=== PATIENT | male | born 1970 | race Caucasian/White ===

== ENCOUNTER → 2017-04-08 11:04 | Outpatient (CLI) | payer BC, SELFPAY ==
[2017-04-08 12:51] LABS: Absolute Neutrophil Count 5.2 X10^3/uL (2.0-7.7); Basophil# 0.03 X10^3/uL; Basophil% 0.3 % (0-1); Eosinophil# 0.31 X10^3/uL; Eosinophils% 3.6 % (0-5); Hematocrit 49.5 % (40-54); Hemoglobin 17.2 g/dl (13.0-16.5); Lymphocyte % 30.3 % (19-41); Mean Corp Hgb Conc 34.7 g/gl (32-36); Mean Corpuscular Hgb 29.5 pg (27.0-32.0); Mean Corpuscular Volume 84.9 fL (80-94); Mean Platelet Vol. 10.3 fl (6.2-12.0); Monocyte# 0.48 X10^3/uL; Monocyte% 5.6 % (0-10); Neutrophil # 5.15 X10^3/uL (2.7-7.7); Platelet Count 287 K/mm3 (150-450); RBC Distribution Width CV 14.3 % (11.6-14.6); RBC Distribution Width SD 43.9 fl (35.1-43.9); Red Blood Count 5.83 M/mm3 (4.6-6.2); White Blood Count 8.6 K/mm3 (4.4-11.0)
[2017-04-08 12:53] LABS: POSITIVE COUNT NO; POSITIVE DIFFERENTIAL NO; POSITIVE MORPHOLOGY NO
[2017-04-08 16:14] LABS: ALB/GLOB Ratio 0.9 RATIO (0.9-2.4); AST(SGOT) 39 U/L (15-37); Alanine Aminotransfer ALT/SGPT 71 U/L (16-61); Albumin, Serum 3.8 g/dL (3.2-5.0); Alkaline Phosphatase 93 U/L (45-117); Anion Gap 7 (5-15); BUN 16 mg/dL (7-18); BUN/Creat Ratio 14.2 RATIO (10-20); Calcium,Total 8.9 mg/dL (8.5-10.1); Chloride 105 mmol/L (98-107); Creatinine, Serum 1.13 mg/dL (0.70-1.30); EST Glomerular Filtration Rate 73 mL/min (>60); Est Glom Filt Rate - Afr Amer 89 mL/min (>60); Globulin 4.3 g/dL (2.2-4.2); Glucose 95 mg/dL (74-106); Potassium 3.8 mmol/L (3.5-5.1); Protein, Total 8.1 g/dL (6.4-8.2); Sodium Level 141 mmol/L (136-145); Thyroid Stim Hormone (TSH) 1.37 uIU/mL (0.358-3.74)
== END ==
PROVIDERS: Family Provider Family Medicine; PCP Family Medicine; Visit Provider Family Medicine
DX: I10 Essential (primary) hypertension (principal); K83.8 Other specified diseases of biliary tract; E66.01 Morbid (severe) obesity due to excess calories
CPT/HCPCS: 36415; 80053; 84443; 85025

== ENCOUNTER → 2017-04-10 20:13 | Outpatient (CLI) | payer BC, SELFPAY | LOC: SL 20:13 | PROVIDERS: Family Provider Family Medicine; PCP Family Medicine; Visit Provider Family Medicine | DX: G47.33 Obstructive sleep apnea (adult) (pediatric) (principal) | CPT/HCPCS: 95811 ==

== ENCOUNTER → 2017-07-09 15:54 | Outpatient (CLI) | payer BC, SELFPAY ==
[2017-07-09 17:42] LABS: Absolute Lymphocyte Count 2.89 X10^3/ul (0.83-4.51); Basophil# 0.06 X10^3/uL; Basophil% 0.5 % (0-1); Eosinophil# 0.32 X10^3/uL; Eosinophils% 2.9 % (0-5); Hematocrit 46.3 % (40-54); Hemoglobin 16.4 g/dl (13.0-16.5); Lymphocyte # 2.89 X10^3/ul (4.0); Lymphocyte % 26.3 % (19-41); Mean Corp Hgb Conc 35.4 g/gl (32-36); Mean Corpuscular Hgb 29.4 pg (27.0-32.0); Mean Platelet Vol. 10.6 fl (6.2-12.0); Monocyte# 0.71 X10^3/uL; Monocyte% 6.5 % (0-10); Neutrophil # 6.97 X10^3/uL (2.7-7.7); Neutrophil % 63.5 % (47-70); Platelet Count 280 K/mm3 (150-450); RBC Distribution Width CV 13.5 % (11.6-14.6); RBC Distribution Width SD 40.8 fl (35.1-43.9); Red Blood Count 5.58 M/mm3 (4.6-6.2)
[2017-07-09 17:45] LABS: ALB/GLOB Ratio 0.9 RATIO (0.9-2.4); AST(SGOT) 26 U/L (15-37); Alanine Aminotransfer ALT/SGPT 50 U/L (16-61); Albumin, Serum 3.8 g/dL (3.2-5.0); Alkaline Phosphatase 100 U/L (45-117); Anion Gap 9 (5-15); BUN 17 mg/dL (7-18); BUN/Creat Ratio 15.6 RATIO (10-20); Chloride 105 mmol/L (98-107); Creatinine, Serum 1.09 mg/dL (0.70-1.30); EST Glomerular Filtration Rate 76 mL/min (>60); Est Glom Filt Rate - Afr Amer 92 mL/min (>60); Globulin 4.1 g/dL (2.2-4.2); Glucose 84 mg/dL (74-106); Potassium 3.7 mmol/L (3.5-5.1); Protein, Total 7.9 g/dL (6.4-8.2); Sodium Level 141 mmol/L (136-145); Thyroid Stim Hormone (TSH) 1.52 uIU/mL (0.358-3.74)
[2017-07-09 18:25] LABS: POSITIVE COUNT NO; POSITIVE DIFFERENTIAL NO; POSITIVE MORPHOLOGY NO
== END ==
PROVIDERS: Visit Provider Family Medicine Geriatric Medicine
DX: Z00.00 Encounter for general adult medical examination without abnormal findings (principal)
CPT/HCPCS: 36415; 80053; 84443; 85025

== ENCOUNTER → 2018-01-18 16:25 | Outpatient (CLI) | payer BC, SELFPAY ==
[2018-01-18 14:10] VITALS: BMI 51.6
[2018-01-18 17:57] LABS: ALB/GLOB Ratio 0.9 RATIO (0.9-2.4); AST(SGOT) 27 U/L (15-37); Alanine Aminotransfer ALT/SGPT 48 U/L (16-61); Albumin, Serum 3.5 g/dL (3.2-5.0); Alkaline Phosphatase 79 U/L (45-117); Anion Gap 5 (5-15); BUN 15 mg/dL (7-18); BUN/Creat Ratio 14.4 RATIO (10-20); Calcium,Total 8.4 mg/dL (8.5-10.1); Chloride 108 mmol/L (98-107); Creatinine, Serum 1.04 mg/dL (0.70-1.30); EST Glomerular Filtration Rate 80 mL/min (>60); Est Glom Filt Rate - Afr Amer 97 mL/min (>60); Globulin 3.8 g/dL (2.2-4.2); Glucose 84 mg/dL (74-106); Potassium 3.7 mmol/L (3.5-5.1); Protein, Total 7.3 g/dL (6.4-8.2); Sodium Level 142 mmol/L (136-145); Thyroid Stim Hormone (TSH) 1.15 uIU/mL (0.358-3.74)
[2018-01-18 20:33] LABS: Absolute Lymphocyte Count 3.64 X10^3/ul (0.83-4.51); Absolute Neutrophil Count 7.4 X10^3/uL (2.0-7.7); Basophil# 0.06 X10^3/uL; Basophil% 0.5 % (0-1); Eosinophil# 0.34 X10^3/uL; Eosinophils% 2.8 % (0-5); Hematocrit 42.6 % (40-54); Lymphocyte # 3.64 X10^3/ul (4.0); Lymphocyte % 30.1 % (19-41); Mean Corp Hgb Conc 35.2 g/gl (32-36); Mean Corpuscular Hgb 30.4 pg (27.0-32.0); Mean Corpuscular Volume 86.4 fL (80-94); Mean Platelet Vol. 10.1 fl (6.2-12.0); Monocyte# 0.63 X10^3/uL; Monocyte% 5.2 % (0-10); Neutrophil # 7.39 X10^3/uL (2.7-7.7); Neutrophil % 61.2 % (47-70); Platelet Count 268 K/mm3 (150-450); RBC Distribution Width CV 13.7 % (11.6-14.6); Red Blood Count 4.93 M/mm3 (4.6-6.2); White Blood Count 12.1 K/mm3 (4.4-11.0)
[2018-01-18 20:35] LABS: POSITIVE COUNT NO; POSITIVE DIFFERENTIAL NO; POSITIVE MORPHOLOGY NO
== END ==
PROVIDERS: PCP Family Medicine Geriatric Medicine; Visit Provider Family Medicine Geriatric Medicine
DX: R53.83 Other fatigue (principal)
CPT/HCPCS: 36415; 80053; 84443; 85025

== ENCOUNTER → 2018-03-09 12:10 | Outpatient (CLI) | payer BC, SELFPAY ==
[2018-01-18 14:10] VITALS: BMI 51.6
== END ==
PROVIDERS: Family Provider Family Medicine Geriatric Medicine; PCP Family Medicine Geriatric Medicine; Referring Provider Family Medicine Geriatric Medicine; Visit Provider Family Medicine Geriatric Medicine
DX: R68.83 Chills (without fever) (principal)
CPT/HCPCS: 87633

== ENCOUNTER → 2018-06-04 17:40 | Outpatient (CLI) | payer BC, SELFPAY ==
[2018-01-18 14:10] VITALS: BMI 51.6
[2018-06-04 19:42] LABS: M R Staph aureus DNA By PCR Negative (Negative); Probe Check PASS; Specimen Processing Control PASS; Staph aureus DNA By PCR POSITIVE (Negative)
== END ==
PROVIDERS: Family Provider Family Medicine Geriatric Medicine; PCP Family Medicine Geriatric Medicine; Referring Provider Podiatrist; Visit Provider Podiatrist
DX: L02.91 Cutaneous abscess, unspecified (principal)
CPT/HCPCS: 87070; 87075; 87077; 87186; 87205; 87640

== ENCOUNTER → 2018-07-13 15:42 | Outpatient (CLI) | payer BC, SELFPAY ==
[2018-07-13 14:15] VITALS: BMI 51.3
[2018-07-13 16:56] LABS: Absolute Lymphocyte Count 3.84 X10^3/ul (0.83-4.51); Absolute Neutrophil Count 6.1 X10^3/uL (2.0-7.7); Basophil# 0.05 X10^3/uL; Basophil% 0.4 % (0-1); Eosinophil# 0.39 X10^3/uL; Eosinophils% 3.5 % (0-5); Hemoglobin 16.7 g/dl (13.0-16.5); Lymphocyte # 3.84 X10^3/ul (4.0); Lymphocyte % 34.4 % (19-41); Mean Corp Hgb Conc 35.5 g/gl (32-36); Mean Corpuscular Hgb 30.2 pg (27.0-32.0); Mean Platelet Vol. 10.2 fl (6.2-12.0); Monocyte# 0.74 X10^3/uL; Monocyte% 6.6 % (0-10); Neutrophil # 6.12 X10^3/uL (2.7-7.7); Neutrophil % 54.8 % (47-70); Platelet Count 287 K/mm3 (150-450); RBC Distribution Width CV 13.2 % (11.6-14.6); RBC Distribution Width SD 40.8 fl (35.1-43.9); Red Blood Count 5.53 M/mm3 (4.6-6.2); White Blood Count 11.2 K/mm3 (4.4-11.0)
[2018-07-13 17:07] LABS: ALB/GLOB Ratio 0.9 RATIO (0.9-2.4); AST(SGOT) 23 U/L (15-37); Alanine Aminotransfer ALT/SGPT 46 U/L (16-61); Albumin, Serum 3.9 g/dL (3.2-5.0); Alkaline Phosphatase 91 U/L (45-117); Anion Gap 3 (5-15); BUN 18 mg/dL (7-18); BUN/Creat Ratio 15.3 RATIO (10-20); Calcium,Total 9.2 mg/dL (8.5-10.1); Chloride 106 mmol/L (98-107); Creatinine, Serum 1.18 mg/dL (0.70-1.30); EST Glomerular Filtration Rate 69 mL/min (>60); Est Glom Filt Rate - Afr Amer 84 mL/min (>60); Globulin 4.3 g/dL (2.2-4.2); Glucose 83 mg/dL (74-106); Potassium 3.8 mmol/L (3.5-5.1); Protein, Total 8.2 g/dL (6.4-8.2); Sodium Level 139 mmol/L (136-145)
[2018-07-13 17:12] LABS: POSITIVE COUNT NO; POSITIVE DIFFERENTIAL NO; POSITIVE MORPHOLOGY NO
== END ==
PROVIDERS: Family Provider Family Medicine Geriatric Medicine; PCP Family Medicine Geriatric Medicine; Visit Provider Family Medicine Geriatric Medicine
DX: I10 Essential (primary) hypertension (principal)
CPT/HCPCS: 36415; 80053; 84443; 85025

== ENCOUNTER → 2019-01-11 | Outpatient (CLI) | payer BC, SELFPAY ==
[2018-07-13 14:15] VITALS: BMI 51.3
[2019-01-11 17:17] LABS: Absolute Lymphocyte Count 3.53 X10^3/uL (0.83-4.51); Absolute Neutrophil Count 6.6 X10^3/uL (2.0-7.7); Basophil# 0.09 X10^3/uL; Basophil% 0.8 % (0-1); Eosinophil# 0.34 X10^3/uL; Eosinophils% 3.1 % (0-5); Hematocrit 46.6 % (40-54); Hemoglobin 15.9 g/dL (13.0-16.5); Lymphocyte # 3.53 X10^3/ul (4.0); Lymphocyte % 31.7 % (19-41); Mean Corp Hgb Conc 34.1 g/dL (32-36); Mean Corpuscular Hgb 29.8 pg (27.0-32.0); Mean Corpuscular Volume 87.4 fL (80-94); Monocyte# 0.56 X10^3/uL; NRBC Flagged by Analyzer 0 % (0-5); Neutrophil # 6.58 X10^3/uL (2.7-7.7); Platelet Count 289 K/mm3 (150-450); RBC Distribution Width CV 12.8 % (11.6-14.6); RBC Distribution Width SD 40.4 fl (35.1-43.9); Red Blood Count 5.33 M/mm3 (4.6-6.2); White Blood Count 11.1 K/mm3 (4.4-11.0)
[2019-01-11 17:51] LABS: ALB/GLOB Ratio 0.9 RATIO (0.9-2.4); AST(SGOT) 25 U/L (15-37); Alanine Aminotransfer ALT/SGPT 46 U/L (16-61); Albumin, Serum 3.7 g/dL (3.2-5.0); Alkaline Phosphatase 77 U/L (45-117); Anion Gap 8 (5-15); BUN 17 mg/dL (7-18); BUN/Creat Ratio 15.9 RATIO (10-20); Calcium,Total 8.8 mg/dL (8.5-10.1); Chloride 107 mmol/L (98-107); Creatinine, Serum 1.07 mg/dL (0.70-1.30); EST Glomerular Filtration Rate 78 mL/min (>60); Est Glom Filt Rate - Afr Amer 94 mL/min (>60); Globulin 3.9 g/dL (2.2-4.2); Glucose 107 mg/dL (74-106); PSA,Total - Annual Screen 0.66 ng/mL (0.00-4.00); Potassium 3.6 mmol/L (3.5-5.1); Protein, Total 7.6 g/dL (6.4-8.2); Sodium Level 143 mmol/L (136-145); Thyroid Stim Hormone (TSH) 1.31 uIU/mL (0.358-3.74)
== END | disposition home or self-care (01) ==
LOC: POLAB3 16:10
PROVIDERS: Family Provider Family Medicine Geriatric Medicine; PCP Family Medicine Geriatric Medicine; Visit Provider Family Medicine Geriatric Medicine
DX: I10 Essential (primary) hypertension (principal)
CPT/HCPCS: 36415; 80053; 84153; 84443; 85025; G0103

== ENCOUNTER → 2019-03-18 16:01 | Outpatient (CLI) | payer BC, SELFPAY ==
[2019-01-12 08:34] VITALS: BMI 54.0
--- NOTE | 2019-03-18 16:06 | RAD_ITS ---
STUDY: X-RAY - LUMBAR SPINE REASON FOR EXAM: Male, 48 years old. low back pain, lumbar strain TECHNIQUE: 2 view(s) of the lumbar spine were obtained. COMPARISON: None FINDINGS: Normal lumbar lordosis. There is no substantial scoliosis. There is a normal alignment of the vertebrae. There is multilevel endplate spondylosis of the lower thoracic and lumbar vertebrae. There is disc space narrowing at L4-L5 more than L3-L4. Multilevel facet arthropathy noted. The soft tissue structures are unremarkable. RAD/Lumbar Spine 2 or 3 Views IMPRESSION: Degenerative disc disease and facet arthropathy. Electronically Signed: Toribio Hagen MD ([place]) at 20:58 EST , Service support ,
== END ==
LOC: MTLAB 16:04 → MTRAD 16:04
PROVIDERS: PCP Family Medicine Geriatric Medicine; Referring Provider Chiropractor Orthopedic; Visit Provider Chiropractor Orthopedic
DX: S39.012A Strain of muscle, fascia and tendon of lower back, initial encounter (principal)
CPT/HCPCS: 72100

== ENCOUNTER → 2019-12-21 | Outpatient (CLI) | payer OTHER, SELFPAY ==
[2019-01-12 08:34] VITALS: BMI 54.0
== END | disposition home or self-care (01) ==
LOC: LABSPEC 15:46
PROVIDERS: PCP Family Medicine; Referring Provider Family Medicine; Visit Provider Family Medicine
DX: Z20.828 Contact with and (suspected) exposure to other viral communicable diseases (principal)
CPT/HCPCS: 87635; U0003

== ENCOUNTER → 2020-05-05 07:23 | Outpatient (CLI) | payer OTHER, SELFPAY ==
[2020-01-11 13:46] VITALS: BMI 54.1
[2020-05-05 08:11] LABS: BNP,B-Type NATRIURETIC PEPTIDE 3.4 pg/mL (0-100)
[2020-05-05 08:23] LABS: AST(SGOT) 33 U/L (15-37); Alanine Aminotransfer ALT/SGPT 63 U/L (16-61); Albumin, Serum 3.8 g/dL (3.2-5.0); Alkaline Phosphatase 85 U/L (45-117); Anion Gap 3 (5-15); BUN 15 mg/dL (7-18); BUN/Creat Ratio 13.8 RATIO (10-20); Chloride 104 mmol/L (98-107); Cholesterol 216 mg/dL (200); Creatinine, Serum 1.09 mg/dL (0.70-1.30); EST Glomerular Filtration Rate 76 mL/min (>60); Est Glom Filt Rate - Afr Amer 91 mL/min (>60); Glucose 97 mg/dL (74-106); High Density Lipoprotein 33 mg/dL; Potassium 3.9 mmol/L (3.5-5.1); Protein, Total 7.8 g/dL (6.4-8.2); Sodium Level 139 mmol/L (136-145); Triglycerides 195 mg/dL; Very Low Density Lipoprotein 39 mg/dL (5-40)
== END ==
PROVIDERS: PCP Family Medicine; Referring Provider Family Medicine; Visit Provider Family Medicine
DX: E78.5 Hyperlipidemia, unspecified (principal); R60.0 Localized edema
CPT/HCPCS: 36415; 80053; 80061; 83880

== ENCOUNTER 2020-07-02 08:36 | Day surgery (SDC) | payer OTHER, SELFPAY ==
[2020-01-11 13:46] VITALS: BMI 54.1
[2020-07-02 08:56] VITALS: BP 164/93; PULSE 72; RESP 16; TEMP 36.4; O2SAT 94; BMI 55.5
--- NOTE | 2020-07-02 09:00 | RAD_ITS ---
STUDY: X-RAY - PELVIS AND LEFT HIP REASON FOR EXAM: Fluoroscopic guided intra-articular steroid injection. TECHNIQUE: 2 fluoroscopic images of the pelvis and hip. COMPARISON: None. FINDINGS: There is a needle overlying the left femoral head with intra-articular contrast. 19 seconds of fluoroscopy time was used. Electronically Signed: Eder Pinedo MD at 11:34 EDT Tel , Service support , RAD/Fluoro Guided Needle Placement
--- NOTE | 2020-07-02 09:46 | PCM.OPRPT ---
Report of Operation Date of Procedure: 07/02/20 Pre-Operative Diagnosis: Osteoarthritis of the left hip Post-Operative Diagnosis: Osteoarthritis of the left hip Surgery/Procedure Performed:: Left hip intra-articular steroid injection under fluoroscopic guidance Description of Surgical Findings:: DESCRIPTION OF PROCEDURE: History and physical of today was reviewed. Risks and benefits of the procedure were explained. The patient understood and agreed to proceed. Informed consent was obtained. IV inserted per routine protocol. The patient was taken to the operating room and placed in the supine position. The left hip area was prepped and draped in a sterile fashion using iodine x3. Under fluoroscopy guidance on AP view, the left hip joint was visualized. The skin and subcutaneous tissue was anesthetized with approximately 3 mL of 1% lidocaine using a 25-gauge regular needle approximately 3 cm cephalad to the left greater trochanter. Under direct visualization with fluoroscopy on an AP view, using a 22-gauge 5-inch spinal needle, the needle was advanced via the skin using the lateral approach. The tip of the needle was maneuvered and directed towards the superiormost aspect of the hip joint. Once the tip of the needle was at the vicinity of the joint, after negative aspiration for blood and positive aspiration of synovial fluid, a total of 1 mL of contrast was injected to confirm correct placement of the needle as well as halo spread around the hip joint. After repeated negative aspiration for blood and confirmation on AP as well as oblique view, a total of 10 mL of preservative-free 0.25% Marcaine with 80 mg of Depo-Medrol was injected easily. The needle was then removed intact. The patient experienced no sign or symptoms of intrathecal or intravascular injection. The patient experienced no paresthesia. The procedure was completed without any apparent difficulty or any complications. The patient appeared to tolerate it well. ASSESSMENT AND PLAN: This is a 50-year-old male with osteoarthritis of the left hip, status post left hip intra-articular steroid injection under fluoroscopic guidance, patient will continue his current medications, patient will follow in approximately 2 weeks for reevaluation. Type of Anesthesia: MAC Estimated Blood Loss (mL): minimal Complications None
[2020-07-02] MEDS: Lidocaine 1% (5 ml sdv) 5 ML Vial (09:58)
[2020-07-02] MEDS: Bupivacaine 0.25% 30 ML Vial (09:59)
[2020-07-02] MEDS: MethylPREDNISolone Acetate 80 MG/ML Vial (09:59)
[2020-07-02 10:07] VITALS: BP 122/68; BP 164/93; PULSE 74; RESP 17; TEMP 36.3; O2SAT 95
[2020-07-02 10:10] VITALS: BP 121/74; BP 164/93; PULSE 72; RESP 16; O2SAT 94
[2020-07-02 10:15] VITALS: BP 140/90; BP 164/93; PULSE 65; RESP 17; O2SAT 95
[2020-07-02 10:21] VITALS: BP 151/86; BP 164/93; PULSE 73; RESP 17; TEMP 36.1; O2SAT 93
[2020-07-02] MEDS: Lactated Ringers 1,000 ML 100 ML IV (10:21)
[2020-07-02 10:37] VITALS: BP 164/93
== END 2020-07-02 10:39 | disposition home or self-care (01) ==
LOC: SDC 08:38 → AC 08:42
PROVIDERS: PCP Family Medicine; Referring Provider Anesthesiology Pain Medicine; Visit Provider Anesthesiology Pain Medicine
PROC: 3E0U3GC Introduction of Other Therapeutic Substance into Joints, Percutaneous Approach (ICD-10-PCS; CPT 20610; principal; 2020-07-02 09:55)
DX: M16.12 Unilateral primary osteoarthritis, left hip (principal); I10 Essential (primary) hypertension; J45.909 Unspecified asthma, uncomplicated; K21.9 Gastro-esophageal reflux disease without esophagitis; E66.01 Morbid (severe) obesity due to excess calories; Z68.43 Body mass index [BMI] 50.0-59.9, adult; F17.210 Nicotine dependence, cigarettes, uncomplicated; Z79.51 Long term (current) use of inhaled steroids; Z79.899 Other long term (current) drug therapy
CPT/HCPCS: 20610; 76000; 77002; J7120

== ENCOUNTER → 2021-02-04 16:42 | Outpatient (CLI) | payer OTHER, SELFPAY ==
[2021-02-04 18:13] LABS: AST(SGOT) 26 U/L (15-37); Alanine Aminotransfer ALT/SGPT 87 U/L (16-61); Alkaline Phosphatase 88 U/L (45-117); Anion Gap 9 (5-15); BUN 16 mg/dL (7-18); BUN/Creat Ratio 16.3 RATIO (10-20); Calcium,Total 9.3 mg/dL (8.5-10.1); Chloride 101 mmol/L (98-107); Cholesterol 143 mg/dL (200); Creatinine, Serum 0.98 mg/dL (0.70-1.30); EST Glomerular Filtration Rate 85 mL/min (>60); Est Glom Filt Rate - Afr Amer 103 mL/min (>60); Glucose 89 mg/dL (74-106); High Density Lipoprotein 34 mg/dL; Potassium 3.5 mmol/L (3.5-5.1); Sodium Level 138 mmol/L (136-145); Triglycerides 143 mg/dL; Very Low Density Lipoprotein 29 mg/dL (5-40)
== END ==
PROVIDERS: PCP Nurse Practitioner Family; Referring Provider Nurse Practitioner Family; Visit Provider Nurse Practitioner Family
DX: E78.5 Hyperlipidemia, unspecified (principal)
CPT/HCPCS: 36415; 80053; 80061

== ENCOUNTER → 2021-08-20 | Outpatient (CLI) | payer OTHER, SELFPAY ==
[2021-08-20 17:57] LABS: Absolute Lymphocyte Count 3.17 X10^3/uL (0.83-4.51); Absolute Neutrophil Count 7.6 X10^3/uL (2.0-7.7); Basophil# 0.08 X10^3/uL; Basophil% 0.7 % (0-1); Eosinophil# 0.22 X10^3/uL; Eosinophils% 1.9 % (0-5); Hemoglobin 16.7 g/dL (13.0-16.5); Lymphocyte # 3.17 X10^3/ul (0.83-4.51); Mean Corp Hgb Conc 34.8 g/dL (32-36); Mean Corpuscular Hgb 29.9 pg (27.0-32.0); Mean Corpuscular Volume 85.9 fL (80-94); Mean Platelet Vol. 9.9 fl (6.2-12.0); Monocyte# 0.59 X10^3/uL; NRBC Flagged by Analyzer 0 % (0-5); Neutrophil # 7.63 X10^3/uL (2.7-7.7); Neutrophil % 65.1 % (47-70); Platelet Count 270 K/mm3 (150-450); RBC Distribution Width CV 13.4 % (11.6-14.6); RBC Distribution Width SD 41.9 fl (35.1-43.9); Red Blood Count 5.59 M/mm3 (4.6-6.2); White Blood Count 11.7 K/mm3 (4.4-11.0)
[2021-08-20 18:33] LABS: AST(SGOT) 25 U/L (15-37); Alanine Aminotransfer ALT/SGPT 61 U/L (16-61); Albumin, Serum 3.8 g/dL (3.2-5.0); Alkaline Phosphatase 70 U/L (45-117); Anion Gap 8 (5-15); BUN 15 mg/dL (7-18); BUN/Creat Ratio 15.2 RATIO (10-20); Calcium,Total 9.4 mg/dL (8.5-10.1); Chloride 107 mmol/L (98-107); Cholesterol 120 mg/dL (200); Creatinine, Serum 0.99 mg/dL (0.70-1.30); EST Glomerular Filtration Rate 84 mL/min (>60); Est Glom Filt Rate - Afr Amer 102 mL/min (>60); Globulin 3.8 g/dL (2.2-4.2); Glucose 91 mg/dL (74-106); High Density Lipoprotein 30 mg/dL; Potassium 3.5 mmol/L (3.5-5.1); Protein, Total 7.6 g/dL (6.4-8.2); Sodium Level 140 mmol/L (136-145); T4 Free Direct 1.21 ng/dL (0.76-1.46); Thyroid Stim Hormone (TSH) 1.39 uIU/mL (0.358-3.74); Triglycerides 158 mg/dL; Very Low Density Lipoprotein 32 mg/dL (5-40)
[2021-08-21 08:05] LABS: Hepatitis B Surface Antibody Non-Reactive; Hepatitis B Surface Antigen Non-Reactive (Nonreactive); Hepatitis C Antibody Non-Reactive (Nonreactive)
[2021-08-22 11:05] LABS: Thyroid Peroxidase AB 11 IU/mL (0-34)
== END | disposition home or self-care (01) ==
LOC: MFPLAB 17:08
PROVIDERS: PCP Family Medicine; Referring Provider Family Medicine; Visit Provider Family Medicine
DX: E78.5 Hyperlipidemia, unspecified (principal); F17.200 Nicotine dependence, unspecified, uncomplicated; R79.89 Other specified abnormal findings of blood chemistry; E04.1 Nontoxic single thyroid nodule
CPT/HCPCS: 36415; 80053; 80061; 84439; 84443; 85025; 86376; 86706; 86803; 87340

== ENCOUNTER → 2021-09-04 | Outpatient (CLI) | payer OTHER, SELFPAY ==
--- NOTE | 2021-09-04 11:16 | US_ITS ---
STUDY: THYROID ULTRASOUND REASON FOR EXAM: Male, 51 years old. Thyroid nodule. TECHNIQUE: Ultrasound evaluation of the thyroid was performed with real-time and static patel-scale imaging. COMPARISON: None. FINDINGS: RIGHT LOBE: The right lobe of the thyroid gland is enlarged and measures 5.6 cm x 2 cm x 2.1 cm. There is a homogeneous echotexture. There is a 1.2 cm x 1.2 cm x 1.3 cm hypoechoic solid nodule in the midpole of the right lobe. There is evidence of increased pericardial nodular and intralobular nodular vascularity. LEFT LOBE: The left lobe of the thyroid gland is enlarged and measures 5.5 cm x 2.2 cm x 2 cm. There is a homogeneous echotexture. There is a 1.3 cm x 1.4 cm x 1.1 cm solid/cystic nodule in the lower pole. There is increased perihilar nodular and intralobular nodular vascularity. ISTHMUS: The isthmus is enlarged and measures 6 mm. The regional lymph nodes are normal. US/Thyroid IMPRESSION: Thyromegaly. Dominant nodules in both lobes of the thyroid gland as described. Correlation with nuclear medicine thyroid uptake and scan recommended. Electronically Signed: Simba Salinas MD at 14:29 EDT ,
== END | disposition home or self-care (01) ==
PROVIDERS: PCP Family Medicine; Referring Provider Family Medicine; Visit Provider Family Medicine
DX: E04.1 Nontoxic single thyroid nodule (principal)
CPT/HCPCS: 76536

== ENCOUNTER 2021-09-24 09:25 | Day surgery (SDC) | payer OTHER, SELFPAY ==
[2021-09-24] VITALS (11 sets, daily range): BP systolic 112–137; BP diastolic 70–90; PULSE 55–76; RESP 16–18; TEMP 36.4–37; O2SAT 90–97; BMI 48.6
--- NOTE | 2021-09-24 09:44 | EKG12_ITS ---
Test Reason : PRE-OP Blood Pressure : / mmHG Vent. Rate : 056 BPM Atrial Rate : 056 BPM P-R Int : 202 ms QRS Dur : 116 ms QT Int : 424 ms P-R-T Axes : 030 023 042 degrees QTc Int : 409 ms Sinus bradycardia Otherwise normal ECG When compared with ECG of 31-OCT-2016 19:30, No significant change was found Confirmed by ESSENCE AMAYA, DEAN ([id number]), offline editor FILI CAIN ([id number]) on 09/30/2021 11:17:04 AM Referred By: Khari Iniguez Confirmed By:ISRAEL LOWRY MD
[2021-09-24] MEDS: Lactated Ringers 1,000 ML 15 ML IV (10:01)
--- NOTE | 2021-09-24 11:14 | DCINST_ITS ---
Discharge Instructions Diet Discharge Diet: No restrictions Activity Discharge Activity: Return to Normal Activity Dressing / Incision Call your doctor if your incision/area has: Increased Pain/ Swelling Follow Up Care Please Follow Up With: Khari Iniguez MD When: 1 week Test Results: Test results from this visit will be discussed in further detail at your follow- up appointment, if applicable. Discharge Plan Admission Attending Provider: Khari Iniguez Primary Care Provider: Travis Duval Discharge Orders/Prescriptions Prescriptions: No Action metoprolol tartrate 50 mg tablet 50 mg PO BID omeprazole 20 mg capsule,delayed release(DR/EC) 20 mg PO DAILY gabapentin 100 mg capsule 300 mg PO TID Rx Instructions: 200 mg in the morning and 100 mg in the afternoon and 200 mg in the evening atorvastatin 40 mg tablet 40 mg PO gabapentin 300 mg capsule 300 mg PO amlodipine 10 MG tablet 10 mg PO DAILY atorvastatin 20 mg Tablet 20 mg PO QHS lisinopril-hydrochlorothiazide 20-12.5 mg tablet 1 tab PO BID Label Comments: TAKE 1 TABLET TWICE DAILY diclofenac sodium 75 mg tablet,delayed release (DR/EC) 1 tab PO BID Label Comments: TAKE 1 TABLET BY MOUTH TWICE DAILY WITH FOOD Referrals / Follow Up: Travis Duval MD [Primary Care Provider] - Disposition Disposition (needs filled in before D/C Order can be placed): Home, Self Care
--- NOTE | 2021-09-24 11:14 | PCM.OPRPT ---
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 he was placed under general endotracheal anesthesia by the anesthesiologist. the endotracheal tube was secured, the eyes were taped. the table was rotated 90 degrees toward the surgeon. attempts at getting a direct view were incredibly difficult given his anatomy and obesity. a dedo laryngoscope was used and partial views of the mass were seen, but not well. given the difficulty in laryngoscopy, the glide scope was used. 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 given his airway, pulmonary status and obesity, it was deemed necessary to abort the biopsy to avoid endotracheal tube dislodgement or further complications. he was awoken from anesthesia and transferred to the PACU in stable condition.
[2021-09-24] MEDS: Oxymetazoline 0.05% 1 SPRAY SPRAY.BTL 15 SPRAY (11:42)
[2021-09-24] MEDS: Ipratropium/Albuterol Sulfate 3 ML AMPUL.NEB INHALATION (12:27)
[2021-09-24] MEDS: Glycerin/Hypromellose/PEG400 15 ml Bottle 1 DRP EACH EYE (12:35)
== END 2021-09-24 14:05 | disposition home or self-care (01) ==
LOC: SDC 09:28 → AC 09:29
PROVIDERS: PCP Family Medicine; Referring Provider Otolaryngology; Visit Provider Otolaryngology
PROC: 0CJS8ZZ Inspection of Larynx, Via Natural or Artificial Opening Endoscopic (ICD-10-PCS; CPT 31575; principal; 2021-09-24 10:55)
DX: J38.7 Other diseases of larynx (principal); E66.01 Morbid (severe) obesity due to excess calories; Z68.42 Body mass index [BMI] 45.0-49.9, adult; Z53.09 Procedure and treatment not carried out because of other contraindication; I10 Essential (primary) hypertension; K21.9 Gastro-esophageal reflux disease without esophagitis; E78.00 Pure hypercholesterolemia, unspecified; E04.1 Nontoxic single thyroid nodule; G47.33 Obstructive sleep apnea (adult) (pediatric); F17.210 Nicotine dependence, cigarettes, uncomplicated; Z79.899 Other long term (current) drug therapy
CPT/HCPCS: 31525; 00320; 93005; 94640; J7120; J2405

== ENCOUNTER → 2021-11-05 | Outpatient (CLI) | payer OTHER, SELFPAY | END | disposition home or self-care (01) | LOC: PSN 14:18 | PROVIDERS: PCP Family Medicine; Referring Provider Otolaryngology; Visit Provider Otolaryngology | DX: Z01.818 Encounter for other preprocedural examination (principal); J38.3 Other diseases of vocal cords; Z20.822 Contact with and (suspected) exposure to COVID-19 | CPT/HCPCS: 87426; C9803 ==

== ENCOUNTER 2021-12-16 16:00 | Outpatient (RCR) | payer OTHER, SELFPAY ==
--- NOTE | 2021-12-16 17:33 | HP.PTDCSUM_ITS ---
It has been my pleasure to treat IVAN GODINEZ referred by Dr. Will Wilson MD, with the diagnosis of L hip OA for a total of 3 visit(s). Discharge Date: Please see the following information for a summary of their discharge status. Subjective: I have only gotten worse by performing the aquatic therapy program L hip Pain Intensity (Out of 10): 8 Objective/Function: Pt has made no progress at this time. Pt is I with AT [facility], but reports the ex's still make his pain worse. Pt notes he is to see the tomorrow for a surgical consult. 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 RTD. If there are questions or concerns regarding this patient's physical therapy, please feel free to call me at [phone]. Thank you for the referral of this patient. Sincerely, Boogie Aguiar, PT, ATC Balance/Gait/Functional tests - Balance/Special Test Scores Lower Extremity Functional Score: 10
--- NOTE | 2021-12-16 17:33 | HP.PTEVAL ---
Patient's Visit Information IAVN GODINEZ is a 51 year old M referred to Physical Therapy by Dr. Will Wilson MD with a diagnosis of L hip OA. Date of Evaluation: 11/14/21 Physical Therapist: Boogie Aguiar, PT, ATC - Visit Plan Frequency: 1x/Week Duration: 2 Weeks Plan: Discontinue at this time. RTD. - Subjective Pt reports he has had chronic L hip pain for several years. Pt notes he has had x-rays which revealed he is bone on bone, but reports he has been told he has to lose weight in order to have the surgery. Pt reports he has visited 5 different surgeons which have all said the same thing. Pt reports he once weighed 450 pounds, and is now down to 350 pounds. Pt reports he has severe pain in his L hip that occurs when he is standing, and when he is ambulating. 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 Pt reports significant sleep difficulty at this time secondary to pain. Pt is able to sleep 1-2 hours until pain awakens him. Pt reports his goal is to get stronger and lose weight so he can have the surgery. Pt notes L hip pops on him and occasionally gives out. Pt denies any falls at this time. Pt reports his pain is constant, but the intensity varies. Pt reports L hip pain is 6/10 at rest, but elevates to 10/10 at worst - Pain L hip Pain Intensity (Out of 10): 8 Pain Intensity Range: 10 - Objective Neuro: B LE sensation is WNL to light touch. B patellar reflex 1/3. ROM: R hip flex= 90, ext= 10. L hip flex= 10, ext= 10 degrees. MMT: L hip flexion and abduction are 3+/5. All other B LE measurements are 5/5 throughout. Gait: Pt is able to ambulate 440 feet until needing to rest secondary to pain. special tests: Pos quadrant test and TOM tests this date. - Balance/Special Test Scores Lower Extremity Functional Score: 10 - Goals Goal 1:: I with an aquatic therapy program after one PT visit Goal Time Frame: 1 Week Goal 2:: Decrease L hip pain x 50% to aid with sleep Goal Time Frame: 4-6 Weeks Goal 3:: Increase L hip strength x 1 grade to aid with increasing ease of climbing in and out of work truck Goal Time Frame: 4-6 Weeks Goal 4:: Increase L hip flexion ROM x 30 degrees to aid with IADL's Goal Time Frame: 4-6 Weeks - Rehabilitation Potential Physical Therapy Diagnosis: Pt has L hip pain, weakness, and limited flexion ROM secondary to L hip OA Rehabilitation Potential: Good - Anticipated Interventions Patient/Client Instruction: Educate patient on: Condition, Plan of Care For the Purpose of:: To improve self management Therapeutic Exercise to Include: Strength training, Flexibilty training, In an aquatic setting, Dynamic Lumbar Stabilization For the Purpose of:: To decrease pain, To increase ROM, To improve muscle performance and motor function Thank you for the opportunity to evaluate your patient. For Medicare and Medicare HMO plans, please review the plan of care and approve it. It will need to be FAXED BACK to us at [phone] for Medicare purposes. For Medicare only, by signing this I certify the plan of care. Please let me know if there are questions or concerns regarding this plan of care. Physician Signature: Date:
== END 2021-12-16 19:00 | disposition home or self-care (01) ==
LOC: PT 16:00
PROVIDERS: PCP Family Medicine; Referring Provider Specialist; Visit Provider Specialist
DX: M16.12 Unilateral primary osteoarthritis, left hip (principal); E66.01 Morbid (severe) obesity due to excess calories; Z68.42 Body mass index [BMI] 45.0-49.9, adult
CPT/HCPCS: 97113; 97161; 97164

== ENCOUNTER → 2021-12-18 | Outpatient (CLI) | payer OTHER, SELFPAY ==
[2021-12-18 17:43] LABS: Absolute Lymphocyte Count 3.82 X10^3/uL (0.83-4.51); Absolute Neutrophil Count 8.2 X10^3/uL (2.0-7.7); Basophil# 0.09 X10^3/uL; Basophil% 0.7 % (0-1); Eosinophil# 0.27 X10^3/uL; Eosinophils% 2.1 % (0-5); Hemoglobin 17.2 g/dL (13.0-16.5); Lymphocyte # 3.82 X10^3/ul (0.83-4.51); Lymphocyte % 29.3 % (19-41); Mean Corp Hgb Conc 34.4 g/dL (32-36); Mean Corpuscular Hgb 30.4 pg (27.0-32.0); Mean Corpuscular Volume 88.3 fL (80-94); Mean Platelet Vol. 9.9 fl (6.2-12.0); Monocyte# 0.59 X10^3/uL; Monocyte% 4.5 % (0-10); NRBC Flagged by Analyzer 0 % (0-5); Neutrophil # 8.23 X10^3/uL (2.7-7.7); Platelet Count 289 K/mm3 (150-450); RBC Distribution Width CV 13.2 % (11.6-14.6); RBC Distribution Width SD 42.3 fl (35.1-43.9); Red Blood Count 5.66 M/mm3 (4.6-6.2); White Blood Count 13.1 K/mm3 (4.4-11.0)
[2021-12-18 18:21] LABS: Anion Gap 9 (5-15); BUN 15 mg/dL (7-18); Calcium,Total 9.7 mg/dL (8.5-10.1); Chloride 104 mmol/L (98-107); EST Glomerular Filtration Rate 83 mL/min (>60); Est Glom Filt Rate - Afr Amer 100 mL/min (>60); Glucose 73 mg/dL (74-106); Potassium 3.9 mmol/L (3.5-5.1); Sodium Level 140 mmol/L (136-145)
== END | disposition home or self-care (01) ==
PROVIDERS: PCP Family Medicine; Referring Provider Family Medicine; Visit Provider Specialist
DX: M16.12 Unilateral primary osteoarthritis, left hip (principal); I10 Essential (primary) hypertension; Z71.3 Dietary counseling and surveillance
CPT/HCPCS: 36415; 80048; 82040; 85025

== ENCOUNTER → 2022-01-30 | Outpatient (CLI) | payer OTHER, SELFPAY ==
[2022-01-30 18:01] LABS: Absolute Neutrophil Count 6.1 X10^3/uL (2.0-7.7); Basophil# 0.08 X10^3/uL; Basophil% 0.7 % (0-1); Eosinophils% 2.8 % (0-5); Hematocrit 49.6 % (40-54); Hemoglobin 17.3 g/dL (13.0-16.5); Mean Corp Hgb Conc 34.9 g/dL (32-36); Mean Corpuscular Hgb 30.6 pg (27.0-32.0); Mean Corpuscular Volume 87.8 fL (80-94); Mean Platelet Vol. 10.1 fl (6.2-12.0); Monocyte# 0.54 X10^3/uL; NRBC Flagged by Analyzer 0 % (0-5); Neutrophil % 56.2 % (47-70); Platelet Count 306 K/mm3 (150-450); RBC Distribution Width CV 13.4 % (11.6-14.6); Red Blood Count 5.65 M/mm3 (4.6-6.2); White Blood Count 10.9 K/mm3 (4.4-11.0)
[2022-01-30 19:18] LABS: ALB/GLOB Ratio 1.2 RATIO (0.9-2.4); AST(SGOT) 21 U/L (15-37); Alanine Aminotransfer ALT/SGPT 52 U/L (16-61); Albumin, Serum 4.2 g/dL (3.2-5.0); Alkaline Phosphatase 84 U/L (45-117); Anion Gap 9 (5-15); BUN 14 mg/dL (7-18); BUN/Creat Ratio 14.2 RATIO (10-20); Calcium,Total 9.6 mg/dL (8.5-10.1); Chloride 104 mmol/L (98-107); Cholesterol 206 mg/dL (200); Creatinine, Serum 0.99 mg/dL (0.70-1.30); EST Glomerular Filtration Rate 84 mL/min (>60); Est Glom Filt Rate - Afr Amer 102 mL/min (>60); Globulin 3.6 g/dL (2.2-4.2); Glucose 77 mg/dL (74-106); High Density Lipoprotein 31 mg/dL; Potassium 3.9 mmol/L (3.5-5.1); Protein, Total 7.8 g/dL (6.4-8.2); Sodium Level 139 mmol/L (136-145); Thyroid Stim Hormone (TSH) 1.01 uIU/mL (0.358-3.74); Triglycerides 176 mg/dL; Very Low Density Lipoprotein 35 mg/dL (5-40)
== END | disposition home or self-care (01) ==
LOC: MFPLAB 15:53
PROVIDERS: PCP Family Medicine; Referring Provider Family Medicine; Visit Provider Family Medicine
DX: E78.5 Hyperlipidemia, unspecified (principal); I10 Essential (primary) hypertension
CPT/HCPCS: 36415; 80053; 80061; 84443; 85025

== ENCOUNTER → 2022-02-06 | Outpatient (CLI) | payer OTHER, SELFPAY ==
--- NOTE | 2022-02-06 08:46 | EKG12_ITS ---
Test Reason : PRE OP Blood Pressure : / mmHG Vent. Rate : 063 BPM Atrial Rate : 063 BPM P-R Int : 214 ms QRS Dur : 114 ms QT Int : 414 ms P-R-T Axes : 031 010 030 degrees QTc Int : 423 ms Sinus rhythm with 1st degree A-V block Otherwise normal ECG Confirmed by ESSENCE AMAYA, DEAN ([id number]), film or videotape editor FILI CAIN ([id number]) on 02/06/2022 2:08:23 PM Referred By: Travis Duval Confirmed By:ISRAEL LOWRY MD
--- NOTE | 2022-02-06 15:39 | STRESSREP_ITS ---
Stress Test Report Date: 02/06/2022 Procedure: Pharmacologic stress nuclear imaging study Indications: [Preoperative evaluation] Consent: Per the patient Procedure: The patient underwent pharmacologic (Regadenoson) evaluation with a peak heart rate of 88 beats per minute (52%predicted maximal heart rate) and a peak blood pressure of 136/80 mmHg. The baseline ECG demonstrated normal sinus rhythm. EKG during lexiscan infusion revealed no significant ischemic changes. EKG post infusion revealed no significant ischemic changes [There were no cardiac dysrhythmias pretest, during pharmacologic infusion, or recovery]. [There was no complaint of chest discomfort during pharmacologic infusion or recovery]. The examination was discontinued secondary to completion of protocol. Impression: 1. Lexiscan stress test test is negative for Lexiscan infusion induced EKG changes of ischemia. 2. Lexiscan stress test test is negative for Lexiscan infusion induced chest pain. 3. Results of the nuclear portion of the test is as below Myocardial perfusion imaging study: Technique: The patient was injected with 14.7 millicuries of technetium 99m Cardiolite and subsequently rest SPECT Cardiolite nuclear imaging was obtained in the horizontal long, vertical long, and short axis views. The patient underwent pharmacologic [Regadenoson 0.4mg] evaluation. Please see above for details. The patient was injected with 44.4 millicuries of technetium 99m Cardiolite and subsequently stress SPECT Cardiolite nuclear imaging was obtained in the horizontal long, vertical long, and short axis views. A gated Cardiolite study at peak stress was obtained. Interpretation: Rest and stress SPECT Cardiolite nuclear imaging status post realignment, normalization, and attenuation correction demonstrate overall no evidence of significant ischemia or infarction. Gated images reveal no significant regional wall motion abnormalities. The reported LVEF is 60%. Impression: 1. There is no evidence of significant ischemia or infarction. 2. Estimated ejection fraction is 60%. This note was generated with [employer] software. It may contain incorrect words, spelling, and punctuation that were not noted in checking the note before signing.
== END | disposition home or self-care (01) ==
LOC: CVS 06:28
PROVIDERS: PCP Family Medicine; Referring Provider Family Medicine; Visit Provider Family Medicine
DX: Z01.818 Encounter for other preprocedural examination (principal); R94.31 Abnormal electrocardiogram [ECG] [EKG]
CPT/HCPCS: 78452; 93005; 93017; A9500; A4216; J2785

== ENCOUNTER 2022-05-27 12:24 | Emergency (ER) | payer OTHER, SELFPAY ==
[2022-05-27] VITALS (7 sets, daily range): BP systolic 111–139; BP diastolic 65–86; PULSE 51–62; RESP 12–31; TEMP 36.6; O2SAT 93–98; BMI 48.0
--- NOTE | 2022-05-27 12:34 | RAD_ITS ---
STUDY: X-RAY CHEST REASON FOR EXAM: Male, 52 years old. Chest pain and chest tightening. TECHNIQUE: Single AP portable view of the chest. COMPARISON: Comparison is made with prior study dated October 31, 2016. FINDINGS: EKG electrodes are seen. The lungs are clear and expanded. There is no demonstrated pleural abnormality. There is borderline cardiomegaly. Normal mediastinum and vito. There is prominence of the pulmonary hilar arteries without peripheral pulmonary vascular congestion, suggesting pulmonary hypertension. Normal visualized aortic arch and descending thoracic aorta. Normal visualized thoracic spine. Normal visualized ribs, clavicles, and shoulders. There is no demonstrated abnormality of the visualized soft tissue structures of the upper abdomen. RAD/Chest 1 View (Portable) IMPRESSION: Enlarged central pulmonary arteries. Borderline cardiomegaly. Electronically Signed: Simba Salinas MD at 13:22 EDT ,
--- NOTE | 2022-05-27 12:34 | EKG12_ITS ---
Test Reason : CP Blood Pressure : / mmHG Vent. Rate : 060 BPM Atrial Rate : 060 BPM P-R Int : 202 ms QRS Dur : 108 ms QT Int : 410 ms P-R-T Axes : 047 026 052 degrees QTc Int : 410 ms Normal sinus rhythm Normal ECG Confirmed by ESSENCE AMAYA, DEAN ([id number]), newspaper managing editor STEFAN AKERS ([id number]) on 06/02/2022 6:53:52 AM Referred By: AR Confirmed By:ISRAEL LOWRY MD
[2022-05-27 12:57] LABS: Absolute Lymphocyte Count 3.31 X10^3/uL (0.83-4.51); Absolute Neutrophil Count 5.7 X10^3/uL (2.0-7.7); Basophil# 0.08 X10^3/uL; Basophil% 0.8 % (0-1); Eosinophil# 0.24 X10^3/uL; Eosinophils% 2.4 % (0-5); Hematocrit 47.4 % (40-54); Hemoglobin 16.6 g/dL (13.0-16.5); Lymphocyte # 3.31 X10^3/ul (0.83-4.51); Lymphocyte % 33.7 % (19-41); Mean Corpuscular Hgb 29.9 pg (27.0-32.0); Mean Corpuscular Volume 85.4 fL (80-94); Mean Platelet Vol. 9.6 fl (6.2-12.0); Monocyte# 0.48 X10^3/uL; Monocyte% 4.9 % (0-10); NRBC Flagged by Analyzer 0 % (0-5); Platelet Count 282 K/mm3 (150-450); RBC Distribution Width CV 12.8 % (11.6-14.6); RBC Distribution Width SD 39.8 fl (35.1-43.9); Red Blood Count 5.55 M/mm3 (4.6-6.2); White Blood Count 9.8 K/mm3 (4.4-11.0)
[2022-05-27 13:02] LABS: Anion Gap 4 (5-15); BUN 18 mg/dL (7-18); BUN/Creat Ratio 17.3 RATIO (10-20); Calcium,Total 9.4 mg/dL (8.5-10.1); Chloride 105 mmol/L (98-107); Creatinine, Serum 1.04 mg/dL (0.70-1.30); EST Glomerular Filtration Rate 79 mL/min (>60); Est Glom Filt Rate - Afr Amer 96 mL/min (>60); Estimated Creatinine Clearance 94.41 ml/min; Glucose 99 mg/dL (74-106); Potassium 3.5 mmol/L (3.5-5.1); Sodium Level 138 mmol/L (136-145); Troponin-I HS 8 pg/mL (3.0-78.0)
--- NOTE | 2022-05-27 13:02 | EDS_ITS ---
HPI History of Present Illness Chief Complaint: Chest Pain Narrative Narrative: 52-year-old male past medical history of being a smoker, hypertension, morbid obesity presents with left arm numbness and tingling that he has had for the last 2 to 3 weeks. Its very intermittent and will last a few minutes. In the middle of the night, he started having chest pressure and numbness and tingling of his chest. His states that he was diaphoretic while he was on his CPAP. He denies any leg swelling. No fevers or chills. No nausea or vomiting or shortness of breath. No headaches. 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 [facility] Medical History (Updated 05/27/22 @ 16:49 by Fabio De Jesus MD) Alcohol abuse Arthritis Biliary sludge Bladder cancer Chronic pain CPAP (continuous positive airway pressure) dependence Elevated transaminase level Frequent headaches GERD (gastroesophageal reflux disease) H/O transfusion of whole blood High blood triglycerides High cholesterol History of stress test HTN (hypertension) Morbid obesity Multinodular goiter (nontoxic) Nicotine dependence Obesity Obstructive sleep apnea Sciatic nerve pain Seasonal allergies Sleep apnea Smoker Thyroid nodule Vascular disease Wears glasses Home Medications amlodipine 10 mg tablet 10 mg PO DAILY 05/10/15 [History Last Taken 09/24/21] metoprolol tartrate 50 mg tablet 50 mg PO BID 07/13/18 [History Last Taken 09/24/21] omeprazole 20 mg capsule,delayed release 20 mg PO DAILY 01/12/19 [History Last Taken 09/24/21] gabapentin 100 mg capsule 300 mg PO TID 01/11/20 [History Last Taken Unknown] atorvastatin 20 mg tablet 20 mg PO QHS 06/28/20 [History Last Taken Unknown] lisinopril 20 mg-hydrochlorothiazide 12.5 mg tablet 1 tab PO BID 07/02/20 [History Last Taken 07/02/20 06:45 1 TAB] diclofenac sodium 75 mg tablet,delayed release 1 tab PO BID 09/09/21 [History Last Taken Unknown] atorvastatin 40 mg tablet 40 mg PO 09/18/21 [History Last Taken Unknown] gabapentin 300 mg capsule 300 mg PO 09/18/21 [History Last Taken Unknown] biotin 10,000 mcg capsule mcg PO 10/18/21 [History Last Taken Unknown] mecobalamin (vitamin B12) 1,000 mcg disintegrating tablet,sublingual 1,000 mcg sublingual DAILY 10/18/21 [History Last Taken Unknown] multivitamin (Daily Multi-Vitamin tablet) 1 tab PO DAILY 10/18/21 [History Last Taken Unknown] tamsulosin 0.4 mg capsule 0.4 mg PO DAILY 10/18/21 [History Last Taken Unknown] Allergy/AdvReac Type Severity Reaction Status Date / Time No Known Allergies Allergy Verified 05/27/22 12:49 Family History Mother Heart disease Hypertension Cancer Multiple sclerosis Myocardial infarction Depression Father Depression Heart disease Hypertension Anxiety Other Alcohol abuse Arthritis Diabetes High cholesterol Respiratory disease Surgical History (Updated 05/27/22 @ 12:50 by Aniyah Zapata) H/O abdominal aortic aneurysm repair History of left hip replacement History of nasal septoplasty History of throat surgery Social History Smoking Status: Current every day smoker tobacco type: cigarettes second hand exposure: Yes alcohol intake: current alcohol intake frequency: holidays/special occasions only Alcohol type: beer substance use type: does not use what type of physical activity do you participate in: none ROS ROS ED ROS Narrative Constitutional: No fever, no chills. HEENT: No sore throat. No neck pain. No loss of vision. No rhinorrhea. Cardiovascular: Positive tingling of chest/chest pain. No palpitations. No pedal edema. Respiratory: No cough, no shortness of breath. Abdominal: No abdominal pain. No nausea. No vomiting. Genitourinary: No dysuria. No hematuria. Musculoskeletal: No myalgias. No arthralgias. Neurologic: No headaches. No dizziness. No lightheadedness. Esthesia is of left arm. Skin: No rash. No change in color. Psychiatric: No depression. No anxiety. EXAM Physical Exam Narrative Exam Narrative: Constitutional: No fever, no chills. HEENT: No sore throat. No neck pain. No loss of vision. No rhinorrhea. Cardiovascular: Chest numbness and tingling/pressure chest pain. No palpitations. No pedal edema. Respiratory: No cough, no shortness of breath. Abdominal: No abdominal pain. No nausea. No vomiting. Genitourinary: No dysuria. No hematuria. Musculoskeletal: No myalgias. No arthralgias. Neurologic: No headaches. No dizziness. No lightheadedness. Paresthesias of left arm, intermittent x minutes, occurring over the last few weeks. Skin: No rash. No change in color. Psychiatric: No depression. No anxiety. Const Vital Signs: 05/27/22 12:29 05/27/22 12:52 05/27/22 12:52 Temperature 97.8 F Temperature Source Temporal Pulse Rate 62 61 Respiratory Rate 18 17 Blood Pressure 139/82 H 131/83 H Blood Pressure Mean 101 99 Pulse Ox 98 98 98 Oxygen Delivery Method Room Air Room Air Room Air 05/27/22 13:26 05/27/22 13:26 05/27/22 14:52 Temperature Temperature Source Pulse Rate 57 L 58 L Respiratory Rate 12 31 H Blood Pressure 114/86 H 118/70 Blood Pressure Mean 95 86 Pulse Ox 98 Oxygen Delivery Method Room Air Room Air Room Air 05/27/22 15:46 05/27/22 16:27 Temperature Temperature Source Pulse Rate 51 L 62 Respiratory Rate 16 22 H Blood Pressure 111/65 123/74 H Blood Pressure Mean 80 90 Pulse Ox 93 Oxygen Delivery Method Room Air Room Air Heart Score History: Slightly/Non-Suspicious ECG: Normal Age: >45 - <65 years Risk Factors: >/= 3 Risk Factors or History of CAD Troponin: </= Normal Limit Score: 3 MDM MDM MDM Narrative Medical decision making narrative: Chest pain work-up was pursued. For his paresthesias of his left arm he could be referred pain from a cardiac cause versus cervical radiculopathy. For his chest pressure and numbness and tingling could be having acute coronary syndrome which is an compasses non-STEMI versus STEMI, and pulmonary embolism. Comprehensive work-up was pursued. I reviewed his EKG and interpreted it. It demonstrates normal sinus rhythm at 60 bpm without ectopy or acute ST changes. No STEMI. I also reviewed an EKG and compared it to the current which shows no significant change, and it was dated February 06, 2022. I reviewed his laboratory work and he has a normal white count of 9.8, hemoglobin slightly hemoconcentrated at 16.6 which I think is nonspecific, hematocrit 47.7, normal platelet count of 282. D-dimer is negative at 0.29. His pulse ox is also normal, and he has a heart rate in the 60s, so pulmonary embolism is less likely. I do not feel that a CTA of the chest is indicated. In review of his electrolyte panel he has a normal sodium of 138, potassium 3.5, chloride normal at 105. Glucose of 99, BUN of 18 and creatinine 1.04. Initial high-sensitivity troponin is 8. 2-hour delta is also 8 for a delta of 0. Chest x-ray interpreted by myself shows cardiomegaly but no evidence of pneumothorax or pneumonia. I reviewed the radiology report which confirms my independent interpretation. At this point in time, I do feel that his paresthesia may be more from a cervical radiculopathy, and that he has a nonspecific, noncardiac chest pain, as he has been ruled out by biomarkers. There is no evidence of STEMI on his EKG. He will follow-up with his primary care provider. I feel he can be discharged safely home with follow-up. Return instructions to the emergency department were reviewed. Disposition is discharged home in stable condition. History & Record Review Discussion w/independent historian: Patient and Family Additional record(s) reviewed:: Prior outpatient record, Prior ED visit and Prior labs Lab Data Attestation: I reviewed the patient's lab results. Labs: Laboratory Results - last 24 hr 05/27/22 05/27/22 05/27/22 12:35 12:35 14:43 WBC 9.8 RBC 5.55 Hgb 16.6 H Hct 47.4 MCV 85.4 MCH 29.9 MCHC 35.0 RDW Std Deviation 39.8 RDW Coeff of Michelle 12.8 Plt Count 282 MPV 9.6 Immature Gran % (Auto) 0.200 Neut % (Auto) 58.0 Lymph % (Auto) 33.7 [place] % (Auto) 4.9 Eos % (Auto) 2.4 Baso % (Auto) 0.8 Absolute Neuts (auto) 5.7 Absolute Lymphs (auto) 3.31 Nucleated RBC % 0 D-Dimer Quant (PE/DVT) 0.29 Sodium 138 Potassium 3.5 Chloride 105 Carbon Dioxide 29.0 Anion Gap 4 L BUN 18 Creatinine 1.04 Estim Creat Clear Calc 94.41 Est GFR (MDRD) Af Amer 96 Est GFR (MDRD) Non-Af 79 BUN/Creatinine Ratio 17.3 Glucose 99 Calcium 9.4 Troponin I High Sens 8 05/27/22 14:43 WBC RBC Hgb Hct MCV MCH MCHC RDW Std Deviation RDW Coeff of Michelle Plt Count MPV Immature Gran % (Auto) Neut % (Auto) Lymph % (Auto) [place] % (Auto) Eos % (Auto) Baso % (Auto) Absolute Neuts (auto) Absolute Lymphs (auto) Nucleated RBC % D-Dimer Quant (PE/DVT) Sodium Potassium Chloride Carbon Dioxide Anion Gap BUN Creatinine Estim Creat Clear Calc Est GFR (MDRD) Af Amer Est GFR (MDRD) Non-Af BUN/Creatinine Ratio Glucose Calcium Troponin I High Sens 8 Radiography Chest X-Ray - ED: 1 View, Read by ED Physician and Cardiomegaly Diagnostic Testing: Clinical Impression(s) from Imaging Studies Chest X-Ray 05/27/22 12:34 IMPRESSION: Enlarged central pulmonary arteries. Borderline cardiomegaly. Electronically Signed: Simba Salinas MD at 13:22 EDT , Discharge Plan Triage Chief Complaint: Chest Pain ED Provider: Fabio De Jesus Dx/Rx/DC Orders Clinical Impression: Chest pain, Paresthesia of left arm Instructions: ED Chest Pain, Uncertain Cause, ED Paraesthesias Prescriptions: No Action metoprolol tartrate 50 mg tablet 50 mg PO BID omeprazole 20 mg capsule,delayed release(DR/EC) 20 mg PO DAILY gabapentin 100 mg capsule 300 mg PO TID Rx Instructions: 200 mg in the morning and 100 mg in the afternoon and 200 mg in the evening atorvastatin 40 mg tablet 40 mg PO gabapentin 300 mg capsule 300 mg PO multivitamin [Daily Multi-Vitamin] Tablet 1 tab PO DAILY tamsulosin 0.4 mg capsule 0.4 mg PO DAILY biotin 10,000 mcg capsule PO mecobalamin (vitamin B12) 1,000 mcg tablet,disintegrating 1,000 mcg sublingual DAILY Rx Instructions: place tablet under tongue and allow to dissolve for at least30 secs before swallowing amlodipine 10 MG tablet 10 mg PO DAILY atorvastatin 20 mg Tablet 20 mg PO QHS lisinopril-hydrochlorothiazide 20-12.5 mg tablet 1 tab PO BID Label Comments: TAKE 1 TABLET TWICE DAILY diclofenac sodium 75 mg tablet,delayed release (DR/EC) 1 tab PO BID Label Comments: TAKE 1 TABLET BY MOUTH TWICE DAILY WITH FOOD Primary Care Provider: Travis Duval Referrals: Trvais Duval MD [Primary Care Provider] - 3-5 Days Activity Restrictions/Additional Instructions: Stop smoking! Disposition Disposition: Home, Self Care
[2022-05-27] MEDS: Aspirin 81 MG TAB.CHEW 324 MG PO (13:27)
[2022-05-27 15:04] LABS: D-Dimer Quantitative (DVT/PE) 0.29 FEU/ug/m (0.27-0.49)
[2022-05-27 16:45] LABS: Troponin-I HS 8 pg/mL (3.0-78.0)
== END 2022-05-27 17:10 | disposition home or self-care (01) ==
PROVIDERS: Emergency Provider Emergency Medicine; PCP Family Medicine; Visit Provider Emergency Medicine
DX: R07.9 Chest pain, unspecified (principal); E66.01 Morbid (severe) obesity due to excess calories; I10 Essential (primary) hypertension; E78.00 Pure hypercholesterolemia, unspecified; R20.2 Paresthesia of skin; F17.210 Nicotine dependence, cigarettes, uncomplicated
CPT/HCPCS: 71045; 80048; 84484; 85025; 85379; 93005; 99285; A4216

== ENCOUNTER → 2022-06-05 | Outpatient (CLI) | payer OTHER, SELFPAY ==
--- NOTE | 2022-06-05 12:03 | CT_ITS ---
STUDY: CT LUMBAR SPINE WITH CONTRAST REASON FOR EXAM: Male, 52 years old. SPINAL STENOSIS. Unsuccessful lumbar mammogram. RADIATION DOSAGE (If Supplied By Facility): CTDIvol = ( 63.05 ) mGy, DLP = ( 2052.34 ) mGycm TECHNIQUE: The patient was scanned in a multi detector CT scanner. High resolution transaxial imaging was performed following the intravenous administration of 10 ML ISOVUE 200. Images were obtained from L1 to S1 level. Sagittal and coronal images were reconstructed. Individualized dose optimization techniques were used for this CT. COMPARISON: None FINDINGS: Normal lumbar lordosis. There is no substantial scoliosis. Multilevel anterior spondylosis and facet joint osteoarthritis. L1-2: Anterior spondylosis. L2-3: Anterior spondylosis. Moderate degree of spinal stenosis due to hypertrophy of the facet joints as well as the ligamenta flava and mild degree of diffuse posterior disc bulge. L3-4: Mild degree of disc space narrowing. Moderate degree of spinal stenosis due to a combination of facet joint osteoarthritis and hypertrophy as well as hypertrophy of the ligamenta flava L4-5: Moderate to severe degree of the spinal stenosis caused by a combination of hypertrophy of the facet joints and nearly ligamenta flava. Mild degree of diffuse posterior disc bulge. L5-S1: Normal endplates. Normal disc height and morphology. Normal bilateral facet joints. Normal central canal and bilateral lateral recesses. Normal bilateral intervertebral neural foramina. Normal visualized paraspinous soft tissue structures. CT/Spine Lumbar WITH Contrast IMPRESSION: Multilevel degenerative changes, as described above. Spinal stenosis at the L2-L3, L3-L4 and L4-L5 levels. Electronically Signed: Simba Salinas MD at 14:01 EDT ,
--- NOTE | 2022-06-05 12:04 | RAD_ITS ---
PROCEDURE: Fluoroscopic guided Lumbar Puncture. DATE: June 05, 2022. CLINICAL INDICATION: Spinal stenosis. PHYSICIAN: Simba Salinas M.D. MEDICATIONS: 1% lidocaine administered subcutaneously for local anesthesia. ACCESS SITE: Lower posterior back. NEEDLE: 22-gauge spinal needle. FLUOROSCOPY TIME (if supplied): (4:23) minutes/seconds COMPLICATIONS: None immediate. The risks, benefits, and alternatives to the procedure were explained to the patient. The specific risks of bleeding, infection, and neurovascular injury were detailed and accepted. Witnessed informed consent was obtained. The patient was placed on the fluoroscopic table in the prone position. The level for needle entry was determined and marked. The overlying skin was cleaned and prepped in the usual sterile fashion. 2% lidocaine was administered subcutaneously for local anesthesia. Despite multiple attempts, the lumbar puncture was unsuccessful. The patient tolerated the procedure well without any immediate complications. The patient was placed supine with head elevated and returned to the floor in stable condition. RAD/Lumbar Myelogram IMPRESSION: Unsuccessful fluoroscopic-guided lumbar puncture. Electronically Signed: Simba Salinas MD at 13:57 EDT ,
[2022-06-05 12:28] VITALS: BP 148/80; PULSE 59; RESP 18; TEMP 36.6; O2SAT 99; BMI 44.9
[2022-06-05 12:33] VITALS: BP 141/93; PULSE 59; RESP 18; O2SAT 99; BMI 44.9
[2022-06-05] MEDS: Lidocaine 2% (5ml sdv) 5 ML VIAL.MPF INFILT (13:15)
[2022-06-05 13:40] VITALS: BP 122/74; PULSE 63; RESP 14; O2SAT 98
== END | disposition home or self-care (01) ==
PROVIDERS: PCP Family Medicine; Referring Provider Orthopaedic Surgery; Visit Provider Orthopaedic Surgery
DX: M48.061 Spinal stenosis, lumbar region without neurogenic claudication (principal); M46.96 Unspecified inflammatory spondylopathy, lumbar region; M51.36 Other intervertebral disc degeneration, lumbar region; Z53.09 Procedure and treatment not carried out because of other contraindication
CPT/HCPCS: 62304; 72132

== ENCOUNTER → 2022-11-12 | Outpatient (CLI) | payer OTHER, SELFPAY ==
[2022-11-12 17:33] LABS: Absolute Lymphocyte Count 3.84 X10^3/uL (0.83-4.51); Absolute Neutrophil Count 7.9 X10^3/uL (2.0-7.7); Basophil# 0.11 X10^3/uL; Basophil% 0.9 % (0-1); Eosinophil# 0.24 X10^3/uL; Eosinophils% 1.9 % (0-5); Hematocrit 47.7 % (40-54); Hemoglobin 16.5 g/dL (13.0-16.5); Lymphocyte # 3.84 X10^3/ul (0.83-4.51); Lymphocyte % 30.3 % (19-41); Mean Corp Hgb Conc 34.6 g/dL (32-36); Mean Corpuscular Volume 86.7 fL (80-94); Mean Platelet Vol. 9.8 fl (6.2-12.0); Monocyte# 0.58 X10^3/uL; Monocyte% 4.6 % (0-10); NRBC Flagged by Analyzer 0 % (0-5); Neutrophil # 7.86 X10^3/uL (2.7-7.7); Neutrophil % 62.1 % (47-70); Platelet Count 269 K/mm3 (150-450); RBC Distribution Width CV 12.8 % (11.6-14.6); RBC Distribution Width SD 39.9 fl (35.1-43.9); White Blood Count 12.7 K/mm3 (4.4-11.0)
[2022-11-12 18:22] LABS: AST(SGOT) 26 U/L (15-37); Alanine Aminotransfer ALT/SGPT 44 U/L (16-61); Albumin, Serum 3.9 g/dL (3.2-5.0); Alkaline Phosphatase 88 U/L (45-117); Anion Gap 7 (5-15); BUN 12 mg/dL (7-18); BUN/Creat Ratio 11.4 RATIO (10-20); Calcium,Total 9.4 mg/dL (8.5-10.1); Chloride 105 mmol/L (98-107); Cholesterol 130 mg/dL (200); Creatinine, Serum 1.05 mg/dL (0.70-1.30); EST Glomerular Filtration Rate 78 mL/min (>60); Est Glom Filt Rate - Afr Amer 95 mL/min (>60); Globulin 3.9 g/dL (2.2-4.2); Glucose 88 mg/dL (74-106); High Density Lipoprotein 35 mg/dL; Potassium 3.6 mmol/L (3.5-5.1); Protein, Total 7.8 g/dL (6.4-8.2); Sodium Level 138 mmol/L (136-145); Thyroid Stim Hormone (TSH) 1.16 uIU/mL (0.358-3.74); Triglycerides 154 mg/dL; Very Low Density Lipoprotein 31 mg/dL (5-40)
== END | disposition home or self-care (01) ==
LOC: MFPLAB 16:54
PROVIDERS: PCP Family Medicine; Visit Provider Family Medicine
DX: I10 Essential (primary) hypertension (principal)
CPT/HCPCS: 36415; 80053; 80061; 84443; 85025

== ENCOUNTER → 2022-11-20 | Outpatient (CLI) | payer OTHER, SELFPAY ==
--- NOTE | 2022-11-20 16:09 | US_ITS ---
EXAM: US SOFT TISSUES HEAD AND NECK, THYROID CLINICAL INDICATION: THYROID NODULE TECHNIQUE: Coronel scale and color doppler imaging was performed of the thyroid gland. COMPARISON: No relevant prior studies available. FINDINGS: LEFT THYROID LOBE: Left thyroid lobe measures 5.7 x 2.1 x 2.0 cm with more heterogeneous echotexture and normal. Stable well-defined 1.6 cm nodule within the lower pole appears to be complex in nature, hypoechoic, wider than tall and without right or calcification. TI-RADS points: 3. TI-RADS category: TR3. This nodule is mildly suspicious but no FNA or follow-up is necessary given the small stable size of this nodule. RIGHT THYROID LOBE: Right thyroid lobe measures 6.0 x 2.2 x 2.6 cm with heterogeneous echotexture. Stable 13 mm solid well-defined wider than tall nodule within the right thyroid lobe without microcalcification. TI-RADS points: 3. TI-RADS category: TR3. This nodule is mildly suspicious but no FNA or follow-up is necessary given the small stable size of this nodule. ISTHMUS: Isthmus measures 4 mm in AP dimension with stable 6 mm nodule. US/Thyroid IMPRESSION: Stable appearance of multinodular goiter. As above. Electronically Signed: Jacky Tavera MD at 12:07 EDT ,
== END | disposition home or self-care (01) ==
LOC: US 16:07
PROVIDERS: PCP Family Medicine; Referring Provider Family Medicine; Visit Provider Family Medicine
DX: E04.1 Nontoxic single thyroid nodule (principal)
CPT/HCPCS: 76536

== ENCOUNTER → 2023-03-06 | Outpatient (CLI) | payer OTHER, SELFPAY ==
[2023-03-06 16:40] LABS: Bacteria 0 SEEN /hpf (None Seen); Mucous, Urine 0 SEEN /hpf (<or=2+); Red Blood Cells-Urine 0 SEEN /hpf (0-5); Squamous Epithelial Cells - UA 0 SEEN /hpf (0-5)
--- OUTSIDE RECORDS SUMMARY | 2023-03-06 16:41 | XMS RPT_ITS | CCD ---
Author Name Unknown Address [address] [place] [address] Organization [facility] Care Team Providers Care Syrup Mixer Name Role Phone Unknown, Referring Provider Unavailable Unav ailable Unavailable Unavailable Chapo Mcadams Unavailable Gio, Dr. Culp Referring Unavailable Simin, Dr. Chapo Ralph Primary Care Aubrey Powers, Dr. Culp Attending Unavailable Gio, Dr. Culp Referring Unavailable Gio, Dr. Culp Attending Unavailable Simin, Dr. Chapo Ralph Primary Care Aubrey Iniguez, Dr. Obed Whitmore Referring Unavailable UNKNOWN, PCP Primary Care Unavailable Gio, Dr. Culp Attending Unavailable Gio, Dr. Culp Referring Unavailable Gio, Dr. Culp Admitting Unavailable Simin, Dr. Chapo Ralph Primary Care Aubrey Powers, Dr. Culp Attending Unavailable UNKNOWN, PCP Primary Care Unavailable Gio, Dr. Culp Attending Unavailable CHAPO MCADAMS MD Primary Care Physician AUGUSTO SILVEIRA MD Attending Unavailable CHAPO MCADAMS MD Primary Care Unavailable AUGUSTO SILVEIRA MD Attending Unavailable CHAPO MCADAMS MD Primary Care Unavailable AUGUSTO SILVEIRA MD Admitting Unavailable SANGEETA LARSEN Consulting Unavailable AUGUSTO SILVEIRA MD Referring Unavailable Medications Current Medications Medication Drug Class(es) Dates Sig (Normalized) Sig (Original) acetaminophen 500 mg oral tablet (4 sources) Start: 02-07-2022 Tylenol Extra Strength 500 mg oral tablet Dose : 1,000 mg = 2 tab(s), Oral, TID, PRN as needed for pain Start Date: 02/07/22 Status: Ordered Completed/Discontinued Medications Medication Drug Class(es) Dates Sig (Normalized) Sig (Original) [id number] 200 actuat albuterol 0.09 mg/actuat metered dose inhaler (1 source) beta2-Adrenergic Agonist Start: 2 Albuterol Sulfate HFA 108 (90 Base) MCG/ACT Inhalation Aerosol Solution Quantity: 8 Refills: 0 Ordered: 07-Apr-2021 DO Start : 07-Apr-2021 Active amoxicillin 875 mg / clavulanate 125 mg oral tablet (2 sources) Penicillin-class Antibacterial Start: 2 Amoxicillin-Pot Clavulanate 875-125 MG Oral Tablet Quantity: 28 Refills: 0 Ordered: 05-Apr-2021 DO Start : 05-Apr-2021 Active atorvastatin 40 mg oral tablet (3 sources) HMG-CoA Reductase Inhibitor Atorvastatin Calcium 40 MG Oral Tablet Quantity: 0 Refills: 0 Ordered: 02-Oct-2021 DO Active lisinopril 20 mg oral tablet (3 sources) Angiotensin Converting Enzyme Inhibitor Lisinopril 20 MG Ora l Tablet Quantity: 0 Refills: 0 Ordered: 02-Oct-2021 DO Active methylPREDNISolone 4 MG Oral Tablet Therapy Pack (2 sources) Start: 2 methylPREDNISolone 4 MG Oral Tablet Therapy Pack Quantity: 21 Refills: 0 Ordered: 20-Mar-2021 DO Start : 20-Mar-2021 Active nabumetone 750 mg oral tablet (2 sources) Nonsteroidal Anti-inflammatory Drug Start: 2 take 1 tablet by mouth twice daily at mealtime Nabumetone 750 MG Oral Tablet TAKE 1 TABLET BY MOUTH TWICE DAILY WITH FOOD Quantity: 15 Refills: 0 Ordered: 15-May-2021 DO Start : 15-May-2021 Active omeprazole 20 mg delayed release oral capsule (2 sources) Proton Pump Inhibitor Omeprazole 20 MG Ora l Capsule Delayed Release Quantity: 0 Refills: 0 Ordered: 02-Oct-2021 DO Active Problems Problem Classification Problem Date Documented Da te Episodic/Chronic Disorders of lipid metabolism (1 source) Hyperlipidemia, unspecified; Translations: [Hyperlipidemia, unspecified] Onset: 10-21-2021 Chronic Esophageal disorders (1 source) Gastro-esophageal reflux disease without esophagitis; Translations: [Gastro-esophageal reflux disease without esophagitis] Onset: 10-21-2021 Chronic Essential hypertension (1 source) Essential (primary) hypertension; Translations: [Essential (primary) hypertension] Onset: 10-21-2021 Chronic Osteoarthritis (1 source) Unilateral primary osteoarthritis, left hip; Translations: [Unilateral primary osteoarthritis, left hip] Onset: 10-21-2021 Chronic Other aftercare (1 source) 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; Translations: [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] Onset: 10-21-2021 Episodic Other circulatory disease (3 sources) H/O: hypertension; Translations: [Personal history of other diseases of circulatory system] Episodic Other liver diseases (1 source) Fatty (change of) liver, not elsewhere classified; Translations: [Fatty (change of) liver, not elsewhere classified] Onset: 10-21-2021 Chronic Other nutritional; endocrine; and metabolic disorders (1 source) Morbid (severe) obesity due to excess calories; Translations: [Morbid (severe) obesity due to excess calories] Onset: 10-21-2021 Chronic Other nutritional; endocrine; and metabolic disorders (1 source) Body mass index (BMI) 45.0-49.9, adult; Translations: [Body mass index [BMI] 45.0-49.9, adult] Onset: 10-21-2021 Chronic Other upper respiratory disease (3 sources) Lesion of vocal cord; Translations: [Other diseases of vocal cords] Episodic Other upper respiratory disease (4 sources) Other diseases of vocal cords; Translations: [Other diseases of vocal cords] Onset: 11-08-2021 Episodic Residual codes; unclassified (1 source) Obstructive sleep apnea (adult) (pediatric); Translations: [Obstructive sleep apnea (adult) (pediatric)] Onset: 10-21-2021 Chronic Substance-related disorders (1 source) Nicotine dependence, unspecified, uncomplicated; Translations: [Nicotine dependence, unspecified, uncomplicated] Onset: 11-08-2021 Chronic Thyroid disorders (1 source) Nontoxic single thyroid nodule; Translations: [Nontoxic single thyroid nodule] Onset: 10-21-2021 Chronic Unclassified (1 source) Contact with and (suspected) exposure to COVID-19; Translations: [Contact with and (suspected) exposure to COVID-19] Onset: 11-08-2021 Results Test Name Value Interpretation Reference Range Facil ity Vital Signs Date Time Vital Sign Value Performing Clinician Elizabeth cabrera 02-07-2022 08:55-[address] AUGUSTO SILVEIRA MD [facility] 02-07-2022 08:55-0500 Body height [address] AUGUSTO SILVEIRA MD [facility] 02-07-2022 08:55-0500 Body weight 154.[address] AUGUSTO SILVIERA MD [facility] 02-07-2022 08:55-0500 Body weight 43.63 kg/m2 DR AUGUSTO SILVEIRA MD [facility] 02-07-2022 08:55-0500 Diastolic Blood Pressure Non-Invasive [address] AUGUSTO SILVEIRA MD [facility] 02-07-2022 08:55-0500 Heart rate 61 /min DR AUGUSTO SILVEIRA MD [facility] 02-07-2022 08:55-0500 Respiratory rate 20 /min DR AUGUSTO SILVEIRA MD [facility] 02-07-2022 08:55-0500 Systolic Blood Pressure Non-Invasive [address] AUGUSTO SILVEIRA MD [facility] 01-15-2022 14:03-0500 Body height 187.96 cm Chapo Mcadams [facility] Work Phone: 01-15-2022 14:03-0500 Body mass index (BMI) [Ratio] 45.58 kg/m2 Chapo Mcadams Work Phone: [facility] Work Phone: 01-15-2022 14:03-0500 Body surface area Derived from formula 2.77 m2 Chapo Burrcampos Work Phone: [facility] [address] Work Phone: 01-15-2022 14:03-0500 Body temperature 96.6 [degF] Chapo Mcadams Work Phone: [facility] [address] Work Phone: 01-15-2022 14:03-0500 Body weight 161.03 kg Chapo Mcadams Work Phone: [facility] [address] Work Phone: 10-02-2021 12:47-0400 Body height 187.96 cm Referring Provider Unknown [facility] [place] Work Phone: 10-02-2021 12:47-0400 Body mass index (BMI) [Ratio] 48.46 kg/m2 Referring Provider Unknown [facility] [place] Work Phone: 10-02-2021 12:47-0400 Body surface area Derived from formula 2.85 m2 Referring Provider Unknown [facility] [place] Work Phone: 10-02-2021 12:47-0400 Body temperature 96.5 [degF] Referring Provider Unknown [facility] [place] Work Phone: 10-02-2021 12:47-0400 Body weight 171.21 kg Referring Provider Unknown [facility] [place] Work Phone: Encounters Encounter Date Encounter Type Care Provider Facility Start: 02-18-2022 End: 02-19-2022 ambulatory AUGUSTO SILVEIRA MD Facility:B Start: 02-07-2022 End: 02-08-2022 ambulatory AUGUSTO SILVEIRA MD Facility:B Start: 02-07-2022 End: 02-07-[address] AUGUSTO SILVEIRA MD [facility] Start: 01-15-2022 Office outpatient vi sit 15 minutes Chapo Mcadams Work Phone: [facility] Work Phone: Start: 01-15-[address] Robbi Powers Faci lity:[id number] Start: 11-20-[address] Robbi Powers Faci lity:[id number] Start: 11-08-2021 Chart Update Chapo mcmahon Work Phone: [facility]St[facility]xmim[facility] [address] Work Phone: Start: 11-08-2021 End: 11-08-[address] Robbi Powers Facility:[facility] Start: 10-21-2021 ambulatory PCP UNKNOWN Facility:[facility] Start: 10-21-2021 Encounter for blood typing Dr. Robbi Powers [facility] Start: 10-21-2021 Encounter for preprocedural laboratory examination Dr. Robbi Powers [facility] Start: 10-02-2021 Office consultation new/estab patient 60 min Referring Provider Unknown [facility]-Pmrmzchbcmfkqq[facility] [place] Work Phone: Start: 10-02-[address] Khari Iniguez Facility:[id number] Patient encounter status Referri ng Provider Unknown FB-Krtmjxvimomasz[facility] [place] Work Phone: Procedures Date Procedure Procedure Detail Performing Clinician Start: 10-21-[address] Fam Powers Plan of Treatment Date Care Activity Detail Author Start: 04-23-2022 FUV, Provider: Robbi Powers, Status: Pen, Time: 1:30 PM FUV, Provider: Robbi Powers, Status: Pen, Time: 1:30 PM [facility] Work Phone: Start: 11-20-2021 POV, Provider: Robbi Powers, Status: Pen, Time: 12:30 PM POV, Provider: Robbi Powers, Status: Pen, Time: 12:30 PM [facility]-Bmkqyxjipofgen-[facility] [place] Work Phone: Start: 11-08-[facility] [place] [facility] Powers, Status: Pen, Time: 12:00 [facility] [place]: Robbi Powers, Status: Pen, Time: 12:00 PM [facility]-Frdqxasugpgaik[facility] Work Phone: Payers Date Payer Category Payer Private Health Insurance [id number] 1970 Unknown [id number] 1970 Unknown [id number] 1970 Unknown [id number] 1970 Unknown [id number] 1970 Unknown [id number] 1970 Unknown [id number] 1970 Unknown [id number] Unknown [facility] Social History Date Type Detail Facility [facility] Work Phone: Start: 02-07-2022 Tobacco smoking status Heavy t obacco smoker (finding) [facility] Sex Assigned At Sex [facility] Functional Status Date Assessment Result Facility 02-07-2022 Functional Status Sensory Deficits None [facility] Clinical Note 11-08-2021 Note Date & Type Note Facility 11-08-2021 Note Post Operative Note: PreOp Diagnosis: right vocal cord lesion Post-Procedure Diagnosis: right vocal cord lesion Procedure: 1. Microdirect laryngoscopy 2. Biopsy of Right vocal cord lesion 3. Excision of right vocal cord lesion 4. bronchoscopy 5. 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 Patient Returned To/Condition: Stable to PACU Operative Report Dictated: Dictation: yes Dictated by: Gio Date of Dictation: 08-Nov-2021 Attestation: Note Completion: I am a:Resident/Fellow Attending AttestationI was present for the entire procedure Electronic Signatures: Robbi Powers) (Signed 08-Nov-2021 17:33) Authored: Post Operative Note, Note Completion Co-Signer: Post Operative Note, Note Completion Ana María Wilhelm (Resident)) (Signed 08-Nov-2021 14:45) Authored: Post Operative Note, Note Completion Last Updated: 08-Nov-2021 17:33 by Robbi Powers) [facility] Clinical Note 11-08-2021 Note Date & Type Note Facility 11-08-2021 Note History & Physical R eviewed: I have reviewed the History and Physical dated: 21-Oct-2021 History and Physical reviewed and relevant findings noted. Patient examined to review pertinent physical findings.: No significant changes Home Medications Reviewed: no changes noted Allergies Reviewed: no changes noted ERAS (Enhanced Recovery After Surgery): ERAS Patient: no Consent: COVID-19 Consent: COVID-19 Risk ConsentSurgeon has reviewed clay risks related to the risk of dre COVID-19 and if they contract COVID-19 what the risks are. Attestation: Note Completion: I am a: Resident/Fellow Attending AttestationI saw and evaluated the patient. I personally obtained the clay and critical portions of the history and physical exam or was physically present for clay and critical portions performed by the resident/fellow. I reviewed the resident/fellows documentation and discussed the patient with the resident/fellow. I agree with the resident/fellows medical decision making as documented in the note. I personally evaluated the patient [id number] Electronic Signatures: Robbi Powers) (Signed 08-Nov-2021 17:31) Authored: Note Completion Co-Signer: History & Physical Reviewed, ERAS, Consent, Note Completion Ana María Wilhelm (Resident)) (Signed 08-Nov-2021 13:08) Authored: History & Physical Reviewed, ERAS, Consent, Note Completion Last Updated: 08-Nov-2021 17:31 by Robbi Powers) [facility] History of Present illness Narrative 09-30-2021 Note Date & Type Note Facility 09-30-2021 History of Presen t illness Narrative This gentleman was seen in September 2021 at the request of a local colleague. He had a lesion on his vocal cord. He was brought to the operating room in October 2021. The area was very difficult to access. The lesion was removed in a piecemeal fashion. The pathology report is inconclusive. It is somewhat of a verrucous lesion. His voice back to normal. [facility] Work Phone: History of Present illness Narrative 10-02-2020 Note Date & Type Note Facility 10-02-2020 History of Present illness Narrative This gentleman is seen at the request of a local colleague. He has had some hoarseness for the past year or so and recently had an episode where he basically choked. He was found to have a lesion on his right vocal cord. There was some airway concern at the time he was brought to surgery and therefore no biopsies were obtained. He is here today for further management. He does have some hoarseness. He has no stridor. He has no pain. Of note is back in 2016 he had a lesion removed from his vocal cord. I do not have access to that information but it was reported as being benign. He is also being evaluated right now for a thyroid lesion. I do not have that information. OA-Iavshrjrnhzocl-Xbytbehw Work Phone: Chief complaint Narrative - Reported Note Date & Type Note Facility Chief complaint Narrative - Reported Consultation for a laryngeal lesion. EA-Hqhpbwhxehixzt-Jnewkfru Work Phone: Evaluation + Plan note Note Date & Type Note Facility Evaluation + Plan note Future Appointments [facility] Hospital course Narrative Note Date & Type Note Facility Hospital course Narrative No data available for this section [facility] Hospital Discharge instructions Note Date & Type Note Facility Hospital Discharge instructions No data available for this section [facility] Progress note Note Date & Type Note Facility Progress note No data available for this section [facility] Chief Complaint Follow-up regarding a laryngeal lesion. Summary Purpose Family History No Family History Records FoundNo Family History Records Found Advance Directives No Advanced Directives Records FoundNo Advanced Directives Records Found Additional Source Comments (unrecognized sect ion and content) No Status Records FoundNo Status Records Found INFORMATION SOURCE (unrecogn ized section and content) DATE CREATED AUTHOR AUTHOR'S ORGANIZ ATION 02/25/2022 [facility] ([place] Care Team (unrecognized sect ion and content) Care Team Personnel Name: CHAPO MCADAMS MD Member Role: Primary Care Physician Address: Address: [address] [place] [address]- Care Team Related Persons Name: YOLANDA GODINEZ Address: [address] [address] FOR RECORDS PERTAINING TO PATIENTS WHO ARE OR HAVE BEEN ENROLLED IN A CHEMICAL DEPENDENCY/SUBSTANCEABUSE PROGRAM, SOME INFORMATION MAY BE OMITTED. This clinical summary was aggregated from multiple sources. Caution should be exercised in using it in the provision of clinical care. This summary normalizes information from multiple sources, and as a consequence, information in this document may materially change the coding, format and clinical context of patient data. In addition, data may be omitted in some cases. CLINICAL DECISIONS SHOULD BE BASED ON THE PRIMARY CLINICAL RECORDS. [facility] [employer] [facility]. provides no warranty or guarantee of the accuracy or completeness of information in this document.
[2023-03-06 18:04] LABS: Absolute Lymphocyte Count 3.37 X10^3/uL (0.83-4.51); Absolute Neutrophil Count 8.9 X10^3/uL (2.0-7.7); Basophil# 0.08 X10^3/uL; Basophil% 0.6 % (0-1); Eosinophil# 0.35 X10^3/uL; Eosinophils% 2.6 % (0-5); Hematocrit 45.5 % (40-54); Hemoglobin 15.5 g/dL (13.0-16.5); Lymphocyte # 3.37 X10^3/ul (0.83-4.51); Mean Corp Hgb Conc 34.1 g/dL (32-36); Mean Corpuscular Hgb 29.4 pg (27.0-32.0); Mean Corpuscular Volume 86.2 fL (80-94); Mean Platelet Vol. 9.8 fl (6.2-12.0); Monocyte# 0.75 X10^3/uL; Monocyte% 5.6 % (0-10); NRBC Flagged by Analyzer 0 % (0-5); Neutrophil # 8.87 X10^3/uL (2.7-7.7); Neutrophil % 65.8 % (47-70); Platelet Count 271 K/mm3 (150-450); RBC Distribution Width CV 13.3 % (11.6-14.6); RBC Distribution Width SD 41.3 fl (35.1-43.9); Red Blood Count 5.28 M/mm3 (4.6-6.2); White Blood Count 13.5 K/mm3 (4.4-11.0)
[2023-03-06 18:19] LABS: Color, Urine Yellow (Yellow); Glucose, Dipstick Normal (Normal); Ketone-Dipstick Negative (Negative); Leukocyte Esterase-Dipstick 25 /ul (Negative); Nitrite-Dipstick Negative (Negative); Occult Blood-Urine 25 /ul (Negative); Protein-Dipstick Negative (Negative); Urine Bilirubin Dipstick Negative (Negative); Urine Clarity Clear (Clear); Urine Urobilinogen 1 mg/dl (Normal)
[2023-03-06 18:36] LABS: White Blood Cells 0-5 SEEN /hpf (0-5)
[2023-03-06 18:37] LABS: ALB/GLOB Ratio 0.9 RATIO (0.9-2.4); AST(SGOT) 24 U/L (15-37); Alanine Aminotransfer ALT/SGPT 39 U/L (16-61); Albumin, Serum 3.6 g/dL (3.2-5.0); Alkaline Phosphatase 74 U/L (45-117); Anion Gap 6 (5-15); BUN 16 mg/dL (7-18); Calcium,Total 8.7 mg/dL (8.5-10.1); Chloride 105 mmol/L (98-107); Cholesterol 129 mg/dL (200); Creatinine, Serum 1.07 mg/dL (0.70-1.30); EST Glomerular Filtration Rate 76 mL/min (>60); Est Glom Filt Rate - Afr Amer 92 mL/min (>60); Globulin 3.8 g/dL (2.2-4.2); Glucose 88 mg/dL (74-106); High Density Lipoprotein 34 mg/dL; Potassium 3.5 mmol/L (3.5-5.1); Protein, Total 7.4 g/dL (6.4-8.2); Sodium Level 138 mmol/L (136-145); Triglycerides 134 mg/dL; Very Low Density Lipoprotein 27 mg/dL (5-40)
== END | disposition home or self-care (01) ==
LOC: MTLAB 16:33
PROVIDERS: PCP Family Medicine; Referring Provider Family Medicine; Visit Provider Family Medicine
DX: I10 Essential (primary) hypertension (principal)
CPT/HCPCS: 36415; 80053; 80061; 81001; 84443; 85025

== ENCOUNTER → 2023-07-10 | Outpatient (CLI) | payer OTHER, SELFPAY ==
[2023-07-10 16:43] LABS: Bacteria 0 SEEN /hpf (None Seen); Mucous, Urine 0 SEEN /hpf (<or=2+); Red Blood Cells-Urine 0 SEEN /hpf (0-5); Squamous Epithelial Cells - UA 0 SEEN /hpf (0-5); White Blood Cells 0 SEEN /hpf (0-5)
[2023-07-10 17:37] LABS: Color, Urine Yellow (Yellow); Glucose, Dipstick Normal (Normal); Ketone-Dipstick Negative (Negative); Leukocyte Esterase-Dipstick Negative /ul (Negative); Nitrite-Dipstick Negative (Negative); Occult Blood-Urine 25 /ul (Negative); Protein-Dipstick Negative (Negative); Urine Bilirubin Dipstick Negative (Negative); Urine Clarity Clear (Clear); Urine Urobilinogen 1 mg/dl (Normal)
[2023-07-10 17:41] LABS: Absolute Lymphocyte Count 3.63 X10^3/uL (0.83-4.51); Absolute Neutrophil Count 6.2 X10^3/uL (2.0-7.7); Basophil# 0.08 X10^3/uL; Basophil% 0.7 % (0-1); Eosinophil# 0.31 X10^3/uL; Eosinophils% 2.9 % (0-5); Hematocrit 45.7 % (40-54); Lymphocyte # 3.63 X10^3/ul (0.83-4.51); Lymphocyte % 33.8 % (19-41); Mean Corpuscular Hgb 30.2 pg (27.0-32.0); Mean Corpuscular Volume 86.2 fL (80-94); Mean Platelet Vol. 9.9 fl (6.2-12.0); Monocyte# 0.47 X10^3/uL; Monocyte% 4.4 % (0-10); NRBC Flagged by Analyzer 0 % (0-5); Neutrophil # 6.22 X10^3/uL (2.7-7.7); Neutrophil % 57.9 % (47-70); Platelet Count 237 K/mm3 (150-450); RBC Distribution Width CV 13.1 % (11.6-14.6); RBC Distribution Width SD 40.5 fl (35.1-43.9); White Blood Count 10.7 K/mm3 (4.4-11.0)
[2023-07-10 17:58] LABS: ALB/GLOB Ratio 0.9 RATIO (0.9-2.4); AST(SGOT) 28 U/L (15-37); Alanine Aminotransfer ALT/SGPT 51 U/L (16-61); Albumin, Serum 3.7 g/dL (3.2-5.0); Alkaline Phosphatase 69 U/L (45-117); Anion Gap 6 (5-15); BUN 14 mg/dL (7-18); BUN/Creat Ratio 13.6 RATIO (10-20); Calcium,Total 9.6 mg/dL (8.5-10.1); Chloride 106 mmol/L (98-107); Cholesterol 130 mg/dL (200); Creatinine, Serum 1.03 mg/dL (0.70-1.30); EST Glomerular Filtration Rate 80 mL/min (>60); Est Glom Filt Rate - Afr Amer 96 mL/min (>60); Globulin 3.9 g/dL (2.2-4.2); Glucose 99 mg/dL (74-106); High Density Lipoprotein 32 mg/dL; Potassium 3.6 mmol/L (3.5-5.1); Protein, Total 7.6 g/dL (6.4-8.2); Sodium Level 138 mmol/L (136-145); Triglycerides 147 mg/dL; Very Low Density Lipoprotein 29 mg/dL (5-40)
== END | disposition home or self-care (01) ==
LOC: MFPLAB 16:41
PROVIDERS: PCP Family Medicine; Visit Provider Family Medicine
DX: I10 Essential (primary) hypertension (principal)
CPT/HCPCS: 80053; 80061; 81001; 83735; 85025

== ENCOUNTER → 2024-03-17 | Outpatient (CLI) | payer OTHER, SELFPAY ==
--- NOTE | 2024-03-17 09:25 | RAD_ITS ---
INDICATION: COUGH EXAMINATION/TECHNIQUE: X-RAY - XR Chest 2 Views COMPARISON: May 27, 2022 FINDINGS: LINES/DEVICES: None. LUNGS: No consolidation, edema or effusion. No pneumothorax. MEDIASTINUM AND CARDIOVASCULAR STRUCTURES: Cardiac silhouette not enlarged. Central airways and mediastinal contour are unremarkable. BONES AND SOFT TISSUES: Degenerative vertebral changes. RAD/Chest PA and Lateral IMPRESSION: No radiographic evidence of acute cardiopulmonary disease. Electronically Signed: Smith Holloway DO at 17:37 EST ,
[2024-03-17 10:19] LABS: Absolute Neutrophil Count 4.6 X10^3/uL (2.0-7.7); Basophil# 0.03 X10^3/uL; Basophil% 0.5 % (0-1); Eosinophil# 0.14 X10^3/uL; Eosinophils% 2.2 % (0-5); Hematocrit 45.5 % (40-54); Hemoglobin 15.8 g/dL (13.0-16.5); Lymphocyte % 15.4 % (19-41); Mean Corp Hgb Conc 34.7 g/dL (32-36); Mean Corpuscular Hgb 29.5 pg (27.0-32.0); Mean Corpuscular Volume 84.9 fL (80-94); Mean Platelet Vol. 9.7 fl (6.2-12.0); Monocyte# 0.67 X10^3/uL; Monocyte% 10.3 % (0-10); NRBC Flagged by Analyzer 0 % (0-5); Neutrophil # 4.62 X10^3/uL (2.7-7.7); Neutrophil % 71.3 % (47-70); Platelet Count 212 K/mm3 (150-450); RBC Distribution Width CV 13.4 % (11.6-14.6); RBC Distribution Width SD 41.1 fl (35.1-43.9); Red Blood Count 5.36 M/mm3 (4.6-6.2); White Blood Count 6.5 K/mm3 (4.4-11.0)
[2024-03-17 10:53] LABS: ALB/GLOB Ratio 0.9 RATIO (0.9-2.4); AST(SGOT) 37 U/L (15-37); Alanine Aminotransfer ALT/SGPT 64 U/L (16-61); Albumin, Serum 3.5 g/dL (3.2-5.0); Alkaline Phosphatase 81 U/L (45-117); Anion Gap 7 (5-15); BUN 13 mg/dL (7-18); BUN/Creat Ratio 12.1 RATIO (10-20); Calcium,Total 9.1 mg/dL (8.5-10.1); Chloride 105 mmol/L (98-107); Cholesterol 137 mg/dL (200); Creatinine, Serum 1.07 mg/dL (0.70-1.30); EST Glomerular Filtration Rate 76 mL/min (>60); Est Glom Filt Rate - Afr Amer 92 mL/min (>60); Globulin 3.9 g/dL (2.2-4.2); Glucose 101 mg/dL (74-106); High Density Lipoprotein 32 mg/dL; Potassium 3.8 mmol/L (3.5-5.1); Protein, Total 7.4 g/dL (6.4-8.2); Sodium Level 137 mmol/L (136-145); Triglycerides 176 mg/dL; Very Low Density Lipoprotein 35 mg/dL (5-40)
== END | disposition home or self-care (01) ==
PROVIDERS: PCP Family Medicine; Referring Provider Family Medicine; Visit Provider Family Medicine
DX: I10 Essential (primary) hypertension (principal); E78.5 Hyperlipidemia, unspecified; J40 Bronchitis, not specified as acute or chronic
CPT/HCPCS: 36415; 71046; 80053; 80061; 84443; 85025

== ENCOUNTER → 2024-05-06 | Outpatient (CLI) | payer OTHER, SELFPAY | END | disposition home or self-care (01) | LOC: PSN 08:59 | PROVIDERS: PCP Family Medicine; Referring Provider Family Medicine; Visit Provider Family Medicine | DX: R06.02 Shortness of breath (principal) | CPT/HCPCS: 94060 ==

== ENCOUNTER → 2024-08-01 | Outpatient (CLI) | payer OTHER, SELFPAY ==
[2024-08-01 18:51] LABS: PSA,Total - Annual Screen 1.91 ng/mL (0.02-4.00)
== END | disposition home or self-care (01) ==
LOC: MTLAB 16:45
PROVIDERS: PCP Family Medicine; Referring Provider Nurse Practitioner Family; Visit Provider Nurse Practitioner Family
DX: Z12.5 Encounter for screening for malignant neoplasm of prostate (principal)
CPT/HCPCS: 36415; 84153; G0103

== ENCOUNTER → 2024-12-15 | Outpatient (CLI) | payer OTHER, SELFPAY ==
--- OUTSIDE RECORDS SUMMARY | 2024-12-15 17:08 | XMS RPT_ITS | CCD ---
Author Organization [facility] Care Team Providers Care Liberal Arts Teacher Name Role Phone Unknown, Referring Provider Unavailable Unav ailable Unavailable Unavailable Dr. Chapo Mcadams Primary Care Provider Dr. Valeria Saeed Attending Provider Dr. Obed Iniguez Referring Provider Dr. Chapo Mcadams Referring Provider Dr. Eben Stevenson Attending Provider Chapo Mcadams Unavailable Dr. Robbi Duron Referring Unavailable Simin, Dr. Chapo Ralph Primary Care Aubrey Duron, Dr. Culp Attending Unavailable Gio, Dr. Culp Referring Unavailable Gio, Dr. Culp Attending Unavailable Simin, Dr. Chapo Ralph Primary Care Aubrey Iniguez, Dr. Obed Whitmore Referring Unavailable UNKNOWN, PCP Primary Care Unavailable Gio, Dr. Culp Attending Unavailable Gio, Dr. Culp Referring Unavailable Gio, Dr. Culp Admitting Unavailable Simin, Dr. Chapo Ralph Primary Care Aubrey Duron, Dr. Culp Attending Unavailable UNKNOWN, PCP Primary Care Unavailable Gio, Dr. Culp Attending Unavailable Dr. Chapo Mcadams Primary Care Provider Dr. Chapo Mcadams Referring Provider Dr. Eben Stevenson Attending Provider CHAPO MCADAMS MD Primary Care Physician [phone] Dr. Chapo Mcadams Other Provider Dr. Valeria Saeed Attending Provider JORDANA AMAYA, AUGUSTO Palacios Attending Unavailable SIMIN AMAYA, CHAPO Primary Care Unavailable JORDANA AMAYA, AUGUSTO Palacios Attending Unavailable SIMIN AMAYA, CHAPO Primary Care Unavailable JORDANA AMAYA, AUGUSTO Palacios Admitting Unavailable SANGEETA LARSEN Consulting Shannan SILVEIRA MD, AUGUSTO Palacios Referring Unavailable Dr. Chapo Mcadams Primary Care Provider [phone] Dr. Chapo Mcadams Referring Provider Dr. Chapo Mcadams Other Provider Dr. Valeria Saeed Attending Provider [phone] Simin AMAYA, Dr. Chapo Nolan Primary Care Provider Simin AMAYA, Dr. Chapo Nolan Attending Provider Dr. Chapo Mcadams MD Referring Provider Woo SAWMILL MANAGER-CAlbino Other Provider Dr. Chapo Mcadams MD Primary Care Provider Simin AMAYA, Dr. Chapo Nolan Attending Provider [phone] Dr. Chapo Mcadams MD Referring Provider Jair SAWMILL MANAGER-C, Renita Attending Provider Jair SAWMILL MANAGER-C, Renita Referring Provider Chapo Mcadams Referring Unavailable Albino Berkowitz Consulting Unavailable Chapo Mcadams Primary Care Unavailable Chapo Mcadams Attending Unavailable Chapo Mcadams Referring Unavailable Chapo Mcadams Primary Care Unavailable Chapo Mcadams Attending Unavailable Chapo Mcadams Primary Care Unavailable Renita Vásquez Attending Unavailable Renita Vásquez Referring Unavailable Chapo Mcadams Referring Unavailable Chapo Mcadams Primary Care Unavailable Darnell Estrella Attending Unavailable Jose Luna, Erwin V Referring Unavailabl Jermain Martinez Attending Unavailable Jose Luna, Erwin V Attending Unavailbernarda Garcia Jr, Erwin V Referring Unavailabl ovidio Garcia Jr, Erwin V Attending Unavailabl e Jose Luna Erwin V Referring Unavailabl e Wong France Attending Unavailable Jose Jr, Erwin V Referring Unavailabl e Jose Jr, Erwin V Attending Unavailabl e Jose Jr, Erwin V Attending Unavailabl e Jose Jr, Erwin V Referring Unavailabl e Jose Jr, Erwin V Attending Unavailabl e No, Physician Referring Unavailable Jose , Erwin V Attending Unavailabl e Jose , Erwin V Referring Unavailabl e Clementina Crook Attending Unavailable Wong France Attending Unavailable No, Physician Referring Unavailable Joy Briggs Attending Unavailable Jose , Erwin V Referring Unavailabl e Jose Jr, Erwin V Attending Unavailabl e No, Physician Referring Unavailable Jose , Erwin V Attending Unavailabl e No, Physician Referring Unavailable Josemisti Luna, Erwin V Attending Unavailabl e No, Physician Referring Unavailable Jose Luna, Erwin V Attending Unavailabl e No, Physician Referring Unavailable Wong France Attending Unavailable Wong France Referring Unavailable Augusto Silveira Primary Care Unavailable Wong France PA-C Medications Current Medications Medication Drug Class(es) Dates Sig (Normalized) Sig (Original) acetaminophen 500 mg oral tablet (12 sources) Start: 10-03-2024 Acetaminophen Extra Strength 500 mg tablet 2 tablets q 8 hrs orally for 7 days - Active Take as needed after 7 days Start: 09-16-2024 take 2 tablets by mo [facility] every eight hours Tylenol 325 mg tablet take 2 tablet by oral route every 8 HOURS - Active Start: 06-05-2022 take 1 tablet by eliza th every six hours as needed for pain Acetaminophen (Tylenol Ex Str Arthritis Pain) 500 mg Tablet Active 500 mg PO EVERY 6 HOURS as needed for Pain June 05, 2022 12:00am Start: 02-07-2022 Tylenol Extra Strength 500 mg oral tablet Dose : 1,000 mg = 2 tab(s), Oral, TID, PRN as needed for pain Start Date: 02/07/22 Status: Ordered Tylenol Extra St rength 500 MG TABS Quantity: 0 Refills: 0 Ordered: 02-Oct-2021 DO Active Comment on above: Take as needed after 7 days amLODIPine 10 mg oral tablet (19 sources) Dihydropyridine Calcium Channel Trini Start: 5 take 1 tablet by mouth once daily in the morning amlodipine 10 mg tablet take 1 tablet by oral route every morning 10 MG - Active Start: 05-10-2015 take 1 tablet by eliza th once daily Amlodipine 10 MG tablet Active 10 mg PO DAILY May 10, 2015 1:00am amLODIPine Besyl ate 10 MG Oral Tablet Quantity: 0 Refills: 0 Ordered: 02-Oct-2021 DO Active aspirin 81 mg delayed release oral tablet (5 sources) Platelet Aggregation Inhibitor, Nonsteroidal Anti-inflammatory Drug Start: 10-03-2024 aspirin 81 mg tablet,delayed release one tablet twice a day for DVT - Active Take upon completion of Xarelto Start: 10-18-2021 Aspirin (Adult Low Dose Aspirin) 81 mg tablet,delayed release (DR/EC) Active 81 MG PO DAILY October 17, 2021 11:00pm Comment on above: Take upon completion of Xarelto atorvastatin 40 mg oral tablet (20 sources) HMG-CoA Reductase Inhibitor Start: 2 take 1 tablet by mouth at bedtime Atorvastatin 40 mg tablet Active 40 mg PO AT BEDTIME September 18, 2021 12:00am Start: 06-28-2020 take 1 tablet by eliza th at bedtime Atorvastatin 20 mg Tablet Active 20 mg PO AT BEDTIME June 28, 2020 12:00am Atorvastatin Rodney cium 40 MG Oral Tablet Quantity: 0 Refills: 0 Ordered: 02-Oct-2021 DO Active biotin 10 mg oral capsule (5 sources) Start: 10-18-2021 Biotin Active MCG PO October 18, 2021 12:00am calcium carbonate 500 mg chewable tablet (1 source) Start: 02-07-2022 Tums 500 mg or al tablet, chewable Dose : 500 mg = 1 tab(s), Chewed, BID, PRN as needed for dyspepsia Start Date: 02/07/22 Status: Ordered cephalexin 500 mg oral capsule (1 source) Cephalosporin Antibacterial Start: 10-03-2024 take 1 capsule by mouth every eight hours cephalexin 500 mg capsule Take one capsule by mouth every eight hours - Active Take 1 every 8 hours for 3 doses Comment on above: Take 1 every 8 hours for 3 doses diclofenac sodium 75 mg delayed release oral tablet (10 sources) Nonsteroidal Anti-inflammatory Drug Start: 02-07-2022 diclofenac sodium 75 mg oral delayed release tablet Dose : 75 mg = 1 tab(s), Oral, q12h Start Date: 02/07/22 Status: Ordered Start: 09-09-2021 take 1 tablet by eliza th twice daily Diclofenac Sodium Active 1 TABLET PO TWICE A DAY September 09, 2021 12:00am Diclofenac Sodiu m 75 MG Oral Tablet Delayed Release Quantity: 0 Refills: 0 Ordered: 02-Oct-2021 DO Active gabapentin 300 mg oral capsule (19 sources) Anti-epileptic Agent Start: 09-18-2021 Gabapenti n Active 300 MG PO September 18, 2021 12:00am Start: 01-11-2020 Gabapentin Act mukesh 300 MG PO THREE TIMES A DAY January 11, 2020 1:00am 200 mg in the morning and 100 mg in the afternoon and 200 mg in the evening Gabapentin 300 M G Oral Capsule Quantity: 0 Refills: 0 Ordered: 02-Oct-2021 DO Active hydroCHLOROthiazide 12.5 mg / lisinopril 20 mg oral tablet (18 sources) Thiazide Diuretic, Angiotensin Converting Enzyme Inhibitor Start: 09-16-2024 take 1 tablet by mouth once daily in the morning lisinopril 20 mg-hydrochlorothiazide 12.5 mg tablet take 1 by oral route every morning/PM - Active Start: 03-29-2021 Lisinopril-hyd roCHLOROthiazide 20-12.5 MG Oral Tablet Quantity: 180 Refills: 0 Ordered: 29-Mar-2021 DO Start : 29-Mar-2021 Active Start: 07-02-2020 Lisinopril-Hyd rochlorothiazide 20-12.5 mg tablet Active 1 {tbl} PO TWICE A DAY July 02, 2020 12:00am Start: 07-02-2020 take 1 tablet by eliza th twice daily Lisinopril-Hydrochlorothiazide Active 1 TABLET PO TWICE A DAY July 01, 2020 11:00pm ibuprofen 200 mg oral capsule (1 source) Nonsteroidal Anti-inflammatory Drug Start: 09-16-2024 take 1 capsule by mouth every eight hours ibuprofen 200 mg capsule take 1 capsule by oral route EVERY 8 HOURS - Active mecobalamin 1 mg sublingual tablet (5 sources) Start: 10-18-2021 Mecobalamin (Vitamin B12) Active 1000 MCG SL DAILY October 18, 2021 12:00am place tablet under tongue and allow to dissolve for at least30 secs before swallowing metoprolol tartrate 50 mg oral tablet (19 sources) beta-Adrenergic Trini Start: 09-16-2024 take 1 tablet by mouth once daily in the morning metoprolol tartrate 50 mg tablet take 1 by oral route every morning/PM - Active Start: 07-13-2018 take 1 tablet by eliza twice daily Metoprolol Tartrate 50 mg tablet Active 50 mg PO TWICE A DAY July 13, 2018 12:00am Metoprolol Tartr ate 50 MG Oral Tablet Quantity: 0 Refills: 0 Ordered: 02-Oct-2021 DO Active Multivitamin (Daily Multi-Vitamin) tablet (5 sources) Start: 10-18-2021 take 1 tablet by mouth once daily Multivitamin (Daily Multi-Vitamin) tablet Active 1 TABLET PO DAILY October 17, 2021 11:00pm Start: 10-18-[address] [facility] [address] [facility] Multivitamin (Daily Multi-Vitamin) tablet Active 1 TABLET PO DAILY October 18, 2021 12:00am omeprazole 20 mg delayed release oral capsule (20 sources) Proton Pump Inhibitor Start: 09-16-2024 take 1 capsule by mouth once daily in the morning omeprazole 20 mg capsule,delayed release take 1 by oral route every morning 1 - Active Start: 01-12-2019 take 1 capsule by mo [facility] once daily Omeprazole 20 mg capsule,delayed release(DR/EC) Active 20 mg PO DAILY January 12, 2019 1:00am Start: 05-10-2015 End: 01-12-2019 take 2 capsules by mouth once daily Omeprazole 20 MG capsule Discontinued 40 mg PO DAILY May 10, 2015 1:00am January 12, 2019 3:18pm Start: 05-10-2015 End: 01-12-2019 take 40 mg by mouth once daily Omeprazole Discontinued 40 MG PO DAILY May 10, 2015 12:00am January 12, 2019 2:18pm Omeprazole 20 MG Oral Capsule Delayed Release Quantity: 0 Refills: 0 Ordered: 02-Oct-2021 DO Active ondansetron 4 mg oral tablet (1 source) Serotonin-3 Receptor Antagonist Start: 10-03-2024 ondansetron HCl 4 mg tablet 1T every 8 hours prn for nausea/vomiting - Active oxyCODONE hydrochloride 5 mg oral tablet (1 source) Opioid Agonist Start: 10-03-2024 take 1-2 tablets by mouth every four to six hours as needed for pain oxycodone 5 mg tablet 1-2 po q 4-6 hrs prn pain - Active Z96.60 - 7 Day Supply Comment on above: Z96.60 7 Day Suppl y rivaroxaban 10 mg oral tablet (1 source) Factor Xa Inhibitor Start: 10-03-2024 inject 1 mL by subcutaneous injection once daily Xarelto 10 mg tablet 1 tablet daily for 14 days - Active If insurance does not cover or other patient barriers exist, then change to Lovenox 40mg/0.4 ml mg subcutaneous injection daily dispense number 14. Comment on above: If insurance does no t cover or other patient barriers exist, then change to Lovenox 40mg/0.4 ml mg subcutaneous injection daily dispense number 14. rosuvastatin calcium 40 mg oral tablet (2 sources) HMG-CoA Reductase Inhibitor Start: 09-16-2024 take 1 tablet by mouth in the evening rosuvastatin 40 mg tablet take 1 by oral route PM - Active Start: 02-07-2022 rosuvastatin 4 0 mg oral tablet Dose : 40 mg = 1 tab(s), Oral, Daily, 0 Refill(s) Start Date: 02/07/22 Status: Ordered tamsulosin hydrochloride 0.4 mg oral capsule (5 sources) alpha-Adrenergic Trini Start: 10-18-2021 take 0.4 mg by mouth once daily Tamsulosin Active 0.4 MG PO DAILY October 18, 2021 12:00am traMADol hydrochloride 50 mg oral tablet (1 source) Opioid Agonist Start: 10-03-2024 take 1-2 tablets by mouth every six hours as needed for pain tramadol 50 mg tablet 1-2 po q 6 hours prn pain - Active Z96.60 - 7 Day Supply Comment on above: Z96.60 7 Day Suppl y Vitamin D3 25 mcg (1000 intl units) oral capsule (1 source) Start: 02-07-2022 Vitamin D3 25 mcg (1000 intl units) oral capsule Dose : 25 mcg = 1 cap(s), Oral, Daily Start Date: 02/07/22 Status: Ordered Completed/Discontinued Medications Medication Drug Class(es) Dates Sig (Normalized) Sig (Original) [id number] 200 actuat albuterol 0.09 mg/actuat metered dose [...] Ordered: 05-Apr-2021 DO Start : 05-Apr-2021 Active celecoxib 200 mg oral capsule (1 source) Nonsteroidal Anti-inflammatory Drug Start: 5 take 1 capsule by mouth once daily celecoxib 200 mg capsule Do not start taking until Xarelto therapy complete. Then take one capsule by mouth daily - Active If Prior Auth required do not fill Comment on above: If Prior Auth requir ed do not fill lisinopril 20 mg oral tablet (3 sources) [...] Ordered: 15-May-2021 DO Start : 15-May-2021 Active Problems Problem Classification Problem Date Documented Date Episodic/Chronic Biliary tract disease (14 sources) Biliary sludge; Translations: [Other specified diseases of biliary tract] 04-16-2017 Chronic Disorders of lipid metabolism (3 sources) Hyperlipidemia, unspecified; Translations: [Mixed hyperlipidemia] Onset: 10-21-2021 Chronic Esophageal disorders (17 sources) Gastroesophageal reflux disease; Translations: [Gastro-esophageal reflux disease without esophagitis] Onset: 10-21-2021 04-16-2017 Chronic Essential hypertension (18 sources) Hypertensive disorder; Translations: [Essential (primary) hypertension] Onset: 10-21-2021 09-09-2021 Chronic Comment on above: controlled on meds Nonspecific chest pain (7 sources) Chest pain; Translations: [Chest pain, unspecified] 05-27-2022 Episodic Osteoarthritis (17 sources) Unilateral primary osteoarthritis, left hip; Translations: [Unilateral primary osteoarthritis, right knee] Onset: 10-21-2021 Chronic Other aftercare (1 source) Other chcf (current) drug therapy; Translations: [Other watermaster (current) drug therapy] Onset: 10-21-2021 Episodic Other circulatory disease (3 sources) H/O: hypertension; Translations: [Personal history of other diseases of circulatory system] Episodic Other connective tissue disease (3 sources) Presence of right artificial knee joint; Translations: [Presence of right artificial knee joint] Onset: 11-16-2024 Chronic Other liver diseases (1 source) Fatty (change of) liver, not elsewhere classified; Translations: [Fatty (change of) liver, not elsewhere classified] Onset: 10-21-2021 Chronic Other liver diseases (14 sources) Enzyme level - finding; Translations: [Transaminasemia] 04-16-2017 Episodic Other lower respiratory disease (1 source) Shortness of breath; Translations: [Shortness of breath] Onset: 08-18-2024 Episodic Other nervous system disorders (7 sources) Paresthesia of left upper limb; Translations: [Paresthesia of skin] 05-27-2022 Episodic Other non-traumatic joint disorders (3 sources) Pain in right knee; Translations: [Pain, joint, knee, right] Onset: 08-17-2024 Episodic Other nutritional; endocrine; and metabolic disorders (14 sources) Morbid obesity; Translations: [Morbid (severe) obesity due to excess calories] 04-16-2017 Chronic Other nutritional; endocrine; and metabolic disorders (11 sources) Obesity; Translations: [Obesity, unspecified] 10-18-2021 Chronic Other nutritional; endocrine; and metabolic disorders (4 sources) Obesity, unspecified; Translations: [Obesity, unspecified] Chronic Other nutritional; endocrine; and metabolic disorders (3 sources) Morbid (severe) obesity due to excess calories; Translations: [Morbid (severe) obesity due to excess calories] Onset: 10-21-2021 Chronic Other nutritional; endocrine; and metabolic disorders (1 source) Body mass index (BMI) 45.0-49.9, adult; Translations: [Body mass index [BMI] 45.0-49.9, adult] Onset: 10-21-2021 Chronic Other screening for suspected conditions (not mental disorders or infectious disease) (1 source) Encounter for screening for malignant neoplasm of prostate; Translations: [Encounter for screening for malignant neoplasm of prostate] Onset: 08-04-2024 Episodic Other upper respiratory disease (14 sources) Seasonal allergic rhinitis; Translations: [Other seasonal allergic rhinitis] 04-16-2017 Chronic Other upper respiratory disease (9 sources) Disorder of the larynx; Translations: [Other diseases of larynx] 09-24-2021 Episodic Other upper respiratory disease (3 sources) Other diseases of larynx; Translations: [Other diseases of larynx, not elsewhere classified] Episodic Other upper respiratory disease (3 sources) Lesion of vocal cord; Translations: [Other diseases of vocal cords] Episodic Other upper respiratory disease (4 sources) Other diseases of vocal cords; Translations: [Other diseases of vocal cords] Onset: 11-08-2021 Episodic Other upper respiratory disease (3 sources) Mass of neck; Translations: [Other diseases of larynx] 09-24-2021 Episodic Residual codes; unclassified (14 sources) Obstructive sleep apnea syndrome; Translations: [Obstructive sleep apnea (adult) (pediatric)] 05-15-2017 Chronic Comment on above: 14/10 cmH2O Residual codes; unclassified (3 sources) Obstructive sleep apnea (adult) (pediatric); Translations: [Obstructive sleep apnea (adult) (pediatric)] Onset: 10-21-2021 Chronic Residual codes; unclassified (11 sources) History of repair of aneurysm of abdominal aorta; Translations: [Other specified postprocedural states] 10-18-2021 Episodic Comment on above: family hx not pt's Residual codes; unclassified (2 sources) Other specified health status Episodic Substance-related disorders (20 sources) Nicotine dependence; Translations: [Nicotine dependence, unspecified, uncomplicated] Onset: 11-08-2021 01-18-2018 Chronic Thyroid disorders (16 sources) Non-toxic multinodular goiter; Translations: [Nontoxic multinodular goiter] Onset: 10-21-2021 Chronic Unclassified (1 source) Contact with and (suspected) exposure to COVID-19; Translations: [Contact with and (suspected) exposure to COVID-19] Onset: 11-08-2021 Results Test Name Value Interpretation Reference Range Facility CBC W Differential panel, me thod unspecified (Bld)on 09-16-2024 Basophils (Bld) [#/Vol] 0.06 10*3/uL Normal 0.00-0.20 [facility] Comment on above: Performed By: #### 6 9742-5 #### [facility] [address] [place] [address]4945 Basophils/100 WBC (Bld) 0.7 % Normal 0.0-2.0 [facility] Comment on above: Performed By: #### 6 9742-5 #### [facility] [address] [place] [address] 02830 Eosinophils (Bld) [#/Vol] 0.30 10*3/uL Normal 0.00-0.70 [facility] Comment on above: Performed By: #### 6 9742-5 #### [facility] [address] [place] [address] 29738 Eosinophils/100 WBC (Bld) 3.5 % Normal 0.0-7.0 [facility] Comment on above: Performed By: #### 6 9742-5 #### [facility] [address] [place] [address]23 Erythrocyte distribution width (RBC) [Ratio] 13.2 % Normal 11.0-14.8 [facility] Comment on above: Performed By: #### 6 9742-5 #### [facility] [address] [place] [address] 95265 Hematocrit (Bld) [Volume fraction] 44.5 % Normal 39.0-49.0 [facility] Comment on above: Performed By: #### 6 9742-5 #### [facility] [address] [place] [address] 26575 Hemoglobin (Bld) [Mass/Vol] 15.8 g/dL Normal 13.5-17.5 [facility] Comment on above: Performed By: #### 6 9742-5 #### [facility] [address] [place] [address] 94883 Immature granulocytes (Bld) [#/Vol] 0.02 10*3/uL Normal 0.00-0.10 [facility] Comment on above: Performed By: #### 6 9742-5 #### [facility] [address] [place] [address] 88267 Immature granulocytes/100 WBC (Bld) 0.2 % Normal 0.0-1.2 [facility] Comment on above: Performed By: #### 6 9742-5 #### [facility] [address] [place] [address] 16848 Lymphocytes (Bld) [#/Vol] 2.75 10*3/uL Normal 1.00-4.80 [facility] Comment on above: Performed By: #### 6 9742-5 #### [facility] [address] [place] [address] 23852 Lymphocytes/100 WBC (Bld) 32.4 % Normal 17.9-49.6 [facility] Comment on above: Performed By: #### 6 9742-5 #### [facility] [address] [place] [address] 38636 MCH 30.2 pcg Normal 27.0-34.0 [facility] Comment on above: Performed By: #### 6 9742-5 #### [facility] [address] [place] [address] 73574 MCHC (RBC) [Mass/Vol] 35.5 g/dL High 30.8-35.3 Eliza [facility] Comment on above: Performed By: #### 6 9742-5 #### [facility] [address] [place] [address] 25560 MCV (RBC) [Entitic vol] 84.9 fL Normal 80.0-97.0 [facility] Comment on above: Performed By: #### 6 9742-5 #### [facility] [address] [place] [address] 58259 Monocytes (Bld) [#/Vol] 0.50 10*3/uL Normal 0.00-0.90 [facility] Comment on above: Performed By: #### 6 9742-5 #### [facility] [address] [place] [address] 12554 Monocytes/100 WBC (Bld) 5.9 % Normal 0.0-12.0 [facility] Comment on above: Performed By: #### 6 9742-5 #### [facility] [address] [place] [address] 33155 Neutrophils Absolute 4.85 K/mcL Normal 1.80-7.70 Moun [facility] Comment on above: Performed By: #### 6 9742-5 #### [facility] [address] [place] [address] 69065 Neutrophils/100 WBC (Bld) 57.3 % Normal 38.1-75.5 [facility] Comment on above: Performed By: #### 6 9742-5 #### [facility] [address] [place] [address] [place] [address] Platelet mean volume (Bld) [Entitic vol] 10.1 fL Normal 6.2-12.1 [facility] Comment on above: Performed By: #### 6 9742-5 #### [facility] [address] [place] [address] 66369 Platelets (Bld) [#/Vol] 255 10*3/uL Normal 142-424 [facility] Comment on above: Performed By: #### 6 9742-5 #### [facility] [address] [place] [address] 09897 RBC (Bld) [#/Vol] 5.24 10*6/uL Normal 4.30-5.70 [facility] Comment on above: Performed By: #### 6 9742-5 #### [facility] [address] [place] [address] 29115 WBC (Bld) [#/Vol] 8.5 10*3/uL Normal 4.6-10.2 [facility] Comment on above: Performed By: #### 6 9742-5 #### [facility] [address] [place] [address] 06043 Comprehensive metabolic 2000 panelon 09-16-2024 Albumin [Mass/Vol] 4.2 g/dL Normal 3.5-4.8 [facility] Comment on above: Performed By: #### 2 4323-8 #### [facility] [address] [place] [address] 49230 ALP [Catalytic activity/Vol] 63 U/L Normal 32-91 [facility] Comment on above: Performed By: #### 2 4323-8 #### [facility] [address] [place] [address] 90268 ALT [Catalytic activity/Vol] 34 U/L Normal 7-52 [facility] Comment on above: Performed By: #### 2 4323-8 #### [facility] [address] [place] [address] Anion gap [Moles/Vol] 11 mmol/L Normal 6-18 Eliza [facility] Comment on above: Performed By: #### 2 4323-8 #### [facility] [address] [place] [address] AST [Catalytic activity/Vol] 23 U/L Normal 15-41 [facility] Comment on above: Performed By: #### 2 4323-8 #### [facility] ([facility] [address] [place] [address] Bilirubin [Mass/Vol] 0.8 mg/dL Normal 0.3-1.2 [facility] Comment on above: Performed By: #### 2 4323-8 #### [facility] ([facility] [address] [place] [address] Calcium [Mass/Vol] 9.4 mg/dL Normal 8.9-10.3 [facility] Comment on above: Performed By: #### 2 4323-8 #### [facility] ([facility] [address] [place] [address] Chloride [Moles/Vol] 100 mmol/L Normal 98-107 [facility] Comment on above: Performed By: #### 2 4323-8 #### [facility] ([facility] [address] [place] [address] CO2 [Moles/Vol] 28 mmol/L Normal 22-32 [facility] Comment on above: Performed By: #### 2 4323-8 #### [facility] [address] [place] [address] Creatinine [Mass/Vol] 0.92 mg/dL Normal 0.60-1.30 [facility] Comment on above: Performed By: #### 2 4323-8 #### [facility] [address] [place] [address] GFR/1.73 sq M.predicted among non-blacks MDRD (S/P/Bld) [Vol rate/Area] 98 mL/min/{1.73_m2} Normal >=60 [facility] Comment on above: Result Comment: Calc ulation based on the Chronic Kidney Disease Epidemiology Collaboration (CKD-EPI) equation refit without adjustment for race. Performed By: #### 2 4323-8 #### [facility] [address] [place] [address] Glucose [Mass/Vol] 82 mg/dL Normal 70-99 [facility] Comment on above: Performed By: #### 2 4323-8 #### [facility] [address] [place] [address] Potassium [Moles/Vol] 3.7 mmol/L Normal 3.6-5.1 Eliza [facility] Comment on above: Performed By: #### 2 4323-8 #### [facility] [address] [place] [address] Protein [Mass/Vol] 6.7 g/dL Normal 6.1-7.9 [facility] Comment on above: Performed By: #### 2 4323-8 #### [facility] [address] [place] [address] Sodium [Moles/Vol] 139 mmol/L Normal 136-145 [facility] Comment on above: Performed By: #### 2 4323-8 #### [facility] [address] [place] [address] Urea nitrogen [Mass/Vol] 15 mg/dL Normal 8-20 [facility] Comment on above: Performed By: #### 2 4323-8 #### [facility] [address] [place] [address] Urea nitrogen/Creatinine [Mass ratio] 16.3 mg/mg Normal 12.0-20.0 [facility] Comment on above: Performed By: #### 2 4323-8 #### [facility] ([facility] [address] [place] [address] PSA,Total - Annual Screenon 08-01-2024 PSA,TOT SCREEN 1.91 ng/mL Normal 0.02-4.00 [facility] Comment on above: Order Comment: PER Yadi FERRELL JAIR ORDER Order Date: 08/01/24 Order Info: [id number] - PSA Result Comment: This test was performed using the [employer] tPSA method. Measured values of a patient??sample can vary depending on the testing procedure used. PSA values determined on patient samples by different testing procedures cannot be used interchangeably. If there is a change in PSA assays while monitoring therapy, sequential testing should be performed to confirm baseline values. Performed By: #### L 501.9910 #### [facility] [address] [place], [address] Absolute neutrophil countOrd ered By: Chapo Mcadams on 03-17-2024 Neutrophils (Bld) [#/Vol] 4.6 10*3/uL 2.0-7.7 [facility] Albumin to globulin ratioOrd ered By: Chapo Mcadams on 03-17-2024 Albumin/Globulin [Mass ratio] 0.9 {ratio} 0.9-2.4 [facility] Basophil percentageOrdered B y: Chapo Mcadams on 03-17-2024 Basophils/100 WBC (Bld) 0.5 % 0-1 [facility] Bilirubin, totalOrdered By: Chapo Mcadams on 03-17-2024 Bilirubin [Mass/Vol] 0.60 mg/dL 0.20-1.00 [facility] Comment on above: For patients on eltr ombopag therapy, use of Dimension [place] TBIL is not recommended. Blood urea nitrogen (BUN)/cr eatinine ratioOrdered By: Chapo Mcadams on 03-17-2024 Urea nitrogen/Creatinine [Mass ratio] 12.1 mg/mg 10-20 [facility] CBC W/Diff, Automatedon 03-02 Absolute Lymph 1.00 X10 3/uL Normal 0.83-4.51 [facility] Comment on above: Order Comment: Order Date: 12/01/23 Order Info: 0184-1 - CBCD Performed By: #### L 501.9520, L100.0100, L500.4050, L500.4100 #### [facility] [address] [place], [address] Absolute Neut 4.6 X10 3/uL Normal 2.0-7.7 [facility] Comment on above: Order Comment: Order Date: 12/01/23 Order Info: 0184- - CBCD Performed By: #### L 501.9520, L100.0100, L500.4050, L500.4100 #### [facility] [address] [place], [address] Basophils/100 WBC (Bld) 0.5 % Normal 0-1 [facility] Comment on above: Order Comment: Order Date: 12/01/23 Order Info: 0184- - CBCD Performed By: #### L 501.9520, L100.0100, L500.4050, L500.4100 #### [facility] [address] [place], [address] Eosinophils/100 WBC (Bld) 2.2 % Normal 0-5 [facility] Comment on above: Order Comment: Order Date: 12/01/23 Order Info: 0184-1 - CBCD Performed By: #### L 501.9520, L100.0100, L500.4050, L500.4100 #### [facility] [address] [place], [address] Erythrocyte distribution width (RBC) [Ratio] 13.4 % Normal 11.6-14.6 [facility] Comment on above: Order Comment: Order Date: 12/01/23 Order Info: 0184-1 - CBCD Performed By: #### L 501.9520, L100.0100, L500.4050, L500.4100 #### [facility] [address] [place], [address] Hematocrit (Bld) [Volume fraction] 45.5 % Normal 40-54 [facility] Comment on above: Order Comment: Order Date: 12/01/23 Order Info: 0184-1 - CBCD Performed By: #### L 501.9520, L100.0100, L500.4050, L500.4100 #### [facility] [address] [place], [address] Hemoglobin (Bld) [Mass/Vol] 15.8 g/dL Normal 13.0-16.5 [facility] Comment on above: Order Comment: Order Date: 12/01/23 Order Info: 0184-1 - CBCD Performed By: #### L 501.9520, L100.0100, L500.4050, L500.4100 #### [facility] [address] [place], [address] IG% 0.300 Normal 0.0-0.9 [facility] Comment on above: Order Comment: Order Date: 12/01/23 Order Info: 0184-1 - CBCD Result Comment: IG% - Immature Granulocytes (promyelocytes, myelocytes and metamyelocytes) > 1% indicates that a LEFT SHIFT is Present. Performed By: #### L 501.9520, L100.0100, L500.4050, L500.4100 #### [facility] [address] [place], [address] Lymphocytes/100 WBC (Bld) 15.4 % Low 19-41 [facility] Comment on above: Order Comment: Order Date: 12/01/23 Order Info: 0184-1 - CBCD Performed By: #### L 501.9520, L100.0100, L500.4050, L500.4100 #### [facility] [address] [place], [address] MCH (RBC) [Entitic mass] 29.5 pg Normal 27.0-32.0 [facility] Comment on above: Order Comment: Order Date: 12/01/23 Order Info: 0184-1 - CBCD Performed By: #### L 501.9520, L100.0100, L500.4050, L500.4100 #### [facility] [address] [place], [address] MCHC (RBC) [Mass/Vol] 34.7 g/dL Normal 32-36 [facility] Comment on above: Order Comment: Order Date: 12/01/23 Order Info: 0184-1 - CBCD Performed By: #### L 501.9520, L100.0100, L500.4050, L500.4100 #### [facility] [address] [place], [address] MCV (RBC) [Entitic vol] 84.9 fL Normal 80-94 [facility] Comment on above: Order Comment: Order Date: 12/01/23 Order Info: 0184-1 - CBCD Performed By: #### L 501.9520, L100.0100, L500.4050, L500.4100 #### [facility] [address] [place], [address] Monocytes/100 WBC (Bld) 10.3 % High 0-10 [facility] Comment on above: Order Comment: Order Date: 12/01/23 Order Info: 0184-1 - CBCD Performed By: #### L 501.9520, L100.0100, L500.4050, L500.4100 #### [facility] [address] [place], [address] Neutrophils/100 WBC (Bld) 71.3 % High 47-70 [facility] Comment on above: Order Comment: Order Date: 12/01/23 Order Info: 0184-1 - CBCD Performed By: #### L 501.9520, L100.0100, L500.4050, L500.4100 #### [facility] [address] [place], [address] Nucleated RBC (Bld) [#/Vol] 0 10*3/uL Normal 0-5 [facility] Comment on above: Order Comment: Order Date: 12/01/23 Order Info: 0184-1 - CBCD Performed By: #### L 501.9520, L100.0100, L500.4050, L500.4100 #### [facility] [address] [place], [address] Platelet mean volume (Bld) [Entitic vol] 9.7 fL Normal 6.2-12.0 [facility] Comment on above: Order Comment: Order Date: 12/01/23 Order Info: 0184-1 - CBCD Performed By: #### L 501.9520, L100.0100, L500.4050, L500.4100 #### [facility] [address] [place], [address] Platelets (Bld) [#/Vol] 212 10*3/uL Normal 150-450 [facility] Comment on above: Order Comment: Order Date: 12/01/23 Order Info: 0184-1 - CBCD Performed By: #### L 501.9520, L100.0100, L500.4050, L500.4100 #### [facility] [address] [place], [address] RBC (Bld) [#/Vol] 5.36 10*6/uL Normal 4.6-6.2 [facility] Comment on above: Order Comment: Order Date: 12/01/23 Order Info: 0184-1 - CBCD Performed By: #### L 501.9520, L100.0100, L500.4050, L500.4100 #### [facility] [address] [place], [address] RDW SD 41.1 fl Normal 35.1-43.9 [facility] Comment on above: Order Comment: Order Date: 12/01/23 Order Info: 0184-1 - CBCD Performed By: #### L 501.9520, L100.0100, L500.4050, L500.4100 #### [facility] [address] [place], [address] WBC (Bld) [#/Vol] 6.5 10*3/uL Normal 4.4-11.0 [facility] Comment on above: Order Comment: Order Date: 12/01/23 Order Info: 0184-1 - CBCD Performed By: #### L 501.9520, L100.0100, L500.4050, L500.4100 #### [facility] [address] [place], [address] Carbon dioxide measurementOr dered By: Chapo Mcadams on 03-17-2024 CO2 [Moles/Vol] 26.0 mmol/L 21.0-32.0 [facility] Chest PA and Lateralon 03-17 Chest PA and Lateral [facility] [address] [place] [address] Chest PA and Lateral MR#: [id number] Acct: [id number] Name: IVAN GODINEZ Rep #: [id number] : 1970 M 53 From: Smith Holloway DO PCP: Dr. Chapo Mcadams MD Status: REG CLI Study: Chest PA and Lateral Date of Exam: 03/17/24 Exam# [id number] Ordering Dr: Albino Berkowitz NP [employer] MANAGER -C [id number] INDICATION: COUGH EXAMINATION/TECHNIQUE: X-RAY - XR Chest 2 Views COMPARISON: May 27, 2022 FINDINGS: LINES/DEVICES: None. LUNGS: No consolidation, edema or effusion. No pneumothorax. MEDIASTINUM AND CARDIOVASCULAR STRUCTURES: Cardiac silhouette not enlarged. Central airways and mediastinal contour are unremarkable. BONES AND SOFT TISSUES: Degenerative vertebral changes. RAD/Chest PA and Lateral IMPRESSION: No radiographic evidence of acute cardiopulmonary disease. Electronically Signed: Smith Holloway DO at 17:37 EST , CC: Albino RENE [employer]LL MANAGER-C [place]; Dr. Chapo Mcadams MD Chain Maker: Signed Normal [facility] Chloride measurementOrdered By: Chapo Mcadams on 03-17-2024 Chloride [Moles/Vol] 105 mmol/L 98-107 [facility] Comprehensive Metabolic Prof ilon 03-17-2024 Albumin [Mass/Vol] 3.5 g/dL Normal 3.2-5.0 [facility] Comment on above: Order Comment: Order Date: 12/01/23 Order Info: [id number] - CMP Order Info: [id number] - LIPID Order Info: 3016-3 - TSH Performed By: #### L 501.9520, L100.0100, L500.4050, L500.4100 #### [facility] [address] [place], [place], [id number] Albumin/Globulin [Mass ratio] 0.9 {ratio} Normal 0.9-2.4 [facility] Comment on above: Order Comment: Order Date: 12/01/23 Order Info: [id number] - CMP Order Info: [id number] - LIPID Order Info: [id number] - TSH Performed By: #### L 501.9520, L100.0100, L500.4050, L500.4100 #### [facility] [address] [place], [place], [address] ALK P 81 U/L Normal 45-117 [facility] Comment on above: Order Comment: Order Date: 12/01/23 Order Info: [id number] - CMP Order Info: [id number] - LIPID Order Info: 3 - TSH Performed By: #### L 501.9520, L100.0100, L500.4050, L500.4100 #### [facility] [address] [place], [address] ALT [Catalytic activity/Vol] 64 U/L High 16-61 [facility] Comment on above: Order Comment: Order Date: 12/01/23 Order Info: [id number] - CMP Order Info: [id number] - LIPID Order Info: 3 - TSH Performed By: #### L 501.9520, L100.0100, L500.4050, L500.4100 #### [facility] [address] [place], [address] AST [Catalytic activity/Vol] 37 U/L Normal 15-37 [facility] Comment on above: Order Comment: Order Date: 12/01/23 Order Info: [id number] - CMP Order Info: [id number] - LIPID Order Info: 3013 - TSH Performed By: #### L 501.9520, L100.0100, L500.4050, L500.4100 #### [facility] [address] [place], [address] Bilirubin [Mass/Vol] 0.60 mg/dL Normal 0.20-1.00 [facility] Comment on above: Order Comment: Order Date: 12/01/23 Order Info: 0786-1 - CMP Order Info: [id number] - LIPID Order Info: 3013 - TSH Result Comment: For patients on eltrombopag therapy, use of Dimension [place] TBIL is not recommended. Performed By: #### L 501.9520, L100.0100, L500.4050, L500.4100 #### [facility] [address] [place], [address] BUN/CRE 12.1 RATIO Normal 10-20 [facility] Comment on above: Order Comment: Order Date: 12/01/23 Order Info: [id number] - CMP Order Info: [id number] - LIPID Order Info: 3016-3 - TSH Performed By: #### L 501.9520, L100.0100, L500.4050, L500.4100 #### [facility] [address] [place], [address] CA,Total 9.1 mg/dL Normal 8.5-10.1 [facility] Comment on above: Order Comment: Order Date: 12/01/23 Order Info: [id number] - CMP Order Info: [id number] - LIPID Order Info: 3016 - TSH Performed By: #### L 501.9520, L100.0100, L500.4050, L500.4100 #### [facility] [address] [place], [address] Chloride [Moles/Vol] 105 mmol/L Normal 98-107 [facility] Comment on above: Order Comment: Order Date: 12/01/23 Order Info: [id number] - CMP Order Info: [id number] - LIPID Order Info: [id number] - TSH Performed By: #### L 501.9520, L100.0100, L500.4050, L500.4100 #### [facility] [address] [place], [address] CO2 [Moles/Vol] 26.0 mmol/L Normal 21.0-32.0 [facility] Comment on above: Order Comment: Order Date: 12/01/23 Order Info: [id number] - CMP Order Info: [id number] - LIPID Order Info: [id number] - TSH Performed By: #### L 501.9520, L100.0100, L500.4050, L500.4100 #### [facility] [address] [place], [address] Creatinine [Mass/Vol] 1.07 mg/dL Normal 0.70-1.30 [facility] Comment on above: Order Comment: Order Date: 12/01/23 Order Info: [id number] - CMP Order Info: - LIPID Order Info: [id number] - TSH Result Comment: The validity of the calculated GFR GFRAA in patients over 70 years has not been determined. Clinical correlation is essential. Performed By: #### L 501.9520, L100.0100, L500.4050, L500.4100 #### [facility] [address] [place], [address] EST GFR - AA 92 mL/min Normal >60 [facility] Comment on above: Order Comment: Order Date: 12/01/23 Order Info: [id number] - CMP Order Info: - LIPID Order Info: [id number] - TSH Result Comment: Afri can Gabonese GFR Calc Performed By: #### L 501.9520, L100.0100, L500.4050, L500.4100 #### [facility] [address] [place], [address] GAP 7 Normal 5-15 [facility] Comment on above: Order Comment: Order Date: 12/01/23 Order Info: 07 - CMP Order Info: - LIPID Order Info: [id number] - TSH Performed By: #### L 501.9520, L100.0100, L500.4050, L500.4100 #### [facility] [address] [place], [address] GFR/1.73 sq M.predicted among non-blacks MDRD (S/P/Bld) [Vol rate/Area] 76 mL/min/{1.73_m2} Normal >60 [facility] Comment on above: Order Comment: Order Date: 12/01/23 Order Info: 0786- - CMP Order Info: [id number] - LIPID Order Info: [id number] - TSH Result Comment: Non- GFR Calc Performed By: #### L 501.9520, L100.0100, L500.4050, L500.4100 #### [facility] [address] [place], [address] Globulin (S) [Mass/Vol] 3.9 g/dL Normal 2.2-4.2 [facility] Comment on above: Order Comment: Order Date: 12/01/23 Order Info: [id number] - CMP Order Info: - LIPID Order Info: [id number] - TSH Performed By: #### L 501.9520, L100.0100, L500.4050, L500.4100 #### [facility] [address] [place], [address] Glucose [Mass/Vol] 101 mg/dL Normal 74-106 [facility] Comment on above: Order Comment: Order Date: 12/01/23 Order Info: 785- - CMP Order Info: - LIPID Order Info: [id number] - TSH Result Comment: Fast ing Glucose result from 100 to 125 mg/dL suggests IMPAIRED HOMEOSTASIS per A.D.A. criteria. Performed By: #### L 501.9520, L100.0100, L500.4050, L500.4100 #### [facility] [address] [place], [address] Potassium [Moles/Vol] 3.8 mmol/L Normal 3.5-5.1 [facility] Comment on above: Order Comment: Order Date: 12/01/23 Order Info: 0786- - CMP Order Info: [id number] - LIPID Order Info: [id number] - TSH Performed By: #### L 501.9520, L100.0100, L500.4050, L500.4100 #### [facility] [address] [place], [address] Sodium [Moles/Vol] 137 mmol/L Normal 136-145 [facility] Comment on above: Order Comment: Order Date: 12/01/23 Order Info: 07- - CMP Order Info: [id number] - LIPID Order Info: [id number] - TSH Performed By: #### L 501.9520, L100.0100, L500.4050, L500.4100 #### [facility] [address] [place], [place], [id number] T PROT 7.4 g/dL Normal 6.4-8.2 [facility] Comment on above: Order Comment: Order Date: 12/01/23 Order Info: [id number] - CMP Order Info: [id number] - LIPID Order Info: [id number] - TSH Performed By: #### L 501.9520, L100.0100, L500.4050, L500.4100 #### [facility] [address] [place], [place], [id number] Urea nitrogen [Mass/Vol] 13 mg/dL Normal 7-18 [facility] Comment on above: Order Comment: Order Date: 12/01/23 Order Info: [id number] - CMP Order Info: [id number] - LIPID Order Info: [id number] - TSH Performed By: #### L 501.9520, L100.0100, L500.4050, L500.4100 #### [facility] [address] [place], [place], [id number] Eosinophil percentageOrdered By: Chapo Mcadams on 03-17-2024 Eosinophils/100 WBC (Bld) 2.2 % 0-5 [facility] Erythrocyte distribution wid th ratioOrdered By: Chapo Mcadams on 03-17-2024 Erythrocyte distribution width (RBC) [Ratio] 13.4 % 11.6-14.6 [facility] Erythrocyte distribution wid th standard deviationOrdered By: Chapo Mcadams on 03-17-2024 Erythrocyte distribution width (RBC) [Entitic vol] 41.1 fL 35.1-43.9 [facility] Estimated glomerular filtrat ion rate (GFR) AmericanOrdered By: Chapo Mcadams on 03-17-2024 Estimated GFR (MDRD) Amer 92 mL/min >60 [facility] Comment on above: GFR Calc Glomerular filtration rate ( GFR) estimationOrdered By: Chapo Mcadams on 03-17-2024 Estimated GFR (MDRD) Non-Af Amer 76 mL/min >60 [facility] Comment on above: Non- GFR Calc Glucose measurementOrdered B y: Chapo Mcadams on 03-17-2024 Glucose [Mass/Vol] 101 mg/dL 74-106 [facility] Comment on above: Fasting Glucose resu lt from 100 to 125 mg/dL suggests IMPAIRED HOMEOSTASIS per A.D.A. criteria. Hematocrit Auto (Bld) [Volum e fraction]Ordered By: Chapo Mcadams on 03-17-2024 Hematocrit (Bld) [Volume fraction] 45.5 % 40-54 [facility] Hemoglobin measurementOrdere d By: Chapo Mcadams on 03-17-2024 Hemoglobin (Bld) [Mass/Vol] 15.8 g/dL 13.0-16.5 [facility] High density lipoprotein (HD L) measurementOrdered By: Chapo Mcadams on 03-17-2024 Cholesterol in HDL [Mass/Vol] 32 mg/dL Low >40 [facility] Comment on above: The drugs N-Acetylcy steine and Metamizole may falsely depress this assay. Reference Range HDL <40 mg/dL Low HDL Cholesterol HDL >or= 60 mg/dL High HDL Cholesterol Immature granulocytes/100 WB C Auto (Bld)Ordered By: Chapo Mcadams on 03-17-2024 Immature granulocytes/100 WBC (Bld) 0.300 % 0.0-0.9 [facility] Comment on above: IG% - Immature Granu locytes (promyelocytes, myelocytes and metamyelocytes) > 1% indicates that a LEFT SHIFT is Present. Laboratory - Chemistry and C hemistry - challengeOrdered By: Chapo Mcadams on 03-17-2024 AST [Catalytic activity/Vol] 37 U/L 15-37 [facility] Lipid Profileon 03-17-2024 Cholesterol [Mass/Vol] 137 mg/dL Normal 200 [facility] Comment on above: Order Comment: Order Date: 12/01/23 Order Info: [id number] - CMP Order Info: [id number] - LIPID Order Info: [id number] - TSH Result Comment: <200 mg/dL Desirable 200-240 mg/dL Borderline >240 mg/dL High Risk Performed By: #### L 501.9520, L100.0100, L500.4050, L500.4100 #### [facility] [address] [place], [address] Cholesterol in HDL [Mass/Vol] 32 mg/dL Low [facility] Comment on above: Order Comment: Order Date: 12/01/23 Order Info: [id number] - CMP Order Info: [id number] - LIPID Order Info: [id number] - TSH Result Comment: The drugs N-Acetylcysteine and Metamizole may falsely depress this assay. Reference Range HDL <40 mg/dL Low HDL Cholesterol HDL >or= 60 mg/dL High HDL Cholesterol Performed By: #### L 501.9520, L100.0100, L500.4050, L500.4100 #### [facility] [address] [place], [address] Cholesterol in LDL [Mass/Vol] 70 mg/dL Normal 0-130 [facility] Comment on above: Order Comment: Order Date: 12/01/23 Order Info: [id number]- - CMP Order Info: [id number] - LIPID Order Info: [id number] - TSH Performed By: #### L 501.9520, L100.0100, L500.4050, L500.4100 #### [facility] [address] [place], [address] Cholesterol in VLDL [Mass/Vol] 35 mg/dL Normal 5-40 [facility] Comment on above: Order Comment: Order Date: 12/01/23 Order Info: [id number] - CMP Order Info: [id number] - LIPID Order Info: 3016-3 - TSH Performed By: #### L 501.9520, L100.0100, L500.4050, L500.4100 #### [facility] [address] [place], [address] Triglyceride [Mass/Vol] 176 mg/dL Normal [facility] Comment on above: Order Comment: Order Date: 12/01/23 Order Info: [id number] - CMP Order Info: [id number] - LIPID Order Info: [id number] - TSH Result Comment: The drugs N-Acetylcysteine and Metamizole may falsely depress this assay. Serum Triglycerides Reference Interval Normal <150 mg/dL Borderline high 150 - 199 mg/dL High 200 - 499 mg/dL Very High > or = 500 mg/dL Performed By: #### L [id number], L100.0100, L500.4050, L500.4100 #### [facility] [address] [place], [address] Low density lipoprotein (LDL ) cholesterol measurementOrdered By: Chapo Mcadams on 03-17-2024 Cholesterol in LDL [Mass/Vol] 70 mg/dL 0-130 [facility] Lymphocytes Auto (Unsp spec) [#/Vol]Ordered By: Chapo Mcadams on 03-17-2024 Lymphocytes (Bld) [#/Vol] 1.00 10*3/uL 0.83-4.51 [facility] Lymphocytes/100 WBC Auto (Un sp spec)Ordered By: Chapo Mcadams on 03-17-2024 Lymphocytes/100 WBC (Bld) 15.4 % Low 19-41 [facility] MCV (mean corpuscular volume ) determinationOrdered By: Chapo Mcadams on 03-17-2024 MCV (RBC) [Entitic vol] 84.9 fL 80-94 [facility] Mean corpuscular hemoglobin (MCH) determinationOrdered By: Chapo Mcadams on 03-17-2024 MCH (RBC) [Entitic mass] 29.5 pg 27.0-32.0 [facility] Mean corpuscular hemoglobin concentration (MCHC) determinationOrdered By: Chapo Mcadams on 03-17-2024 MCHC (RBC) [Mass/Vol] 34.7 g/dL 32-36 [facility] Mean platelet volume determi nationOrdered By: Chapo Mcadams on 03-17-2024 Platelet mean volume (Bld) [Entitic vol] 9.7 fL 6.2-12.0 [facility] Monocyte percentageOrdered B y: Chapo Mcadams on 03-17-2024 Monocytes/100 WBC (Bld) 10.3 % High 0-10 [facility] Neutrophil percentageOrdered By: Chapo Mcadams on 03-17-2024 Neutrophils/100 WBC (Bld) 71.3 % High 47-70 [facility] Nucleated red blood cell per centageOrdered By: Chapo Mcadams on 03-17-2024 Nucleated RBC/100 WBC (Bld) [Ratio] 0 % 0-5 [facility] Platelet countOrdered By: Claudette Mcadams on 03-17-2024 Platelets (Bld) [#/Vol] 212 10*3/uL 150-450 [facility] Potassium measurementOrdered By: Chapo Mcadams on 03-17-2024 Potassium [Moles/Vol] 3.8 mmol/L 3.5-5.1 [facility] RBC Auto (Bld) [#/Vol]Ordere d By: Cahpo Mcadams on 03-17-2024 RBC (Bld) [#/Vol] 5.36 10*6/uL 4.6-6.2 [facility] Serum anion gap measurementO rdered By: Chapo Mcadams on 03-17-2024 Anion gap [Moles/Vol] 7 mmol/L 5-15 [facility] Serum globulin measurementOr dered By: Chapo Mcadams on 03-17-2024 Globulin (S) [Mass/Vol] 3.9 g/dL 2.2-4.2 [facility] Serum or plasma alanine glass otransferase (ALT) measurementOrdered By: Chapo Mcadams on 03-17-2024 ALT [Catalytic activity/Vol] 64 U/L High 16-61 [facility] Serum or plasma albumin bk urement (mass/volume)Ordered By: Chapo Mcadams on 03-17-2024 Albumin [Mass/Vol] 3.5 g/dL 3.2-5.0 [facility] Serum or plasma alkaline jordan sphatase measurementOrdered By: Chapo Mcadams on 03-17-2024 ALP [Catalytic activity/Vol] 81 U/L 45-117 [facility] Serum or plasma calcium bk urement (mass/volume)Ordered By: Chapo Mcadams on 03-17-2024 Calcium [Mass/Vol] 9.1 mg/dL 8.5-10.1 [facility] Serum or plasma cholesterol measurement (mass/volume)Ordered By: Chapo Mcadams on 03-17-2024 Cholesterol [Mass/Vol] 137 mg/dL <200 [facility] Comment on above: <200 mg/dL Desirable 200-240 mg/dL Borderline >240 mg/dL High Risk Serum or plasma creatinine m easurement (mass/volume)Ordered By: Chapo Mcadams on 03-17-2024 Creatinine [Mass/Vol] 1.07 mg/dL 0.70-1.30 [facility] Comment on above: The validity of the calculated GFR & GFRAA in patients over 70 years has not been determined. Clinical correlation is essential. Serum or plasma urea nitroge n measurement (mass/volume)Ordered By: Chapo Mcadams on 03-17-2024 Urea nitrogen [Mass/Vol] 13 mg/dL 7-18 [facility] Sodium levelOrdered By: Chapo Mcadams on 03-17-2024 Sodium [Moles/Vol] 137 mmol/L 136-145 [facility] TSH QnOrdered By: Chapo gasca on 03-17-2024 Thyroid Stimulating Hormone (TSH) 1.060 uIU/mL 0.358-3.740 [facility] Thyroid Stim Hormone (TSH)on 03-17-2024 TSH 1.060 uIU/mL Normal 0.358-3.740 [facility] Comment on above: Order Comment: Order Date: 12/01/23 Order Info: [id number] - CMP Order Info: [id number] - LIPID Order Info: [id number] - TSH Performed By: #### L [id number], L100.0100, L500.4050, L500.4100 #### [facility] [address] [place], [place], [id number] Total proteinOrdered By: Tulio Mcadams on 03-17-2024 Protein [Mass/Vol] 7.4 g/dL 6.4-8.2 [facility] Triglycerides measurementOrd ered By: Chapo Mcadams on 03-17-2024 Triglyceride [Mass/Vol] 176 mg/dL <199 [facility] Comment on above: The drugs N-Acetylcy steine and Metamizole may falsely depress this assay.Serum Triglycerides Reference Interval Normal <150 mg/dL Borderline high 150 - 199 mg/dL High 200 - 499 mg/dL Very High > or = 500 mg/dL Very low density lipoprotein (VLDL) cholesterol measurementOrdered By: Chapo Mcadams on 03-17-2024 VLDL Cholesterol 35 mg/dL 5-40 [facility] White blood cell (WBC) count Ordered By: Chapo Mcadams on 03-17-2024 WBC (Bld) [#/Vol] 6.5 10*3/uL 4.4-11.0 [facility] Absolute lymphocyte countOrd ered By: Chapo Mcadams on 03-06-2023 Lymphocytes Auto (Unsp spec) [#/Vol] 3.37 10*3/uL 0.83-4.51 [facility] Basophil percentageOrdered B y: Chapo Mcadams on 03-06-2023 Basophil percentage 0-5 SEEN /hpf 0-5 [facility] Basophils/100 WBC (Bld) 0.6 % 0-1 [facility] Bilirubin [Mass/Vol] 0.70 mg/dL 0.20-1.00 [facility] Comment on above: For patients on eltr ombopag therapy, use of Dimension [place] TBIL is not recommended. Chloride [Moles/Vol] 105 mmol/L 98-107 [facility] Cholesterol [Mass/Vol] 129 mg/dL <200 [facility] Comment on above: <200 mg/dL Desirable 200-240 mg/dL Borderline >240 mg/dL High Risk Eosinophils/100 WBC (Bld) 2.6 % 0-5 [facility] Glucose [Mass/Vol] 88 mg/dL 74-106 [facility] Neutrophils (Bld) [#/Vol] 8.9 10*3/uL 2.0-7.7 [facility] Neutrophils/100 WBC (Bld) 65.8 % 47-70 [facility] Potassium [Moles/Vol] 3.5 mmol/L 3.5-5.1 [facility] Protein [Mass/Vol] 7.4 g/dL 6.4-8.2 [facility] Sodium [Moles/Vol] 138 mmol/L 136-145 [facility] Triglyceride [Mass/Vol] 134 mg/dL <199 [facility] Comment on above: The drugs N-Acetylcy steine and Metamizole may falsely depress this assay.Serum Triglycerides Reference Interval Normal <150 mg/dL Borderline high 150 - 199 mg/dL High 200 - 499 mg/dL Very High > or = 500 mg/dL WBC (Bld) [#/Vol] 13.5 10*3/uL 4.4-11.0 [facility] Bilirubin Test strip Ql (U)O rdered By: Chapo Mcadams on 03-06-2023 Bilirubin Ql (U) Negative Negative [facility] Blood erythrocytes count (nu mber/volume)Ordered By: Chapo Mcadams on 03-06-2023 RBC (Bld) [#/Vol] 5.28 10*6/uL 4.6-6.2 [facility] Blood hemoglobin measurement (mass/volume)Ordered By: Chapo Mcadams on 03-06-2023 Hemoglobin (Bld) [Mass/Vol] 15.5 g/dL 13.0-16.5 [facility] Blood lymphocytes/100 leukoc ytesOrdered By: Chapo Mcadams on 03-06-2023 Lymphocytes/100 WBC (Bld) 25.0 % 19-41 [facility] Blood monocytes/100 leukocyt esOrdered By: Chapo Mcadams on 03-06-2023 Monocytes/100 WBC (Bld) 5.6 % 0-10 [facility] Blood platelet mean volumeOr dered By: Chapo Mcadams on 03-06-2023 Platelet mean volume (Bld) [Entitic vol] 9.8 fL 6.2-12.0 [facility] Determination of erythrocyte mean corpuscular volume (MCV)Ordered By: Chapo Mcadams on 03-06-2023 MCV (RBC) [Entitic vol] 86.2 fL 80-94 [facility] Hematocrit Auto (Bld) [Volum e fraction]Ordered By: Chapo Mcadams on 03-06-2023 Hematocrit (Bld) [Volume fraction] 45.5 % 40-54 [facility] Ketones Test strip Ql (U)Ord ered By: Chapo Mcadams on 03-06-2023 Ketones Ql (U) Negative Negative [facility] - Chemistry and C hemistry - challengeOrdered By: Chapo Mcadams on 03-06-2023 ALP [Catalytic activity/Vol] 74 U/L 45-117 [facility] ALT [Catalytic activity/Vol] 39 U/L 16-61 [facility] CO2 [Moles/Vol] 27.0 mmol/L 21.0-32.0 [facility] Globulin (S) [Mass/Vol] 3.8 g/dL 2.2-4.2 [facility] Urea nitrogen/Creatinine [Mass ratio] 15.0 mg/mg 10-20 [facility] - Hematology and Cell countsOrdered By: Chapo Mcadams on 03-06-2023 Erythrocyte distribution width (RBC) [Entitic vol] 41.3 fL 35.1-43.9 [facility] Erythrocyte distribution width (RBC) [Ratio] 13.3 % 11.6-14.6 [facility] Immature granulocytes/100 WBC (Bld) 0.400 % 0.0-0.9 [facility] Comment on above: IG% - Immature Granu locytes (promyelocytes, myelocytes and metamyelocytes) > 1% indicates that a LEFT SHIFT is Present. MCH (RBC) [Entitic mass] 29.4 pg 27.0-32.0 [facility] Nucleated RBC/100 WBC (Bld) [Ratio] 0 % 0-5 [facility] MCHC Auto (RBC) [Mass/Vol]Or dered By: Chapo Mcadams on 03-06-2023 MCHC (RBC) [Mass/Vol] 34.1 g/dL 32-36 [facility] Mucus LM Ql (Urine sed)Order ed By: Chapo Mcadams on 03-06-2023 Mucus Ql (Urine sed) 0 SEEN /hpf [facility] Nitrite Test strip Ql (U)Ord ered By: Chapo Mcadams on 03-06-2023 Nitrite Ql (U) Negative Negative [facility] No Panel InformationOrdered By: Chapo Mcadams on 03-06-2023 Estimated GFR (MDRD) Amer 92 mL/min >60 [facility] Comment on above: GFR Calc Estimated GFR (MDRD) Non-Af Amer 76 mL/min >60 [facility] Comment on above: Non- GFR Calc Thyroid Stimulating Hormone (TSH) 1.30 uIU/mL 0.358-3.74 [facility] Platelets bldOrdered By: Tulio Mcadams on 03-06-2023 Platelets (Bld) [#/Vol] 271 10*3/uL 150-450 [facility] Protein Test strip Ql (U)Ord ered By: Chapo Mcadams on 03-06-2023 Protein Ql (U) Negative Negative [facility] Serum or plasma albumin bk urement (mass/volume)Ordered By: Chapo Mcadams on 03-06-2023 Albumin [Mass/Vol] 3.6 g/dL 3.2-5.0 [facility] Serum or plasma albumin/glob ulin mass ratioOrdered By: Chapo Mcadams on 03-06-2023 Albumin/Globulin [Mass ratio] 0.9 {ratio} 0.9-2.4 [facility] Serum or plasma calcium bk urement (mass/volume)Ordered By: Chapo Mcadams on 03-06-2023 Calcium [Mass/Vol] 8.7 mg/dL 8.5-10.1 [facility] Serum or plasma cholesterol in HDL measurement (mass/volume)Ordered By: Chapo Mcadams on 03-06-2023 Cholesterol in HDL [Mass/Vol] 34 mg/dL >40 [facility] Comment on above: The drugs N-Acetylcy steine and Metamizole may falsely depress this assay. Reference Range HDL <40 mg/dL Low HDL Cholesterol HDL >or= 60 mg/dL High HDL Cholesterol Serum or plasma cholesterol in VLDL measurement (mass/volume)Ordered By: Chapo Mcadams on 03-06-2023 Cholesterol in VLDL [Mass/Vol] 27 mg/dL 5-40 [facility] Serum or plasma creatinine m easurement (mass/volume)Ordered By: Chapo Mcadams on 03-06-2023 Creatinine [Mass/Vol] 1.07 mg/dL 0.70-1.30 [facility] Comment on above: The validity of the calculated GFR & GFRAA in patients over 70 years has not been determined. Clinical correlation is essential. Serum or plasma low density lipoprotein (LDL) cholesterol measurement (mass/volume)Ordered By: Chapo Mcadams on 03-06-2023 Cholesterol in LDL [Mass/Vol] 68 mg/dL 0-130 [facility] Serum or plasma urea nitroge n measurement (mass/volume)Ordered By: Chapo Mcadams on 03-06-2023 Urea nitrogen [Mass/Vol] 16 mg/dL 7-18 [facility] Squamous epithelial cells de tection in urine sediment by light microscopyOrdered By: hCapo Mcadams on 03-06-2023 Epithelial cells.squamous LM Ql (Urine sed) 0 SEEN /hpf 0-5 [facility] Thin prep Papanicolaou smear with manual screeningOrdered By: Chapo Mcadams on 03-06-2023 Thin prep Papanicolaou smear with manual screening 24 U/L 15-37 [facility] Thin prep Papanicolaou smear with manual screening 6 5-15 [facility] Urine blood detectionOrdered By: Chapo Mcadams on 03-06-2023 RBC Ql (U) 25 /ul Negative [facility] RBC Ql (U) 0 SEEN /hpf 0-5 [facility] Urine clarityOrdered By: Tulio Mcadams on 03-06-2023 Clarity (U) Clear Clear [facility] Urine color determinationOrd ered By: Chapo Mcadams on 03-06-2023 Color (U) Yellow Yellow [facility] Urine glucose detectionOrder ed By: Chapo Mcadams on 03-06-2023 Glucose Ql (U) Normal mg/dl Normal [facility] Urine leukocyte esterase det ection by dipstickOrdered By: Chapo Mcadams on 03-06-2023 Leukocyte esterase Test strip Ql (U) 25 /ul Negative [facility] Urine pHOrdered By: Chapo page on 03-06-2023 pH (U) 6.0 [pH] 5.0 - 8.0 [facility] Urine sediment bacteria coun t by microscopy (number/high power field)Ordered By: Chapo Mcadams on 03-06-2023 Bacteria LM.HPF (Urine sed) [#/Area] 0 /[HPF] None Seen [facility] Urine specific gravity measu rementOrdered By: Chapo Mcadams on 03-06-2023 Specific gravity (U) [Rel density] 1.020 1.002-1.030 [facility] Urobilinogen Auto test strip Ql (U)Ordered By: Chapo Mcadams on 03-06-2023 Urobilinogen Ql (U) 1 mg/dl Normal [facility] Absolute lymphocyte countOrd ered By: Chapo Mcadams on 11-12-2022 Lymphocytes Auto (Unsp spec) [#/Vol] 3.84 10*3/uL 0.83-4.51 [facility] Basophil percentageOrdered B y: Chapo Mcadams on 11-12-2022 Basophils/100 WBC (Bld) 0.9 % 0-1 [facility] Bilirubin [Mass/Vol] 0.80 mg/dL 0.20-1.00 [facility] Comment on above: For patients on eltr ombopag therapy, use of Dimension [place] TBIL is not recommended. Chloride [Moles/Vol] 105 mmol/L 98-107 [facility] Cholesterol [Mass/Vol] 130 mg/dL <200 [facility] Comment on above: <200 mg/dL Desirable 200-240 mg/dL Borderline >240 mg/dL High Risk Eosinophils/100 WBC (Bld) 1.9 % 0-5 [facility] Glucose [Mass/Vol] 88 mg/dL 74-106 [facility] Neutrophils (Bld) [#/Vol] 7.9 10*3/uL 2.0-7.7 [facility] Neutrophils/100 WBC (Bld) 62.1 % 47-70 [facility] Potassium [Moles/Vol] 3.6 mmol/L 3.5-5.1 [facility] Protein [Mass/Vol] 7.8 g/dL 6.4-8.2 [facility] Sodium [Moles/Vol] 138 mmol/L 136-145 [facility] Triglyceride [Mass/Vol] 154 mg/dL <199 [facility] Comment on above: The drugs N-Acetylcy steine and Metamizole may falsely depress this assay.Serum Triglycerides Reference Interval Normal <150 mg/dL Borderline high 150 - 199 mg/dL High 200 - 499 mg/dL Very High > or = 500 mg/dL WBC (Bld) [#/Vol] 12.7 10*3/uL 4.4-11.0 [facility] Blood erythrocytes count (nu mber/volume)Ordered By: Chapo Mcadams on 11-12-2022 RBC (Bld) [#/Vol] 5.50 10*6/uL 4.6-6.2 [facility] Blood hemoglobin measurement (mass/volume)Ordered By: Chapo Mcadams on 11-12-2022 Hemoglobin (Bld) [Mass/Vol] 16.5 g/dL 13.0-16.5 [facility] Blood lymphocytes/100 leukoc ytesOrdered By: Chapo Mcadams on 11-12-2022 Lymphocytes/100 WBC (Bld) 30.3 % 19-41 [facility] Blood monocytes/100 leukocyt esOrdered By: Chapo Mcadams on 11-12-2022 Monocytes/100 WBC (Bld) 4.6 % 0-10 [facility] Blood platelet mean volumeOr dered By: Chapo Mcadams on 11-12-2022 Platelet mean volume (Bld) [Entitic vol] 9.8 fL 6.2-12.0 [facility] Determination of erythrocyte mean corpuscular volume (MCV)Ordered By: Chapo Mcadams on 11-12-2022 MCV (RBC) [Entitic vol] 86.7 fL 80-94 [facility] Hematocrit Auto (Bld) [Volum e fraction]Ordered By: Chapo Mcadams on 11-12-2022 Hematocrit (Bld) [Volume fraction] 47.7 % 40-54 [facility] - Chemistry and C hemistry - challengeOrdered By: Chapo Mcadams on 11-12-2022 ALP [Catalytic activity/Vol] 88 U/L 45-117 [facility] ALT [Catalytic activity/Vol] 44 U/L 16-61 [facility] CO2 [Moles/Vol] 26.0 mmol/L 21.0-32.0 [facility] Globulin (S) [Mass/Vol] 3.9 g/dL 2.2-4.2 [facility] Urea nitrogen/Creatinine [Mass ratio] 11.4 mg/mg 10-20 [facility] - Hematology and Cell countsOrdered By: Chapo Mcadams on 11-12-2022 Erythrocyte distribution width (RBC) [Entitic vol] 39.9 fL 35.1-43.9 [facility] Erythrocyte distribution width (RBC) [Ratio] 12.8 % 11.6-14.6 [facility] Immature granulocytes/100 WBC (Bld) 0.200 % 0.0-0.9 [facility] Comment on above: IG% - Immature Granu locytes (promyelocytes, myelocytes and metamyelocytes) > 1% indicates that a LEFT SHIFT is Present. MCH (RBC) [Entitic mass] 30.0 pg 27.0-32.0 [facility] Nucleated RBC/100 WBC (Bld) [Ratio] 0 % 0-5 [facility] MCHC Auto (RBC) [Mass/Vol]Or dered By: Chapo Mcadams on 11-12-2022 MCHC (RBC) [Mass/Vol] 34.6 g/dL 32-36 [facility] No Panel InformationOrdered By: Chapo Mcadams on 11-12-2022 Estimated GFR (MDRD) Amer 95 mL/min >60 [facility] Comment on above: GFR Calc Estimated GFR (MDRD) Non-Af Amer 78 mL/min >60 [facility] Comment on above: Non- GFR Calc Thyroid Stimulating Hormone (TSH) 1.16 uIU/mL 0.358-3.74 [facility] Platelets bldOrdered By: Tulio Mcadams on 11-12-2022 Platelets (Bld) [#/Vol] 269 10*3/uL 150-450 [facility] Serum or plasma albumin bk urement (mass/volume)Ordered By: Chapo Mcadams on 11-12-2022 Albumin [Mass/Vol] 3.9 g/dL 3.2-5.0 [facility] Serum or plasma albumin/glob ulin mass ratioOrdered By: Chapo Mcadams on 11-12-2022 Albumin/Globulin [Mass ratio] 1.0 {ratio} 0.9-2.4 [facility] Serum or plasma calcium bk urement (mass/volume)Ordered By: Chapo Mcadams on 11-12-2022 Calcium [Mass/Vol] 9.4 mg/dL 8.5-10.1 [facility] Serum or plasma cholesterol in HDL measurement (mass/volume)Ordered By: Chapo Mcadams on 11-12-2022 Cholesterol in HDL [Mass/Vol] 35 mg/dL >40 [facility] Comment on above: The drugs N-Acetylcy steine and Metamizole may falsely depress this assay. Reference Range HDL <40 mg/dL Low HDL Cholesterol HDL >or= 60 mg/dL High HDL Cholesterol Serum or plasma cholesterol in VLDL measurement (mass/volume)Ordered By: Chapo Mcadams on 11-12-2022 Cholesterol in VLDL [Mass/Vol] 31 mg/dL 5-40 [facility] Serum or plasma creatinine m easurement (mass/volume)Ordered By: Chapo Mcadams on 11-12-2022 Creatinine [Mass/Vol] 1.05 mg/dL 0.70-1.30 [facility] Comment on above: The validity of the calculated GFR & GFRAA in patients over 70 years has not been determined. Clinical correlation is essential. Serum or plasma low density lipoprotein (LDL) cholesterol measurement (mass/volume)Ordered By: Chapo Mcadams on 11-12-2022 Cholesterol in LDL [Mass/Vol] 64 mg/dL 0-130 [facility] Serum or plasma urea nitroge n measurement (mass/volume)Ordered By: Chapo Mcadams on 11-12-2022 Urea nitrogen [Mass/Vol] 12 mg/dL 7-18 [facility] Thin prep Papanicolaou smear with manual screeningOrdered By: Chapo Mcadams on 11-12-2022 Thin prep Papanicolaou smear with manual screening 26 U/L 15-37 [facility] Thin prep Papanicolaou smear with manual screening 7 5-15 [facility] Absolute lymphocyte countOrd ered By: ED PROVIDER on 05-27-2022 Lymphocytes Auto (Unsp spec) [#/Vol] 3.31 10*3/uL 0.83-4.51 [facility] Basophil percentageOrdered B y: ED PROVIDER on 05-27-2022 Basophils/100 WBC (Bld) 0.8 % 0-1 [facility] Chloride [Moles/Vol] 105 mmol/L 98-107 [facility] Eosinophils/100 WBC (Bld) 2.4 % 0-5 [facility] Glucose [Mass/Vol] 99 mg/dL 74-106 [facility] Neutrophils (Bld) [#/Vol] 5.7 10*3/uL 2.0-7.7 [facility] Neutrophils/100 WBC (Bld) 58.0 % 47-70 [facility] Potassium [Moles/Vol] 3.5 mmol/L 3.5-5.1 [facility] Sodium [Moles/Vol] 138 mmol/L 136-145 [facility] WBC (Bld) [#/Vol] 9.8 10*3/uL 4.4-11.0 [facility] Blood erythrocytes count (nu mber/volume)Ordered By: ED PROVIDER on 05-27-2022 RBC (Bld) [#/Vol] 5.55 10*6/uL 4.6-6.2 [facility] Blood hemoglobin measurement (mass/volume)Ordered By: ED PROVIDER on 05-27-2022 Hemoglobin (Bld) [Mass/Vol] 16.6 g/dL 13.0-16.5 [facility] Blood lymphocytes/100 leukoc ytesOrdered By: ED PROVIDER on 05-27-2022 Lymphocytes/100 WBC (Bld) 33.7 % 19-41 [facility] Blood monocytes/100 leukocyt esOrdered By: ED PROVIDER on 05-27-2022 Monocytes/100 WBC (Bld) 4.9 % 0-10 [facility] Blood platelet mean volumeOr dered By: ED PROVIDER on 05-27-2022 Platelet mean volume (Bld) [Entitic vol] 9.6 fL 6.2-12.0 [facility] Determination of erythrocyte mean corpuscular volume (MCV)Ordered By: ED PROVIDER on 05-27-2022 MCV (RBC) [Entitic vol] 85.4 fL 80-94 [facility] Hematocrit Auto (Bld) [Volum e fraction]Ordered By: ED PROVIDER on 05-27-2022 Hematocrit (Bld) [Volume fraction] 47.4 % 40-54 [facility] - Chemistry and C hemistry - challengeOrdered By: ED PROVIDER on 05-27-2022 CO2 [Moles/Vol] 29.0 mmol/L 21.0-32.0 [facility] Urea nitrogen/Creatinine [Mass ratio] 17.3 mg/mg 10-20 [facility] - Hematology and Cell countsOrdered By: ED PROVIDER on 05-27-2022 Erythrocyte distribution width (RBC) [Entitic vol] 39.8 fL 35.1-43.9 [facility] Erythrocyte distribution width (RBC) [Ratio] 12.8 % 11.6-14.6 [facility] Immature granulocytes/100 WBC (Bld) 0.200 % 0.0-0.9 [facility] Comment on above: IG% - Immature Granu locytes (promyelocytes, myelocytes and metamyelocytes) > 1% indicates that a LEFT SHIFT is Present. MCH (RBC) [Entitic mass] 29.9 pg 27.0-32.0 [facility] Nucleated RBC/100 WBC (Bld) [Ratio] 0 % 0-5 [facility] MCHC Auto (RBC) [Mass/Vol]Or dered By: ED PROVIDER on 05-27-2022 MCHC (RBC) [Mass/Vol] 35.0 g/dL 32-36 [facility] No Panel InformationOrdered By: Dr. De Jesus on 05-27-2022 D-Dimer Quantitative (PE/DVT) 0.29 FEU/ug/m 0.27-0.49 [facility] Comment on above: NORMAL D-Dimer level (<0.50) indicates no DVT or PE. Troponin I High Sensitivity 8 pg/mL 3.0-78.0 [facility] Comment on above: Please Note: New Mandy t Units and Gender Specific Reference Ranges. For more information see Policy Stat Procedure [place] High Sensitivity Troponin (TNIH) and attachments. No Panel InformationOrdered By: ED PROVIDER on 05-27-2022 Estimated Creatinine Clearance Calc 94.41 ml/min [facility] Estimated GFR (MDRD) Amer 96 mL/min >60 [facility] Comment on above: GFR Calc Estimated GFR (MDRD) Non-Af Amer 79 mL/min >60 [facility] Comment on above: Non- GFR Calc Platelets bldOrdered By: ED PROVIDER on 05-27-2022 Platelets (Bld) [#/Vol] 282 10*3/uL 150-450 [facility] Serum or plasma calcium bk urement (mass/volume)Ordered By: ED PROVIDER on 05-27-2022 Calcium [Mass/Vol] 9.4 mg/dL 8.5-10.1 [facility] Serum or plasma creatinine m easurement (mass/volume)Ordered By: ED PROVIDER on 05-27-2022 Creatinine [Mass/Vol] 1.04 mg/dL 0.70-1.30 [facility] Comment on above: The validity of the calculated GFR & GFRAA in patients over 70 years has not been determined. Clinical correlation is essential. Serum or plasma urea nitroge n measurement (mass/volume)Ordered By: ED PROVIDER on 05-27-2022 Urea nitrogen [Mass/Vol] 18 mg/dL 7-18 [facility] Thin prep Papanicolaou smear with manual screeningOrdered By: ED PROVIDER on 05-27-2022 Thin prep Papanicolaou smear with manual screening 4 5-15 [facility] .Auto Diffon 02-19-2022 Basophil, Absolute 0.0 10 3/mcL Normal 0.0-0.2 [facility] ([place]) Comment on above: Performed By: #### G , BMP #### [address] [address] Basophils/100 WBC (Bld) 0.1 % Normal 0.0-2.5 [facility] ([place]) Comment on above: Performed By: #### G FR, BMP #### [address] [address] Eosinophil, Absolute 0.0 10 3/mcL Normal 0.0-0.4 [facility] ([place]) Comment on above: Performed By: #### G , BMP #### [address] [address] Eosinophils/100 WBC (Bld) 0.0 % Normal 0.0-7.0 [facility] ([place]) Comment on above: Performed By: #### G FR, BMP #### [address] [address] Lymphocyte, Absolute 1.9 10 3/mcL Normal 0.8-3.9 [facility] ([place]) Comment on above: Performed By: #### G FR, BMP #### [address] [address] Lymphocytes/100 WBC (Bld) 9.8 % Low 10.0-50.0 [facility] ([place]) Comment on above: Performed By: #### G FR, BMP #### [address] [address] Monocyte, Absolute 0.8 10 3/mcL Normal 0.2-1.0 [facility] ([place] Comment on above: Performed By: #### G FR, BMP #### [address] [address] Monocytes/100 WBC (Bld) 4.5 % Normal 1.7-13.0 [facility] ([place] Comment on above: Performed By: #### G FR, BMP #### [address] [address] Neutrophils/100 WBC (Bld) 85.6 % High 37.0-80.0 [facility] ([place] Comment on above: Performed By: #### G FR, BMP #### [address] [address] .GFRon 02-19-2022 GFR 98 ml/min/1.73sqm Normal [facility] ([place] Comment on above: Result Comment: GFR Population mean for , Non- Americans Ages 20-29 = 116 mL/min/1.73 sq.m. Ages 30-39 = 107 mL/min/1.73 sq.m. Ages 40-49 = 99 mL/min/1.73 sq.m. Ages 50-59 = 93 mL/min/1.73 sq.m. Ages 60-69 = 85 mL/min/1.73 sq.m. Ages 70+ = 75 mL/min/1.73 sq.m. Chronic Kidney Disease: Less than 60 mL/min/1.73 square meters End Stage Renal Disease: Less than 15 mL/min/1.73 square meters Performed By: #### G FR, BMP #### [address] [address] GFR Non- 81 ml/min/1.73sqm Normal [facility] ([place]) Comment on above: Result Comment: GFR Population mean for , Non- Americans Ages 20-29 = 116 mL/min/1.73 sq.m. Ages 30-39 = 107 mL/min/1.73 sq.m. Ages 40-49 = 99 mL/min/1.73 sq.m. Ages 50-59 = 93 mL/min/1.73 sq.m. Ages 60-69 = 85 mL/min/1.73 sq.m. Ages 70+ = 75 mL/min/1.73 sq.m. Chronic Kidney Disease: Less than 60 mL/min/1.73 square meters End Stage Renal Disease: Less than 15 mL/min/1.73 square meters Performed By: #### G , BMP #### [address] [address] .NEUABSon 02-19-2022 Neutrophil, Absolute 16.2 10 3/mcL High 2.9-6.2 [facility] ([place]) Comment on above: Performed By: #### Kelby KIM, BMP #### [address] [address] BMPon 02-19-2022 BUN/Creatinine Ratio 18 ratio Normal 7-27 [facility] ([place] Comment on above: Performed By: #### G , BMP #### [address] [address] Calcium [Mass/Vol] 8.8 mg/dL Normal 8.4-10.2 [facility] ([place]) Comment on above: Performed By: #### Kelby KIM, BMP #### [address] [address] Chloride [Moles/Vol] 101 mmol/L Normal 98-107 [facility] ([place] Comment on above: Performed By: #### G FR, BMP #### [address] [address] CO2 [Moles/Vol] 28 mmol/L Normal 22-29 [facility] ([place] Comment on above: Performed By: #### G FR, BMP #### [address] [address] Creatinine [Mass/Vol] 0.97 mg/dL Normal 0.70-1.30 [facility] ([place]) Comment on above: Performed By: #### G FR, BMP #### [address] [address] Electrolyte Balance 7.0 mEq/L Normal 4.0-15.0 [facility] ([place]) Comment on above: Performed By: #### G FR, BMP #### [address] [address] Glucose [Mass/Vol] 115 mg/dL High 70-105 [facility] ([place] Comment on above: Performed By: #### G FR, BMP #### [address] [address] Potassium [Moles/Vol] 4.5 mmol/L Normal 3.5-5.1 [facility] ([place]) Comment on above: Performed By: #### G FR, BMP #### [address] [address] Sodium [Moles/Vol] 136 mmol/L Normal 136-145 [facility] ([place]) Comment on above: Performed By: #### G FR, BMP #### [address] [address] Urea nitrogen [Mass/Vol] 17 mg/dL Normal 7-18 [facility] ([place] Comment on above: Performed By: #### G FR, BMP #### [address] [address] CBCon 02-19-2022 Erythrocyte distribution width (RBC) [Ratio] 13.8 % Normal 11.5-14.5 [facility] ([place]) Comment on above: Performed By: #### G FR, BMP #### [address] [address] Hematocrit (Bld) [Volume fraction] 39.7 % Low 42.0-52.0 [facility] ([place] Comment on above: Performed By: #### G FR, BMP #### [address] [address] Hgb 13.9 G/dL Low 14.0-18.0 [facility] ([place] Comment on above: Performed By: #### G , BMP #### [address] [address] MCH (RBC) [Entitic mass] 30.0 pg Normal 27.0-31.2 [facility] ([place] Comment on above: Performed By: #### G FR, BMP #### [address] [address] MCHC 35.1 G/dL Normal 31.8-35.4 [facility] ([place] Comment on above: Performed By: #### G , BMP #### [address] [address] MCV (RBC) [Entitic vol] 85.7 fL Normal 80.0-94.0 [facility] ([place] Comment on above: Performed By: #### Kelby FR, BMP #### [address] [address] Platelet 260 10 3/mcL Normal 130-400 [facility] ([place] Comment on above: Performed By: #### Kelby KIM, BMP #### [address] [address] Platelet mean volume (Bld) [Entitic vol] 7.8 fL Normal 7.4-10.4 [facility] ([place] Comment on above: Performed By: #### Kelby FR, BMP #### [address] [address] RBC 4.64 10 6/mcL Normal 4.04-6.13 [facility] ([place] Comment on above: Performed By: #### G FR, BMP #### [address] [address] WBC 19.0 10 3/mcL High 4.6-10.8 [facility] ([place] Comment on above: Performed By: #### G FR, BMP #### [address] [address] Gel ABOon 02-18-2022 ABO/Rh Interp Negative Invalid Interpretation Code [facility] ([place] Comment on above: Performed By: #### A KELLY CROSS #### [address] [place], [place] [address] Gel ABSon 02-18-2022 Antibody Screen Gel Negative Normal [facility] ([place] Comment on above: Performed By: #### A KELLY CROSS #### [place] [address] [place], [place] [address] XR FLUORO 1-2 HRS TECH TIMEo n 02-18-2022 XR FLUORO 1-2 HRS TECH TIME ORIGINAL Images acquired, not reported on this accession number. Normal [facility] ([place] XR HIP LEFT W/PELVIS 4 VIEWS on 02-18-2022 XR HIP LEFT W/PELVIS 4 VIEWS ORIGINAL EXAMINATION: 2 XRAY VIEWS OF THE LEFT HIP. 1 VIEWS OF THE PELVIS. COMPARISON: None. HISTORY: ORDERING SYSTEM PROVIDED HISTORY: Reason for Exam: Status Post Arthroplasty FINDINGS: SI joints and pubic symphysis are not abnormally widened. No acute displaced pelvic fracture is identified. There is a left hip prosthesis. The components appear well seated and intact without acute fracture or dislocation noted. Gas in the soft tissues is likely postoperative. IMPRESSION: Surgical changes. Interpreted by: Anne Toussaint MD Preliminary Report By: Anne Toussaint MD Electronically signed By Anne Toussaint MD Dictated Date: 02/18/2022 1:32:16 PM Prelim Date: 02/18/2022 1:33:16 PM Sign Date: 02/18/2022 1:33:16 PM Ordering Provider: AUGUSTO SILVEIRA [facility] ([place]) Absolute lymphocyte countOrd ered By: Dr. Mcadams on 01-30-2022 Lymphocytes Auto (Unsp spec) [#/Vol] 3.80 10*3/uL 0.83-4.51 [facility] Basophil percentageOrdered B y: Dr. Mcadams on 01-30-2022 Basophils/100 WBC (Bld) 0.7 % 0-1 [facility] Bilirubin [Mass/Vol] 0.80 mg/dL 0.20-1.00 [facility] Comment on above: For patients on eltr ombopag therapy, use of Dimension [place] TBIL is not recommended. Chloride [Moles/Vol] 104 mmol/L 98-107 [facility] Cholesterol [Mass/Vol] 206 mg/dL <200 [facility] Comment on above: <200 mg/dL Desirable 200-240 mg/dL Borderline >240 mg/dL High Risk Eosinophils/100 WBC (Bld) 2.8 % 0-5 [facility] Glucose [Mass/Vol] 77 mg/dL 74-106 [facility] Neutrophils (Bld) [#/Vol] 6.1 10*3/uL 2.0-7.7 [facility] Neutrophils/100 WBC (Bld) 56.2 % 47-70 [facility] Potassium [Moles/Vol] 3.9 mmol/L 3.5-5.1 [facility] Protein [Mass/Vol] 7.8 g/dL 6.4-8.2 [facility] Sodium [Moles/Vol] 139 mmol/L 136-145 [facility] Triglyceride [Mass/Vol] 176 mg/dL <199 [facility] Comment on above: The drugs N-Acetylcy steine and Metamizole may falsely depress this assay.Serum Triglycerides Reference Interval Normal <150 mg/dL Borderline high 150 - 199 mg/dL High 200 - 499 mg/dL Very High > or = 500 mg/dL WBC (Bld) [#/Vol] 10.9 10*3/uL 4.4-11.0 [facility] Blood erythrocytes count (nu mber/volume)Ordered By: Dr. Mcadams on 01-30-2022 RBC (Bld) [#/Vol] 5.65 10*6/uL 4.6-6.2 [facility] Blood hemoglobin measurement (mass/volume)Ordered By: Dr. Mcadams on 01-30-2022 Hemoglobin (Bld) [Mass/Vol] 17.3 g/dL 13.0-16.5 [facility] Blood lymphocytes/100 leukoc ytesOrdered By: Dr. Mcadams on 01-30-2022 Lymphocytes/100 WBC (Bld) 35.0 % 19-41 [facility] Blood monocytes/100 leukocyt esOrdered By: Dr. Mcadams on 01-30-2022 Monocytes/100 WBC (Bld) 5.0 % 0-10 [facility] Blood platelet mean volumeOr dered By: Dr. Mcadams on 01-30-2022 Platelet mean volume (Bld) [Entitic vol] 10.1 fL 6.2-12.0 [facility] Determination of erythrocyte mean corpuscular volume (MCV)Ordered By: Dr. Mcadams on 01-30-2022 MCV (RBC) [Entitic vol] 87.8 fL 80-94 [facility] Hematocrit Auto (Bld) [Volum e fraction]Ordered By: Dr. Mcadams on 01-30-2022 Hematocrit (Bld) [Volume fraction] 49.6 % 40-54 [facility] Laboratory - Chemistry and C hemistry - challengeOrdered By: Dr. Mcadams on 01-30-2022 ALP [Catalytic activity/Vol] 84 U/L 45-117 [facility] ALT [Catalytic activity/Vol] 52 U/L 16-61 [facility] CO2 [Moles/Vol] 26.0 mmol/L 21.0-32.0 [facility] Globulin (S) [Mass/Vol] 3.6 g/dL 2.2-4.2 [facility] Urea nitrogen/Creatinine [Mass ratio] 14.2 mg/mg 10-20 [facility] Laboratory - Hematology and Cell countsOrdered By: Dr. Mcadams on 01-30-2022 Erythrocyte distribution width (RBC) [Entitic vol] 43.0 fL 35.1-43.9 [facility] Erythrocyte distribution width (RBC) [Ratio] 13.4 % 11.6-14.6 [facility] Immature granulocytes/100 WBC (Bld) 0.300 % 0.0-0.9 [facility] Comment on above: IG% - Immature Granu locytes (promyelocytes, myelocytes and metamyelocytes) > 1% indicates that a LEFT SHIFT is Present. MCH (RBC) [Entitic mass] 30.6 pg 27.0-32.0 [facility] Nucleated RBC/100 WBC (Bld) [Ratio] 0 % 0-5 [facility] MCHC Auto (RBC) [Mass/Vol]Or dered By: Dr. Mcadams on 01-30-2022 MCHC (RBC) [Mass/Vol] 34.9 g/dL 32-36 [facility] No Panel InformationOrdered By: Dr. Mcadams on 01-30-2022 Estimated GFR (MDRD) Amer 102 mL/min >60 [facility] Comment on above: GFR Calc Estimated GFR (MDRD) Non-Af Amer 84 mL/min >60 [facility] Comment on above: Non- GFR Calc Thyroid Stimulating Hormone (TSH) 1.01 uIU/mL 0.358-3.74 [facility] Platelets bldOrdered By: Dr. Mcadams on 01-30-2022 Platelets (Bld) [#/Vol] 306 10*3/uL 150-450 [facility] Serum or plasma albumin bk urement (mass/volume)Ordered By: Dr. Mcadams on 01-30-2022 Albumin [Mass/Vol] 4.2 g/dL 3.2-5.0 [facility] Serum or plasma albumin/glob ulin mass ratioOrdered By: Dr. Mcadams on 01-30-2022 Albumin/Globulin [Mass ratio] 1.2 {ratio} 0.9-2.4 [facility] Serum or plasma calcium bk urement (mass/volume)Ordered By: Dr. Mcadams on 01-30-2022 Calcium [Mass/Vol] 9.6 mg/dL 8.5-10.1 [facility] Serum or plasma cholesterol in HDL measurement (mass/volume)Ordered By: Dr. Mcadams on 01-30-2022 Cholesterol in HDL [Mass/Vol] 31 mg/dL >40 [facility] Comment on above: The drugs N-Acetylcy steine and Metamizole may falsely depress this assay. Reference Range HDL <40 mg/dL Low HDL Cholesterol HDL >or= 60 mg/dL High HDL Cholesterol Serum or plasma cholesterol in VLDL measurement (mass/volume)Ordered By: Dr. Mcadams on 01-30-2022 Cholesterol in VLDL [Mass/Vol] 35 mg/dL 5-40 [facility] Serum or plasma creatinine m easurement (mass/volume)Ordered By: Dr. Mcadams on 01-30-2022 Creatinine [Mass/Vol] 0.99 mg/dL 0.70-1.30 [facility] Comment on above: The validity of the calculated GFR & GFRAA in patients over 70 years has not been determined. Clinical correlation is essential. Serum or plasma low density lipoprotein (LDL) cholesterol measurement (mass/volume)Ordered By: Dr. Mcadams on 01-30-2022 Cholesterol in LDL [Mass/Vol] 140 mg/dL 0-130 [facility] Serum or plasma urea nitroge n measurement (mass/volume)Ordered By: Dr. Mcadams on 01-30-2022 Urea nitrogen [Mass/Vol] 14 mg/dL 7-18 [facility] Thin prep Papanicolaou smear with manual screeningOrdered By: Dr. Mcadams on 01-30-2022 Thin prep Papanicolaou smear with manual screening 21 U/L 15-37 [facility] Thin prep Papanicolaou smear with manual screening 9 5-15 [facility] Falls Screening (Age 18+)on 01-15-2022 Fall risk assessment a) No falls within the last year [facility] Work Phone: Tobacco use status CP a) Yes [facility] Work Phone: Absolute lymphocyte counton 12-18-2021 Lymphocytes Auto (Unsp spec) [#/Vol] 3.82 10*3/uL 0.83-4.51 [facility] Work Phone: Basophil percentageon 2021 Basophils/100 WBC (Bld) 0.7 % 0-1 [facility] Work Phone: Chloride [Moles/Vol] 104 mmol/L 98-107 [facility] Work Phone: Eosinophils/100 WBC (Bld) 2.1 % 0-5 [facility] Work Phone: Glucose [Mass/Vol] 73 mg/dL 74-106 [facility] Work Phone: Neutrophils (Bld) [#/Vol] 8.2 10*3/uL 2.0-7.7 [facility] Work Phone: Neutrophils/100 WBC (Bld) 63.0 % 47-70 [facility] Work Phone: Potassium [Moles/Vol] 3.9 mmol/L 3.5-5.1 [facility] Work Phone: Sodium [Moles/Vol] 140 mmol/L 136-145 [facility] Work Phone: WBC (Bld) [#/Vol] 13.1 10*3/uL 4.4-11.0 [facility] Work Phone: Blood erythrocytes count (nu mber/volume)on 12-18-2021 RBC (Bld) [#/Vol] 5.66 10*6/uL 4.6-6.2 [facility] Work Phone: [phone] Blood hemoglobin measurement (mass/volume)on 12-18-2021 Hemoglobin (Bld) [Mass/Vol] 17.2 g/dL 13.0-16.5 [facility] Work Phone: [phone] Blood lymphocytes/100 leukoc yteson 12-18-2021 Lymphocytes/100 WBC (Bld) 29.3 % 19-41 [facility] Work Phone: Blood monocytes/100 leukocyt eson 12-18-2021 Monocytes/100 WBC (Bld) 4.5 % 0-10 [facility] Work Phone: Blood platelet mean volumeon 12-18-2021 Platelet mean volume (Bld) [Entitic vol] 9.9 fL 6.2-12.0 [facility] Work Phone: Determination of erythrocyte mean corpuscular volume (MCV)on 12-18-2021 MCV (RBC) [Entitic vol] 88.3 fL 80-94 [facility] Work Phone: Hematocrit Auto (Bld) [Volum e fraction]on 12-18-2021 Hematocrit (Bld) [Volume fraction] 50.0 % 40-54 [facility] Work Phone: Laboratory - Chemistry and C hemistry - challengeon 12-18-2021 CO2 [Moles/Vol] 27.0 mmol/L 21.0-32.0 [facility] Work Phone: Urea nitrogen/Creatinine [Mass ratio] 15.0 mg/mg 10-20 [facility] Work Phone: Laboratory - Hematology and Cell countson 12-18-2021 Erythrocyte distribution width (RBC) [Entitic vol] 42.3 fL 35.1-43.9 [facility] Work Phone: Erythrocyte distribution width (RBC) [Ratio] 13.2 % 11.6-14.6 [facility] Work Phone: Immature granulocytes/100 WBC (Bld) 0.400 % 0.0-0.9 [facility] Work Phone: Comment on above: IG% - Immature Granu locytes (promyelocytes, myelocytes and metamyelocytes) > 1% indicates that a LEFT SHIFT is Present. MCH (RBC) [Entitic mass] 30.4 pg 27.0-32.0 [facility] Work Phone: Nucleated RBC/100 WBC (Bld) [Ratio] 0 % 0-5 [facility] Work Phone: MCHC Auto (RBC) [Mass/Vol]on 12-18-2021 MCHC (RBC) [Mass/Vol] 34.4 g/dL 32-36 [facility] Work Phone: No Panel Informationon 12-18 Estimated GFR (MDRD) Amer 100 mL/min >60 [facility] Work Phone: Comment on above: GFR Calc Estimated GFR (MDRD) Non-Af Amer 83 mL/min >60 [facility] Work Phone: Comment on above: Non- GFR Calc Platelets bldon 12-18-2021 Platelets (Bld) [#/Vol] 289 10*3/uL 150-450 [facility] Work Phone: Serum or plasma albumin bk urement (mass/volume)on 12-18-2021 Albumin [Mass/Vol] 4.0 g/dL 3.2-5.0 [facility] Work Phone: Serum or plasma calcium bk urement (mass/volume)on 12-18-2021 Calcium [Mass/Vol] 9.7 mg/dL 8.5-10.1 [facility] Work Phone: Serum or plasma creatinine m easurement (mass/volume)on 12-18-2021 Creatinine [Mass/Vol] 1.00 mg/dL 0.70-1.30 [facility] Work Phone: Comment on above: The validity of the calculated GFR & GFRAA in patients over 70 years has not been determined. Clinical correlation is essential. Serum or plasma urea nitroge n measurement (mass/volume)on 12-18-2021 Urea nitrogen [Mass/Vol] 15 mg/dL 7-18 [facility] Work Phone: Thin prep Papanicolaou smear with manual screeningon 12-18-2021 Thin prep Papanicolaou smear with manual screening 9 5-15 [facility] Work Phone: ABO/RH GROUP TESTon 11-09-19 22 ABO TYPE B Normal [facility] Comment on above: Performed By: #### V ERAB #### [facility] [address] [place] [address] RH TYPE Negative Normal [facility] Comment on above: Performed By: #### V ERAB #### [facility] [address] [place] [id number] CORONAVIRUS 2019, SCREEN ASY MPTOMATICon 11-08-2021 SARS-CoV-2 (COVID-19) RNA ARMIDA+probe Ql (Unsp spec) Not detected Normal Not Detected [facility] Comment on above: Result Comment: . This test has received FDA Emergency Use Authorization (EUA) and has been verified by [facility] ([facility]). This test is only authorized for the duration of time that circumstances exist to justify the authorization of the emergency use of in vitro diagnostic tests for the detection of SARS-CoV-2 virus and/or diagnosis of COVID-19 infection under section 564(b)(1) of the Act, 21 U.S.C. 360bbb-3(b)(1), unless the authorization is terminated or revoked sooner. [facility] is certified under CLIA-88 as qualified to perform high complexity testing. Testing is performed in the [facility] located at [id number] [place] [address]. SARS-CoV-2/Flu/RSV Multiplex Test: Fact sheet for providers: https://www.fda.gov/media/917665/download Fact sheet for patients: https://www.fda.gov/media/109585/download Performed By: #### C OVSC ####[id number] [place] [address] Lab Specimen Source Nasal, Nasopharyngeal Normal [facility] Comment on above: Performed By: #### C OVSC ####[id number] [place] [address] Coronavirus 2019 RNA by PCR, Screening Asymptomticon 11-08-2021 Coronavirus 2019 RNA by PCR, Screening Asymptomtic Not detected Normal See Below [facility] [place] [place] Work Phone: Comment on above: SOURCE: Nasal, Nasop haryngealReference Range: Not Detected.This test has received FDA Emergency Use Authorization (EUA) and has been verified by [facility] ([facility]). This test is only authorized for the duration of time that circumstances exist to justify the authorization of the emergency use of in vitro diagnostic tests for the detection of SARS-CoV-2 virus and/or diagnosis of COVID-19 infection under section 564(b)(1) of the Act, 21 U.S.C. 360bbb-3(b)(1), unless the authorization is terminated or revoked sooner. [facility] is certified under CLIA-88 as qualified to perform high complexity testing. Testing is performed in the [facility] located at [address] [place] [address].SARS-CoV-2/Flu/RSV Multiplex Test: Fact sheet for providers: https://www.fda.gov/media/794957/downloadFact sheet for patients: https://www.fda.gov/media/518765/download Covid 19 Resultson 2 SARS-CoV-2 (COVID-19) RNA ARMIDA+probe Ql (Unsp spec) NEGATIVE COVID-19 Test Coronaviruses are common world-wide and are the cause of many common colds. SARS-COV2 is a new coronavirus that began circulating worldwide in 2019 so we are calling it COVID-19. It has been estimated that four out of five patients with COVID-19 will recover at home without the need for medical attention. Symptoms of COVID-19 may include cough, fever, shortness of breath, loss of taste or smell and other flu-like symptoms including chills, sore muscles, sore throat, and headache. Severe illness is more common in older people and people with other health problems such as high blood pressure, obesity, and immune system problems. If the test is positive, you have COVID-19. You will be contacted by the ordering physicians office and instructed to remain on home isolation, in accordance with CDC guidelines. You may also be contacted by the [facility] to see if any of your close contacts may have been exposed to the virus and need to quarantine. If the test is negative, you likely do not have COVID-19 at this time, but you still may have a different illness that can spread to other people (like Influenza, or the Flu) and could still be at risk for getting COVID-19. We recommend that you stay away from other people to limit the spread of illness until your symptoms are improving and you are fever-free for 24 hours without the use of fever lowering medications such as acetaminophen or ibuprofen. No test is 100% accurate so if you are still concerned you may have COVID-19, talk to your doctor about the need to continue to stay away from others. Medicines Unless your provider told you not to use the following: Acetaminophen (Tylenol and others) is generally safe. Anti-inflammatory medications, such as Ibuprofen (Advil or Motrin) or Naproxen (Aleve) can also be used. Jjks-win-vwcgdyz cough and cold medicines can be used according to the instructions on the package. Some ueln-ppa-meyqwqx medicines also contain acetaminophen. Make sure you are not taking more than your recommended dose. For those not hospitalized, there is no specific treatment available for this illness. Antibiotics do not treat Coronaviruses. Follow-Up Follow up with your doctor by scheduling a virtual visit or consider follow-up at one of our urgent care fever clinics. If you are having difficulty breathing, or are very weak and having difficulty standing, this is a medical emergency. Call 911 or have someone take you to the nearest emergency room immediately. If possible, wear a facemask. Additional guidance from the CDC for patients who tested POSITIVE for COVID-19 How to isolate: Isolate yourself in a specific room at home and limit your contact with others. Use a separate bathroom from other members of the household, when possible. Leave home only to get essential medical care. Do not go to work, school or public areas. Avoid using public transportation, ride-sharing, or taxis. Restrict contact with pets and other animals. If you must care for your pet or be around animals while you are sick, wash your hands before and after your interaction and wear a facemask. Make sure that shared spaces in the home have good airflow, such as by an air conditioner or an opened window, weather permitting. Personal Hygiene Procedures: Wear a face mask when in the same room as other people or pets. If a face mask interferes with your breathing, others should wear a mask when sharing space with you. Frequent hand-washing: wash your hands with soap and water for at least 20 seconds. If soap and water are not available, use alcohol-based hand insulation applicator. Avoid touching your eyes, nose, and mouth with unwashed hands. Household Hygiene Procedures: Avoid sharing personal household items such as dishes, glassware, cups, eating utensils, towels or bedding with other people or pets in your home. After use, these items should be washed with soap and hot water. Disinfect all high-touch surfaces every day with antibacterial cleaning solutions such as Lysol wipes, bleach, cleansers, etc. High-touch surfaces include tabletops, doorknobs, bathroom fixtures, toilets, phones, keyboards, tablets and bedside tables. Immediately clean any surfaces that may have blood, poop or body fluids on them, using antibacterial cleaning solutions such as Lysol wipes, bleach, cleansers, etc. If clothing or bedding come into contact with blood, poop or body fluids, they should be washed immediately. Follow the directions on the laundry detergent and clothing labels but hot water is recommended when possible. Stopping home isolation precautions: If possible, consult your doctor before stopping home isolation precautions. According to the CDC, you can discontinue home isolation precautions when you have met both of these criteria: Your fever and respiratory symptoms have been gone for 24 ja (more content not included)... Normal [facility] Laboratory - Blood bankon ABO group Nom (Bld) B MG-Ot olaryn [facility] Work Phone: Rh immune globulin screen (Bld) [Interp] Negative MG-Otolary n [facility] Work Phone: Operative Reports - CMCon Operative Reports - [facility] [place] PRE[place]ATIVE DIAGNOSIS: Right vocal cord lesion. POSTOPERATIVE DIAGNOSIS: Right vocal cord lesion. OPERATION/PROCEDURE: 1. Direct laryngoscopy and suspension microlaryngoscopy with biopsy and excision of a right vocal cord lesion. 2. Flexible bronchoscopy. 3. Flexible esophagoscopy. SURGEON: Robbi Duron MD. INFORMATION STRATEGIST(S): Dr. Lalit Hallman. ANESTHESIA: INDICATION FOR OPERATIVE PROCEDURE: This patient presented with dysphonia who was found to have a lesion on his right vocal cord. He had in the past the lesion removed from his cord, but at that time, it was called a benign lesion. He is here today to have this lesion addressed. He understands surgery and possible complication and wishes to proceed. DESCRIPTION OF OPERATION: Under general anesthesia, the Dedo laryngoscope was introduced. The larynx could not be accessed with the Dedo because of the restriction of the patient's anatomy. An anterior commissure scope was eventually used. The larynx could be visualized as well as the lesion on the right vocal cord. The microscope was brought in the operative field, and a biopsy forceps was utilized and a fair amount of the tumor was removed. It was kind of difficult to work through the microscope with this very small scope, and therefore, directly through the anterior commissure scope using small forceps, the rest of the lesion was grossly removed. Then, the bronchoscope was inserted through the laryngoscope into the tracheobronchial tree. All the different bronchial segments were visualized and they were felt to be within normal limits. The scopes were pulled. The gastroscope was introduced into the esophagus into the stomach. The entire length of the esophagus was visualized on the way out and found to be negative. There was a slight irritation on the distal esophagus. The procedure was terminated. The patient was sent back to Recovery in fair condition. Robbi Duron MD EST EST DICTATION NUMBER: [id number] INTERNAL JOB NUMBER: [id number] CC: Robbi Duron MD Electronic Signatures: Robbi Duron) (Signed on 08-Nov-2021 17:37) Authored Unsigned, Draft (SYS GENERATED) (Entered on 08-Nov-2021 14:54) Entered Last Updated: 08-Nov-2021 17:37 by Robbi Duron) [facility] Order Reconciliationon 11-08 Order Reconciliation Page 1 Discharge Reconciliation Document Reconciliation Type: Discharge requested on behalf of Ana María Wilhelm (Resident) done by Ana María Wilhelm ( (Resident)) Discharge - Reconciliation: 08-Nov-2021 13:07 by: Ana María Wilhelm ( (Resident)) Home Medications EnteredHOME MEDICATIONS AT DISCHARGE DateReconciliation Comment/ Additional Information amLODIPine 10 mg oral tablet 1 tab(s) oral once a day 21-Oct-2021 13:29 amLODIPine 10 mg oral tablet 1 tab(s) oral once a day 21-Oct-2021 13:29 amLODIPine 10 mg oral tablet is continued as amLODIPine 10 mg oral tablet atorvastatin 40 mg oral tablet 1 tab(s) oral once a day 21-Oct-2021 13:29 atorvastatin 40 mg oral tablet 1 tab(s) oral once a day 21-Oct-2021 13:29 atorvastatin 40 mg oral tablet is continued as atorvastatin 40 mg oral tablet diclofenac sodium 75 mg oral delayed release tablet 1 tab(s) oral 21-Oct-2021 13:32 diclofenac sodium 75 mg oral delayed release tablet 1 tab(s) oral 21-Oct-2021 13:32 diclofenac sodium 75 mg oral delayed release tablet is continued as diclofenac sodium 75 mg oral delayed release tablet gabapentin 300 mg oral capsule 1 cap(s) oral once a day 21-Oct-2021 13:32 gabapentin 300 mg oral capsule 1 cap(s) oral once a day 21-Oct-2021 13:32 gabapentin 300 mg oral capsule is continued as gabapentin 300 mg oral capsule gabapentin 600 mg oral tablet 1 tab(s) oral once a day 21-Oct-2021 13:32 gabapentin 600 mg oral tablet 1 tab(s) oral once a day 21-Oct-2021 13:32 gabapentin 600 mg oral tablet is continued as gabapentin 600 mg oral tablet lisinopril 20 mg oral tablet 1 tab(s) oral 21-Oct-2021 13:33 lisinopril 20 mg oral tablet 1 tab(s) oral 21-Oct-2021 13:33 lisinopril 20 mg oral tablet is continued as lisinopril 20 mg oral tablet metoprolol 50 mg oral tablet 1 tab(s) oral 21-Oct-2021 13:33 metoprolol 50 mg oral tablet 1 tab(s) oral 21-Oct-2021 13:33 metoprolol 50 mg oral tablet is continued as metoprolol 50 mg oral tablet Tylenol 500 mg oral tablet 1 tab(s) oral prn 21-Oct-2021 13:33 Tylenol 500 mg oral tablet 1 tab(s) oral prn 21-Oct-2021 13:33 Tylenol 500 mg oral tablet is continued as Tylenol 500 mg oral tablet All Active Home Medications at time of Discharge Reconciliation: 08-Nov-2021 13:07 amLODIPine 10 mg oral tablet 1 tab(s) oral once a day atorvastatin 40 mg oral tablet 1 tab(s) oral once a day diclofenac sodium 75 mg oral delayed release tablet 1 tab(s) oral gabapentin 300 mg oral capsule 1 cap(s) oral once a day gabapentin 600 mg oral tablet 1 tab(s) oral once a day lisinopril 20 mg oral tablet 1 tab(s) oral metoprolol 50 mg oral tablet 1 tab(s) oral Tylenol 500 mg oral tablet 1 tab(s) oral prn Normal [facility] Patient Profile - Preop v3on 11-08-2021 Patient Profile - Preop v3 Patient Profile - Preop: Initial Info: Patient DemographicsName: IVAN GDOINEZ Date: 1970 Address: [address] [place] [address] Primary Phone [phone] How to be Addressedjimmy Spoken Language PreferredEnglish Source of Informationpatient Stated Reason for Admissionscope Primary Contact Name and Numberwife Limitations on Visitors/Phone Callsnone Medications Brought to Hospitalno General Health: Weight in kg169.7 kilogram(s) Weight in rwh174.1 pound(s) Height in feet6 feet Height in inches1.98 inch(es) Height in cm187.9 centimeter(s) BMI (kg/m2)48.064 square meter Patient or Family Member Reaction to Anesthesiano previous reaction Blood Avoidance/Restrictionsnon e Previous Transfusion Reactionno Health Mgmt: Symptoms/Conditions Managed at Homecardiovascular Barriers to Managing Healthnone Relationship/Environ: Lives Withspouse Living Arrangementshouse Resource/Environmental Concernsnone Anticipated Transition Tocitizens baptiste Services Anticipated at Transitionnone Tobacco Use: Tobacco Useyes Tobacco Typecigarettes Last Tobacco [id number] Additional Information: Information Review: Allergies, Home Meds and Significant Events have been Reviewed and Verified with Patient/Familyyes Allergy, Intolerance, Adverse Event: Allergies: No Known Allergies: Active Electronic Signatures: Carlene Small (OLU) (Signed 08-Nov-2021 11:17) Authored: Initial Info, General Health, Health Mgmt, Relationship/Environ, Tobacco Use, Additional Information Last Updated: 08-Nov-2021 11:17 by Carlene Small) Normal [facility] Surgical Pathology Depar tmenton 11-08-2021 [facility] Surgical Pathology Department Name IVAN GODINEZ Pathologist: EILEEN ESCOBAR DMD. Date of Procedure: 11/08/2021 Date Received: 11/08/2021 Date Reported 11/19/2021 Submitting Physician: ROBBI DURON MD Location: [facility] Other External # FINAL DIAGNOSIS VOCAL CORD, RIGHT, LESION, BIOPSY: --SUPERFICIAL FRAGMENTS OF AN ATYPICAL VERRUCOUS SQUAMOUS PROLIFERATION, SEE NOTE. --CANDIDAL AND BACTERIAL COLONIZATION. NOTE: The specimen is received fragmented and unoriented. Sections show a bulky verrucous proliferation. The specimen is extensively hyperkeratotic and the underlying mucosa is only focally represented. While the degree of architectural complexity and cytologic features are concerning for at least verrucous hyperplasia with high grade dysplasia, verrucous carcinoma and conventional squamous cell carcinoma with verrucous features cannot be entirely ruled due to minimally visualized lamina propria and lack of adjacent normal epithelium precluding complete evaluation for invasion. at professional services consultant: Case was shown at the ENT/Thoracic consensus conference on 11/19/2021 through Zoom technology. Electronically Signed Out By EILEEN ESCOBAR DMD./JOSE CARLOS By the signature on this report, the individual or group listed as making the Final Interpretation/Diagnosis certifies that they have reviewed this case. Diagnostic interpretation performed at [place] [id number] Clinical History: Physician Contact Number: [phone] Fixative (A): Saline Clinical Diagnosis History vocal cord disease Specimens Submitted As: A: RIGHT VOCAL CORD LESION Gross Description: Received fresh, labeled with the patient's name and hospital number and R-vocal cord lesion, are multiple fragments of white-hedrick soft tissue aggregating to 1.3 x 1.0 x 0.7 cm. The largest fragment is trisected. The specimen is submitted entirely in 2 cassettes. LMP 11/11/2021 [facility] Department of Pathology [address] [place] [id number] [facility] Comment on above: Performed By: #### U HCS #### [facility] Surgical Pathology Department [address] [place] [address] BASIC METABOLIC PANELon 08-2 Anion gap [Moles/Vol] 15 mmol/L Normal 10 - 20 [facility] Comment on above: Performed By: #### B MP #### [facility] [address] [place] [address] Calcium [Mass/Vol] 9.8 mg/dL Normal 8.6 - 10.6 [facility] Comment on above: Performed By: #### B MP #### [facility] [address] [place] [address] Chloride [Moles/Vol] 102 mmol/L Normal 98 - 107 [facility] Comment on above: Performed By: #### B MP #### [facility] [address] [place] [address] Creatinine [Mass/Vol] 0.94 mg/dL Normal 0.50 - 1.30 [facility] Comment on above: Performed By: #### B MP #### [facility] [address] [place] [address] eGFR MALE >90 Normal >90 [facility] Comment on above: Result Comment: CALC ULATIONS OF ESTIMATED GFR ARE PERFORMED USING THE 2020 CKD-EPI STUDY REFIT EQUATION WITHOUT THE RACE VARIABLE FOR THE IDMS-TRACEABLE CREATININE METHODS. https://jasn.asnjournals.org/content//ASN.40357 75824 Performed By: #### B MP #### [facility] [address] [place] [address] Glucose [Mass/Vol] 78 mg/dL Normal 74 - 99 [facility] Comment on above: Performed By: #### B MP #### [facility] [address] [place] [address] HCO3 (Bld) [Moles/Vol] 25 mmol/L Normal 21 - 32 [facility] Comment on above: Performed By: #### B MP #### [facility] [address] [place] [address] Potassium [Moles/Vol] 4.0 mmol/L Normal 3.5 - 5.3 [facility] Comment on above: Performed By: #### B MP #### [facility] [address] [place] [address] Sodium [Moles/Vol] 138 mmol/L Normal 136 - 145 [facility] Comment on above: Performed By: #### B MP #### [facility] [address] [place] [address] Urea nitrogen [Mass/Vol] 17 mg/dL Normal 6 - 23 [facility] Comment on above: Performed By: #### B MP #### [facility] [address] [place] [address] CBCon 10-21-2021 Erythrocyte distribution width (RBC) [Ratio] 13.4 % Normal 11.5 - 14.5 [facility] Comment on above: Performed By: #### C BC ####[id number] [place] [address] Hematocrit (Bld) [Volume fraction] 47.7 % Normal 41.0 - 52.0 [facility] Comment on above: Performed By: #### C BC ####[id number] [place] [address] Hemoglobin (Bld) [Mass/Vol] 16.7 g/dL Normal 13.5 - 17.5 [facility] Comment on above: Performed By: #### C BC ####[id number] [place] [address] MCHC (RBC) [Mass/Vol] 35.0 g/dL Normal 32.0 - 36.0 [facility] Comment on above: Performed By: #### C BC ####[id number] [place] [address] MCV (RBC) [Entitic vol] 88 fL Normal 80 - 100 [facility] Comment on above: Performed By: #### C BC ####[id number] [place] [address] NUCLEATED RBC 0.0 /100 WBC Normal 0.0-0.0 [facility] Comment on above: Performed By: #### C BC ####[id number] [place] [address] Platelets (Bld) [#/Vol] 255 10*3/uL Normal 150 - 450 [facility] Comment on above: Performed By: #### C BC ####[id number] [place] [address] RBC 5.39 x10E12/L Normal 4.50 - 5.90 [facility] Comment on above: Performed By: #### C BC ####[id number] [place] [address] WBC (Bld) [#/Vol] 10.6 10*3/uL Normal 4.4 - 11.3 [facility] Comment on above: Performed By: #### C BC ####[id number] [place] [address] Laboratory - Blood bankon ABO group Nom (Bld) B [facility] Work Phone: Blood group antibody screen Ql Negative [facility] Work Phone: Rh immune globulin screen (Bld) [Interp] Negative -Otolary n [facility] Work Phone: Laboratory - Chemistry and C hemistry - challengeon 10-21-2021 Anion gap [Moles/Vol] 15 mmol/L 10 - 20 MG- Otolaryn [facility] Work Phone: [phone] Calcium [Mass/Vol] 9.8 mg/dL 8.6 - 10.6 MG-Fredy laryn [facility] Work Phone: [phone] Chloride [Moles/Vol] 102 mmol/L 98 - 107 MG-O tolaryn [facility] Work Phone: [phone] CO2 [Moles/Vol] 25 mmol/L 21 - 32 MG-Otolar yn [facility] Work Phone: Creatinine [Mass/Vol] 0.94 mg/dL See Below - Otboydyn [facility] Work Phone: Comment on above: Reference Range: 0.5 0 - 1.30 Glucose [Mass/Vol] 78 mg/dL 74 - 99 -Fredy dusty [facility] Work Phone: [phone] Potassium [Moles/Vol] 4.0 mmol/L 3.5 - 5.3 MG- Otolaryn [facility] Work Phone: [phone] Sodium [Moles/Vol] 138 mmol/L 136 - 145 MG-Fredy manjinderyn [facility] Work Phone: [phone] Urea nitrogen [Mass/Vol] 17 mg/dL 6 - 23 MG-Cherelle [facility] Work Phone: [phone] Laboratory - Hematology and Cell countson 10-21-2021 Erythrocyte distribution width (RBC) [Ratio] 13.4 % See Below OdinOtvetGalindoyn [facility] Work Phone: Comment on above: Reference Range: 11. 5 - 14.5 Hematocrit (Bld) [Volume fraction] 47.7 % See Below [facility] [employer] [facility] Work Phone: Comment on above: Reference Range: 41. 0 - 52.0 Hemoglobin (Bld) [Mass/Vol] 16.7 g/dL See Below BlueRoninCherelle WinmedicaleriOdinOtvetPort [place] [facility] Work Phone: Comment on above: Reference Range: 13. 5 - 17.5 MCHC (RBC) [Mass/Vol] 35.0 g/dL See Below BlueRonin Cherelle [facility] Work Phone: Comment on above: Reference Range: 32. 0 - 36.0 MCV (RBC) [Entitic vol] 88 fL 80 - 100 BlueRoninCherelle [facility]ymphony[facility] Work Phone: Platelets (Bld) [#/Vol] 255 10*3/uL 150 - 450 BlueRoninCherelle [facility] [place] [facility] Work Phone: RBC (Bld) [#/Vol] 5.39 {x10E12/L} See Below GreenpieCherelle [facility] Work Phone: Comment on above: Reference Range: 4.5 0 - 5.90 WBC (Bld) [#/Vol] 10.6 10*3/uL 4.4 - 11.3 BlueRoninLloyd cantu [facility] Work Phone: No Panel Informationon 10-21 >90 >90 BlueRoninChere[facility] Work Phone: Comment on above: CALCULATIONS OF MATTHIAS MATED GFR ARE PERFORMED USING THE 2020 CKD-EPI STUDY REFIT EQUATION WITHOUT THE RACE VARIABLE FOR THE IDMS-TRACEABLE CREATININE METHODS.https://jasn.asnjournals.org/content/early/A SN.6084160678 0.0 {/100_WBC} 0.0-0.0 BlueRoninOtolary [facility] Work Phone: TYPE + SCREENon 10-21-2021 ABO TYPE B Normal [facility] Comment on above: Performed By: #### T +S #### [facility] [id number] [place] [address] RH TYPE Negative Normal [facility] Comment on above: Performed By: #### T +S #### [facility] [id number] [place] [address] Tobacco Screening.on 022 Adult depression screening assessment No [facility] Work Phone: Fall risk assessment a) No falls within the last year [facility] Work Phone: Tobacco use status [facility] b) No -[facility] Work Phone: Absolute lymphocyte counton 08-20-2021 Lymphocytes Auto (Unsp spec) [#/Vol] 3.17 10*3/uL 0.83-4.51 [facility] Work Phone: Basophil percentageon 2021 Basophils/100 WBC (Bld) 0.7 % 0-1 [facility] Work Phone: Bilirubin [Mass/Vol] 0.80 mg/dL 0.20-1.00 [facility] Work Phone: Comment on above: For patients on eltr ombopag therapy, use of Dimension [place] TBIL is not recommended. Chloride [Moles/Vol] 107 mmol/L 98-107 [facility] Work Phone: Cholesterol [Mass/Vol] 120 mg/dL <200 [facility] Work Phone: Comment on above: <200 mg/dL Desirable 200-240 mg/dL Borderline >240 mg/dL High Risk Eosinophils/100 WBC (Bld) 1.9 % 0-5 [facility] Work Phone: Glucose [Mass/Vol] 91 mg/dL 74-106 [facility] Work Phone: Neutrophils (Bld) [#/Vol] 7.6 10*3/uL 2.0-7.7 [facility] Work Phone: Neutrophils/100 WBC (Bld) 65.1 % 47-70 [facility] Work Phone: Potassium [Moles/Vol] 3.5 mmol/L 3.5-5.1 [facility] Work Phone: Protein [Mass/Vol] 7.6 g/dL 6.4-8.2 [facility] Work Phone: [phone] Sodium [Moles/Vol] 140 mmol/L 136-145 [facility] Work Phone: Triglyceride [Mass/Vol] 158 mg/dL <199 [facility] Work Phone: Comment on above: The drugs N-Acetylcy steine and Metamizole may falsely depress this assay.Serum Triglycerides Reference Interval Normal <150 mg/dL Borderline high 150 - 199 mg/dL High 200 - 499 mg/dL Very High > or = 500 mg/dL WBC (Bld) [#/Vol] 11.7 10*3/uL 4.4-11.0 [facility] Work Phone: Blood erythrocytes count (nu mber/volume)on 08-20-2021 RBC (Bld) [#/Vol] 5.59 10*6/uL 4.6-6.2 [facility] Work Phone: [phone] Blood hemoglobin measurement (mass/volume)on 08-20-2021 Hemoglobin (Bld) [Mass/Vol] 16.7 g/dL 13.0-16.5 [facility] Work Phone: Blood lymphocytes/100 leukoc yteson 08-20-2021 Lymphocytes/100 WBC (Bld) 27.0 % 19-41 [facility] Work Phone: Blood monocytes/100 leukocyt eson 08-20-2021 Monocytes/100 WBC (Bld) 5.0 % 0-10 [facility] Work Phone: Blood platelet mean volumeon 08-20-2021 Platelet mean volume (Bld) [Entitic vol] 9.9 fL 6.2-12.0 [facility] Work Phone: Determination of erythrocyte mean corpuscular volume (MCV)on 08-20-2021 MCV (RBC) [Entitic vol] 85.9 fL 80-94 [facility] Work Phone: Hematocrit Auto (Bld) [Volum e fraction]on 08-20-2021 Hematocrit (Bld) [Volume fraction] 48.0 % 40-54 [facility] Work Phone: Laboratory - Chemistry and C hemistry - challengeon 08-20-2021 ALP [Catalytic activity/Vol] 70 U/L 45-117 [facility] Work Phone: ALT [Catalytic activity/Vol] 61 U/L 16-61 [facility] Work Phone: CO2 [Moles/Vol] 25.0 mmol/L 21.0-32.0 [facility] Work Phone: Free T4 [Mass/Vol] 1.21 ng/dL 0.76-1.46 [facility] Work Phone: Globulin (S) [Mass/Vol] 3.8 g/dL 2.2-4.2 [facility] Work Phone: Urea nitrogen/Creatinine [Mass ratio] 15.2 mg/mg 10-20 [facility] Work Phone: Laboratory - Hematology and Cell countson 08-20-2021 Erythrocyte distribution width (RBC) [Entitic vol] 41.9 fL 35.1-43.9 [facility] Work Phone: Erythrocyte distribution width (RBC) [Ratio] 13.4 % 11.6-14.6 [facility] Work Phone: Immature granulocytes/100 WBC (Bld) 0.300 % 0.0-0.9 [facility] Work Phone: Comment on above: IG% - Immature Granu locytes (promyelocytes, myelocytes and metamyelocytes) > 1% indicates that a LEFT SHIFT is Present. MCH (RBC) [Entitic mass] 29.9 pg 27.0-32.0 [facility] Work Phone: Nucleated RBC/100 WBC (Bld) [Ratio] 0 % 0-5 [facility] Work Phone: MCHC Auto (RBC) [Mass/Vol]on 08-20-2021 MCHC (RBC) [Mass/Vol] 34.8 g/dL 32-36 [facility] Work Phone: No Panel Informationon 08-20 Estimated GFR (MDRD) Amer 102 mL/min >60 [facility] Work Phone: Comment on above: GFR Calc Estimated GFR (MDRD) Non-Af Amer 84 mL/min >60 [facility] Work Phone: Comment on above: Non- GFR Calc Hepatitis B Surface Antigen Non-Reactive Nonreactive [facility] Work Phone: Hepatitis C Antibody Non-Reactive Nonreactive [facility] Work Phone: Comment on above: Non Reactive: < 0.8 Equivocal: >/= 0.8 to < 1.0 Reactive: >/= 1.0The CDC recommends that a reactive/equivocal HCV antibody result be followed up by the HCV Nucleic Acid Amplificationtest (304602) Thyroid Stimulating Hormone (TSH) 1.39 uIU/mL 0.358-3.74 [facility] Work Phone: Platelets bldon 08-20-2021 Platelets (Bld) [#/Vol] 270 10*3/uL 150-450 [facility] Work Phone: Serum hepatitis B virus surf nadia antibody IgG detectionon 08-20-2021 HBV surface IgG Ql (S) Non-Reactive [facility] Work Phone: Comment on above: Non Reactive: Incons istent with immunity less than <10 mIU/mL Reactive: Consistent with immunity greater than or equal to 10 mIU/mL Serum or plasma albumin bk urement (mass/volume)on 08-20-2021 Albumin [Mass/Vol] 3.8 g/dL 3.2-5.0 [facility] Work Phone: Serum or plasma albumin/glob ulin mass ratioon 08-20-2021 Albumin/Globulin [Mass ratio] 1.0 {ratio} 0.9-2.4 [facility] Work Phone: Serum or plasma calcium bk urement (mass/volume)on 08-20-2021 Calcium [Mass/Vol] 9.4 mg/dL 8.5-10.1 [facility] Work Phone: Serum or plasma cholesterol in HDL measurement (mass/volume)on 08-20-2021 Cholesterol in HDL [Mass/Vol] 30 mg/dL >40 [facility] Work Phone: Comment on above: The drugs N-Acetylcy steine and Metamizole may falsely depress this assay. Reference Range HDL <40 mg/dL Low HDL Cholesterol HDL >or= 60 mg/dL High HDL Cholesterol Serum or plasma cholesterol in VLDL measurement (mass/volume)on 08-20-2021 Cholesterol in VLDL [Mass/Vol] 32 mg/dL 5-40 [facility] Work Phone: Serum or plasma creatinine m easurement (mass/volume)on 08-20-2021 Creatinine [Mass/Vol] 0.99 mg/dL 0.70-1.30 [facility] Work Phone: Comment on above: The validity of the calculated GFR & GFRAA in patients over 70 years has not been determined. Clinical correlation is essential. Serum or plasma low density lipoprotein (LDL) cholesterol measurement (mass/volume)on 08-20-2021 Cholesterol in LDL [Mass/Vol] 58 mg/dL 0-130 [facility] Work Phone: Serum or plasma thyroperoxid ase antibody assay (units/volume)on 08-20-2021 TPO Ab Qn 11 [IU]/mL 0-34 [facility] Work Phone: Comment on above: Performed at: [address] [id number] Director: Devante Medina PhD, Phone: [phone] Serum or plasma urea nitroge n measurement (mass/volume)on 08-20-2021 Urea nitrogen [Mass/Vol] 15 mg/dL 7-18 [facility] Work Phone: Thin prep Papanicolaou smear with manual screeningon 08-20-2021 Thin prep Papanicolaou smear with manual screening 25 U/L 15-37 [facility] Work Phone: Thin prep Papanicolaou smear with manual screening 8 5-15 [facility] Work Phone: COVID-19 virus antigen assay SARS-CoV-2 (COVID-19) Ag IA.rapid Ql (Resp) [facility] Work Phone: Vital Signs Date Time Vital Sign Value Performing Clinician Faci lity 06-05-2022 13:40-0400 Diastolic blood pressure 74 mm[Hg] [facility] 06-05-2022 13:40-0400 Heart rate 63 /min [facility] 06-05-2022 13:40-0400 Respiratory rate 14 /min [facility] 06-05-2022 13:40-0400 SaO2% (BldA) [Mass fraction] 98 % [facility] 06-05-2022 13:40-0400 Systolic blood pressure 122 mm[Hg] [facility] 06-05-2022 12:33-0400 Body height 187.96 cm [facility] 06-05-2022 12:33-0400 Body mass index (BMI) [Ratio] 44.9 kg/m2 [facility] 06-05-2022 12:33-0400 Body weight 158.75 kg [facility] 06-05-2022 12:28-0400 Body temperature 97.8 [degF] [facility] 05-27-2022 16:56-0400 Diastolic blood pressure 76 mm[Hg] Dr. Chapo Mcadams Work Phone: [facility] 05-27-2022 16:56-0400 Respiratory rate 18 /min Dr. Chapo Mcadams Work Phone: [facility] 05-27-2022 16:56-0400 Systolic blood pressure 125 mm[Hg] Dr. Chapo Mcadams Work Phone: [facility] 05-27-2022 16:27-0400 Heart rate 62 /min Dr. Chapo Mcadams Work Phone: [facility] 05-27-2022 16:27-0400 SaO2% (BldA) [Mass fraction] 93 % Dr. Chapo Mcadams Work Phone: [facility] 05-27-2022 12:49-0400 Body mass index (BMI) [Ratio] 48 kg/m2 Dr. Chapo Mcadams Work Phone: [facility] 05-27-2022 12:49-0400 Body weight 169.[address] Chapo Mcadams Work Phone: [facility] 05-27-2022 12:29-0400 Body height 187.[address] Chapo Mcadams Work Phone: [facility] 05-27-2022 12:29-0400 Body temperature 97.8 [degF] Dr. Chapo Mcadams Work Phone: [facility] 02-07-2022 08:55-[address] AUGUSTO SILVEIRA MD [facility] 02-07-2022 08:55-0500 Body height [address] AUGUSTO SILVEIRA MD [facility] 02-07-2022 08:55-0500 Body weight 154.[address] AUGUSTO SILVEIRA MD [facility] 02-07-2022 08:55-0500 Body weight 43.63 kg/m2 DR AUGUSTO SILVEIRA MD [facility] 02-07-2022 08:55-0500 Diastolic Blood Pressure Non-Invasive [address] AUGUSTO SILVEIRA MD [facility] 02-07-2022 08:55-0500 Heart rate 61 /min DR AUGUSTO SILVEIRA MD [facility] 02-07-2022 08:55-0500 Respiratory rate 20 /min DR AUGUSTO SILVEIRA MD [facility] 02-07-2022 08:55-0500 Systolic Blood Pressure Non-Invasive [address] AUGUSTO SILVEIRA MD [facility] 01-15-2022 14:03-0500 Body height 187.96 cm Chapo Mcadams Work Phone: [facility] [address] Work Phone: 01-15-2022 14:03-0500 Body mass index (BMI) [Ratio] 45.58 kg/m2 Chapo Mcadams Work Phone: [facility] [address] Work Phone: 01-15-2022 14:03-0500 Body surface area Derived from formula 2.77 m2 Chapo Mcadams Work Phone: [facility] [address] Work Phone: 01-15-2022 14:03-0500 Body temperature 96.6 [degF] Chapo Mcadams Work Phone: [facility] [address] Work Phone: 01-15-2022 14:03-0500 Body weight 161.03 kg Chapo Mcadams Work Phone: [facility] [address] Work Phone: 10-18-2021 15:29-0400 Body height 187.[address] Chapo Mcadams Work Phone: [facility] Work Phone: 10-18-2021 15:29-0400 Body mass index (BMI) [Ratio] 48 kg/m2 Dr. Chapo Mcadams Work Phone: [facility] Work Phone: 10-18-2021 15:29-0400 Body temperature 96.5 [degF] Dr. Chapo Mcadams Work Phone: [facility] Work Phone: 10-18-2021 15:29-0400 Body weight 169.[address] Chapo Mcadams Work Phone: [facility] Work Phone: 10-18-2021 15:29-0400 Diastolic blood pressure 88 mm[Hg] Dr. Chapo Mcadams Work Phone: [facility] Work Phone: 10-18-2021 15:29-0400 Heart rate 66 /min Dr. Chapo Mcadams Work Phone: [facility] Work Phone: 10-18-2021 15:29-0400 Respiratory rate 20 /min Dr. Chapo Mcadams Work Phone: [facility] Work Phone: 10-18-2021 15:29-0400 SaO2% (BldA) [Mass fraction] 94 % Dr. Chapo Mcadams Work Phone: [facility] Work Phone: 10-18-2021 15:29-0400 Systolic blood pressure 142 mm[Hg] Dr. Chapo Mcadams Work Phone: [facility] Work Phone: 10-02-2021 12:47-0400 Body height 187.96 cm Referring Provider Unknown [facility] [place] Work Phone: 10-02-2021 12:47-0400 Body mass index (BMI) [Ratio] 48.46 kg/m2 Referring Provider Unknown [facility] [place] Work Phone: 10-02-2021 12:47-0400 Body surface area Derived from formula 2.85 m2 Referring Provider Unknown [facility] Work Phone: 10-02-2021 12:47-0400 Body temperature 96.5 [degF] Referring Provider Unknown [facility] Work Phone: 10-02-2021 12:47-0400 Body weight 171.21 kg Referring Provider Unknown [facility] Work Phone: 09-24-2021 14:00-0400 Diastolic blood pressure 90 mm[Hg] [facility] Work Phone: 09-24-2021 14:00-0400 Heart rate 63 /min [facility] Work Phone: 09-24-2021 14:00-0400 Respiratory rate 18 /min [facility] Work Phone: 09-24-2021 14:00-0400 SaO2% (BldA) [Mass fraction] 93 % [facility] Work Phone: 09-24-2021 14:00-0400 Systolic blood pressure 137 mm[Hg] [facility] Work Phone: 09-24-2021 13:30-0400 Body temperature 97.5 [degF] [facility] Work Phone: 09-24-2021 12:45-0400 Inhaled oxygen flow rate 2 L/min [facility] Work Phone: 09-24-2021 09:55-0400 Body height 187.96 cm [facility] Work Phone: 09-24-2021 09:55-0400 Body mass index (BMI) [Ratio] 48.6 kg/m2 [facility] Work Phone: 09-24-2021 09:55-0400 Body weight 172.09 kg [facility] Work Phone: Encounters Encounter Date Encounter Type Care Provider Facility Start: 11-16-2024 End: 11-16-2024 Postop follow up visit related to original px Erwin Jose Jr [facility] Start: 11-16-2024 End: 11-16-2024 Encounter identifier Wong France Work Phone: [facility] Start: 11-16-2024 ambulatory Wong Calli France [facility] Start: 10-10-2024 ambulatory Erwin V Jose Jr [facility] Start: 10-07-2024 ambulatory Erwin V Jose Jr [facility] Start: 10-06-2024 ambulatory Erwin V Jose Jr [facility] Start: 10-04-2024 ambulatory Erwin V Jose Jr [facility] Start: 10-03-2024 End: 10-03-2024 Encounter identifier Joy Briggs Work Phone: [facility] Start: 10-03-2024 ambulatory Erwin V Jose Jr [facility] Start: 10-03-2024 ambulatory Wongkasandra France [facility] Start: 09-22-2024 End: 09-22-2024 Encounter identifier Erwin V Jose Jr Work Phone: [facility] Start: 09-22-2024 ambulatory Erwin V Jose Jr [facility] Start: 09-16-2024 End: 09-16-2024 Encounter for other preprocedural examination Jermain Rees Work Phone: [facility] Start: 09-16-2024 End: 09-16-2024 Encounter for preprocedural cardiovascular examination Jermain Rees Work Phone: [facility] Start: 09-16-2024 End: 09-16-2024 Encounter identifier Erwin V Jose Jr Work Phone: [facility] [place] Start: 09-16-2024 End: 09-16-2024 Office outpatient new 45 minutes Jermain Rees Work Phone: [facility] Start: 09-16-2024 ambulatory Erwin V Joseluciana [facility] Start: 09-16-2024 ambulatory Erwin V Jose Jr [facility] Start: 08-17-2024 End: 08-17-2024 Office outpatient new 60 minutes Erwin V Jose Jr Work Phone: [facility] Start: 08-17-2024 ambulatory Erwin V Jose Jr [facility] Start: 08-01-2024 End: 08-01-[address] Chapo Mcadams MD Work Phone: [facility] Work Phone: Start: 08-01-2024 End: 08-01-2024 Patient encounter procedure Renita Vásquez NP-C -Labor[facility] [place] Work Phone: Start: 08-01-2024 End: 08-01-2024 ambulatory Chapo Mcadams Facility:[facility] Start: 07-08-2024 ambulatory Erwin Luiza Garcia Jr [facility] Start: 05-06-2024 End: 05-06-[address] Chapo Mcadams MD Work Phone: [facility] Work Phone: Start: 05-06-2024 End: 05-06-[address] Chapo Mcadams MD -Pulmonary Services/Neurology Work Phone: Start: 05-06-2024 End: 05-06-2024 ambulatory Chapo Mcadams Facility:[facility] Start: 03-17-2024 End: 03-17-[address] Chapo Mcadams MD -Radiology, [place] Work Phone: Start: 03-17-2024 End: 03-17-2024 ambulatory Chapo Mcadams Facility:[facility] Start: 03-06-2023 End: 03-06-2023 ambulatory [facility] Work Phone: Start: 03-06-2023 End: 03-06-2023 Patient encounter procedure [facility] Work Phone: Start: 11-20-2022 End: 11-20-2022 ambulatory [facility] Work Phone: Start: 11-20-2022 End: 11-20-2022 Patient encounter procedure [facility]-Ultrasound, [facility] Work Phone: Start: 11-12-2022 End: 11-12-2022 ambulatory [facility] Work Phone: Start: 11-12-2022 End: 11-12-2022 Patient encounter procedure [facility] Start: 06-05-2022 End: 06-05-2022 ambulatory [facility] Work Phone: Start: 06-05-2022 End: 06-05-2022 Patient encounter procedure [facility]-Radiology, [facility] Start: 05-27-2022 End: 05-27-2022 Emergency department patient visit Dr. Chapo Mcadams Work Phone: [facility]-Emergency Department Start: 02-18-2022 End: 02-19-2022 ambulatory AUGUSTO SILVEIRA MD Facility:B Start: 02-07-2022 End: 02-08-2022 ambulatory AUGUSTO SILVEIRA MD Facility:[facility] Start: 02-07-2022 End: 02-07-[address] AUGUSTO SILVEIRA MD [facility] Start: 02-06-2022 Non-patient / Non-visit Dr. Claudette Mcadams Work Phone: [facility] Start: 02-06-2022 End: 02-06-[address] Chapo Mcadams Work Phone: [facility] Work Phone: Start: 02-06-2022 End: 02-06-[address] Chapo Mcadams Work Phone: [facility]-Cardiovascula r Services Start: 01-30-2022 End: 01-30-[address] Chapo Mcadams Work Phone: [facility] Work Phone: Start: 01-30-2022 End: 01-30-[address] Chapo Mcadams Work Phone: [facility] Start: 01-15-2022 Office outpatient vi sit 15 minutes Chapo Mcadams Work Phone: [facility] Work Phone: Start: 01-15-[address] Robbi Pittmani lity:[id number] Start: 12-18-2021 End: 12-18-[address] Chapo Mcadams Work Phone: [facility] Work Phone: Start: 12-18-2021 End: 12-18-[address] Chapo Mcadams Work Phone: [facility] Start: 12-16-2021 End: 12-16-[address] Chapo Mcadams Work Phone: [facility]-Physical Therapy Start: 11-20-[address] Robbi Duron Faci lity:[id number] Start: 11-08-2021 Chart Update Chapo mcmahon Work Phone: [facility] Work Phone: Start: 11-08-2021 End: 11-08-[address] Robbi Duron Facility:[facility] Start: 11-05-2021 End: 11-05-[address] Chapo Mcadams Work Phone: [facility] Work Phone: Start: 11-05-2021 End: 11-05-[address] Chapo Mcadams Work Phone: [facility]-Pulmonary Services/Neurology Start: 10-21-2021 ambulatory PCP UNKNOWN Facility:[facility] Start: 10-21-2021 Encounter for blood typing Dr. Robbi Duron [facility] Start: 10-21-2021 Encounter for preprocedural laboratory examination Dr. Robbi Duron [facility] Start: 10-18-2021 End: 10-18-[address] Chapo Mcadams Work Phone: [facility] Start: 10-02-2021 Office consultation new/estab patient 60 min Referring Provider Unknown [facility] Work Phone: Start: 10-02-[address] Khari Iniguez Facility:[id number] Start: 09-24-2021 End: 09-24-2021 Admission to same day surgery center [facility] Day [facility] Start: 09-24-2021 Non-patient / Non-visit Dr. Claudette Mcadams Work Phone: [facility] Start: 09-04-2021 End: 09-04-2021 Patient encounter procedure [facility]-Ultrasound, [facility] Start: 08-20-2021 End: 08-20-2021 Patient encounter procedure [facility]-Laboratory, [facility] Encounter for other preprocedural examination Wong France PA-C [facility] Encounter for preprocedural cardiovascular examination Wong France PA-C [facility] Patient encounter status Referri ng Provider Unknown [facility] Work Phone: Procedures Date Procedure Procedure Detail Performing Clinician Start: 11-16-2024 End: 11-16-2024 Radiologic examination knee 3 views Erwin Garcia Jr Start: 10-03-2024 End: 10-03-2024 Arthrp kne condyle&platu medial&lat compartments Erwin Garcia Jr Start: 10-03-2024 PA Arthroplasty, Total Knee Erwin Garcia Jr Start: 10-03-2024 End: 10-03-2024 PA Arthroplasty, Total Knee Wong France PA-C Start: 10-03-2024 End: 10-03-2024 Physical therapy re-eval est plan care 20 mins Wong France PA-C Start: 10-03-2024 End: 10-03-2024 Therapeut actvity direct pt contact each 15 min Wong France PA-C Start: 09-22-2024 End: 09-22-2024 Surgery Prepay Wong France PA-C Start: 09-16-2024 End: 09-16-2024 Collection venous blood venipuncture Wong France PA-C Start: 09-16-2024 End: 09-16-2024 Ecg routine ecg w/least 12 lds w/i&r Wong France PA-C Start: 09-16-2024 End: 09-16-2024 Intermittent Compression Device - SELF PAY Wong France PA-C Start: 09-16-2024 End: 09-16-2024 No Charge Wong France PA-C Start: 09-16-2024 End: 09-16-2024 Noninvasive ear/pulse oximetry single deter Wong France PA-C Start: 09-16-2024 End: 09-16-2024 Physical therapy evaluation mod complex 30 mins Wong France PA-C Start: 09-16-2024 End: 09-16-2024 Ther px 1/> areas each 15 min neuromusc reeduca Wong France PA-C Start: 08-17-2024 End: 08-17-2024 Radiologic exam knee complete 4/more views Erwin Garcia Jr Start: 08-01-2024 Prostate specific an tigen measurement Dr. Chapo Mcadams MD Work Phone: Comment on above: This test was perfor med using the [facility] [employer] tPSA method. Measured values of a patient sample can vary depending on the testing procedure used. PSA values determined on patient samples by different testing procedures cannot be used interchangeably. If there is a change in PSA assays while monitoring therapy, sequential testing should be performed to confirm baseline values. Start: 03-17-2024 X-ray of chest, PA a nd lateral views Dr. Chapo Mcadams MD Work Phone: Start: 11-20-2022 US scan of thyroid Start: 06-05-2022 Myelogram Start: 06-05-2022 Computerized axial tomography of lumbar spine with contrast Start: 05-27-2022 Plain chest X-ray Dr. Rani Mcadams Work Phone: Start: 02-06-2022 Cardiovascular stres s test using pharmacologic stress agent Dr. Chapo Mcadams Work Phone: Start: 10-21-[address] Fam Duron Comment on above: Performed By: #### T +S #### [facility] [address] [place] [address] Start: 09-24-2021 Microlaryngoscopy Start: 09-04-2021 US scan of thyroid Biopsy Referring Provi aidan Unknown Excision of polyp of vocal cord DR AUGUSTO SILVEIRA MD Comment on above: x2 H/O: surgery History of nasal septoplasty Nasal septoplasty Referring Provider Unknown Nasal septoplasty DR AUGUSTO SILVEIRA MD Viral antigen assay Dr. Chapo Mcadams Work Phone: Plan of Treatment Date Care Activity Detail Author Start: 09-16-2024 [facility] Start: 05-27-2022 End: 05-27-2022 [facility] Start: 04-23-2022 FUV, Provider: Robbi Duron, Status: Pen, Time: 1:30 PM FUV, Provider: Robbi Duron, Status: Pen, Time: 1:30 PM [facility] Work Phone: Start: 11-20-2021 POV, Provider: Robbi Duron, Status: Pen, Time: 12:30 PM POV, Provider: Robbi Duron, Status: Pen, Time: 12:30 PM [facility] Work Phone: Start: 11-08-2021 SURGCMC, Provider: Robbi Duron, Status: Pen, Time: 12:00 PM SURGCMC, Provider: Robbi Duron, Status: Pen, Time: 12:00 PM [facility] Work Phone: Start: 09-24-2021 Anes esoph thyrd larynx trach & lymph neck 1yr ANESTH NECK ORGAN 1YR/> [facility] Work Phone: Start: 09-24-2021 Laryngoscopy w/wo tracheoscopy dx except DX LARYNGOSCOPY EXCL NB [facility] Work Phone: Start: 09-24-2021 Patient discharge [facility] Work Phone: Patient Education [facility] Work Phone: Patient referral [facility] Work Phone: Payers Date Payer Category Payer Self-pay [id number] [facility] 2024 Unknown [id number] [facility] 2021 Unknown [id number] 1968 Unknown [id number] [id number] 1968 Unknown [id number] 2.0.1.112248.3.579.2.356 1968 Unknown [id number] 2.0.1.430180.3.579.2.356 1968 Unknown [id number] 2.0.1.571495.3.579.2.356 1968 Unknown [id number] 2.840.1.228224.3.579.2.356 1968 Unknown [id number] 2.840.1.554245.3.579.2.627 1968 Unknown [id number] 2.840.1.504585.3.579.2.627 1968 Unknown [id number] 2.16.840.1.185193.3.579.2.1313 1968 Unknown [id number] 2.16.840.1.307473.3.579.2.1314 1968 Unknown [id number] 2.16.840.1.020926.3.579.2.1313 1968 Unknown [id number] 2.16.840.1.819410.3.579.2.131 1968 Unknown [id number] 2.840.1.181032.3.579.2.1313 1968 Unknown [id number] 2.840.1.012012.3.579.2.1313 1968 Unknown [id number] 2.840.1.185339.3.579.2.1313 1968 Unknown [id number] 2.840.1.515405.3.579.2.1313 1968 Unknown [id number] 2.840.1.731694.3.579.2.1313 1968 Unknown [id number] 2.840.1.816432.3.579.2.1313 1968 Unknown [id number] 2.840.1.072611.3.579.2.1314 Unknown [id number] Unknown [facility] Unknown [id number] 2.840.1.887607.3.579.2.462 Unknown [id number] 2.16840.1.185146.3.579.2.462 Unknown [id number] 2.16840.1.644452.3.579.2.462 Unknown [id number] 2.840.1.216895.3.579.2.462 Social History Date Type Detail Facility Start: 06-28-2020 End: 11-16-2024 Tobacco smoking status NHIS Unknown if ever smoked [facility] Start: 06-28-2020 Cigarettes [facility] Start: 1970 Sex Assigned At Male W [facility] Work Phone: Start: 02-07-2022 Tobacco smoking status Heavy tobacco smoker (finding) [facility] Sex Assigned At Sex [facility] Start: 05-27-2022 Tobacco smoking status NHIS Smokes tobacco daily (finding) [facility] Start: 05-17-2024 Sex Male (finding) [facility] Start: 11-16-2024 Health-related Behavior Caffeine Use Details [facility] Start: 07-04-2024 Sexual Orientation Choose not to disclose [facility] NEGATED: Highlighted row Alcohol intake Alcohol Use Details [facility] Goals Date Patient Goal Desired Activity /State Functional Status Date Assessment Result Facility 02-07-2022 Functional Status Sensory Deficits None A [facility] Mental Status Date Assessment Result Facility 06-05-2022 Cognitive function Voice/Name [facility] Work Phone: 05-27-2022 Cognitive function Voice/Name [facility] Work Phone: 09-24-2021 Cognitive function Voice/Name [facility] Work Phone: Clinical Notes 10-02-2020 to 11-18-2024 Note Date & Type Note Facility 11-18-2024 Evaluation note Type assessment [facility] Work Phone: [phone] History of Present illness Narrative* Encounter Date Complaint History Of Prese nt Illness AVL Post op (copy) 54 year old calli casiano presents to the office for a routine 6 week post-op appointment. He is post op from a R TKA by Dr. Garcia on 10/03/2024. He reports that is pain is a mild 4/10 today. He is currently in physical therapy, which he states is going well. He is not using any assistive devices. Preoperative medical risk stratification The patient, Ivan Godinez, is a 54-year-old male who presents at the request of Dr.Adolph Jose Luna MD in anticipation of RTKR. This patient presents with a several year history of pain involving the right knee. He reports symptoms have progressed over the past year. Symptoms are now described as moderate to severe depending on activity. 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 Symptoms of failed to respond to more conservative measures and now presents for surgical invention. The surgeon has sent this patient to our office for preoperative evaluation. This has included discussion with the patient regarding their medical conditions and how they relate to surgery. The patient has also been provided verbal and written instructions regarding perioperative management of their medications. Additional testing felt to be necessary part of the PAT process including labs, imaging, or specialist consultation will be detailed below.The patient denies any cardiovascular issues. This patient has a functional capacity of at least 4 Mets without complaints of any chest pain or dyspnea on exertion. The patient reports has done well with previous anesthesia in the past.The patient's chronic medical conditions are controlled and managed medically and stable for procedure/surgery, includin. Hypertension managed by patient's primary care provider currently treated with multidrug antihypertensive therapy including amlodipine, lisinopril/HCTZ2. Hyperlipidemia currently managed on rosuvastatin.3. GERD currently managed on PPI/omeprazole.4. Morbid obesity. Current BMI 515. Obstructive sleep apnea. Reports good compliance with CPAP6. Nicotine dependence. Patient is an active smoker of 40 years currently less than a pack a day but is unable to quit to date AVL New Patient without Joint 54 year old male presents to the office for Right Knee Evaluation. He state the pain has been present for years however, the pain has increased over the last few months and is impeding their ability to perform their activities of daily life and is impacting their quality of life. He describe the pain as constant, located over the whole knee and rate the pain 8-10/10. She confirms catching/clicking, instability. He states that increased activity, sitting for long periods of time, changing positions and stairs makes the pain worse. The patient also states that rest and elevation helps relieve some of the pain. In the past, he has been treated with OTC medication, Meloxicam topical creams, sleeves, braces and cortisone injections (last injection June 2024) which provided some relief initially. He currently denies any chest pain, shortness of breath, numbness/tingling or calf tenderness. He denies history of surgery/scope/trauma or fall. He has seen a previous orthopedic surgeon but would not do his surgery because of his BMI. He has a PMH of: Cortisone Injection June 2024 (lasted a week), Meloxicam, BMI 51.3 , Sleep Apnea (C-pap), HTN, HLD, GERD, AIC 4.8. He denies taking any GLP-1 and GLP-2 agonist. He is currently not using a walker/cane/wheelchair device for ambulation. [facility] Work Phone: [phone]) 148-373403-28-[address] De Jesus [facility] May 27, 2022 4:56pm Note Date/Time May 27, 2022 1:0 4pm [facility] Medical Records Department [address] [place] [address] Emergency Department Summary 05/27/22 MR#: [id number] Acct: [id number] Name: IVAN GODINEZ Rep #:[id number] : 1970 52 From: Fabio De Jesus MD PCP: Dr. Chapo Mcadams MD Status:RE ER Location: ED HPI History of Present Illness Chief Complaint: Chest Pain Narrative Narrative: 52-year-old male past medical history of being a smoker, hypertension, morbid obesity presents with left arm numbness and tingling that he has had for the last 2 to 3 weeks. Its very intermittent and will last a few minutes. In the middle of the night, he started having chest pressure and numbness and tingling of his chest. His states that he was diaphoretic while he was on his CPAP. He denies any leg swelling. No fevers or chills. No nausea or vomiting or shortness of breath. No headaches. 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 [facility] Medical History (Updated 05/27/22 @ 16:49 by Fabio De Jesus MD) Alcohol abuse Arthritis Biliary sludge Bladder cancer Chronic pain CPAP (continuous positive airway pressure) dependence Elevated transaminase level Frequent headaches GERD (gastroesophageal reflux disease) H/O transfusion of whole blood High blood triglycerides High cholesterol History of stress test HTN (hypertension) Morbid obesity Multinodular goiter (nontoxic) Nicotine dependence Obesity Obstructive sleep apnea Sciatic nerve pain Seasonal allergies Sleep apnea Smoker Thyroid nodule Vascular disease Wears glasses Home Medications amlodipine 10 mg tablet 10 mg PO DAILY 05/10/15 [History Last Taken 09/24/21] metoprolol tartrate 50 mg tablet 50 mg PO BID 07/13/18 [History Last Taken 09/24/21] omeprazole 20 mg capsule,delayed release 20 mg PO DAILY 01/12/19 [History Last Taken 09/24/21] gabapentin 100 mg capsule 300 mg PO TID 01/11/20 [History Last Taken Unknown] atorvastatin 20 mg tablet 20 mg PO QHS 06/28/20 [History Last Taken Unknown] lisinopril 20 mg-hydrochlorothiazide 12.5 mg tablet 1 tab PO BID 07/02/20 [History Last Taken 07/02/20 06:45 1 TAB] diclofenac sodium 75 mg tablet,delayed release 1 tab PO BID 09/09/21 [History Last Taken Unknown] atorvastatin 40 mg tablet 40 mg PO 09/18/21 [History Last Taken Unknown] gabapentin 300 mg capsule 300 mg PO 09/18/21 [History Last Taken Unknown] biotin 10,000 mcg capsule mcg PO 10/18/21 [History Last Taken Unknown] mecobalamin (vitamin B12) 1,000 mcg disintegrating tablet,sublingual 1,000 mcg sublingual DAILY 10/18/21 [History Last Taken Unknown] multivitamin (Daily Multi-Vitamin tablet) 1 tab PO DAILY 10/18/21 [History Last Taken Unknown] tamsulosin 0.4 mg capsule 0.4 mg PO DAILY 10/18/21 [History Last Taken Unknown] Allergy/AdvReac Type Severity Reaction Status Date / Time No Known Allergies Allergy Verified 05/27/22 12:49 Family History Mother Heart disease Hypertension Cancer Multiple sclerosis Myocardial infarction Depression Father Depression Heart disease Hypertension Anxiety Other Alcohol abuse Arthritis Diabetes High cholesterol Respiratory disease Surgical History (Updated 05/27/22 @ 12:50 by Aniyah Zapata) H/O abdominal aortic aneurysm repair History of left hip replacement History of nasal septoplasty History of throat surgery Social History Smoking Status: Current every day smoker tobacco type: cigarettes second hand exposure: Yes alcohol intake: current alcohol intake frequency: holidays/special occasions only Alcohol type: beer substance use type: does not use what type of physical activity do you participate in: none ROS ROS ED ROS Narrative Constitutional: No fever, no chills. HEENT: No sore throat. No neck pain. No loss of vision. No rhinorrhea. Cardiovascular: Positive tingling of chest/chest pain. No palpitations. No pedal edema. Respiratory: No cough, no shortness of breath. Abdominal: No abdominal pain. No nausea. No vomiting. Genitourinary: No dysuria. No hematuria. Musculoskeletal: No myalgias. No arthralgias. Neurologic: No headaches. No dizziness. No lightheadedness. Esthesia is of left arm. Skin: No rash. No change in color. Psychiatric: No depression. No anxiety. EXAM Physical Exam Narrative Exam Narrative: Constitutional: No fever, no chills. HEENT: No sore throat. No neck pain. No loss of vision. No rhinorrhea. Cardiovascular: Chest numbness and tingling/pressure chest pain. No palpitations. No pedal edema. Respiratory: No cough, no shortness of breath. Abdominal: No abdominal pain. No nausea. No vomiting. Genitourinary: No dysuria. No hematuria. Musculoskeletal: No myalgias. No arthralgias. Neurologic: No headaches. No dizziness. No lightheadedness. Paresthesias of left arm, intermittent x minutes, occurring over the last few weeks. Skin: No rash. No change in color. Psychiatric: No depression. No anxiety. Const Vital Signs: 05/27/22 12:29 05/27/22 12:52 05/27/22 12:52 Temperature 97.8 F Temperature Source Temporal Pulse Rate 62 61 Respiratory Rate 18 17 Blood Pressure 139/82 H 131/83 H Blood Pressure Mean 101 99 Pulse Ox 98 98 98 Oxygen Delivery Method Room Air Room Air Room Air 05/27/22 13:26 05/27/22 13:26 05/27/22 14:52 Temperature Temperature Source Pulse Rate 57 L 58 L Respiratory Rate 12 31 H Blood Pressure 114/86 H 118/70 Blood Pressure Mean 95 86 Pulse Ox 98 Oxygen Delivery Method Room Air Room Air Room Air 05/27/22 15:46 05/27/22 16:27 Temperature Temperature Source Pulse Rate 51 L 62 Respiratory Rate 16 22 H Blood Pressure 111/65 123/74 H Blood Pressure Mean 80 90 Pulse Ox 93 Oxygen Delivery Method Room Air Room Air Heart Score History: Slightly/Non-Suspicious ECG: Normal Age: >45 - <65 years Risk Factors: >/= 3 Risk Factors or History of CAD Troponin: </= Normal Limit Score: 3 MDM MDM MDM Narrative Medical decision making narrative: Chest pain work-up was pursued. For his paresthesias of his left arm he could be referred pain from a cardiac cause versus cervical radiculopathy. For his chest pressure and numbness and tingling could be having acute coronary syndromewhich is an compasses non-STEMI versus STEMI, and pulmonary embolism. Comprehensive work-up was pursued. I reviewed his EKG and interpreted it. It demonstrates normal sinus rhythm at 60 bpm without ectopy or acute ST changes. No STEMI. I also reviewed an EKG and compared it to the current which shows no significant change, and it was dated February 06, 2022. I reviewed his laboratory work and he has a normal white count of 9.8, hemoglobin slightly hemoconcentrated at 16.6 which I think is nonspecific, hematocrit 47.7, normal platelet count of 282. D-dimer is negative at 0.29. His pulse ox is also normal, and he has a heart rate in the 60s, so pulmonary embolism is less likely. I do not feel that a CTA of the chest is indicated. In review of his electrolyte panel he has a normal sodium of 138, potassium 3.5, chloride normal at 105. Glucose of 99, BUN of 18 and creatinine 1.04. Initial high- sensitivitytroponin is 8. 2-hour delta is also 8 for a delta of 0. Chest x-ray interpreted by myself shows cardiomegaly but no evidence of pneumothorax or pneumonia. I reviewed the radiology report which confirms my independent interpretation. At this point in time, I do feel that his paresthesia may be more from a cervical radiculopathy, and that he has a nonspecific, noncardiac chest pain, as he has been ruled out by biomarkers. There is no evidence of STEMI on his EKG. He will follow-up with his primary care provider. I feel he can be discharged safely home with follow-up. Return instructions to the emergency department were reviewed. Disposition is discharged home in stable condition. History & Record Review Discussion w/independent historian: Patient and Family Additional record(s) reviewed:: Prior outpatient record, Prior ED visit and Prior labs Lab Data Attestation: I reviewed the patient's lab results. Labs: Laboratory Results - last 24 hr 05/27/22 05/27/22 05/27/22 12:35 12:35 14:43 WBC 9.8 RBC 5.55 Hgb 16.6 H Hct 47.4 MCV 85.4 MCH 29.9 MCHC 35.0 RDW Std Deviation 39.8 RDW Coeff of Michelle 12.8 Plt Count 282 MPV 9.6 Immature Gran % (Auto) 0.200 Neut % (Auto) 58.0 Lymph % (Auto) 33.7 [place] % (Auto) 4.9 Eos % (Auto) 2.4 Baso % (Auto) 0.8 Absolute Neuts (auto) 5.7 Absolute Lymphs (auto) 3.31 Nucleated RBC % 0 D-Dimer Quant (PE/DVT) 0.29 Sodium 138 Potassium 3.5 Chloride 105 Carbon Dioxide 29.0 Anion Gap 4 L BUN 18 Creatinine 1.04 Estim Creat Clear Calc 94.41 Est GFR (MDRD) Af Amer 96 Est GFR (MDRD) Non-Af 79 BUN/Creatinine Ratio 17.3 Glucose 99 Calcium 9.4 Troponin I High Sens 8 05/27/22 14:43 WBC RBC Hgb Hct MCV MCH MCHC RDW Std Deviation RDW Coeff of Michelle Plt Count MPV Immature Gran % (Auto) Neut % (Auto) Lymph % (Auto) [place] % (Auto) Eos % (Auto) Baso % (Auto) Absolute Neuts (auto) Absolute Lymphs (auto) Nucleated RBC % D-Dimer Quant (PE/DVT) Sodium Potassium Chloride Carbon Dioxide Anion Gap BUN Creatinine Estim Creat Clear Calc Est GFR (MDRD) Af Amer Est GFR (MDRD) Non-Af BUN/Creatinine Ratio Glucose Calcium Troponin I High Sens 8 Radiography Chest X-Ray - ED: 1 View, Read by ED Physician and Cardiomegaly Diagnostic Testing: Clinical Impression(s) from Imaging Studies Chest X-Ray 05/27/22 12:34 IMPRESSION: Enlarged central pulmonary arteries. Borderline cardiomegaly. Electronically Signed: Simba Salinas MD at 13:22 EDT , Discharge Plan Triage Chief Complaint: Chest Pain ED Provider: Fabio De Jesus Dx/Rx/DC Orders Clinical Impression: Chest pain, Paresthesia of left arm Instructions: ED Chest Pain, Uncertain Cause, ED Paraesthesias Prescriptions: No Action metoprolol tartrate 50 mg tablet 50 mg PO BID omeprazole 20 mg capsule,delayed release(DR/EC) 20 mg PO DAILY gabapentin 100 mg capsule 300 mg PO TID Rx Instructions: 200 mg in the morning and 100 mg in the afternoon and 200 mg in the evening atorvastatin 40 mg tablet 40 mg PO gabapentin 300 mg capsule 300 mg PO multivitamin [Daily Multi-Vitamin] Tablet 1 tab PO DAILY tamsulosin 0.4 mg capsule 0.4 mg PO DAILY biotin 10,000 mcg capsule PO mecobalamin (vitamin B12) 1,000 mcg tablet,disintegrating 1,000 mcg sublingual DAILY Rx Instructions: place tablet under tongue and allow to dissolve for at least30 secs before swallowing amlodipine 10 MG tablet 10 mg PO DAILY atorvastatin 20 mg Tablet 20 mg PO QHS lisinopril-hydrochlorothiazide 20-12.5 mg tablet 1 tab PO BID Label Comments: TAKE 1 TABLET TWICE DAILY diclofenac sodium 75 mg tablet,delayed release (DR/EC) 1 tab PO BID Label Comments: TAKE 1 TABLET BY MOUTH TWICE DAILY WITH FOOD Primary Care Provider: Chapo Mcadams Referrals: Chapo Mcadams MD [Primary Care Provider] - 3-5 Days Activity Restrictions/Additional Instructions: Stop smoking! Disposition Disposition: Home, Self Care What to do if you have Problems For any increased pain, shortness of breath, bleeding, nausea or vomiting, chestpain, or any unexpected problems, contact your Primary Care Provider. Call [facility] ([phone]) or report to the closest Emergency Room. Call 911 if necessary. 05/27/22 5811 <Electronically signed by Fabio De Jesus MD> Cosigner Signature (if applicable): CC: Dr. Chapo Mcadams MD ~ Signed [facility] Work Phone: [phone]) 519-421409-09-2022 NotePost Operative Note: PreOp Diagnosis: right vocal cord lesion Post-Procedure Diagnosis: right vocal cord lesion Procedure: 1. Microdirect laryngoscopy 2. Biopsy of Right vocal cord lesion 3. Excision of right vocal cord lesion 4. bronchoscopy 5. 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09-09-2022 NoteHistory & Physical Reviewed: I have reviewed the History and Physical [...] the note. I personally evaluated the patient [id number] Electronic Signatures: Robbi Duron) (Signed 08-Nov-2021 17:31) Authored: Note Completion Co-Signer: History & Physical Reviewed, ERAS, Consent, Note Completion Ana María Wilhelm (Resident)) (Signed 08-Nov-2021 13:08) Authored: History & Physical Reviewed, ERAS, Consent, Note Completion Last Updated: 08-Nov-2021 17:31 by Robbi Duron)[facility]08-01-2022 History of Present illness NarrativeEliceo morales was seen in September 2021 at the request of a local colleague. He had a lesion on his vocal cord. He was brought to the operating room in October 2021. The area was very difficult to access. The lesion was removed in a piecemeal fashion. The pathology report is inconclusive. It is somewhat of a verrucous lesion. His voice back to normal.[facility] Work Phone: 1([phone]) [phone] History of Present illness NarrativeEliceo morales is seen at the request of a local colleague. He has had some hoarseness for the pastyear or so and recently had an episode [...] no pain. Of note is back in 2015 he had a lesion removed from his vocal cord. I do not have access to that information but it was reported as being benign. He is also beingevaluated right now for a thyroid lesion. I do not have that information.[facility] Work Phone: chief complaint Narrative - ReportedConsultation for a laryngeal lesion.[facility] Work Phone: consult note* Clinical Note Date No Information [facility] Work Phone: Discharge summary* Clinical Note Date No Information [facility] Work Phone: Evaluation + Plan note Future Appointments [facility] Evaluation noteNo assessment information available [facility] Work Phone: Evaluation note* Diagnosis Onset Date Resolution Status Mass of larynx acute [facility] Work Phone: Evaluation note* Diagnosis Onset Date Resolution Status Mass of larynx acute Multinodular goiter (nontoxic) acute Obesity acute [facility] Work Phone: Evaluation note* Diagnosis Onset Date Resolution Status Multinodular goiter (nontoxic) acute Obesity acute [facility] Work Phone: History and physical note* Clinical Note Date No Information [facility] Work Phone: Hospital course Narrative No data available for this section [facility] Hospital Discharge instructions No data available for this section [facility] Hospital Discharge instructions Additional Instructions Stop smoking![facility] Work Phone: Instructions* Date Instruction Additional Infor mation No Information [facility] Work Phone: Progress note No data available for this section [facility] Progress note* Clinical Note Date No Information [facility] Work Phone: Reason for referral (narrative)No reason for referral information available[facility] Work Phone: Reason for referral (narrative)* Reason For Referral No Information [facility] Work Phone: Family History Relationship Condition Age at Onset Recorded Date/T navneet mother Cardiac disease Unknown Hypertension Unknown Malignant neoplasm Unknown Multiple sclerosis Unknown Myocardial infarction Unknown Depression Unknown father Depression Unknown Cardiac disease Unknown Anxiety Unknown Relationship Condition Age at Onset Recorded Date/T navneet Not Specified High blood cholesterol Unknown Arthritis Unknown mother Cardiac disease Unknown Hypertension Unknown Malignant neoplasm Unknown Multiple sclerosis Unknown Myocardial infarction Unknown Depression Unknown father Depression Unknown Cardiac disease Unknown Anxiety Unknown Relationship Condition Age at Onset Recorded Date/T navneet Not Specified Diabetes mellitus Unknown Alcohol abuse Unknown High blood cholesterol Unknown Arthritis Unknown Disorder of respiratory system Unknown mother Cardiac disease Unknown Hypertension Unknown Malignant neoplasm Unknown Multiple sclerosis Unknown Myocardial infarction Unknown Depression Unknown father Depression Unknown Cardiac disease Unknown Anxiety Unknown Family Member Type Diagnosis Age At Onset Maternal Grandmother Problem (finding) Family history of Heart disease Mother Problem (finding) Family history of Heart disease Father Problem (finding) Hypertension Father Problem (finding) Family history of Heart disease Mother Problem (finding) Hypertension Advance Directives Advance Directive Response Recorded Date/ Time Advance Directives No March 24, 2016 4:30pm Living Will No June 28, 2020 11:00am Power of Escalator Mechanic No June 28 11:00am Advance Directive Response Recorded Date/ Time Advance Directives No March 24, 2016 4:30pm Living Will No September 09, 2021 8:10am Power of Escalator Mechanic No September 09 8:10am Advance Directive Response Recorded Date/ Time Advance Directives No March 24, 2016 3:30pm Living Will No September 09, 2021 7:10am Power of Escalator Mechanic No September 09 7:10am Advance Directive Response Recorded Date/ Time Name of Medical Power of Escalator Mechanic YOLANDA GODINEZ- May 27, 2022 2:57pm Advance Directives No March 24, 2016 4:30pm Living Will Yes May 27, 2022 2:57pm Power of Escalator Mechanic Yes May 27 2:57pm Advance Directive Response Recorded Date/ Time Advance Directives No March 24, 2016 4:30pm Living Will Yes May 27, 2022 2:57pm Power of Escalator Mechanic Yes May 27 2:57pm Advance Directive Response Recorded Date/ Time Advance Directives No March 24, 2016 3:30pm Living Will Yes May 27, 2022 1:57pm Power of Escalator Mechanic Yes May 27 1:57pm Advance Directive Response Recorded Date/ Time Advance Directives No March 24, 2016 4:30pm Directive Yes / No Effective Date File Name No Information Chief Complaint and Reason for Visit Chief Complaint THYROID NODULE Chief Complaint THYROID NODULE Reason for Visit Mass of larynx Chief Complaint THYROID NODULE thyroid nodule Encounter for other preprocedural examination Reason for Visit Mass of larynx Multinodular goiter (nontoxic) Obesity Chief Complaint THYROID NODULE thyroid nodule Encounter for other preprocedural examination LT HIP. RX HERE Reason for Visit Mass of larynx Multinodular goiter (nontoxic) Obesity Chief Complaint thyroid nodule Encounter for other preprocedural examination LT HIP. RX HERE Reason for Visit Multinodular goiter (nontoxic) Obesity Chief Complaint thyroid nodule Encounter for other preprocedural examination LT HIP. RX HERE ABNORMAL EKG ABNORMAL EKG Reason for Visit Multinodular goiter (nontoxic) Obesity Chief Complaint ABNORMAL EKG ABNORMAL EKG CHEST PAIN Chief Complaint CHEST PAIN LUMBAR SPINAL STENOSIS Chief Complaint NODULE Chief Complaint NODULE EORDER Chief Complaint Admit Date E-ORDER March 17, 2024 9 :21am SOB May 06, 2024 8:54 am Chief Complaint Admit Date SOB May 06, 2024 8:54 am EORDER August 01, 2024 4:44p m Chief Complaint Follow-up regarding a laryngeal lesion. Summary Purpose Additional Source Comments Goals (unrecognized section and content) Health Concern Goal Type Priority Status No Information (unrecognized sect ion and content) No Status Records FoundNo Status Records FoundNo Status Records FoundNo Status Records FoundNo Status Records FoundNo Status Records FoundNo Status Records Found INFORMATION SOURCE (unrecogn ized section and content) DATE CREATED AUTHOR 01/16/2022 [facility] DATE CREATED AUTHOR AUTHOR'S ORGANIZ ATION 02/25/2022 [facility] [place] [facility] DATE CREATED AUTHOR AUTHOR'S ORGANIZ ATION 08/21/2024 [facility] DATE CREATED AUTHOR AUTHOR'S ORGANIZ ATION 09/19/2024 [facility] DATE CREATED AUTHOR AUTHOR'S ORGANIZ ATION 09/20/2024 [facility] DATE CREATED AUTHOR AUTHOR'S ORGANIZ ATION 10/07/2024 [facility] DATE CREATED AUTHOR AUTHOR'S ORGANIZ ATION 11/22/2024 [facility] Care Team (unrecognized sect ion and content) Care Team Personnel Name: CHAPO MCADAMS MD Member Role: Primary Care Physician Address: Address: [address] [place] [address]- Care Team Related Persons Name: YOLANDA GODINEZ Address: Home [address] [place] [address], [place] [address] Care Teams (unrecognized sec tion and content) Team Status: Active Member Role Status Dates Dr. Rick Savage MD Family Provider Active Dr. Chapo Mcadams MD Primary Care Provider Active Team Status: Active Member Role Status Dates Dr. Chapo Mcadams MD Primary Care Pr ovider, Referring Provider, Other Provider Active Dr. Valeria Saeed MD Attending Provider Activ e Team Status: Inactive Member Role Status Dates Dr. Chapo Mcadams MD Primary Care Pr ovider, Attending Provider, Referring Provider Active Team Status: Inactive Member Role Status Dates Dr. Chapo Mcadams MD Primary Care Provider Active Fabio De Jesus MD Emergency Provider Active Team Status: Inactive Member Role Status Dates Dr. Chapo Mcadams MD Primary Care Provider Active Dr. Abhinav Darling DO Attending Provider, Referring P arabella Active Team Status: Inactive Member Role Status Dates Dr. Chapo Mcadams MD Primary Care Provider Active Fabio De Jesus MD Attending Provider, Emergency Provid er Active Team Status: Inactive Member Role Status Dates Dr. Chapo Mcadams MD Primary Care Provider, Attend ing Provider Active Team Status: Active Member Role Status Dates Dr. Chapo Mcadams MD Primary Care Provider Active Team Status: Inactive Member Role Status Dates Dr. Chapo Mcadams MD Primary Care Provider Active Start: March 17, 2024 End: March 17, 2024 Dr. Chapo Mcadams MD Attending Provider Active Start: March 17, 2024 End: March 17, 2024 Dr. Chapo Mcadams MD Referring Provider Active Start: March 17, 2024 End: March 17, 2024 Albino Berkowitz SAWMILL MANAGER, SAWMILL MANAGER-C Other Provider Active St art: March 17, 2024 End: March 17, 2024 Team Status: Inactive Member Role Status Dates Dr. Chapo Mcadams MD Primary Care Provider Active Start: May 06, 2024 End: May 06, 2024 Dr. Chapo Mcadams MD Attending Provider Active Start: May 06, 2024 End: May 06, 2024 Dr. Chapo Mcadams MD Referring Provider Active Start: May 06, 2024 End: May 06, 2024 Team Status: Inactive Member Role Status Dates Dr. Chapo Mcadams MD Primary Care Provider Active Start: August 01, 2024 End: August 01, 2024 Renita Vásquez SAWMILL MANAGER, SAWMILL MANAGER-C Attending Provider Active S tart: August 01, 2024 End: August 01, 2024 Renita Vásquez SAWMILL MANAGER, SAWMILL MANAGER-C Referring Provider Active S tart: August 01, 2024 End: August 01, 2024 Name Effective Dates (start - stop) Status Members No Information FOR RECORDS PERTAINING TO PATIENTS WHO ARE [...] BE BASED ON THE PRIMARY CLINICAL RECORDS. [email or web address] provides no warranty or guarantee of the accuracy or completeness of information in this document.
--- OUTSIDE RECORDS SUMMARY | 2024-12-15 17:08 | XMS RPT_ITS | CCD ---
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 Eben Stevenson Attending Provider [phone] CHAPO MCADAMS MD Primary Care Physician Dr. Chapo Mcadams Other Provider [phone] Valeria Saeed Attending Provider JORDANA AMAYA, AUGUSTO Palacios Attending Unavailable SIMIN AMAYA, CHAPO Primary Care Unavailable JORDANA AMAYA, AUGUSTO Palacios Attending Unavailable SIMIN AMAYA, CHAPO Primary Care Unavailable JORDANA AMAYA, AUGUSTO Palacios Admitting Unavailable SANGEETA LARSEN Consulting Shannan SILVEIRA MD, AUGUSTO Palacios Referring Unavailable Dr. Chapo Mcadams Primary Care Provider Dr. Chapo Mcadams Referring Provider [phone] Dr. Chapo Mcadams Other Provider Dr. Valeria Saeed Attending Provider [phone] Simin AMAYA, Dr. Chapo Nolan Primary Care Provider Simin AMAYA, Dr. Chapo Nolan Attending Provider Dr. hCapo Mcadams MD Referring Provider Woo JOB MOLDER-CAlbino Other Provider Dr. Chapo Mcadams MD Primary Care Provider [phone] Simin AMAYA, Dr. Chapo Nolan Attending Provider Dr. Chapo Mcadams MD Referring Provider Jair JOB MOLDER-C, Renita Attending Provider Jair JOB MOLDER-C, Renita Referring Provider Chapo Mcadams Referring Unavailable [...] Attending Unavailabl e No, Physician Referring Unavailable Josemsiti Luna, Erwin V Attending Unavailabl e No, [...] Start: 09-16-2024 take 2 tablets by mo [facility] every eight hours Tylenol 325 mg tablet [...] 11:00pm Start: 10-18-2021 [facility] Multivitamin (Daily Multi-Vitamin) tablet Active 1 TABLET PO DAILY October 18, 2021 12:00am omeprazole 20 mg delayed release oral capsule (20 sources) Proton Pump Inhibitor Start: 09-16-2024 take 1 capsule by mouth once daily in the morning omeprazole 20 mg capsule,delayed release take 1 by oral route every morning 1 - Active Start: 01-12-2019 take 1 capsule by mo 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] Onset: 10-21-2021 Episodic Other [...] Basophils (Bld) [#/Vol] 0.06 10*3/uL Normal 0.00-0.20 [facility] Comment on above: Performed By: #### 6 9742-5 #### [facility] [address] [place] [place] [address] 47554 Basophils/100 WBC (Bld) 0.7 % Normal 0.0-2.0 [facility] Comment on above: Performed By: #### 6 9742-5 #### [facility] [address] [place] [address] 40739 Eosinophils (Bld) [#/Vol] 0.30 10*3/uL Normal 0.00-0.70 [facility] Comment on above: Performed By: #### 6 9742-5 #### [facility] [address] [place] [place] [address] 25841 Eosinophils/100 WBC (Bld) 3.5 % Normal 0.0-7.0 [facility] Comment on above: Performed By: #### 6 9742-5 #### [facility] [address] [place] [place] [address] 92237 Erythrocyte distribution width (RBC) [Ratio] 13.2 % Normal 11.0-14.8 [facility] Comment on above: Performed By: #### 6 9742-5 #### [facility] [address] [place] [place] [address] 53434 Hematocrit (Bld) [Volume fraction] 44.5 % Normal 39.0-49.0 [facility] Comment on above: Performed By: #### 6 9742-5 #### [facility] [address] [place] [address] 02996 Hemoglobin (Bld) [Mass/Vol] 15.8 g/dL Normal 13.5-17.5 [facility] Comment on above: Performed By: #### 6 9742-5 #### [facility] [address] [place] [place] [address] 16780 Immature granulocytes (Bld) [#/Vol] 0.02 10*3/uL Normal 0.00-0.10 [facility] Comment on above: Performed By: #### 6 9742-5 #### [facility] [address] [place] [place] [address] 04533 Immature granulocytes/100 WBC (Bld) 0.2 % Normal 0.0-1.2 [facility] Comment on above: Performed By: #### 6 9742-5 #### [facility] [address] [place] [place] [address] 43751 Lymphocytes (Bld) [#/Vol] 2.75 10*3/uL Normal 1.00-4.80 [facility] Comment on above: Performed By: #### 6 9742-5 #### [facility] [address] [place] [place] [address] 57271 Lymphocytes/100 WBC (Bld) 32.4 % Normal 17.9-49.6 [facility] Comment on above: Performed By: #### 6 9742-5 #### [facility] [address] [place] [address] 60499 MCH 30.2 pcg Normal 27.0-34.0 [facility] Comment on above: Performed By: #### 6 9742-5 #### [facility] [address] [place] [place] [address] 75887 MCHC (RBC) [Mass/Vol] 35.5 g/dL High 30.8-35.3 [facility] Comment on above: Performed By: #### 6 9742-5 #### [facility] [address] [place] [place] [address] 59808 MCV (RBC) [Entitic vol] 84.9 fL Normal 80.0-97.0 [facility] Comment on above: Performed By: #### 6 9742-5 #### [facility] [address] [place] [place] [address] 23773 Monocytes (Bld) [#/Vol] 0.50 10*3/uL Normal 0.00-0.90 [facility] Comment on above: Performed By: #### 6 9742-5 #### [facility] [address] [place] [place] [address] 00498 Monocytes/100 WBC (Bld) 5.9 % Normal 0.0-12.0 [facility] Comment on above: Performed By: #### 6 9742-5 #### [facility] [address] [place] [place] [address] 20289 Neutrophils Absolute 4.85 K/mcL Normal 1.80-7.70 [facility] Comment on above: Performed By: #### 6 9742-5 #### [facility] [address] [place] [place] [address] 76122 Neutrophils/100 WBC (Bld) 57.3 % Normal 38.1-75.5 [facility] Comment on above: Performed By: #### 6 9742-5 #### [facility] [address] [place] [address] [place] [address] Platelet mean volume (Bld) [Entitic vol] 10.1 fL Normal 6.2-12.1 [facility] Comment on above: Performed By: #### 6 9742-5 #### [facility] [address] [place] [address] 64603 Platelets (Bld) [#/Vol] 255 10*3/uL Normal 142-424 [facility] Comment on above: Performed By: #### 6 9742-5 #### [facility] [address] [place] [place] [address] 67235 RBC (Bld) [#/Vol] 5.24 10*6/uL Normal 4.30-5.70 [facility] Comment on above: Performed By: #### 6 9742-5 #### [facility] [address] [place] [place] [address] 90360 WBC (Bld) [#/Vol] 8.5 10*3/uL Normal 4.6-10.2 [facility] Comment on above: Performed By: #### 6 9742-5 #### [facility] [address] [place] [address] 33161 Comprehensive metabolic 2000 panelon 09-16-2024 Albumin [Mass/Vol] 4.2 g/dL Normal 3.5-4.8 [facility] Comment on above: Performed By: #### 2 4323-8 #### [facility] [address] [place] [address] 51453 ALP [Catalytic activity/Vol] 63 U/L Normal 32-91 [facility] Comment on above: Performed By: #### 2 4323-8 #### [facility] [address] [place] [address] 28389 ALT [Catalytic activity/Vol] 34 U/L Normal 7-52 [facility] Comment on above: Performed By: #### 2 4323-8 #### [facility] [address] [place] [address] Anion gap [Moles/Vol] 11 mmol/L Normal 6-18 [facility] Comment on above: Performed By: #### 2 4323-8 #### [facility] [address] [place] [address] AST [Catalytic activity/Vol] 23 U/L Normal 15-41 [facility] Comment on above: Performed By: #### 2 4323-8 #### [facility] [address] [facility] [place] [address] Bilirubin [Mass/Vol] 0.8 mg/dL Normal 0.3-1.2 [facility] Comment on above: Performed By: #### 2 4323-8 #### [facility] [address] [place] [address] Calcium [Mass/Vol] 9.4 mg/dL Normal 8.9-10.3 [facility] Comment on above: Performed By: #### 2 4323-8 #### [facility] [address] [facility] [place] [address] Chloride [Moles/Vol] 100 mmol/L Normal 98-107 [facility] Comment on above: Performed By: #### 2 4323-8 #### [facility] [address] [place] [address] CO2 [Moles/Vol] 28 mmol/L Normal 22-32 [facility] Comment on above: Performed By: #### 2 4323-8 #### [facility] [address] [place] [address] Creatinine [Mass/Vol] 0.92 mg/dL Normal 0.60-1.30 [facility] Comment on above: Performed By: #### 2 4323-8 #### [facility] [address] [place] [address] GFR/1.73 sq M.predicted among non-blacks MDRD (S/P/Bld) [Vol rate/Area] 98 mL/min/{1.73_m2} Normal >=60 [facility] Comment on above: Result Comment: Calc ulation based on the Chronic Kidney Disease Epidemiology Collaboration (CKD-EPI) equation refit without adjustment for race. Performed By: #### 2 4323-8 #### [facility] [address] [place] [address] 34178 Glucose [Mass/Vol] 82 mg/dL Normal 70-99 [facility] Comment on above: Performed By: #### 2 4323-8 #### [facility] [address] [place] [address] 63085 Potassium [Moles/Vol] 3.7 mmol/L Normal 3.6-5.1 [facility] Comment on above: Performed By: #### 2 4323-8 #### [facility] [address] [place] [address] 44626 Protein [Mass/Vol] 6.7 g/dL Normal 6.1-7.9 [facility] Comment on above: Performed By: #### 2 4323-8 #### [facility] [address] [place] [address] Sodium [Moles/Vol] 139 mmol/L Normal 136-145 [facility] Comment on above: Performed By: #### 2 4323-8 #### [facility] [address] [place] [address] 21839 Urea nitrogen [Mass/Vol] 15 mg/dL Normal 8-20 [facility] Comment on above: Performed By: #### 2 4323-8 #### [facility] [address] [place] [address] Urea nitrogen/Creatinine [Mass ratio] 16.3 mg/mg Normal 12.0-20.0 [facility] Comment on above: Performed By: #### 2 4323-8 #### [facility] [address] [place] [address] PSA,Total - Annual Screenon 08-01-2024 PSA,TOT SCREEN 1.91 ng/mL Normal 0.02-4.00 [facility] Comment on above: Order Comment: PER [...] values. Performed By: #### L 501.9910 #### [facility] [address] [place], [address] Absolute neutrophil countOrd ered By: Chapo Mcadams on 03-17-2024 Neutrophils (Bld) [#/Vol] 4.6 10*3/uL 2.0-7.7 [facility] Albumin to globulin ratioOrd ered By: Chapo Mcadams on 03-17-2024 Albumin/Globulin [Mass ratio] 0.9 {ratio} 0.9-2.4 [facility] Basophil percentageOrdered B y: Chapo Mcadams on 03-17-2024 Basophils/100 WBC (Bld) 0.5 % 0-1 [facility] Bilirubin, totalOrdered By: Chapo Mcadams on 03-17-2024 Bilirubin [Mass/Vol] 0.60 mg/dL 0.20-1.00 [facility] Comment on above: For patients on eltr ombopag therapy, use of Dimension [place] TBIL is not recommended. Blood urea nitrogen (BUN)/cr eatinine ratioOrdered By: Chapo Mcadams on 03-17-2024 Urea nitrogen/Creatinine [Mass ratio] 12.1 mg/mg 10-20 [facility] CBC W/Diff, Automatedon 03-02 Absolute Lymph 1.00 X10 3/uL Normal 0.83-4.51 [facility] Comment on above: Order Comment: Order Date: 12/01/23 Order Info: 0184-1 - CBCD Performed By: #### L 501.9520, L100.0100, L500.4050, L500.4100 #### [facility] [address] [place], [address] Absolute Neut 4.6 X10 3/uL Normal 2.0-7.7 [facility] Comment on above: Order Comment: Order Date: 12/01/23 Order Info: 0184- - CBCD Performed By: #### L 501.9520, L100.0100, L500.4050, L500.4100 #### [facility] [address] [place], [address] Basophils/100 WBC (Bld) 0.5 % Normal 0-1 [facility] Comment on above: Order Comment: Order Date: 12/01/23 Order Info: 0184- - CBCD Performed By: #### L 501.9520, L100.0100, L500.4050, L500.4100 #### [facility] [address] [place], [address] Eosinophils/100 WBC (Bld) 2.2 % Normal 0-5 [facility] Comment on above: Order Comment: Order Date: 12/01/23 Order Info: 0184-1 - CBCD Performed By: #### L 501.9520, L100.0100, L500.4050, L500.4100 #### [facility] [address] [place], [address] Erythrocyte distribution width (RBC) [Ratio] 13.4 % Normal 11.6-14.6 [facility] Comment on above: Order Comment: Order Date: 12/01/23 Order Info: 0184-1 - CBCD Performed By: #### L 501.9520, L100.0100, L500.4050, L500.4100 #### [facility] [address] [place], [address] Hematocrit (Bld) [Volume fraction] 45.5 % Normal 40-54 [facility] Comment on above: Order Comment: Order Date: 12/01/23 Order Info: 0184-1 - CBCD Performed By: #### L 501.9520, L100.0100, L500.4050, L500.4100 #### [facility] [address] [place], [address] Hemoglobin (Bld) [Mass/Vol] 15.8 g/dL Normal 13.0-16.5 [facility] Comment on above: Order Comment: Order Date: 12/01/23 Order Info: 0184-1 - CBCD Performed By: #### L 501.9520, L100.0100, L500.4050, L500.4100 #### [facility] [address] [place], [address] IG% 0.300 Normal 0.0-0.9 [facility] Comment on above: Order Comment: Order Date: 12/01/23 Order Info: 0184-1 - CBCD Result Comment: IG% - Immature Granulocytes (promyelocytes, myelocytes and metamyelocytes) > 1% indicates that a LEFT SHIFT is Present. Performed By: #### L 501.9520, L100.0100, L500.4050, L500.4100 #### [facility] [address] [place], [address] Lymphocytes/100 WBC (Bld) 15.4 % Low 19-41 [facility] Comment on above: Order Comment: Order Date: 12/01/23 Order Info: 0184-1 - CBCD Performed By: #### L 501.9520, L100.0100, L500.4050, L500.4100 #### [facility] [address] [place], [address] MCH (RBC) [Entitic mass] 29.5 pg Normal 27.0-32.0 [facility] Comment on above: Order Comment: Order Date: 12/01/23 Order Info: 0184-1 - CBCD Performed By: #### L 501.9520, L100.0100, L500.4050, L500.4100 #### [facility] [address] [place], [address] MCHC (RBC) [Mass/Vol] 34.7 g/dL Normal 32-36 [facility] Comment on above: Order Comment: Order Date: 12/01/23 Order Info: 0184-1 - CBCD Performed By: #### L 501.9520, L100.0100, L500.4050, L500.4100 #### [facility] [address] [place], [address] MCV (RBC) [Entitic vol] 84.9 fL Normal 80-94 [facility] Comment on above: Order Comment: Order Date: 12/01/23 Order Info: 0184-1 - CBCD Performed By: #### L 501.9520, L100.0100, L500.4050, L500.4100 #### [facility] [address] [place], [address] Monocytes/100 WBC (Bld) 10.3 % High 0-10 [facility] Comment on above: Order Comment: Order Date: 12/01/23 Order Info: 0184-1 - CBCD Performed By: #### L 501.9520, L100.0100, L500.4050, L500.4100 #### [facility] [address] [place], [address] Neutrophils/100 WBC (Bld) 71.3 % High 47-70 [facility] Comment on above: Order Comment: Order Date: 12/01/23 Order Info: 0184-1 - CBCD Performed By: #### L 501.9520, L100.0100, L500.4050, L500.4100 #### [facility] [address] [place], [address] Nucleated RBC (Bld) [#/Vol] 0 10*3/uL Normal 0-5 [facility] Comment on above: Order Comment: Order Date: 12/01/23 Order Info: 0184-1 - CBCD Performed By: #### L 501.9520, L100.0100, L500.4050, L500.4100 #### [facility] [address] [place], [address] Platelet mean volume (Bld) [Entitic vol] 9.7 fL Normal 6.2-12.0 [facility] Comment on above: Order Comment: Order Date: 12/01/23 Order Info: 0184-1 - CBCD Performed By: #### L 501.9520, L100.0100, L500.4050, L500.4100 #### [facility] [address] [place], [address] Platelets (Bld) [#/Vol] 212 10*3/uL Normal 150-450 [facility] Comment on above: Order Comment: Order Date: 12/01/23 Order Info: 0184-1 - CBCD Performed By: #### L 501.9520, L100.0100, L500.4050, L500.4100 #### [facility] [address] [place], [address] RBC (Bld) [#/Vol] 5.36 10*6/uL Normal 4.6-6.2 [facility] Comment on above: Order Comment: Order Date: 12/01/23 Order Info: 0184-1 - CBCD Performed By: #### L 501.9520, L100.0100, L500.4050, L500.4100 #### [facility] [address] [place], [address] RDW SD 41.1 fl Normal 35.1-43.9 [facility] Comment on above: Order Comment: Order Date: 12/01/23 Order Info: 0184-1 - CBCD Performed By: #### L 501.9520, L100.0100, L500.4050, L500.4100 #### [facility] [address] [place], [address] WBC (Bld) [#/Vol] 6.5 10*3/uL Normal 4.4-11.0 [facility] Comment on above: Order Comment: Order Date: 12/01/23 Order Info: 0184-1 - CBCD Performed By: #### L 501.9520, L100.0100, L500.4050, L500.4100 #### [facility] [address] [place], [address] Carbon dioxide measurementOr dered By: Chapo Mcadams on 03-17-2024 CO2 [Moles/Vol] 26.0 mmol/L 21.0-32.0 [facility] Chest PA and Lateralon 03-17 Chest PA and Lateral [facility] [address] [place] [address] Chest PA and Lateral MR#: [id number] Acct: [id number] Name: IVAN GODINEZ Rep #: [id number] : 1970 M 53 From: Smith Holloway DO PCP: Dr. Chapo Mcadams MD Status: REG CLI Study: Chest PA and Lateral Date of Exam: 03/17/24 Exam# [id number] Ordering Dr: Albino Berkowitz NP JOB MOLDER -C [id number] INDICATION: COUGH EXAMINATION/TECHNIQUE: X-RAY - XR Chest [...] at 17:37 EST , CC: Albino RENE JOB MOLDER-C McMorrow; Dr. Chapo Mcadams MD Installer Molding And Trim: Signed Normal [facility] Chloride measurementOrdered By: Chapo Mcadams on 03-17-2024 Chloride [Moles/Vol] 105 mmol/L 98-107 [facility] Comprehensive Metabolic Prof ilon 03-17-2024 Albumin [Mass/Vol] 3.5 g/dL Normal 3.2-5.0 [facility] Comment on above: Order Comment: Order Date: 12/01/23 Order Info: [id number] - CMP Order Info: [id number] - LIPID Order Info: [id number] - TSH Performed By: #### L 501.9520, L100.0100, L500.4050, L500.4100 #### [facility] [address] [place], [place], [address] Albumin/Globulin [Mass ratio] 0.9 {ratio} Normal 0.9-2.4 [facility] Comment on above: Order Comment: Order Date: 12/01/23 Order Info: [id number] - CMP Order Info: [id number] - LIPID Order Info: [id number] - TSH Performed By: #### L 501.9520, L100.0100, L500.4050, L500.4100 #### [facility] [address] [place], [place], [address] ALK P 81 U/L Normal 45-117 [facility] Comment on above: Order Comment: Order Date: 12/01/23 Order Info: [id number] - CMP Order Info: [id number] - LIPID Order Info: 3 - TSH Performed By: #### L 501.9520, L100.0100, L500.4050, L500.4100 #### [facility] [address] [place], [address] ALT [Catalytic activity/Vol] 64 U/L High 16-61 [facility] Comment on above: Order Comment: Order Date: 12/01/23 Order Info: [id number] - CMP Order Info: [id number] - LIPID Order Info: 3 - TSH Performed By: #### L 501.9520, L100.0100, L500.4050, L500.4100 #### [facility] [address] [place], [address] AST [Catalytic activity/Vol] 37 U/L Normal 15-37 [facility] Comment on above: Order Comment: Order Date: 12/01/23 Order Info: [id number] - CMP Order Info: [id number] - LIPID Order Info: 3013 - TSH Performed By: #### L 501.9520, L100.0100, L500.4050, L500.4100 #### [facility] [address] [place], [address] Bilirubin [Mass/Vol] 0.60 mg/dL Normal 0.20-1.00 [facility] Comment on above: Order Comment: Order Date: 12/01/23 Order Info: [id number] - CMP Order Info: [id number] - LIPID Order Info: [id number] - TSH Result Comment: For patients on eltrombopag therapy, use of Dimension [place] TBIL is not recommended. Performed By: #### L 501.9520, L100.0100, L500.4050, L500.4100 #### [facility] [address] [place], [address] BUN/CRE 12.1 RATIO Normal 10-20 [facility] Comment on above: Order Comment: Order Date: 12/01/23 Order Info: [id number] - CMP Order Info: [id number] - LIPID Order Info: [id number] - TSH Performed By: #### L 501.9520, L100.0100, L500.4050, L500.4100 #### [facility] [address] [place], [address] CA,Total 9.1 mg/dL Normal 8.5-10.1 [facility] Comment on above: Order Comment: Order Date: 12/01/23 Order Info: [id number] - CMP Order Info: [id number] - LIPID Order Info: 3016 - TSH Performed By: #### L 501.9520, L100.0100, L500.4050, L500.4100 #### [facility] [address] [place], [address] Chloride [Moles/Vol] 105 mmol/L Normal 98-107 [facility] Comment on above: Order Comment: Order Date: 12/01/23 Order Info: [id number] - CMP Order Info: [id number] - LIPID Order Info: [id number] - TSH Performed By: #### L 501.9520, L100.0100, L500.4050, L500.4100 #### [facility] [address] [place], [address] CO2 [Moles/Vol] 26.0 mmol/L Normal 21.0-32.0 [facility] Comment on above: Order Comment: Order Date: 12/01/23 Order Info: [id number] - CMP Order Info: [id number] - LIPID Order Info: [id number] - TSH Performed By: #### L 501.9520, L100.0100, L500.4050, L500.4100 #### [facility] [address] [place], [address] Creatinine [Mass/Vol] 1.07 mg/dL Normal 0.70-1.30 [facility] Comment on above: Order Comment: Order Date: 12/01/23 Order Info: [id number] - CMP Order Info: - LIPID Order Info: [id number] - TSH Result Comment: The validity of the calculated GFR GFRAA in patients over 70 years has not been determined. Clinical correlation is essential. Performed By: #### L 501.9520, L100.0100, L500.4050, L500.4100 #### [facility] [address] [place], [address] EST GFR - AA 92 mL/min Normal >60 [facility] Comment on above: Order Comment: Order Date: 12/01/23 Order Info: [id number] - CMP Order Info: - LIPID Order Info: [id number] - TSH Result Comment: Afri can Lao GFR Calc Performed By: #### L 501.9520, L100.0100, L500.4050, L500.4100 #### [facility] [address] [place], [address] GAP 7 Normal 5-15 [facility] Comment on above: Order Comment: Order Date: 12/01/23 Order Info: 07 - CMP Order Info: - LIPID Order Info: [id number] - TSH Performed By: #### L 501.9520, L100.0100, L500.4050, L500.4100 #### [facility] [address] [place], [address] GFR/1.73 sq M.predicted among non-blacks MDRD (S/P/Bld) [Vol rate/Area] 76 mL/min/{1.73_m2} Normal >60 [facility] Comment on above: Order Comment: Order Date: 12/01/23 Order Info: [id number] - CMP Order Info: [id number] - LIPID Order Info: [id number] - TSH Result Comment: Non- GFR Calc Performed By: #### L [id number], L100.0100, L500.4050, L500.4100 #### [facility] [address] [place], [address] Globulin (S) [Mass/Vol] 3.9 g/dL Normal 2.2-4.2 [facility] Comment on above: Order Comment: Order Date: 12/01/23 Order Info: [id number] - CMP Order Info: - LIPID Order Info: [id number] - TSH Performed By: #### L [id number], L100.0100, L500.4050, L500.4100 #### [facility] [address] [place], [address] Glucose [Mass/Vol] 101 mg/dL Normal 74-106 [facility] Comment on above: Order Comment: Order Date: 12/01/23 Order Info: [id number] - CMP Order Info: - LIPID Order Info: [id number] - TSH Result Comment: Fast ing Glucose result from 100 to 125 mg/dL suggests IMPAIRED HOMEOSTASIS per A.D.A. criteria. Performed By: #### L [id number], L100.0100, L500.4050, L500.4100 #### [facility] [address] [place], [address] Potassium [Moles/Vol] 3.8 mmol/L Normal 3.5-5.1 [facility] Comment on above: Order Comment: Order Date: 12/01/23 Order Info: [id number] - CMP Order Info: [id number] - LIPID Order Info: [id number] - TSH Performed By: #### L [id number], L100.0100, L500.4050, L500.4100 #### [facility] [address] [place], [address] Sodium [Moles/Vol] 137 mmol/L Normal 136-145 [facility] Comment on above: Order Comment: Order Date: 12/01/23 Order Info: [id number]- - CMP Order Info: [id number] - LIPID Order Info: [id number] - TSH Performed By: #### L [id number], L100.0100, L500.4050, L500.4100 #### [facility] [address] [place], [place], [id number] T PROT 7.4 g/dL Normal 6.4-8.2 [facility] Comment on above: Order Comment: Order Date: 12/01/23 Order Info: [id number] - CMP Order Info: [id number] - LIPID Order Info: [id number] - TSH Performed By: #### L [id number], L100.0100, L500.4050, L500.4100 #### [facility] [address] [place], [place], [id number] Urea nitrogen [Mass/Vol] 13 mg/dL Normal 7-18 [facility] Comment on above: Order Comment: Order Date: 12/01/23 Order Info: [id number] - CMP Order Info: [id number] - LIPID Order Info: [id number] - TSH Performed By: #### L [id number], L100.0100, L500.4050, L500.4100 #### [facility] [address] [place], [place], [id number] Eosinophil percentageOrdered By: Chapo Mcadams on 03-17-2024 Eosinophils/100 WBC (Bld) 2.2 % 0-5 [facility] Erythrocyte distribution wid th ratioOrdered By: Chapo Mcadams on 03-17-2024 Erythrocyte distribution width (RBC) [Ratio] 13.4 % 11.6-14.6 [facility] Erythrocyte distribution wid th standard deviationOrdered By: Chapo Mcadams on 03-17-2024 Erythrocyte distribution width (RBC) [Entitic vol] 41.1 fL 35.1-43.9 [facility] Estimated glomerular filtrat ion rate (GFR) AmericanOrdered By: Chapo Mcadams on 03-17-2024 Estimated GFR (MDRD) Amer 92 mL/min >60 [facility] Comment on above: GFR Calc Glomerular filtration rate ( GFR) estimationOrdered By: Chapo Mcadams on 03-17-2024 Estimated GFR (MDRD) Non-Af Amer 76 mL/min >60 [facility] Comment on above: Non- GFR Calc Glucose measurementOrdered B y: Chapo Mcadams on 03-17-2024 Glucose [Mass/Vol] 101 mg/dL 74-106 [facility] Comment on above: Fasting Glucose resu lt from 100 to 125 mg/dL suggests IMPAIRED HOMEOSTASIS per A.D.A. criteria. Hematocrit Auto (Bld) [Volum e fraction]Ordered By: Chapo Mcadams on 03-17-2024 Hematocrit (Bld) [Volume fraction] 45.5 % 40-54 [facility] Hemoglobin measurementOrdere d By: Chapo Mcadams on 03-17-2024 Hemoglobin (Bld) [Mass/Vol] 15.8 g/dL 13.0-16.5 [facility] High density lipoprotein (HD L) measurementOrdered By: Chapo Mcadams on 03-17-2024 Cholesterol in HDL [Mass/Vol] 32 mg/dL Low >40 [facility] Comment on above: The drugs N-Acetylcy steine and Metamizole may falsely depress this assay. Reference Range HDL <40 mg/dL Low HDL Cholesterol HDL >or= 60 mg/dL High HDL Cholesterol Immature granulocytes/100 WB C Auto (Bld)Ordered By: Chapo Mcadams on 03-17-2024 Immature granulocytes/100 WBC (Bld) 0.300 % 0.0-0.9 [facility] Comment on above: IG% - Immature Granu locytes (promyelocytes, myelocytes and metamyelocytes) > 1% indicates that a LEFT SHIFT is Present. Laboratory - Chemistry and C hemistry - challengeOrdered By: Chapo Mcadams on 03-17-2024 AST [Catalytic activity/Vol] 37 U/L 15-37 [facility] Lipid Profileon 03-17-2024 Cholesterol [Mass/Vol] 137 mg/dL Normal 200 [facility] Comment on above: Order Comment: Order Date: 12/01/23 Order Info: [id number] - CMP Order Info: [id number] - LIPID Order Info: [id number] - TSH Result Comment: <200 mg/dL Desirable 200-240 mg/dL Borderline >240 mg/dL High Risk Performed By: #### L [id number], L100.0100, L500.4050, L500.4100 #### [facility] [address] [place], [address] Cholesterol in HDL [Mass/Vol] 32 mg/dL Low [facility] Comment on above: Order Comment: Order Date: 12/01/23 Order Info: [id number] - CMP Order Info: [id number] - LIPID Order Info: [id number] - TSH Result Comment: The drugs N-Acetylcysteine and Metamizole may falsely depress this assay. Reference Range HDL <40 mg/dL Low HDL Cholesterol HDL >or= 60 mg/dL High HDL Cholesterol Performed By: #### L [id number], L100.0100, L500.4050, L500.4100 #### [facility] [address] [place], [address] Cholesterol in LDL [Mass/Vol] 70 mg/dL Normal 0-130 [facility] Comment on above: Order Comment: Order Date: 12/01/23 Order Info: [id number] - CMP Order Info: [id number] - LIPID Order Info: [id number] - TSH Performed By: #### L [id number], L100.0100, L500.4050, L500.4100 #### [facility] [address] [place], [address] Cholesterol in VLDL [Mass/Vol] 35 mg/dL Normal 5-40 [facility] Comment on above: Order Comment: Order Date: 12/01/23 Order Info: [id number] - CMP Order Info: [id number] - LIPID Order Info: [id number] - TSH Performed By: #### L [id number], L100.0100, L500.4050, L500.4100 #### [facility] [address] [place], [address] Triglyceride [Mass/Vol] 176 mg/dL Normal [facility] Comment on above: Order Comment: Order Date: 12/01/23 Order Info: [id number] - CMP Order Info: [id number] - LIPID Order Info: [id number] - TSH Result Comment: The drugs N-Acetylcysteine and Metamizole may falsely depress this assay. Serum Triglycerides Reference Interval Normal <150 mg/dL Borderline high 150 - 199 mg/dL High 200 - 499 mg/dL Very High > or = 500 mg/dL Performed By: #### L [id number], L100.0100, L500.4050, L500.4100 #### [facility] [address] [place], [address] Low density lipoprotein (LDL ) cholesterol measurementOrdered By: Chapo Mcadams on 03-17-2024 Cholesterol in LDL [Mass/Vol] 70 mg/dL 0-130 [facility] Lymphocytes Auto (Unsp spec) [#/Vol]Ordered By: Chapo Mcadams on 03-17-2024 Lymphocytes (Bld) [#/Vol] 1.00 10*3/uL 0.83-4.51 [facility] Lymphocytes/100 WBC Auto (Un sp spec)Ordered By: Chapo Mcadams on 03-17-2024 Lymphocytes/100 WBC (Bld) 15.4 % Low 19-41 [facility] MCV (mean corpuscular volume ) determinationOrdered By: Chapo Mcadams on 03-17-2024 MCV (RBC) [Entitic vol] 84.9 fL 80-94 [facility] Mean corpuscular hemoglobin (MCH) determinationOrdered By: Chapo Mcadams on 03-17-2024 MCH (RBC) [Entitic mass] 29.5 pg 27.0-32.0 [facility] Mean corpuscular hemoglobin concentration (MCHC) determinationOrdered By: Chapo Mcadams on 03-17-2024 MCHC (RBC) [Mass/Vol] 34.7 g/dL 32-36 [facility] Mean platelet volume determi nationOrdered By: Chapo Mcadams on 03-17-2024 Platelet mean volume (Bld) [Entitic vol] 9.7 fL 6.2-12.0 [facility] Monocyte percentageOrdered B y: Chapo Mcadams on 03-17-2024 Monocytes/100 WBC (Bld) 10.3 % High 0-10 [facility] Neutrophil percentageOrdered By: Chapo Mcadams on 03-17-2024 Neutrophils/100 WBC (Bld) 71.3 % High 47-70 [facility] Nucleated red blood cell per centageOrdered By: Chapo Mcadams on 03-17-2024 Nucleated RBC/100 WBC (Bld) [Ratio] 0 % 0-5 [facility] Platelet countOrdered By: Claudette Mcadams on 03-17-2024 Platelets (Bld) [#/Vol] 212 10*3/uL 150-450 [facility] Potassium measurementOrdered By: Chapo Mcadams on 03-17-2024 Potassium [Moles/Vol] 3.8 mmol/L 3.5-5.1 [facility] RBC Auto (Bld) [#/Vol]Ordere d By: Chapo Mcadams on 03-17-2024 RBC (Bld) [#/Vol] 5.36 10*6/uL 4.6-6.2 [facility] Serum anion gap measurementO rdered By: Chapo Mcadams on 03-17-2024 Anion gap [Moles/Vol] 7 mmol/L 5-15 [facility] Serum globulin measurementOr dered By: Chapo Mcadams on 03-17-2024 Globulin (S) [Mass/Vol] 3.9 g/dL 2.2-4.2 [facility] Serum or plasma alanine glass otransferase (ALT) measurementOrdered By: Chapo Mcadams on 03-17-2024 ALT [Catalytic activity/Vol] 64 U/L High 16-61 [facility] Serum or plasma albumin bk urement (mass/volume)Ordered By: Chapo Mcadams on 03-17-2024 Albumin [Mass/Vol] 3.5 g/dL 3.2-5.0 [facility] Serum or plasma alkaline jordan sphatase measurementOrdered By: Chapo Mcadams on 03-17-2024 ALP [Catalytic activity/Vol] 81 U/L 45-117 [facility] Serum or plasma calcium bk urement (mass/volume)Ordered By: Chapo Mcadams on 03-17-2024 Calcium [Mass/Vol] 9.1 mg/dL 8.5-10.1 [facility] Serum or plasma cholesterol measurement (mass/volume)Ordered By: Chapo Mcadams on 03-17-2024 Cholesterol [Mass/Vol] 137 mg/dL <200 [facility] Comment on above: <200 mg/dL Desirable 200-240 mg/dL Borderline >240 mg/dL High Risk Serum or plasma creatinine m easurement (mass/volume)Ordered By: Chapo Mcadams on 03-17-2024 Creatinine [Mass/Vol] 1.07 mg/dL 0.70-1.30 [facility] Comment on above: The validity of the calculated GFR & GFRAA in patients over 70 years has not been determined. Clinical correlation is essential. Serum or plasma urea nitroge n measurement (mass/volume)Ordered By: Chapo Mcadams on 03-17-2024 Urea nitrogen [Mass/Vol] 13 mg/dL 7-18 [facility] Sodium levelOrdered By: Chapo Mcadams on 03-17-2024 Sodium [Moles/Vol] 137 mmol/L 136-145 [facility] TSH QnOrdered By: Chapo gasca on 03-17-2024 Thyroid Stimulating Hormone (TSH) 1.060 uIU/mL 0.358-3.740 [facility] Thyroid Stim Hormone (TSH)on 03-17-2024 TSH 1.060 uIU/mL Normal 0.358-3.740 [facility] Comment on above: Order Comment: Order Date: 12/01/23 Order Info: [id number] - CMP Order Info: [id number] - LIPID Order Info: [id number] - TSH Performed By: #### L [id number], L100.0100, L500.4050, L500.4100 #### [facility] [address] [place], [place], [id number] Total proteinOrdered By: Tulio Mcadams on 03-17-2024 Protein [Mass/Vol] 7.4 g/dL 6.4-8.2 [facility] Triglycerides measurementOrd ered By: Chapo Mcadams on 03-17-2024 Triglyceride [Mass/Vol] 176 mg/dL <199 [facility] Comment on above: The drugs N-Acetylcy steine and Metamizole may falsely depress this assay.Serum Triglycerides Reference Interval Normal <150 mg/dL Borderline high 150 - 199 mg/dL High 200 - 499 mg/dL Very High > or = 500 mg/dL Very low density lipoprotein (VLDL) cholesterol measurementOrdered By: Chapo Mcadams on 03-17-2024 VLDL Cholesterol 35 mg/dL 5-40 [facility] White blood cell (WBC) count Ordered By: Chapo Mcadams on 03-17-2024 WBC (Bld) [#/Vol] 6.5 10*3/uL 4.4-11.0 [facility] Absolute lymphocyte countOrd ered By: Chapo Mcadams on 03-06-2023 Lymphocytes Auto (Unsp spec) [#/Vol] 3.37 10*3/uL 0.83-4.51 [facility] Basophil percentageOrdered B y: Chapo Mcadams on 03-06-2023 Basophil percentage 0-5 SEEN /hpf 0-5 [facility] Basophils/100 WBC (Bld) 0.6 % 0-1 [facility] Bilirubin [Mass/Vol] 0.70 mg/dL 0.20-1.00 [facility] Comment on above: For patients on eltr ombopag therapy, use of Dimension [place] TBIL is not recommended. Chloride [Moles/Vol] 105 mmol/L 98-107 [facility] Cholesterol [Mass/Vol] 129 mg/dL <200 [facility] Comment on above: <200 mg/dL Desirable 200-240 mg/dL Borderline >240 mg/dL High Risk Eosinophils/100 WBC (Bld) 2.6 % 0-5 [facility] Glucose [Mass/Vol] 88 mg/dL 74-106 [facility] Neutrophils (Bld) [#/Vol] 8.9 10*3/uL 2.0-7.7 [facility] Neutrophils/100 WBC (Bld) 65.8 % 47-70 [facility] Potassium [Moles/Vol] 3.5 mmol/L 3.5-5.1 [facility] Protein [Mass/Vol] 7.4 g/dL 6.4-8.2 [facility] Sodium [Moles/Vol] 138 mmol/L 136-145 [facility] Triglyceride [Mass/Vol] 134 mg/dL <199 [facility] Comment on above: The drugs N-Acetylcy steine and Metamizole may falsely depress this assay.Serum Triglycerides Reference Interval Normal <150 mg/dL Borderline high 150 - 199 mg/dL High 200 - 499 mg/dL Very High > or = 500 mg/dL WBC (Bld) [#/Vol] 13.5 10*3/uL 4.4-11.0 [facility] Bilirubin Test strip Ql (U)O rdered By: Chapo Mcadams on 03-06-2023 Bilirubin Ql (U) Negative Negative [facility] Blood erythrocytes count (nu mber/volume)Ordered By: Chapo Mcadams on 03-06-2023 RBC (Bld) [#/Vol] 5.28 10*6/uL 4.6-6.2 [facility] Blood hemoglobin measurement (mass/volume)Ordered By: Chapo Mcadams on 03-06-2023 Hemoglobin (Bld) [Mass/Vol] 15.5 g/dL 13.0-16.5 [facility] Blood lymphocytes/100 leukoc ytesOrdered By: Chapo Mcadams on 03-06-2023 Lymphocytes/100 WBC (Bld) 25.0 % 19-41 [facility] Blood monocytes/100 leukocyt esOrdered By: Chapo Mcadams on 03-06-2023 Monocytes/100 WBC (Bld) 5.6 % 0-10 [facility] Blood platelet mean volumeOr dered By: Chapo Mcadams on 03-06-2023 Platelet mean volume (Bld) [Entitic vol] 9.8 fL 6.2-12.0 [facility] Determination of erythrocyte mean corpuscular volume (MCV)Ordered By: Chapo Mcadams on 03-06-2023 MCV (RBC) [Entitic vol] 86.2 fL 80-94 [facility] Hematocrit Auto (Bld) [Volum e fraction]Ordered By: Chapo Mcadams on 03-06-2023 Hematocrit (Bld) [Volume fraction] 45.5 % 40-54 [facility] Ketones Test strip Ql (U)Ord ered By: Chapo Mcadams on 03-06-2023 Ketones Ql (U) Negative Negative [facility] - Chemistry and C hemistry - challengeOrdered By: Chapo Mcadams on 03-06-2023 ALP [Catalytic activity/Vol] 74 U/L 45-117 [facility] ALT [Catalytic activity/Vol] 39 U/L 16-61 [facility] CO2 [Moles/Vol] 27.0 mmol/L 21.0-32.0 [facility] Globulin (S) [Mass/Vol] 3.8 g/dL 2.2-4.2 [facility] Urea nitrogen/Creatinine [Mass ratio] 15.0 mg/mg 10-20 [facility] - Hematology and Cell countsOrdered By: Chapo Mcadams on 03-06-2023 Erythrocyte distribution width (RBC) [Entitic vol] 41.3 fL 35.1-43.9 [facility] Erythrocyte distribution width (RBC) [Ratio] 13.3 % 11.6-14.6 [facility] Immature granulocytes/100 WBC (Bld) 0.400 % 0.0-0.9 [facility] Comment on above: IG% - Immature Granu locytes (promyelocytes, myelocytes and metamyelocytes) > 1% indicates that a LEFT SHIFT is Present. MCH (RBC) [Entitic mass] 29.4 pg 27.0-32.0 [facility] Nucleated RBC/100 WBC (Bld) [Ratio] 0 % 0-5 [facility] MCHC Auto (RBC) [Mass/Vol]Or dered By: Chapo Mcadams on 03-06-2023 MCHC (RBC) [Mass/Vol] 34.1 g/dL 32-36 [facility] Mucus LM Ql (Urine sed)Order ed By: Chapo Mcadams on 03-06-2023 Mucus Ql (Urine sed) 0 SEEN /hpf [facility] Nitrite Test strip Ql (U)Ord ered By: hCapo Mcadams on 03-06-2023 Nitrite Ql (U) Negative Negative [facility] No Panel InformationOrdered By: Chapo Mcadams on 03-06-2023 Estimated GFR (MDRD) Amer 92 mL/min >60 [facility] Comment on above: GFR Calc Estimated GFR (MDRD) Non-Af Amer 76 mL/min >60 [facility] Comment on above: Non- GFR Calc Thyroid Stimulating Hormone (TSH) 1.30 uIU/mL 0.358-3.74 [facility] Platelets bldOrdered By: Tulio Mcadams on 03-06-2023 Platelets (Bld) [#/Vol] 271 10*3/uL 150-450 [facility] Protein Test strip Ql (U)Ord ered By: Chapo Mcadams on 03-06-2023 Protein Ql (U) Negative Negative [facility] Serum or plasma albumin bk urement (mass/volume)Ordered By: Chapo Mcadams on 03-06-2023 Albumin [Mass/Vol] 3.6 g/dL 3.2-5.0 [facility] Serum or plasma albumin/glob ulin mass ratioOrdered By: Chapo Mcadams on 03-06-2023 Albumin/Globulin [Mass ratio] 0.9 {ratio} 0.9-2.4 [facility] Serum or plasma calcium bk urement (mass/volume)Ordered By: Chapo Mcadams on 03-06-2023 Calcium [Mass/Vol] 8.7 mg/dL 8.5-10.1 [facility] Serum or plasma cholesterol in HDL measurement (mass/volume)Ordered By: Chapo Mcadams on 03-06-2023 Cholesterol in HDL [Mass/Vol] 34 mg/dL >40 [facility] Comment on above: The drugs N-Acetylcy steine and Metamizole may falsely depress this assay. Reference Range HDL <40 mg/dL Low HDL Cholesterol HDL >or= 60 mg/dL High HDL Cholesterol Serum or plasma cholesterol in VLDL measurement (mass/volume)Ordered By: Chapo Mcadams on 03-06-2023 Cholesterol in VLDL [Mass/Vol] 27 mg/dL 5-40 [facility] Serum or plasma creatinine m easurement (mass/volume)Ordered By: Chapo Mcadams on 03-06-2023 Creatinine [Mass/Vol] 1.07 mg/dL 0.70-1.30 [facility] Comment on above: The validity of the calculated GFR & GFRAA in patients over 70 years has not been determined. Clinical correlation is essential. Serum or plasma low density lipoprotein (LDL) cholesterol measurement (mass/volume)Ordered By: Chapo Mcadams on 03-06-2023 Cholesterol in LDL [Mass/Vol] 68 mg/dL 0-130 [facility] Serum or plasma urea nitroge n measurement (mass/volume)Ordered By: Chapo Mcadams on 03-06-2023 Urea nitrogen [Mass/Vol] 16 mg/dL 7-18 [facility] Squamous epithelial cells de tection in urine sediment by light microscopyOrdered By: Chapo Mcadams on 03-06-2023 Epithelial cells.squamous LM Ql (Urine sed) 0 SEEN /hpf 0-5 [facility] Thin prep Papanicolaou smear with manual screeningOrdered By: Chapo Mcadams on 03-06-2023 Thin prep Papanicolaou smear with manual screening 24 U/L 15-37 [facility] Thin prep Papanicolaou smear with manual screening 6 5-15 [facility] Urine blood detectionOrdered By: Chapo Mcadams on 03-06-2023 RBC Ql (U) 25 /ul Negative [facility] RBC Ql (U) 0 SEEN /hpf 0-5 [facility] Urine clarityOrdered By: Tulio Mcadams on 03-06-2023 Clarity (U) Clear Clear [facility] Urine color determinationOrd ered By: Chapo Mcadams on 03-06-2023 Color (U) Yellow Yellow [facility] Urine glucose detectionOrder ed By: Chapo Mcadams on 03-06-2023 Glucose Ql (U) Normal mg/dl Normal [facility] Urine leukocyte esterase det ection by dipstickOrdered By: Chapo Mcadams on 03-06-2023 Leukocyte esterase Test strip Ql (U) 25 /ul Negative [facility] Urine pHOrdered By: Chapo page on 03-06-2023 pH (U) 6.0 [pH] 5.0 - 8.0 [facility] Urine sediment bacteria coun t by microscopy (number/high power field)Ordered By: Chapo Mcadams on 03-06-2023 Bacteria LM.HPF (Urine sed) [#/Area] 0 /[HPF] None Seen [facility] Urine specific gravity measu rementOrdered By: Chapo Mcadams on 03-06-2023 Specific gravity (U) [Rel density] 1.020 1.002-1.030 [facility] Urobilinogen Auto test strip Ql (U)Ordered By: Chapo Mcadams on 03-06-2023 Urobilinogen Ql (U) 1 mg/dl Normal [facility] Absolute lymphocyte countOrd ered By: Chapo Mcadams on 11-12-2022 Lymphocytes Auto (Unsp spec) [#/Vol] 3.84 10*3/uL 0.83-4.51 [facility] Basophil percentageOrdered B y: Chapo Mcadams on 11-12-2022 Basophils/100 WBC (Bld) 0.9 % 0-1 [facility] Bilirubin [Mass/Vol] 0.80 mg/dL 0.20-1.00 [facility] Comment on above: For patients on eltr ombopag therapy, use of Dimension [place] TBIL is not recommended. Chloride [Moles/Vol] 105 mmol/L 98-107 [facility] Cholesterol [Mass/Vol] 130 mg/dL <200 [facility] Comment on above: <200 mg/dL Desirable 200-240 mg/dL Borderline >240 mg/dL High Risk Eosinophils/100 WBC (Bld) 1.9 % 0-5 [facility] Glucose [Mass/Vol] 88 mg/dL 74-106 [facility] Neutrophils (Bld) [#/Vol] 7.9 10*3/uL 2.0-7.7 [facility] Neutrophils/100 WBC (Bld) 62.1 % 47-70 [facility] Potassium [Moles/Vol] 3.6 mmol/L 3.5-5.1 [facility] Protein [Mass/Vol] 7.8 g/dL 6.4-8.2 [facility] Sodium [Moles/Vol] 138 mmol/L 136-145 [facility] Triglyceride [Mass/Vol] 154 mg/dL <199 [facility] Comment on above: The drugs N-Acetylcy steine and Metamizole may falsely depress this assay.Serum Triglycerides Reference Interval Normal <150 mg/dL Borderline high 150 - 199 mg/dL High 200 - 499 mg/dL Very High > or = 500 mg/dL WBC (Bld) [#/Vol] 12.7 10*3/uL 4.4-11.0 [facility] Blood erythrocytes count (nu mber/volume)Ordered By: Chapo Mcadams on 11-12-2022 RBC (Bld) [#/Vol] 5.50 10*6/uL 4.6-6.2 [facility] Blood hemoglobin measurement (mass/volume)Ordered By: Chapo Mcadams on 11-12-2022 Hemoglobin (Bld) [Mass/Vol] 16.5 g/dL 13.0-16.5 [facility] Blood lymphocytes/100 leukoc ytesOrdered By: Chapo Mcadams on 11-12-2022 Lymphocytes/100 WBC (Bld) 30.3 % 19-41 [facility] Blood monocytes/100 leukocyt esOrdered By: Chapo Mcadams on 11-12-2022 Monocytes/100 WBC (Bld) 4.6 % 0-10 [facility] Blood platelet mean volumeOr dered By: Chapo Mcadams on 11-12-2022 Platelet mean volume (Bld) [Entitic vol] 9.8 fL 6.2-12.0 [facility] Determination of erythrocyte mean corpuscular volume (MCV)Ordered By: Chapo Mcadams on 11-12-2022 MCV (RBC) [Entitic vol] 86.7 fL 80-94 [facility] Hematocrit Auto (Bld) [Volum e fraction]Ordered By: Chapo Mcadams on 11-12-2022 Hematocrit (Bld) [Volume fraction] 47.7 % 40-54 [facility] - Chemistry and C hemistry - challengeOrdered By: Chapo Mcadams on 11-12-2022 ALP [Catalytic activity/Vol] 88 U/L 45-117 [facility] ALT [Catalytic activity/Vol] 44 U/L 16-61 [facility] CO2 [Moles/Vol] 26.0 mmol/L 21.0-32.0 [facility] Globulin (S) [Mass/Vol] 3.9 g/dL 2.2-4.2 [facility] Urea nitrogen/Creatinine [Mass ratio] 11.4 mg/mg 10-20 [facility] - Hematology and Cell countsOrdered By: Chapo Mcadams on 11-12-2022 Erythrocyte distribution width (RBC) [Entitic vol] 39.9 fL 35.1-43.9 [facility] Erythrocyte distribution width (RBC) [Ratio] 12.8 % 11.6-14.6 [facility] Immature granulocytes/100 WBC (Bld) 0.200 % 0.0-0.9 [facility] Comment on above: IG% - Immature Granu locytes (promyelocytes, myelocytes and metamyelocytes) > 1% indicates that a LEFT SHIFT is Present. MCH (RBC) [Entitic mass] 30.0 pg 27.0-32.0 [facility] Nucleated RBC/100 WBC (Bld) [Ratio] 0 % 0-5 [facility] MCHC Auto (RBC) [Mass/Vol]Or dered By: Chapo Mcadams on 11-12-2022 MCHC (RBC) [Mass/Vol] 34.6 g/dL 32-36 [facility] No Panel InformationOrdered By: Chapo Mcadams on 11-12-2022 Estimated GFR (MDRD) Amer 95 mL/min >60 [facility] Comment on above: GFR Calc Estimated GFR (MDRD) Non-Af Amer 78 mL/min >60 [facility] Comment on above: Non- GFR Calc Thyroid Stimulating Hormone (TSH) 1.16 uIU/mL 0.358-3.74 [facility] Platelets bldOrdered By: Tulio Mcadams on 11-12-2022 Platelets (Bld) [#/Vol] 269 10*3/uL 150-450 [facility] Serum or plasma albumin bk urement (mass/volume)Ordered By: Chapo Mcadams on 11-12-2022 Albumin [Mass/Vol] 3.9 g/dL 3.2-5.0 [facility] Serum or plasma albumin/glob ulin mass ratioOrdered By: Chapo Mcadams on 11-12-2022 Albumin/Globulin [Mass ratio] 1.0 {ratio} 0.9-2.4 [facility] Serum or plasma calcium bk urement (mass/volume)Ordered By: Chapo Mcadams on 11-12-2022 Calcium [Mass/Vol] 9.4 mg/dL 8.5-10.1 [facility] Serum or plasma cholesterol in HDL measurement (mass/volume)Ordered By: hCapo Mcadams on 11-12-2022 Cholesterol in HDL [Mass/Vol] 35 mg/dL >40 [facility] Comment on above: The drugs N-Acetylcy steine and Metamizole may falsely depress this assay. Reference Range HDL <40 mg/dL Low HDL Cholesterol HDL >or= 60 mg/dL High HDL Cholesterol Serum or plasma cholesterol in VLDL measurement (mass/volume)Ordered By: Chapo Mcadams on 11-12-2022 Cholesterol in VLDL [Mass/Vol] 31 mg/dL 5-40 [facility] Serum or plasma creatinine m easurement (mass/volume)Ordered By: Chapo Mcadams on 11-12-2022 Creatinine [Mass/Vol] 1.05 mg/dL 0.70-1.30 [facility] Comment on above: The validity of the calculated GFR & GFRAA in patients over 70 years has not been determined. Clinical correlation is essential. Serum or plasma low density lipoprotein (LDL) cholesterol measurement (mass/volume)Ordered By: Chapo Mcadams on 11-12-2022 Cholesterol in LDL [Mass/Vol] 64 mg/dL 0-130 [facility] Serum or plasma urea nitroge n measurement (mass/volume)Ordered By: Chapo Mcadams on 11-12-2022 Urea nitrogen [Mass/Vol] 12 mg/dL 7-18 [facility] Thin prep Papanicolaou smear with manual screeningOrdered By: Chapo Mcadams on 11-12-2022 Thin prep Papanicolaou smear with manual screening 26 U/L 15-37 [facility] Thin prep Papanicolaou smear with manual screening 7 5-15 [facility] Absolute lymphocyte countOrd ered By: ED PROVIDER on 05-27-2022 Lymphocytes Auto (Unsp spec) [#/Vol] 3.31 10*3/uL 0.83-4.51 [facility] Basophil percentageOrdered B y: ED PROVIDER on 05-27-2022 Basophils/100 WBC (Bld) 0.8 % 0-1 [facility] Chloride [Moles/Vol] 105 mmol/L 98-107 [facility] Eosinophils/100 WBC (Bld) 2.4 % 0-5 [facility] Glucose [Mass/Vol] 99 mg/dL 74-106 [facility] Neutrophils (Bld) [#/Vol] 5.7 10*3/uL 2.0-7.7 [facility] Neutrophils/100 WBC (Bld) 58.0 % 47-70 [facility] Potassium [Moles/Vol] 3.5 mmol/L 3.5-5.1 [facility] Sodium [Moles/Vol] 138 mmol/L 136-145 [facility] WBC (Bld) [#/Vol] 9.8 10*3/uL 4.4-11.0 [facility] Blood erythrocytes count (nu mber/volume)Ordered By: ED PROVIDER on 05-27-2022 RBC (Bld) [#/Vol] 5.55 10*6/uL 4.6-6.2 [facility] Blood hemoglobin measurement (mass/volume)Ordered By: ED PROVIDER on 05-27-2022 Hemoglobin (Bld) [Mass/Vol] 16.6 g/dL 13.0-16.5 [facility] Blood lymphocytes/100 leukoc ytesOrdered By: ED PROVIDER on 05-27-2022 Lymphocytes/100 WBC (Bld) 33.7 % 19-41 [facility] Blood monocytes/100 leukocyt esOrdered By: ED PROVIDER on 05-27-2022 Monocytes/100 WBC (Bld) 4.9 % 0-10 [facility] Blood platelet mean volumeOr dered By: ED PROVIDER on 05-27-2022 Platelet mean volume (Bld) [Entitic vol] 9.6 fL 6.2-12.0 [facility] Determination of erythrocyte mean corpuscular volume (MCV)Ordered By: ED PROVIDER on 05-27-2022 MCV (RBC) [Entitic vol] 85.4 fL 80-94 [facility] Hematocrit Auto (Bld) [Volum e fraction]Ordered By: ED PROVIDER on 05-27-2022 Hematocrit (Bld) [Volume fraction] 47.4 % 40-54 [facility] Laboratory - Chemistry and C hemistry - challengeOrdered By: ED PROVIDER on 05-27-2022 CO2 [Moles/Vol] 29.0 mmol/L 21.0-32.0 [facility] Urea nitrogen/Creatinine [Mass ratio] 17.3 mg/mg 10-20 [facility] Laboratory - Hematology and Cell countsOrdered By: ED PROVIDER on 05-27-2022 Erythrocyte distribution width (RBC) [Entitic vol] 39.8 fL 35.1-43.9 [facility] Erythrocyte distribution width (RBC) [Ratio] 12.8 % 11.6-14.6 [facility] Immature granulocytes/100 WBC (Bld) 0.200 % 0.0-0.9 [facility] Comment on above: IG% - Immature Granu locytes (promyelocytes, myelocytes and metamyelocytes) > 1% indicates that a LEFT SHIFT is Present. MCH (RBC) [Entitic mass] 29.9 pg 27.0-32.0 [facility] Nucleated RBC/100 WBC (Bld) [Ratio] 0 % 0-5 [facility] MCHC Auto (RBC) [Mass/Vol]Or dered By: ED PROVIDER on 05-27-2022 MCHC (RBC) [Mass/Vol] 35.0 g/dL 32-36 [facility] No Panel InformationOrdered By: Dr. De Jesus on 05-27-2022 D-Dimer Quantitative (PE/DVT) 0.29 FEU/ug/m 0.27-0.49 [facility] Comment on above: NORMAL D-Dimer level (<0.50) indicates no DVT or PE. Troponin I High Sensitivity 8 pg/mL 3.0-78.0 [facility] Comment on above: Please Note: New Mandy t Units and Gender Specific Reference Ranges. For more information see Policy Stat Procedure [place] High Sensitivity Troponin (TNIH) and attachments. No Panel InformationOrdered By: ED PROVIDER on 05-27-2022 Estimated Creatinine Clearance Calc 94.41 ml/min [facility] Estimated GFR (MDRD) Amer 96 mL/min >60 [facility] Comment on above: GFR Calc Estimated GFR (MDRD) Non-Af Amer 79 mL/min >60 [facility] Comment on above: Non- GFR Calc Platelets bldOrdered By: ED PROVIDER on 05-27-2022 Platelets (Bld) [#/Vol] 282 10*3/uL 150-450 [facility] Serum or plasma calcium bk urement (mass/volume)Ordered By: ED PROVIDER on 05-27-2022 Calcium [Mass/Vol] 9.4 mg/dL 8.5-10.1 [facility] Serum or plasma creatinine m easurement (mass/volume)Ordered By: ED PROVIDER on 05-27-2022 Creatinine [Mass/Vol] 1.04 mg/dL 0.70-1.30 [facility] Comment on above: The validity of the calculated GFR & GFRAA in patients over 70 years has not been determined. Clinical correlation is essential. Serum or plasma urea nitroge n measurement (mass/volume)Ordered By: ED PROVIDER on 05-27-2022 Urea nitrogen [Mass/Vol] 18 mg/dL 7-18 [facility] Thin prep Papanicolaou smear with manual screeningOrdered By: ED PROVIDER on 05-27-2022 Thin prep Papanicolaou smear with manual screening 4 5-15 [facility] .Auto Diffon 02-19-2022 Basophil, Absolute 0.0 10 3/mcL Normal 0.0-0.2 [facility] ([place]) Comment on above: Performed By: #### G , BMP #### [address] [address] Basophils/100 WBC (Bld) 0.1 % Normal 0.0-2.5 [facility] ([place]) Comment on above: Performed By: #### G FR, BMP #### [address] [address] Eosinophil, Absolute 0.0 10 3/mcL Normal 0.0-0.4 [facility] ([place]) Comment on above: Performed By: #### G , BMP #### [address] [address] Eosinophils/100 WBC (Bld) 0.0 % Normal 0.0-7.0 [facility] ([place]) Comment on above: Performed By: #### G FR, BMP #### [address] [address] Lymphocyte, Absolute 1.9 10 3/mcL Normal 0.8-3.9 [facility] ([place]) Comment on above: Performed By: #### G FR, BMP #### [address] [address] Lymphocytes/100 WBC (Bld) 9.8 % Low 10.0-50.0 [facility] ([place]) Comment on above: Performed By: #### G FR, BMP #### [address] [address] Monocyte, Absolute 0.8 10 3/mcL Normal 0.2-1.0 [facility] ([place]) Comment on above: Performed By: #### G FR, BMP #### [address] [address] Monocytes/100 WBC (Bld) 4.5 % Normal 1.7-13.0 [facility] ([place]) Comment on above: Performed By: #### G FR, BMP #### [address] [address] Neutrophils/100 WBC (Bld) 85.6 % High 37.0-80.0 [facility] ([place]) Comment on above: Performed By: #### G FR, BMP #### [address] [address] .GFRon 02-19-2022 GFR 98 ml/min/1.73sqm Normal [facility] ([place]) Comment on above: Result Comment: GFR Population [...] Performed By: #### G FR, BMP #### [address] [address] GFR Non- 81 ml/min/1.73sqm Normal [facility] ([place]) Comment on above: Result Comment: GFR Population [...] Performed By: #### G , BMP #### [address] [address] .NEUABSon 02-19-2022 Neutrophil, Absolute 16.2 10 3/mcL High 2.9-6.2 [facility] ([place]) Comment on above: Performed By: #### Kelby KIM, BMP #### [address] [address] BMPon 02-19-2022 BUN/Creatinine Ratio 18 ratio Normal 7-27 [facility] ([place]) Comment on above: Performed By: #### G , BMP #### [address] [address] Calcium [Mass/Vol] 8.8 mg/dL Normal 8.4-10.2 [facility] ([place]) Comment on above: Performed By: #### Kelby KIM, BMP #### [address] [address] Chloride [Moles/Vol] 101 mmol/L Normal 98-107 [facility] ([place]) Comment on above: Performed By: #### G FR, BMP #### [address] [address] CO2 [Moles/Vol] 28 mmol/L Normal 22-29 [facility] ([place]) Comment on above: Performed By: #### G FR, BMP #### [address] [address] Creatinine [Mass/Vol] 0.97 mg/dL Normal 0.70-1.30 [facility] ([place]) Comment on above: Performed By: #### G FR, BMP #### [address] [address] Electrolyte Balance 7.0 mEq/L Normal 4.0-15.0 [facility] ([place]) Comment on above: Performed By: #### G FR, BMP #### [address] [address] Glucose [Mass/Vol] 115 mg/dL High 70-105 [facility] ([place] Comment on above: Performed By: #### G FR, BMP #### [address] [address] Potassium [Moles/Vol] 4.5 mmol/L Normal 3.5-5.1 [facility] ([place]) Comment on above: Performed By: #### G FR, BMP #### [address] [address] Sodium [Moles/Vol] 136 mmol/L Normal 136-145 [facility] ([place] Comment on above: Performed By: #### G FR, BMP #### [address] [address] Urea nitrogen [Mass/Vol] 17 mg/dL Normal 7-18 [facility] ([place]) Comment on above: Performed By: #### G FR, BMP #### [address] [address] CBCon 02-19-2022 Erythrocyte distribution width (RBC) [Ratio] 13.8 % Normal 11.5-14.5 [facility] ([place]) Comment on above: Performed By: #### G FR, BMP #### [address] [address] Hematocrit (Bld) [Volume fraction] 39.7 % Low 42.0-52.0 [facility] ([place]) Comment on above: Performed By: #### G FR, BMP #### [address] [address] Hgb 13.9 G/dL Low 14.0-18.0 [facility] ([place]) Comment on above: Performed By: #### G , BMP #### [address] [address] MCH (RBC) [Entitic mass] 30.0 pg Normal 27.0-31.2 [facility] ([place]) Comment on above: Performed By: #### G FR, BMP #### [address] [address] MCHC 35.1 G/dL Normal 31.8-35.4 [facility] ([place]) Comment on above: Performed By: #### G , BMP #### [address] [address] MCV (RBC) [Entitic vol] 85.7 fL Normal 80.0-94.0 [facility] ([place]) Comment on above: Performed By: #### Kelby FR, BMP #### [address] [address] Platelet 260 10 3/mcL Normal 130-400 [facility] ([place]) Comment on above: Performed By: #### Kelby KIM, BMP #### [address] [address] Platelet mean volume (Bld) [Entitic vol] 7.8 fL Normal 7.4-10.4 [facility] ([place]) Comment on above: Performed By: #### Kelby FR, BMP #### [address] [address] RBC 4.64 10 6/mcL Normal 4.04-6.13 [facility] ([place]) Comment on above: Performed By: #### G FR, BMP #### [address] [address] WBC 19.0 10 3/mcL High 4.6-10.8 [facility] ([place]) Comment on above: Performed By: #### G FR, BMP #### [address] [address] Gel ABOon 02-18-2022 ABO/Rh Interp Negative Invalid Interpretation Code [facility] ([place]) Comment on above: Performed By: #### A KELLY CROSS #### [id number] [place], [place] [address] Gel ABSon 02-18-2022 Antibody Screen Gel Negative Normal [facility] ([place]) Comment on above: Performed By: #### A KELLY CROSS #### [id number] [place], [place] [address] XR FLUORO 1-2 HRS TECH TIMEo n 02-18-2022 XR FLUORO 1-2 HRS TECH TIME ORIGINAL Images acquired, not reported on this accession number. Normal [facility] ([place]) XR HIP LEFT W/PELVIS 4 VIEWS on [...] 02/18/2022 1:33:16 PM Ordering Provider: AUGUSTO SILVEIRA [facility] ([place]) Absolute lymphocyte countOrd ered By: Dr. Mcadams on 01-30-2022 Lymphocytes Auto (Unsp spec) [#/Vol] 3.80 10*3/uL 0.83-4.51 [facility] Basophil percentageOrdered B y: Dr. Mcadams on 01-30-2022 Basophils/100 WBC (Bld) 0.7 % 0-1 [facility] Bilirubin [Mass/Vol] 0.80 mg/dL 0.20-1.00 [facility] Comment on above: For patients on eltr ombopag therapy, use of Dimension [place] TBIL is not recommended. Chloride [Moles/Vol] 104 mmol/L 98-107 [facility] Cholesterol [Mass/Vol] 206 mg/dL <200 [facility] Comment on above: <200 mg/dL Desirable 200-240 mg/dL Borderline >240 mg/dL High Risk Eosinophils/100 WBC (Bld) 2.8 % 0-5 [facility] Glucose [Mass/Vol] 77 mg/dL 74-106 [facility] Neutrophils (Bld) [#/Vol] 6.1 10*3/uL 2.0-7.7 [facility] Neutrophils/100 WBC (Bld) 56.2 % 47-70 [facility] Potassium [Moles/Vol] 3.9 mmol/L 3.5-5.1 [facility] Protein [Mass/Vol] 7.8 g/dL 6.4-8.2 [facility] Sodium [Moles/Vol] 139 mmol/L 136-145 [facility] Triglyceride [Mass/Vol] 176 mg/dL <199 [facility] Comment on above: The drugs N-Acetylcy steine and Metamizole may falsely depress this assay.Serum Triglycerides Reference Interval Normal <150 mg/dL Borderline high 150 - 199 mg/dL High 200 - 499 mg/dL Very High > or = 500 mg/dL WBC (Bld) [#/Vol] 10.9 10*3/uL 4.4-11.0 [facility] Blood erythrocytes count (nu mber/volume)Ordered By: Dr. Mcadams on 01-30-2022 RBC (Bld) [#/Vol] 5.65 10*6/uL 4.6-6.2 [facility] Blood hemoglobin measurement (mass/volume)Ordered By: Dr. Mcadams on 01-30-2022 Hemoglobin (Bld) [Mass/Vol] 17.3 g/dL 13.0-16.5 [facility] Blood lymphocytes/100 leukoc ytesOrdered By: Dr. Mcadams on 01-30-2022 Lymphocytes/100 WBC (Bld) 35.0 % 19-41 [facility] Blood monocytes/100 leukocyt esOrdered By: Dr. Mcadams on 01-30-2022 Monocytes/100 WBC (Bld) 5.0 % 0-10 [facility] Blood platelet mean volumeOr dered By: Dr. Mcadams on 01-30-2022 Platelet mean volume (Bld) [Entitic vol] 10.1 fL 6.2-12.0 [facility] Determination of erythrocyte mean corpuscular volume (MCV)Ordered By: Dr. Mcadams on 01-30-2022 MCV (RBC) [Entitic vol] 87.8 fL 80-94 [facility] Hematocrit Auto (Bld) [Volum e fraction]Ordered By: Dr. Mcadams on 01-30-2022 Hematocrit (Bld) [Volume fraction] 49.6 % 40-54 [facility] Laboratory - Chemistry and C hemistry - challengeOrdered By: Dr. Mcadams on 01-30-2022 ALP [Catalytic activity/Vol] 84 U/L 45-117 [facility] ALT [Catalytic activity/Vol] 52 U/L 16-61 [facility] CO2 [Moles/Vol] 26.0 mmol/L 21.0-32.0 [facility] Globulin (S) [Mass/Vol] 3.6 g/dL 2.2-4.2 [facility] Urea nitrogen/Creatinine [Mass ratio] 14.2 mg/mg 10-20 [facility] Laboratory - Hematology and Cell countsOrdered By: Dr. Mcadams on 01-30-2022 Erythrocyte distribution width (RBC) [Entitic vol] 43.0 fL 35.1-43.9 [facility] Erythrocyte distribution width (RBC) [Ratio] 13.4 % 11.6-14.6 [facility] Immature granulocytes/100 WBC (Bld) 0.300 % 0.0-0.9 [facility] Comment on above: IG% - Immature Granu locytes (promyelocytes, myelocytes and metamyelocytes) > 1% indicates that a LEFT SHIFT is Present. MCH (RBC) [Entitic mass] 30.6 pg 27.0-32.0 [facility] Nucleated RBC/100 WBC (Bld) [Ratio] 0 % 0-5 [facility] MCHC Auto (RBC) [Mass/Vol]Or dered By: Dr. Mcadams on 01-30-2022 MCHC (RBC) [Mass/Vol] 34.9 g/dL 32-36 [facility] No Panel InformationOrdered By: Dr. Mcadams on 01-30-2022 Estimated GFR (MDRD) Amer 102 mL/min >60 [facility] Comment on above: GFR Calc Estimated GFR (MDRD) Non-Af Amer 84 mL/min >60 [facility] Comment on above: Non- GFR Calc Thyroid Stimulating Hormone (TSH) 1.01 uIU/mL 0.358-3.74 [facility] Platelets bldOrdered By: Dr. Mcadams on 01-30-2022 Platelets (Bld) [#/Vol] 306 10*3/uL 150-450 [facility] Serum or plasma albumin bk urement (mass/volume)Ordered By: Dr. Mcadams on 01-30-2022 Albumin [Mass/Vol] 4.2 g/dL 3.2-5.0 [facility] Serum or plasma albumin/glob ulin mass ratioOrdered By: Dr. Mcadams on 01-30-2022 Albumin/Globulin [Mass ratio] 1.2 {ratio} 0.9-2.4 [facility] Serum or plasma calcium bk urement (mass/volume)Ordered By: Dr. Mcadams on 01-30-2022 Calcium [Mass/Vol] 9.6 mg/dL 8.5-10.1 [facility] Serum or plasma cholesterol in HDL measurement (mass/volume)Ordered By: Dr. Mcadams on 01-30-2022 Cholesterol in HDL [Mass/Vol] 31 mg/dL >40 [facility] Comment on above: The drugs N-Acetylcy steine and Metamizole may falsely depress this assay. Reference Range HDL <40 mg/dL Low HDL Cholesterol HDL >or= 60 mg/dL High HDL Cholesterol Serum or plasma cholesterol in VLDL measurement (mass/volume)Ordered By: Dr. Mcadams on 01-30-2022 Cholesterol in VLDL [Mass/Vol] 35 mg/dL 5-40 [facility] Serum or plasma creatinine m easurement (mass/volume)Ordered By: Dr. Mcadams on 01-30-2022 Creatinine [Mass/Vol] 0.99 mg/dL 0.70-1.30 [facility] Comment on above: The validity of the calculated GFR & GFRAA in patients over 70 years has not been determined. Clinical correlation is essential. Serum or plasma low density lipoprotein (LDL) cholesterol measurement (mass/volume)Ordered By: Dr. Mcadams on 01-30-2022 Cholesterol in LDL [Mass/Vol] 140 mg/dL 0-130 [facility] Serum or plasma urea nitroge n measurement (mass/volume)Ordered By: Dr. Mcadams on 01-30-2022 Urea nitrogen [Mass/Vol] 14 mg/dL 7-18 [facility] Thin prep Papanicolaou smear with manual screeningOrdered By: Dr. Mcadams on 01-30-2022 Thin prep Papanicolaou smear with manual screening 21 U/L 15-37 [facility] Thin prep Papanicolaou smear with manual screening 9 5-15 [facility] Falls Screening (Age 18+)on 01-15-2022 Fall risk assessment a) No falls within the last year [facility] Work Phone: Tobacco use status CP a) Yes [facility] Work Phone: Absolute lymphocyte counton 12-18-2021 Lymphocytes Auto (Unsp spec) [#/Vol] 3.82 10*3/uL 0.83-4.51 [facility] Work Phone: Basophil percentageon 2021 Basophils/100 WBC (Bld) 0.7 % 0-1 [facility] Work Phone: Chloride [Moles/Vol] 104 mmol/L 98-107 [facility] Work Phone: Eosinophils/100 WBC (Bld) 2.1 % 0-5 [facility] Work Phone: Glucose [Mass/Vol] 73 mg/dL 74-106 [facility] Work Phone: Neutrophils (Bld) [#/Vol] 8.2 10*3/uL 2.0-7.7 [facility] Work Phone: Neutrophils/100 WBC (Bld) 63.0 % 47-70 [facility] Work Phone: Potassium [Moles/Vol] 3.9 mmol/L 3.5-5.1 [facility] Work Phone: Sodium [Moles/Vol] 140 mmol/L 136-145 [facility] Work Phone: WBC (Bld) [#/Vol] 13.1 10*3/uL 4.4-11.0 [facility]: Blood erythrocytes count (nu mber/volume)on 12-18-2021 RBC (Bld) [#/Vol] 5.66 10*6/uL 4.6-6.2 [facility] Work Phone: Blood hemoglobin measurement (mass/volume)on 12-18-2021 Hemoglobin (Bld) [Mass/Vol] 17.2 g/dL 13.0-16.5 [facility] Work Phone: Blood lymphocytes/100 leukoc yteson 12-18-2021 Lymphocytes/100 WBC (Bld) 29.3 % 19-41 [facility] Work Phone: Blood monocytes/100 leukocyt eson 12-18-2021 Monocytes/100 WBC (Bld) 4.5 % 0-10 [facility] Work Phone: Blood platelet mean volumeon 12-18-2021 Platelet mean volume (Bld) [Entitic vol] 9.9 fL 6.2-12.0 [facility] Work Phone: Determination of erythrocyte mean corpuscular volume (MCV)on 12-18-2021 MCV (RBC) [Entitic vol] 88.3 fL 80-94 [facility] Work Phone: Hematocrit Auto (Bld) [Volum e fraction]on 12-18-2021 Hematocrit (Bld) [Volume fraction] 50.0 % 40-54 [facility] Work Phone: Laboratory - Chemistry and C hemistry - challengeon 12-18-2021 CO2 [Moles/Vol] 27.0 mmol/L 21.0-32.0 [facility] Work Phone: [phone] Urea nitrogen/Creatinine [Mass ratio] 15.0 mg/mg 10-20 [facility] Work Phone: Laboratory - Hematology and Cell countson 12-18-2021 Erythrocyte distribution width (RBC) [Entitic vol] 42.3 fL 35.1-43.9 [facility] Work Phone: Erythrocyte distribution width (RBC) [Ratio] 13.2 % 11.6-14.6 [facility] Work Phone: Immature granulocytes/100 WBC (Bld) 0.400 % 0.0-0.9 [facility] Work Phone: Comment on above: IG% - Immature Granu locytes (promyelocytes, myelocytes and metamyelocytes) > 1% indicates that a LEFT SHIFT is Present. MCH (RBC) [Entitic mass] 30.4 pg 27.0-32.0 [facility] Work Phone: Nucleated RBC/100 WBC (Bld) [Ratio] 0 % 0-5 [facility] Work Phone: MCHC Auto (RBC) [Mass/Vol]on 12-18-2021 MCHC (RBC) [Mass/Vol] 34.4 g/dL 32-36 [facility] Work Phone: No Panel Informationon 12-18 Estimated GFR (MDRD) Amer 100 mL/min >60 [facility] Work Phone: Comment on above: GFR Calc Estimated GFR (MDRD) Non-Af Amer 83 mL/min >60 [facility] Work Phone: Comment on above: Non- GFR Calc Platelets bldon 12-18-2021 Platelets (Bld) [#/Vol] 289 10*3/uL 150-450 [facility] Work Phone: Serum or plasma albumin bk urement (mass/volume)on 12-18-2021 Albumin [Mass/Vol] 4.0 g/dL 3.2-5.0 [facility] Work Phone: Serum or plasma calcium bk urement (mass/volume)on 12-18-2021 Calcium [Mass/Vol] 9.7 mg/dL 8.5-10.1 [facility] Work Phone: Serum or plasma creatinine m easurement (mass/volume)on 12-18-2021 Creatinine [Mass/Vol] 1.00 mg/dL 0.70-1.30 [facility] Work Phone: Comment on above: The validity of the calculated GFR & GFRAA in patients over 70 years has not been determined. Clinical correlation is essential. Serum or plasma urea nitroge n measurement (mass/volume)on 12-18-2021 Urea nitrogen [Mass/Vol] 15 mg/dL 7-18 [facility] Work Phone: Thin prep Papanicolaou smear with manual screeningon 12-18-2021 Thin prep Papanicolaou smear with manual screening 9 5-15 [facility] Work Phone: ABO/RH GROUP TESTon 11-09-19 22 ABO TYPE B Normal [facility] Comment on above: Performed By: #### V ERAB #### [facility] [address] [place] [address] RH TYPE Negative Normal [facility] Comment on above: Performed By: #### V ERAB #### [facility] [address] [place] [id number] CORONAVIRUS 2019, SCREEN ASY MPTOMATICon 11-08-2021 SARS-CoV-2 (COVID-19) RNA ARMIDA+probe Ql (Unsp spec) Not detected Normal Not Detected [facility] Comment on above: Result Comment: . This test has received FDA Emergency Use Authorization (EUA) and has been verified by [facility] ([facility]). This test is only authorized for the duration of time that circumstances exist to justify the authorization of the emergency use of in vitro diagnostic tests for the detection of SARS-CoV-2 virus and/or diagnosis of COVID-19 infection under section 564(b)(1) of the Act, 21 U.S.C. 360bbb-3(b)(1), unless the authorization is terminated or revoked sooner. [facility] is certified under CLIA-88 as qualified to perform high complexity testing. Testing is performed in the [facility] located at [id number] [place] [address]. SARS-CoV-2/Flu/RSV Multiplex Test: Fact sheet for providers: https://www.fda.gov/media/217910/download Fact sheet for patients: https://www.fda.gov/media/065894/download Performed By: #### C OVSC ####[id number] [place] [address] Lab Specimen Source Nasal, Nasopharyngeal Normal [facility] Comment on above: Performed By: #### C OVSC ####[id number] [place] [address] Coronavirus 2019 RNA by PCR, Screening Asymptomticon 11-08-2021 Coronavirus 2019 RNA by PCR, Screening Asymptomtic Not detected Normal See Below [facility] Work Phone: Comment on above: SOURCE: Nasal, Nasop haryngealReference Range: Not Detected.This test has received FDA Emergency Use Authorization (EUA) and has been verified by [facility] ([facility]). This test is only authorized for the duration of time that circumstances exist to justify the authorization of the emergency use of in vitro diagnostic tests for the detection of SARS-CoV-2 virus and/or diagnosis of COVID-19 infection under section 564(b)(1) of the Act, 21 U.S.C. 360bbb-3(b)(1), unless the authorization is terminated or revoked sooner. [facility] is certified under CLIA-88 as qualified to perform high complexity testing. Testing is performed in the [facility] located at [address] [place] [address].SARS-CoV-2/Flu/RSV Multiplex Test: Fact sheet for providers: https://www.fda.gov/media/966436/downloadFact sheet for patients: https://www.fda.gov/media/161394/download Covid 19 Resultson 2 SARS-CoV-2 (COVID-19) RNA [...] You may also be contacted by the [facility] to see if any of your [...] or Naproxen (Aleve) can also be used. Jesb-hyp-cblqkwe cough and cold medicines can be used according to the instructions on the package. Some iwgf-fhs-qffgovb medicines also contain acetaminophen. Make sure you [...] water are not available, use alcohol-based hand marketing sales manager. Avoid touching your eyes, nose, and mouth [...] 24 ja (more content not included)... Normal [facility] Laboratory - Blood bankon ABO group Nom (Bld) B MG-Ot olaryn [facility] Work Phone: Rh immune globulin screen (Bld) [Interp] Negative MG-Otolary n [facility] Work Phone: Operative Reports - CMCon Operative Reports - [facility] [place] PREOPERATIVE DIAGNOSIS: Right vocal cord lesion. POSTOPERATIVE DIAGNOSIS: Right vocal cord lesion. OPERATION/PROCEDURE: 1. Direct laryngoscopy and suspension microlaryngoscopy with biopsy and excision of a right vocal cord lesion. 2. Flexible bronchoscopy. 3. Flexible esophagoscopy. SURGEON: Robbi Duron MD. PROPERTY CONTROLLER(S): Dr. Lalit Hallman. ANESTHESIA: INDICATION FOR OPERATIVE [...] Robbi Duron MD EST EST DICTATION NUMBER: [id number] INTERNAL JOB NUMBER: [id number] CC: Robbi Duron MD Electronic Signatures: Robbi Duron) (Signed on 08-Nov-2021 17:37) Authored Unsigned, Draft (SYS GENERATED) (Entered on 08-Nov-2021 14:54) Entered Last Updated: 08-Nov-2021 17:37 by Robbi Duron) [facility] Order Reconciliationon 11-08 Order Reconciliation [...] oral tablet 1 tab(s) oral prn Normal [facility] Patient Profile - Preop v3on 11-08-2021 Patient Profile - Preop v3 Patient Profile - Preop: Initial Info: Patient DemographicsName: IVAN GODINEZ Date: 1970 Address: [address] [place] [address] Primary Phone [phone] How to be Addressedjimmy Spoken Language PreferredEnglish Source of Informationpatient Stated Reason for Admissionscope Primary Contact Name and Numberwife Limitations on Visitors/Phone Callsnone Medications Brought to Hospitalno General Health: Weight in kg169.7 kilogram(s) Weight in ite127.1 pound(s) Height in feet6 feet Height in inches1.98 inch(es) Height in cm187.9 centimeter(s) BMI (kg/m2)48.064 square meter Patient or Family Member Reaction to Anesthesiano previous reaction Blood Avoidance/Restrictionsnon e Previous Transfusion Reactionno Health Mgmt: Symptoms/Conditions Managed at Homecardiovascular Barriers to Managing Healthnone Relationship/Environ: Lives Withspouse Living Arrangementshouse Resource/Environmental Concernsnone [facility] Anticipated at Transitionnone Tobacco Use: Tobacco Useyes Tobacco Typecigarettes Last Tobacco [id number] Additional Information: Information Review: Allergies, Home Meds and Significant Events have been Reviewed and Verified with Patient/Familyyes Allergy, Intolerance, Adverse Event: Allergies: No Known Allergies: Active Electronic Signatures: Carlene Small (OLU) (Signed 08-Nov-2021 11:17) Authored: Initial Info, General Health, Health Mgmt, Relationship/Environ, Tobacco Use, Additional Information Last Updated: 08-Nov-2021 11:17 by Carlene Small) Normal [facility] Surgical Pathology Depar tmenton 11-08-2021 [facility] Surgical Pathology Department Name IVAN GODINEZ Pathologist: [...] epithelium precluding complete evaluation for invasion. 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 Electronically Signed Out By EILEEN ESCOBAR DMD./JOSE CARLOS By the signature on this report, the individual or group listed as making the Final Interpretation/Diagnosis certifies that they have reviewed this case. Diagnostic interpretation performed at [place] [id number] Clinical History: Physician Contact Number: [phone] Fixative (A): Saline Clinical Diagnosis History vocal cord disease Specimens Submitted As: A: RIGHT VOCAL CORD LESION Gross Description: Received fresh, labeled with the patient's name and hospital number and R-vocal cord lesion, are multiple fragments of white-hedrick soft tissue aggregating to 1.3 x 1.0 x 0.7 cm. The largest fragment is trisected. The specimen is submitted entirely in 2 cassettes. LMP 11/11/2021 [facility] Department of Pathology [address] [place] [id number] Normal [facility] Comment on above: Performed By: #### U HCS #### [facility] Surgical Pathology Department [address] [place] [address] BASIC METABOLIC PANELon 08-2 Anion gap [Moles/Vol] 15 mmol/L Normal 10 - 20 [facility] Comment on above: Performed By: #### B MP #### [facility] [address] [place] [address] Calcium [Mass/Vol] 9.8 mg/dL Normal 8.6 - 10.6 [facility] Comment on above: Performed By: #### B MP #### [facility] [address] [place] [address] Chloride [Moles/Vol] 102 mmol/L Normal 98 - 107 [facility] Comment on above: Performed By: #### B MP #### [facility] [address] [place] [address] Creatinine [Mass/Vol] 0.94 mg/dL Normal 0.50 - 1.30 [facility] Comment on above: Performed By: #### B MP #### [facility] [address] [place] [address] eGFR MALE >90 Normal >90 [facility] Comment on above: Result Comment: CALC ULATIONS OF ESTIMATED GFR ARE PERFORMED USING THE 2020 CKD-EPI STUDY REFIT EQUATION WITHOUT THE RACE VARIABLE FOR THE IDMS-TRACEABLE CREATININE METHODS. https://jasn.asnjournals.org/content//ASN.09601 30463 Performed By: #### B MP #### [facility] [address] [place] [address] Glucose [Mass/Vol] 78 mg/dL Normal 74 - 99 [facility] Comment on above: Performed By: #### B MP #### [facility] [address] [place] [address] HCO3 (Bld) [Moles/Vol] 25 mmol/L Normal 21 - 32 [facility] Comment on above: Performed By: #### B MP #### [facility] [address] [place] [address] Potassium [Moles/Vol] 4.0 mmol/L Normal 3.5 - 5.3 [facility] Comment on above: Performed By: #### B MP #### [facility] [address] [place] [address] Sodium [Moles/Vol] 138 mmol/L Normal 136 - 145 [facility] Comment on above: Performed By: #### B MP #### [facility] [address] [place] [address] Urea nitrogen [Mass/Vol] 17 mg/dL Normal 6 - 23 [facility] Comment on above: Performed By: #### B MP #### [facility] [address] [place] [address] CBCon 10-21-2021 Erythrocyte distribution width (RBC) [Ratio] 13.4 % Normal 11.5 - 14.5 [facility] Comment on above: Performed By: #### C BC ####[id number] [place] [address] Hematocrit (Bld) [Volume fraction] 47.7 % Normal 41.0 - 52.0 [facility] Comment on above: Performed By: #### C BC ####[id number] [place] [address] Hemoglobin (Bld) [Mass/Vol] 16.7 g/dL Normal 13.5 - 17.5 [facility] Comment on above: Performed By: #### C BC ####[id number] [place] [address] MCHC (RBC) [Mass/Vol] 35.0 g/dL Normal 32.0 - 36.0 [facility] Comment on above: Performed By: #### C BC ####[id number] [place] [address] MCV (RBC) [Entitic vol] 88 fL Normal 80 - 100 [facility] Comment on above: Performed By: #### C BC ####[id number] [place] [address] NUCLEATED RBC 0.0 /100 WBC Normal 0.0-0.0 [facility] Comment on above: Performed By: #### C BC ####[id number] [place] [address] Platelets (Bld) [#/Vol] 255 10*3/uL Normal 150 - 450 [facility] Comment on above: Performed By: #### C BC ####[id number] [place] [address] RBC 5.39 x10E12/L Normal 4.50 - 5.90 [facility] Comment on above: Performed By: #### C BC ####[id number] [place] [address] WBC (Bld) [#/Vol] 10.6 10*3/uL Normal 4.4 - 11.3 [facility] Comment on above: Performed By: #### C BC ####[id number] [place] [address] Laboratory - Blood bankon ABO group Nom (Bld) B MG[facility] Work Phone: Blood group antibody screen Ql Negative [facility]tolaryn [facility] Work Phone: Rh immune globulin screen (Bld) [Interp] Negative -Otolary n [facility] Work Phone: Laboratory - Chemistry and C hemistry - challengeon 10-21-2021 Anion gap [Moles/Vol] 15 mmol/L 10 - 20 MG- Otolaryn [facility] Work Phone: [phone] Calcium [Mass/Vol] 9.8 mg/dL 8.6 - 10.6 MG-Fredy laryn [facility] Work Phone: [phone] Chloride [Moles/Vol] 102 mmol/L 98 - 107 MG-O tolaryn [facility] Work Phone: [phone] CO2 [Moles/Vol] 25 mmol/L 21 - 32 MG-Otolar yn [facility] Work Phone: Creatinine [Mass/Vol] 0.94 mg/dL See Below - Otboydyn [facility] Work Phone: Comment on above: Reference Range: 0.5 0 - 1.30 Glucose [Mass/Vol] 78 mg/dL 74 - 99 -Fredy dusty [facility] Work Phone: [phone] Potassium [Moles/Vol] 4.0 mmol/L 3.5 - 5.3 MG- Otolaryn [facility] Work Phone: [phone] Sodium [Moles/Vol] 138 mmol/L 136 - 145 MG-Fredy manjinderyn [facility] Work Phone: [phone] Urea nitrogen [Mass/Vol] 17 mg/dL 6 - 23 MG-Cherelle [facility] Work Phone: [phone] Laboratory - Hematology and Cell countson 10-21-2021 Erythrocyte distribution width (RBC) [Ratio] 13.4 % See Below CorideaGalindoyn [facility] Work Phone: Comment on above: Reference Range: 11. 5 - 14.5 Hematocrit (Bld) [Volume fraction] 47.7 % See Below [employer] [facility] Work Phone: Comment on above: Reference Range: 41. 0 - 52.0 Hemoglobin (Bld) [Mass/Vol] 16.7 g/dL See Below [employer]cloud TechnologiesCherelle Reval.comeriCorideaNesmith martinez Work Phone: Comment on above: Reference Range: 13. 5 - 17.5 MCHC (RBC) [Mass/Vol] 35.0 g/dL See Below [employer] Cherelle [facility] Work Phone: Comment on above: Reference Range: 32. 0 - 36.0 MCV (RBC) [Entitic vol] 88 fL 80 - 100 [employer]lle GTxThe Good JobsNesmith martinez Work Phone: Platelets (Bld) [#/Vol] 255 10*3/uL 150 - 450 [employer] GTxThe Good JobsNesmith martinez Work Phone: RBC (Bld) [#/Vol] 5.39 {x10E12/L} See Below NXTMCherelle [facility] Work Phone: Comment on above: Reference Range: 4.5 0 - 5.90 WBC (Bld) [#/Vol] 10.6 10*3/uL 4.4 - 11.3 [employer] TechnologiesLloyd cantu GTxThe Good JobsNesmith [employer] Work Phone: No Panel Informationon 10-21 >90 >90 [employer]Cherelle [employer] Work Phone: Comment on above: CALCULATIONS OF MATTHIAS MATED GFR ARE PERFORMED USING THE 2020 CKD-EPI STUDY REFIT EQUATION WITHOUT THE RACE VARIABLE FOR THE IDMS-TRACEABLE CREATININE METHODS.https://jasn.asnjournals.org/content/early/A SN.2244878452 0.0 {/100_WBC} 0.0-0.0 [employer]cloud TechnologiesOtolary [employer] Work Phone: TYPE + SCREENon 10-21-2021 ABO TYPE B Normal [facility] Comment on above: Performed By: #### T +S #### [facility] [address] [place] [address] RH TYPE Negative Normal [facility] Comment on above: Performed By: #### T +S #### [facility] [address] [place] [address] Tobacco Screening.on 022 Adult depression screening assessment No [facility] Work Phone: Fall risk assessment a) No falls within the last year [facility] Work Phone: Tobacco use status CPHS b) No -[facility] Work Phone: Absolute lymphocyte counton 08-20-2021 Lymphocytes Auto (Unsp spec) [#/Vol] 3.17 10*3/uL 0.83-4.51 [facility] Work Phone: Basophil percentageon 2021 Basophils/100 WBC (Bld) 0.7 % 0-1 [facility] Work Phone: Bilirubin [Mass/Vol] 0.80 mg/dL 0.20-1.00 [facility] Work Phone: Comment on above: For patients on eltr ombopag therapy, use of Dimension [place] TBIL is not recommended. Chloride [Moles/Vol] 107 mmol/L 98-107 [facility] Work Phone: Cholesterol [Mass/Vol] 120 mg/dL <200 [facility] Work Phone: Comment on above: <200 mg/dL Desirable 200-240 mg/dL Borderline >240 mg/dL High Risk Eosinophils/100 WBC (Bld) 1.9 % 0-5 [facility] Work Phone: Glucose [Mass/Vol] 91 mg/dL 74-106 [facility] Work Phone: Neutrophils (Bld) [#/Vol] 7.6 10*3/uL 2.0-7.7 [facility] Work Phone: Neutrophils/100 WBC (Bld) 65.1 % 47-70 [facility] Work Phone: Potassium [Moles/Vol] 3.5 mmol/L 3.5-5.1 [facility] Work Phone: Protein [Mass/Vol] 7.6 g/dL 6.4-8.2 [facility] Work Phone: Sodium [Moles/Vol] 140 mmol/L 136-145 [facility] Work Phone: [phone] Triglyceride [Mass/Vol] 158 mg/dL <199 [facility] Work Phone: Comment on above: The drugs N-Acetylcy steine and Metamizole may falsely depress this assay.Serum Triglycerides Reference Interval Normal <150 mg/dL Borderline high 150 - 199 mg/dL High 200 - 499 mg/dL Very High > or = 500 mg/dL WBC (Bld) [#/Vol] 11.7 10*3/uL 4.4-11.0 [facility] Work Phone: Blood erythrocytes count (nu mber/volume)on 08-20-2021 RBC (Bld) [#/Vol] 5.59 10*6/uL 4.6-6.2 [facility] Work Phone: Blood hemoglobin measurement (mass/volume)on 08-20-2021 Hemoglobin (Bld) [Mass/Vol] 16.7 g/dL 13.0-16.5 [facility] Work Phone: Blood lymphocytes/100 leukoc yteson 08-20-2021 Lymphocytes/100 WBC (Bld) 27.0 % 19-41 [facility] Work Phone: [phone] Blood monocytes/100 leukocyt eson 08-20-2021 Monocytes/100 WBC (Bld) 5.0 % 0-10 [facility] Work Phone: Blood platelet mean volumeon 08-20-2021 Platelet mean volume (Bld) [Entitic vol] 9.9 fL 6.2-12.0 [facility] Work Phone: Determination of erythrocyte mean corpuscular volume (MCV)on 08-20-2021 MCV (RBC) [Entitic vol] 85.9 fL 80-94 [facility] Work Phone: Hematocrit Auto (Bld) [Volum e fraction]on 08-20-2021 Hematocrit (Bld) [Volume fraction] 48.0 % 40-54 [facility] Work Phone: Laboratory - Chemistry and C hemistry - challengeon 08-20-2021 ALP [Catalytic activity/Vol] 70 U/L 45-117 [facility] Work Phone: [phone] ALT [Catalytic activity/Vol] 61 U/L 16-61 [facility] Work Phone: CO2 [Moles/Vol] 25.0 mmol/L 21.0-32.0 [facility] Work Phone: Free T4 [Mass/Vol] 1.21 ng/dL 0.76-1.46 [facility] Work Phone: Globulin (S) [Mass/Vol] 3.8 g/dL 2.2-4.2 [facility] Work Phone: Urea nitrogen/Creatinine [Mass ratio] 15.2 mg/mg 10-20 [facility] Work Phone: Laboratory - Hematology and Cell countson 08-20-2021 Erythrocyte distribution width (RBC) [Entitic vol] 41.9 fL 35.1-43.9 [facility] Work Phone: Erythrocyte distribution width (RBC) [Ratio] 13.4 % 11.6-14.6 [facility] Work Phone: Immature granulocytes/100 WBC (Bld) 0.300 % 0.0-0.9 [facility] Work Phone: [phone] Comment on above: IG% - Immature Granu locytes (promyelocytes, myelocytes and metamyelocytes) > 1% indicates that a LEFT SHIFT is Present. MCH (RBC) [Entitic mass] 29.9 pg 27.0-32.0 [facility] Work Phone: Nucleated RBC/100 WBC (Bld) [Ratio] 0 % 0-5 [facility] Work Phone: MCHC Auto (RBC) [Mass/Vol]on 08-20-2021 MCHC (RBC) [Mass/Vol] 34.8 g/dL 32-36 [facility] Work Phone: No Panel Informationon 08-20 Estimated GFR (MDRD) Amer 102 mL/min >60 [facility] Work Phone: Comment on above: GFR Calc Estimated GFR (MDRD) Non-Af Amer 84 mL/min >60 [facility] Work Phone: Comment on above: Non- GFR Calc Hepatitis B Surface Antigen Non-Reactive Nonreactive [facility] Work Phone: Hepatitis C Antibody Non-Reactive Nonreactive [facility] Work Phone: Comment on above: Non Reactive: < 0.8 Equivocal: >/= 0.8 to < 1.0 Reactive: >/= 1.0The CDC recommends that a reactive/equivocal HCV antibody result be followed up by the HCV Nucleic Acid Amplificationtest (666634) Thyroid Stimulating Hormone (TSH) 1.39 uIU/mL 0.358-3.74 [facility] Work Phone: Platelets bldon 08-20-2021 Platelets (Bld) [#/Vol] 270 10*3/uL 150-450 [facility] Work Phone: Serum hepatitis B virus surf nadia antibody IgG detectionon 08-20-2021 HBV surface IgG Ql (S) Non-Reactive [facility] Work Phone: Comment on above: Non Reactive: Incons istent with immunity less than <10 mIU/mL Reactive: Consistent with immunity greater than or equal to 10 mIU/mL Serum or plasma albumin bk urement (mass/volume)on 08-20-2021 Albumin [Mass/Vol] 3.8 g/dL 3.2-5.0 [facility] Work Phone: Serum or plasma albumin/glob ulin mass ratioon 08-20-2021 Albumin/Globulin [Mass ratio] 1.0 {ratio} 0.9-2.4 [facility] Work Phone: Serum or plasma calcium bk urement (mass/volume)on 08-20-2021 Calcium [Mass/Vol] 9.4 mg/dL 8.5-10.1 [facility] Work Phone: Serum or plasma cholesterol in HDL measurement (mass/volume)on 08-20-2021 Cholesterol in HDL [Mass/Vol] 30 mg/dL >40 [facility] Work Phone: Comment on above: The drugs N-Acetylcy steine and Metamizole may falsely depress this assay. Reference Range HDL <40 mg/dL Low HDL Cholesterol HDL >or= 60 mg/dL High HDL Cholesterol Serum or plasma cholesterol in VLDL measurement (mass/volume)on 08-20-2021 Cholesterol in VLDL [Mass/Vol] 32 mg/dL 5-40 [facility] Work Phone: Serum or plasma creatinine m easurement (mass/volume)on 08-20-2021 Creatinine [Mass/Vol] 0.99 mg/dL 0.70-1.30 [facility] Work Phone: Comment on above: The validity of the calculated GFR & GFRAA in patients over 70 years has not been determined. Clinical correlation is essential. Serum or plasma low density lipoprotein (LDL) cholesterol measurement (mass/volume)on 08-20-2021 Cholesterol in LDL [Mass/Vol] 58 mg/dL 0-130 [facility] Work Phone: Serum or plasma thyroperoxid ase antibody assay (units/volume)on 08-20-2021 TPO Ab Qn 11 [IU]/mL 0-34 [facility] Work Phone: Comment on above: Performed at: [address] [id number] Director: Devante Medina PhD, Phone: [phone] Serum or plasma urea nitroge n measurement (mass/volume)on 08-20-2021 Urea nitrogen [Mass/Vol] 15 mg/dL 7-18 [facility] Work Phone: Thin prep Papanicolaou smear with manual screeningon 08-20-2021 Thin prep Papanicolaou smear with manual screening 25 U/L 15-37 [facility] Work Phone: Thin prep Papanicolaou smear with manual screening 8 5-15 [facility] Work Phone: COVID-19 virus antigen assay SARS-CoV-2 (COVID-19) Ag IA.rapid Ql (Resp) [facility] Work Phone: Vital Signs Date Time Vital Sign Value Performing Clinician Faci lity 06-05-2022 13:40-0400 Diastolic blood pressure 74 mm[Hg] [facility] 06-05-2022 13:40-0400 Heart rate 63 /min [facility] 06-05-2022 13:40-0400 Respiratory rate 14 /min [facility] 06-05-2022 13:40-0400 SaO2% (BldA) [Mass fraction] 98 % [facility] 06-05-2022 13:40-0400 Systolic blood pressure 122 mm[Hg] [facility] 06-05-2022 12:33-0400 Body height 187.96 cm [facility] 06-05-2022 12:33-0400 Body mass index (BMI) [Ratio] 44.9 kg/m2 [facility] 06-05-2022 12:33-0400 Body weight 158.75 kg [facility] 06-05-2022 12:28-0400 Body temperature 97.8 [degF] [facility] 05-27-2022 16:56-0400 Diastolic blood pressure 76 mm[Hg] Dr. Chapo Mcadams Work Phone: [facility] 05-27-2022 16:56-0400 Respiratory rate 18 /min Dr. Chapo Mcadams Work Phone: [facility] 05-27-2022 16:56-0400 Systolic blood pressure 125 mm[Hg] Dr. Chapo Mcadams Work Phone: [facility] 05-27-2022 16:27-0400 Heart rate 62 /min Dr. Chapo Mcadams Work Phone: [facility] 05-27-2022 16:27-0400 SaO2% (BldA) [Mass fraction] 93 % Dr. Chapo Mcadams Work Phone: [facility] 05-27-2022 12:49-0400 Body mass index (BMI) [Ratio] 48 kg/m2 Dr. Chapo Mcadams Work Phone: [facility] 05-27-2022 12:49-0400 Body weight 169.[address] Chapo Mcadams Work Phone: [facility] 05-27-2022 12:29-0400 Body height 187.[address] Chapo Mcadams Work Phone: [facility] 05-27-2022 12:29-0400 Body temperature 97.8 [degF] Dr. Chapo Mcadams Work Phone: [facility] 02-07-2022 08:55-[address] AUGUSTO SILVEIRA MD [facility] 02-07-2022 08:55-0500 Body height [address] AUGUSTO SILVEIRA MD [facility] 02-07-2022 08:55-0500 Body weight 154.[address] AUGUSTO SILVEIRA MD [facility] 02-07-2022 08:55-0500 Body weight 43.63 kg/m2 DR AUGUSTO SILVEIRA MD [facility] 02-07-2022 08:55-0500 Diastolic Blood Pressure Non-Invasive [address] AUGUSTO SILVEIRA MD [facility] 02-07-2022 08:55-0500 Heart rate 61 /min DR AUGUSTO SILVEIRA MD [facility] 02-07-2022 08:55-0500 Respiratory rate 20 /min DR AUGUSTO SILVEIRA MD [facility] 02-07-2022 08:55-0500 Systolic Blood Pressure Non-Invasive [address] AUGUSTO SILVEIRA MD [facility] 01-15-2022 14:03-0500 Body height 187.96 cm [...] 187.[address] Chapo Mcadams Work Phone: [facility] Work Phone: 10-18-2021 15:29-0400 Body mass index (BMI) [Ratio] 48 kg/m2 Dr. Chapo Mcadams Work Phone: [facility] Work Phone: 10-18-2021 15:29-0400 Body temperature 96.5 [degF] Dr. Chapo Mcadams Work Phone: [facility] Work Phone: 10-18-2021 15:29-0400 Body weight 169.[address] Chapo Mcadams Work Phone: [facility] [facility] Work Phone: 10-18-2021 15:29-0400 Diastolic blood pressure 88 mm[Hg] Dr. Chapo Mcadams Work Phone: [facility] Work Phone: 10-18-2021 15:29-0400 Heart rate 66 /min Dr. Chapo Mcadams Work Phone: [facility] Work Phone: 10-18-2021 15:29-0400 Respiratory rate 20 /min Dr. Chapo Mcadams Work Phone: [facility] Work Phone: 10-18-2021 15:29-0400 SaO2% (BldA) [Mass fraction] 94 % Dr. Chapo Mcadams Work Phone: [facility] Work Phone: 10-18-2021 15:29-0400 Systolic blood pressure 142 mm[Hg] Dr. Chapo Mcadams Work Phone: [facility] Work Phone: 10-02-2021 12:47-0400 Body height 187.96 cm Referring Provider Unknown [facility] Work Phone: 10-02-2021 12:47-0400 Body mass index (BMI) [Ratio] 48.46 kg/m2 Referring Provider Unknown [facility] Work Phone: 10-02-2021 12:47-0400 Body surface area Derived from formula 2.85 m2 Referring Provider Unknown [facility] Work Phone: 10-02-2021 12:47-0400 Body temperature 96.5 [degF] Referring Provider Unknown [facility] Work Phone: 10-02-2021 12:47-0400 Body weight 171.21 kg Referring Provider Unknown [facility] Work Phone: 09-24-2021 14:00-0400 Diastolic blood pressure 90 mm[Hg] [facility] Work Phone: 09-24-2021 14:00-0400 Heart rate 63 /min [facility] Work Phone: 09-24-2021 14:00-0400 Respiratory rate 18 /min [facility] Work Phone: 09-24-2021 14:00-0400 SaO2% (BldA) [Mass fraction] 93 % [facility] Work Phone: 09-24-2021 14:00-0400 Systolic blood pressure 137 mm[Hg] [facility] Work Phone: 09-24-2021 13:30-0400 Body temperature 97.5 [degF] [facility] Work Phone: 09-24-2021 12:45-0400 Inhaled oxygen flow rate 2 L/min [facility] Work Phone: 09-24-2021 09:55-0400 Body height 187.96 cm [facility] Work Phone: 09-24-2021 09:55-0400 Body mass index (BMI) [Ratio] 48.6 kg/m2 [facility] Work Phone: 09-24-2021 09:55-0400 Body weight 172.09 kg [facility] Work Phone: Encounters Encounter Date Encounter Type Care Provider Facility Start: 11-16-2024 End: 11-16-2024 Postop follow up visit related to original px Erwin Jose Jr [facility] Start: 11-16-2024 End: 11-16-2024 Encounter identifier Wong France Work Phone: [facility] Start: 11-16-2024 ambulatory Wong Calli France [facility] Start: 10-10-2024 ambulatory Erwin V Jose Jr [facility] Start: 10-07-2024 ambulatory Erwin [facility] Start: 10-06-2024 ambulatory Erwin V Jose Jr [facility] Start: 10-04-2024 ambulatory Erwin V Jose Jr [facility] Start: 10-03-2024 End: 10-03-2024 Encounter identifier Joy Briggs Work Phone: [facility] Start: 10-03-2024 ambulatory [facility]win V Jose Jr [facility] Start: 10-03-2024 ambulatory Wongkasandra France [facility] Start: 09-22-2024 End: 09-22-2024 Encounter identifier [facility]win V Jose Jr [facility] Phone[facility] Start: 09-22-2024 ambulatory Erwin V Jose Jr [facility] Start: 09-16-2024 End: 09-16-2024 Encounter for other preprocedural examination Jermain Rees Work Phone: [facility] Start: 09-16-2024 End: 09-16-2024 Encounter for preprocedural cardiovascular examination Jermain Rees Work Phone: [facility] Start: 09-16-2024 End: 09-16-2024 Encounter identifier Erwin V Jose Jr Work Phone: [facility] Start: 09-16-2024 End: 09-16-2024 Office outpatient new 45 minutes Jermain Rees Work Phone: [facility] Start: 09-16-2024 ambulatory Erwin V Joseluciana [facility] Start: 09-16-2024 ambulatory Erwin V Jose Jr [facility] Start: 08-17-2024 End: 08-17-2024 Office outpatient new 60 minutes Erwin V Jose Jr Work Phone: [facility] Start: 08-17-2024 ambulatory Erwin V Jose Jr [facility] Start: 08-01-2024 End: 08-01-[address] Chapo Mcadams MD Work Phone: [facility] Work Phone: Start: 08-01-2024 End: 08-01-2024 Patient encounter procedure Renita Vásquez NP-C -Laboratory [place] Work Phone: Start: 08-01-2024 End: 08-01-2024 ambulatory Chapo Mcadams Facility:[facility] Start: 07-08-2024 ambulatory Erwin Luiza Garcia [facility] Start: 05-06-2024 End: 05-06-[address] Chapo Mcadams MD Work Phone: [facility] Work Phone: Start: 05-06-2024 End: 05-06-[address] Chapo Mcadams MD -Pulmonary Services/Neurology Work Phone: Start: 05-06-2024 End: 05-06-2024 ambulatory Chapo Mcadams Facility:[facility] Start: 03-17-2024 End: 03-17-[address] Chapo Mcadams MD -Radiology, [place] Work Phone: Start: 03-17-2024 End: 03-17-2024 ambulatory Chapo Mcadams Facility:[facility] Start: 03-06-2023 End: 03-06-2023 ambulatory [facility] Work Phone: Start: 03-06-2023 End: 03-06-2023 Patient encounter procedure [facility] Work Phone: Start: 11-20-2022 End: 11-20-2022 ambulatory [facility] Work Phone: Start: 11-20-2022 End: 11-20-2022 Patient encounter procedure [facility]-Ultrasound, [facility] Work Phone: Start: 11-12-2022 End: 11-12-2022 ambulatory [facility] Work Phone: Start: 11-12-2022 End: 11-12-2022 Patient encounter procedure [facility] Start: 06-05-2022 End: 06-05-2022 ambulatory [facility] Work Phone: Start: 06-05-2022 End: 06-05-2022 Patient encounter procedure [facility]-Radiology, [facility] Start: 05-27-2022 End: 05-27-2022 Emergency department patient visit Dr. Chapo Mcadams Work Phone: [facility]-Emergency Department Start: 02-18-2022 End: 02-19-2022 ambulatory AUGUSTO SILVEIRA MD Facility:B Start: 02-07-2022 End: 02-08-2022 ambulatory AUGUSTO SILVEIRA MD Facility:[facility] Start: 02-07-2022 End: 02-07-[address] AUGUSTO SILVEIRA MD [facility] Start: 02-06-2022 Non-patient / Non-visit Dr. Claudette Mcadams Work Phone: [facility] Start: 02-06-2022 End: 02-06-[address] Chapo Mcadams Work Phone: [facility] Work Phone: Start: 02-06-2022 End: 02-06-[address] Chapo Mcadams Work Phone: [facility]-Cardiovascula r Services Start: 01-30-2022 End: 01-30-[address] Chapo Mcadams Work Phone: [facility] Work Phone: Start: 01-30-2022 End: 01-30-[address] Chapo Mcadams Work Phone: [facility] Start: 01-15-2022 Office outpatient vi sit 15 minutes Chapo Mcadams Work Phone: [facility] Work Phone: Start: 01-15-[address] Robbi Pittmani lity:[id number] Start: 12-18-2021 End: 12-18-[address] Chapo Mcadams Work Phone: [facility] Work Phone: Start: 12-18-2021 End: 12-18-[address] Chapo Mcadams Work Phone: [facility] Start: 12-16-2021 End: 12-16-[address] Chapo Mcadams Work Phone: [facility]-Physical Therapy Start: 11-20-[address] Robbi Duron Faci lity:[id number] Start: 11-08-2021 Chart Update Chapo mcmahon Work Phone: [facility] Work Phone: Start: 11-08-2021 End: 11-08-[address] Robbi Duron Facility:[facility] Start: 11-05-2021 End: 11-05-[address] Chapo Mcadams Work Phone: [facility] Work Phone: Start: 11-05-2021 End: 11-05-[address] Chapo Mcadams Work Phone: [facility]-Pulmonary Services/Neurology Start: 10-21-2021 ambulatory PCP UNKNOWN Facility:[facility] Start: 10-21-2021 Encounter for blood typing Dr. Robbi Duron [facility] Start: 10-21-2021 Encounter for preprocedural laboratory examination Dr. Robbi Duron [facility] Start: 10-18-2021 End: 10-18-[address] Chapo Mcadams Work Phone: [facility] Start: 10-02-2021 Office consultation new/estab patient 60 min Referring Provider Unknown [facility] Work Phone: Start: 10-02-[address] Khari Iniguez Facility:[id number] Start: 09-24-2021 End: 09-24-2021 Admission to same day surgery center [facility] Start: 09-24-2021 Non-patient / Non-visit Dr. Claudette Mcadams Work Phone: [facility] Start: 09-04-2021 End: 09-04-2021 Patient encounter procedure [facility]-Ultrasound, [facility] Start: 08-20-2021 End: 08-20-2021 Patient encounter procedure [facility]-Laboratory, [facility] Encounter for other preprocedural examination Wong France PA-C [facility] Encounter for preprocedural cardiovascular examination Wong France PA-C [facility] Patient encounter status Referri ng Provider Unknown [facility] Work Phone: Procedures Date Procedure Procedure Detail [...] above: Performed By: #### T +S #### [facility] [address] [place] [address] Start: 09-24-2021 Microlaryngoscopy Start: 09-04-2021 [place] scan [place] Start: 05-27-2022 End: 05-27-2022 [facility] Start: 04-23-2022 FUV, Provider: Robbi Duron, Status: Pen, Time: 1:30 PM FUV, Provider: Robbi Duron, Status: Pen, Time: 1:30 PM [facility] Work Phone: Start: 11-20-2021 POV, Provider: Robbi Duron, Status: Pen, Time: 12:30 PM POV, Provider: Robbi Duron, Status: Pen, Time: 12:30 PM CI-Tvdcapzbutrkkk-Bnfqzn ke Work Phone: Start: 11-08-2021 SURGCMC, Provider: Robbi Duron, Status: Pen, Time: 12:00 PM SURGCMC, Provider: Robbi Duron, Status: Pen, Time: 12:00 PM HT-Fygbdvhhqxvqnl-O[facility] ke Work Phone: Start: 09-24-2021 Anes esoph thyrd larynx trach & lymph neck 1yr ANESTH NECK ORGAN 1YR/> [facility] Work Phone: Start: 09-24-2021 Laryngoscopy w/wo tracheoscopy dx except DX LARYNGOSCOPY EXCL NB [facility] Work Phone: Start: 09-24-2021 Patient discharge [facility] Work Phone: Patient Education [facility] Work Phone: Patient referral [facility] Work Phone: Payers Date Payer Category Payer Self-pay [id number] [facility] 2024 Unknown [id number] [facility] 2021 Unknown [id number] 1968 Unknown [id number] 2.0.1.157215.3.579.2.356 1968 Unknown [id number] 2.0.1.846397.3.579.2.356 1968 Unknown [id number] 2.0.1.678138.3.579.2.356 1968 Unknown [id number] 2.0.1.515902.3.579.2.356 1968 Unknown [id number] 2.840.1.901448.3.579.2.356 1968 Unknown [id number] 2.840.1.906578.3.579.2.627 1968 Unknown [id number] 2.840.1.603125.3.579.2.627 1968 Unknown [id number] 2.16.840.1.742437.3.579.2.1313 1968 Unknown [id number] 2.16.840.1.111106.3.579.2.1314 1968 Unknown [id number] 2.16.840.1.514969.3.579.2.1313 1968 Unknown [id number] 2.16.840.1.961716.3.579.2.131 1968 Unknown [id number] 2.840.1.897689.3.579.2.1313 1968 Unknown [id number] 2.840.1.585793.3.579.2.1313 1968 Unknown [id number] 2.840.1.879556.3.579.2.1313 1968 Unknown [id number] 2.840.1.679468.3.579.2.1313 1968 Unknown [id number] 2.840.1.491001.3.579.2.1313 1968 Unknown [id number] 2.840.1.594474.3.579.2.1313 1968 Unknown [id number] 2.840.1.554502.3.579.2.1314 Unknown [id number] Unknown [facility] Unknown [id number] 2.840.1.311345.3.579.2.462 Unknown [id number] 2.16840.1.517512.3.579.2.462 Unknown [id number] 2.16840.1.256890.3.579.2.462 Unknown [id number] 2.840.1.625511.3.579.2.462 Social History Date Type Detail Facility Start: 06-28-2020 End: 11-16-2024 Tobacco smoking status NHIS Unknown if ever smoked [facility] Start: 06-28-2020 Cigarettes [facility] Start: 1970 Sex Assigned At Male [facility]Leif [facility] Work Phone: Start: 02-07-2022 Tobacco smoking status Heavy tobacco smoker (finding) [facility] Sex Assigned At Sex [facility] Start: 05-27-2022 Tobacco smoking status NHIS Smokes tobacco daily (finding) [facility] Start: 05-17-2024 Sex Male (finding) [facility] Start: 11-16-2024 Health-related Behavior Caffeine Use Details [facility] Start: 07-04-2024 Sexual Orientation Choose not to disclose [facility] NEGATED: Highlighted row Alcohol intake Alcohol Use Details [facility] [place] Go[place] Date Patient Goal Desired Activity /State Functional Status Date Assessment Result Facility 02-07-2022 Functional Status Sensory Deficits None [facility] Mental Status Date Assessment Result Facility 06-05-2022 Cognitive function Voice/Name [facility] Work Phone: 05-27-2022 Cognitive function Voice/Name [facility] Work Phone: 09-24-2021 Cognitive function Voice/Name [facility] Work Phone: Clinical Notes 10-02-2020 to 11-18-2024 Note Date & Type Note Facility 11-18-2024 Evaluation note Type assessment [facility] Work Phone: [phone] History of Present illness Narrative* Encounter Date [...] not using a walker/cane/wheelchair device for ambulation. [employer] [facility] Work Phone: 1(323) 986-217403-28-[address] De Jesus [facility] May 27, 2022 4:56pm Note Date/Time May 27, 2022 1:0 4pm [facility] Medical Records Department [address] [place] [address] Emergency Department Summary 05/27/22 MR#: [id number] Acct: [id number] Name: IVAN GODINEZ Rep #:[id number] : [...] No headaches. 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 [facility] Medical History (Updated 05/27/22 @ 16:49 by [...] % (Auto) 58.0 Lymph % (Auto) 33.7 Yell % (Auto) 4.9 Eos % (Auto) 2.4 [...] (Auto) Neut % (Auto) Lymph % (Auto) Yell % (Auto) Eos % (Auto) Baso % [...] your Primary Care Provider. Call [facility] ([phone]) or report to the closest Emergency Room. Call 911 if necessary. 05/27/22 [id number] <Electronically signed by Fabio De Jesus MD> Cosigner Signature (if applicable): CC: Dr. Chapo Mcadams MD ~ Signed [facility] Work Phone: 1(200) 766-683709-09-2022 NotePost Operative Note: PreOp Diagnosis: right vocal cord lesion Post-Procedure Diagnosis: right vocal cord lesion Procedure: 1. Microdirect laryngoscopy 2. Biopsy of Right vocal cord lesion 3. Excision of right vocal cord lesion 4. bronchoscopy 5. Esophagoscopy Surgeon: Gio Resident/Fellow/Other Lead Software Test Engineer: Melonie Estimated Blood Loss (mL): 2 Specimen: [...] Completion Last Updated: 08-Nov-2021 17:33 by Robbi Duron)[facility]09-09-2022 NoteHistory & Physical Reviewed: I have [...] the note. I personally evaluated the patient [id number] Electronic Signatures: Robbi Duron) (Signed 08-Nov-2021 17:31) Authored: Note Completion Co-Signer: History & Physical Reviewed, ERAS, Consent, Note Completion Ana María Wilhelm (Resident)) (Signed 08-Nov-2021 13:08) Authored: History & Physical Reviewed, ERAS, Consent, Note Completion Last Updated: 08-Nov-2021 17:31 by Robbi Duron)[facility]08-01-2022 History of Present illness NarrativeEliceo morales [...] a verrucous lesion. His voice back to normal.[facility] Work Phone: 1([phone]) 364-708008-03-2021 History of Present illness NarrativeEliceo morales is [...] thyroid lesion. I do not have that information.BR-Lfqnnfhhqtwaug-Knheyini Work Phone: chief complaint Narrative - ReportedConsultation for a laryngeal lesion.OZ-Lpzkvievwtalxh-Ysxwssos Work Phone: consult note* Clinical Note Date No Information [facility] Work Phone: Discharge summary* Clinical Note Date No Information [facility] Work Phone: Evaluation + Plan note Future Appointments [facility] Evaluation noteNo assessment information available [facility] Work Phone: Evaluation note* Diagnosis Onset Date Resolution Status Mass of larynx acute [facility] Work Phone: Evaluation note* Diagnosis Onset Date Resolution Status Mass of larynx acute Multinodular goiter (nontoxic) acute Obesity acute [facility] Work Phone: Evaluation note* Diagnosis Onset Date Resolution Status Multinodular goiter (nontoxic) acute Obesity acute [facility] Work Phone: History and physical note* Clinical Note Date No Information [facility] Work Phone: Hospital course Narrative No data available for this section [facility] Hospital Discharge instructions No data available for this section [facility] Hospital Discharge instructions Additional Instructions Stop smoking![facility] Work Phone: Instructions* Date Instruction Additional Infor mation No Information [facility] Work Phone: Progress note No data available for this section [facility] Progress note* Clinical Note Date No Information [facility] Work Phone: Reason for referral (narrative)No reason for [facility]: Reason for referral (narrative)* Reason For Referral No Information [facility] Work Phone: Family History Relationship Condition Age [...] No June 28, 2020 11:00am Power of Abrasive Mixer No June 28 11:00am Advance Directive Response Recorded Date/ Time Advance Directives No March 24, 2016 4:30pm Living Will No September 09, 2021 8:10am Power of Abrasive Mixer No September 09 8:10am Advance Directive Response Recorded Date/ Time Advance Directives No March 24, 2016 3:30pm Living Will No September 09, 2021 7:10am Power of Abrasive Mixer No September 09 7:10am Advance Directive Response Recorded Date/ Time Name of Medical Power of Abrasive Mixer YOLANDA GODINEZ- May 27, 2022 2:57pm Advance Directives No March 24, 2016 4:30pm Living Will Yes May 27, 2022 2:57pm Power of Abrasive Mixer Yes May 27 2:57pm Advance Directive Response Recorded Date/ Time Advance Directives No March 24, 2016 4:30pm Living Will Yes May 27, 2022 2:57pm Power of Abrasive Mixer Yes May 27 2:57pm Advance Directive Response Recorded Date/ Time Advance Directives No March 24, 2016 3:30pm Living Will Yes May 27, 2022 1:57pm Power of Abrasive Mixer Yes May 27 1:57pm Advance Directive Response [...] section and content) DATE CREATED AUTHOR 01/16/2022 [facility] DATE CREATED AUTHOR AUTHOR'S ORGANIZ ATION 02/25/2022 [facility] DATE CREATED AUTHOR AUTHOR'S ORGANIZ ATION 08/21/2024 [facility] DATE CREATED AUTHOR AUTHOR'S ORGANIZ ATION 09/19/2024 [facility] DATE CREATED AUTHOR AUTHOR'S ORGANIZ ATION 09/20/2024 [facility] DATE CREATED AUTHOR AUTHOR'S ORGANIZ ATION 10/07/2024 [facility] DATE CREATED AUTHOR AUTHOR'S ORGANIZ ATION 11/22/2024 [facility] Care Team (unrecognized sect ion and content) Care Team Personnel Name: CHAPO MCADAMS MD Member Role: Primary Care Physician Address: Address: [address] [place] [address]- Care Team Related Persons Name: YOLANDA GODINEZ Address: Home [address] [place] [address], [place] [address] Care Teams (unrecognized sec tion and content) [...] 2024 End: March 17, 2024 Albino Berkowitz JOB MOLDER, JOB MOLDER-C Other Provider Active St art: March 17, [...] 2024 End: August 01, 2024 Renita Vásquez JOB MOLDER, JOB MOLDER-C Attending Provider Active S tart: August 01, 2024 End: August 01, 2024 Renita Vásquez JOB MOLDER, JOB MOLDER-C Referring Provider Active S tart: August 01, [...] BE BASED ON THE PRIMARY CLINICAL RECORDS. [employer] provides no warranty or guarantee of the accuracy or completeness of information in this document.
[2024-12-15 17:56] LABS: Hematocrit 45.4 % (40-54); Hemoglobin 15.9 g/dL (13.0-16.5); Immature Granulocytes Count 0.030 X10^3/uL (0.0-0.0); Mean Corp Hgb Conc 35.0 g/dL (32-36); Mean Corpuscular Volume 84.2 fL (80-94); Mean Platelet Vol. 9.7 fl (6.2-12.0); NRBC Flagged by Analyzer 0 % (0-5); Platelet Count 274 K/mm3 (150-450); RBC Distribution Width CV 13.6 % (11.6-14.6); RBC Distribution Width SD 41.5 fl (35.1-43.9); Red Blood Count 5.39 M/mm3 (4.6-6.2); White Blood Count 9.7 K/mm3 (4.4-11.0)
[2024-12-15 18:30] LABS: AST(SGOT) 26 U/L (<=37); Alanine Aminotransfer ALT/SGPT 39 U/L (<=46); Albumin, Serum 4.3 g/dL (3.5-5.0); Alkaline Phosphatase 89 U/L (40-129); Anion Gap 13 (5-15); BUN 16 mg/dL (4-19); BUN/Creat Ratio 17.7 RATIO (10-20); Calcium,Total 9.8 mg/dL (7.6-11.0); Carbon Dioxide 26.8 mmol/L (21.0-32.0); Chloride 102 mmol/L (98-108); Cholesterol 132 mg/dL (<=200); Globulin 3.3 g/dL (2.2-4.2); Glucose 104 mg/dL (70-99); Low Density Lipoprotein Calc. 47 mg/dL; Magnesium 2.0 mg/dL (1.5-2.2); Potassium 3.5 mmol/L (3.3-5.1); Triglycerides 278 mg/dL; Very Low Density Lipoprotein 56 mg/dL (5-40); cholesterol:hdl ratio screen 4.43
== END | disposition home or self-care (01) ==
LOC: MFPLAB 16:58
PROVIDERS: PCP Family Medicine; Visit Provider Family Medicine
DX: I10 Essential (primary) hypertension (principal); R73.09 Other abnormal glucose; E78.5 Hyperlipidemia, unspecified
CPT/HCPCS: 36415; 80053; 80061; 83036; 83735; 84443; 85025